=== PATIENT | male | born 1945 | race Caucasian/White ===

== ENCOUNTER → 2024-09-05 12:49 | Outpatient (REF) | payer OTHER, SELFPAY | LOC: RAD 12:49 | PROVIDERS: ATTENDING PHYSICIAN Surgery Vascular Surgery | DX: I65.23 Occlusion and stenosis of bilateral carotid arteries (principal) | CPT/HCPCS: 93880 ==

== ENCOUNTER 2024-11-10 17:57 | Inpatient (IN) | payer OTHER, SELFPAY ==
--- NOTE | 2024-11-10 12:04 | ED.GENMED ---
ED Provider Triage
<Hebert Mg PA-C - Last Filed: 11/10/24 12:05>
-
Patient seen by provider in Triage?: Seen in Triage
79-year-old male presents with several days worth of wet cough fatigue congestion chills but no measurable fever. No vomiting or nausea. No chest pain. No known sick contacts. No prior history of COPD or CHF
Patient looks nontoxic overall however pulse ox is 85% with a decent signal. However clinically he does not appear to be in distress. Will start workup at triage with labs COVID and flu testing chest x-ray as well as BNP
Seen by healthcare provider at triage but warrants further assessment
History of Present Illness
<Hebert Mg PA-C - Last Filed: 11/10/24 12:05>
General
Chief Complaint: Cold/Flu/URI Symptoms
Time Seen by Provider: 11/10/24 15:49
<Arron Buckley PA-C - Last Filed: 11/10/24 21:27>
History of Present Illness
History of Present Illness:
79-year-old male presents the emergency department for evaluation of cough and congestion for the past week. Reports nasal congestion, postnasal drip, and a productive cough. Endorses shortness of breath and general malaise as well as weakness.
Family is concerned that he cannot ambulate well without being profoundly weak and having to sit down. Denies any leg swelling. No fevers or night sweats
Past History
<Hebert Mg PA-C - Last Filed: 11/10/24 12:05>
Past History
ED Past Medical History: HTN and Hypercholesterolemia
ED Past Surgical History: Other (Noncontributory )
Social History
Tobacco: Non-smoker
Alcohol: Occasional
Drug: None
Personal:
Living: with family
Employment: Retired
Family History
Family History: Other (n/c )
Review of Systems
<Arron Buckley PA-C - Last Filed: 11/10/24 21:27>
Review of Systems
Allergies reviewed?: Yes
All Other Systems: ROS reviewed and negative except as documented in HPI and ROS
Phy Exam
<Arron Buckley PA-C - Last Filed: 11/10/24 21:27>
Physical Exam
Physical Exam:
GEN: Well appearing, NAD, WDWN
Eyes: PERRLA, EOMs intact, no scleral icterus
HENT: NCAT, oral mucosa moist, no JVD, no cervical adenopathy.
Lungs: Slightly tachypneic, grossly diminished breath sounds, no wheezes or rales
Cardiac: RRR, no M/R/G, no peripheral edema. Radial pulses 2+ bilat
Neuro: AO x 3
MSK: No gross deformity or ecchymosis. No edema. No digital clubbing
Skin: No rashes, petechiae. Normal color, no pallor or jaundice.
Psych: Calm, cooperative, proper hygiene
Course
<Hebert Mg PA-C - Last Filed: 11/10/24 12:05>
Orders/Labs/Results
Orders:
Orders
11/10/24 12:01
CR Chest - 2 Views Urgent
Comment:
Reason For Exam: cough
11/10/24 12:05
Electrocardiogram (*1) Urgent
Reason for Study: Shortness of Breath
EKG- Treatment ONCE
11/10/24 12:27
COVID-19 Antigen Urgent
Source: Nasal Swab
Complete Blood Count/With Diff Urgent
Comprehensive Metabolic Panel Urgent
NT-proBNP Urgent
Influenza A+B Rapid Molecular Urgent
YOAV Source: Nasal Swab
Specimen Description:
11/10/24 15:56
0.9% Sodium Chloride 1000 ml [Nss] 1,000 ml IV BOLUS
Azithromycin 500 mg/250 ml [Zithromax Infusion] 500 mg in 250 ml IV NOW
CefTRIAXone [Rocephin] 1,000 mg IV NOW STA
11/10/24 16:16
Sterile Water [Sterile Water For Injection] 10 ml .ROUTE .STK-MED ONE
11/10/24 16:26
Lactic Acid Q4H
Comment: CANCEL 2nd LACTIC ACID IF 1st LACTIC ACID IS LESS THAN 2
Blood Culture Q30M
YOAV Source: Blood/Venous
Specimen Description:
Blood Culture Q30M
YOAV Source: Blood/Venous
Specimen Description:
11/10/24 17:21
Admit/Transfer Patient As Directed
Co-Sign Provider:
Level of Care: Inpatient admission
Assign to:: Telemetry
Physician / Group: angelica
Diagnosis: pneumonia
Reason for Telemetry: Arrhythmia
Date to Stop Telemetry: 11/13/24
Time to Stop Telemetry: 11:00
Reason for Hospitalization: pneumonia
Expected length of stay greater than two midnights?: Yes
ELOS- Estimated Length of Stay in days: 2
I certify the patient meets the requirements for IP care: Yes
PRN Pain Medication Management As Directed
May give lesser potent ordered pain med per pt: Yes
preference::
Protocol:: Medication orders for pain may be administered in a
manner that supports deferring to patient preference
when the pt is:
- Requesting an ordered lesser potent pain medication.
Least to most potent pain medications are defined
as: acetaminophen < NSAID < tramadol < opioids
(morphine, oxycodone, hydromorphone).
- Requesting a lesser dose of the same medication IF
ORDERED.
- Requesting a less intrusive route of administration
if both routes are prescribed by the provider (PO <
IV).
11/10/24 17:29
Sputum Culture [Respiratory Culture/Gram Stain] Urgent
YOAV Source: Sputum
Specimen Description:
11/10/24 18:38
0.9% Sodium Chloride 1000 ml [Nss] 1,000 ml IV 100 mls/hr
Acetaminophen [Tylenol] 1,000 mg PO Q6HPRN PRN
11/10/24 18:38
DX Deep Vein Thrombosis Video Routine
11/10/24 20:00
Lactic Acid Q4H
Comment: CANCEL 2nd LACTIC ACID IF 1st LACTIC ACID IS LESS THAN 2
Carvedilol [Coreg] 6.25 mg PO BID
Heparin 5,000 units SC Q12
11/10/24 22:00
Allopurinol [Zyloprim] 100 mg PO HS
Atorvastatin [Lipitor] 40 mg PO HS
Doxycycline Hyclate [Vibramycin] 100 mg 0.9% Sodium Chloride 250 ml [Nss] 250 ml IV Q12H
11/11/24 08:00
Amlodipine [Norvasc] 10 mg PO DAILY
Aspirin Chewable [Low Strength Aspirin] 81 mg PO DAILY
Cholecalciferol (Vitamin D3) [VITAMIN D3 (cholecalciferol)] 25 mcg PO DAILY
11/11/24 16:00
CefTRIAXone [Rocephin] 1,000 mg IV Q24H
11/13/24 11:00
DC Protocol for Telemetry ONCE
Abnormal Lab Results
11/10/24
12:27
WBC 43.9 H* 10^3/uL
(4.8-10.8)
RBC 3.67 L 10^6/uL
(4.70-6.10)
Hgb 10.9 L g/dL
(13.0-18.0)
Hct 34.3 L %
(39.0-52.0)
MCHC 31.8 L g/dL
(33.0-37.0)
RDW 17.7 H %
(11.5-14.5)
Abs Immat Gran (auto) 1.4 H 10^3/uL
(0-0.05)
Absolute Neuts (auto) 38.3 H 10^3/uL
(1.4-6.5)
Absolute Monos (auto) 1.1 H 10^3/uL
(0.1-0.6)
Absolute Eos (auto) 1.2 H 10^3/uL
(0-0.7)
Absolute Basos (auto) 0.3 H 10^3/uL
(0-0.2)
Immature Gran % 3.2 H %
(0-0.5)
Neutrophils % 87.4 H %
(42.2-75.2)
Lymphocytes % 3.7 L %
(20.5-51.1)
Potassium 5.2 H mmol/L
(3.5-5.1)
BUN 64 H mg/dl
(9-20)
Creatinine 2.9 H mg/dL
(0.7-1.3)
Glucose 122 H mg/dl
(70-99)
Alkaline Phosphatase 144 H U/L
(38-126)
11/10/24 12:27
11/10/24 12:27
Vital Signs
Initial and Last Documented VS:
Initial Vital Signs
Temp Pulse Resp Pulse Ox
97.9 F 71 16 85
11/10/24 11:59 11/10/24 11:59 11/10/24 11:59 11/10/24 11:59
Last Documented Vital Signs
Temp Pulse Resp BP Pulse Ox
97.4 F 70 20 107/49 90
11/10/24 19:40 11/10/24 19:40 11/10/24 19:40 11/10/24 19:40 11/10/24 19:40
<Arron Buckley PA-C - Last Filed: 11/10/24 21:27>
Orders/Labs/Results
Orders:
Orders
11/10/24 12:01
CR Chest - 2 Views Urgent
Comment:
Reason For Exam: cough
11/10/24 12:05
Electrocardiogram (*1) Urgent
Reason for Study: Shortness of Breath
EKG- Treatment ONCE
11/10/24 12:27
COVID-19 Antigen Urgent
Source: Nasal Swab
Complete Blood Count/With Diff Urgent
Comprehensive Metabolic Panel Urgent
NT-proBNP Urgent
Influenza A+B Rapid Molecular Urgent
YOAV Source: Nasal Swab
Specimen Description:
11/10/24 15:56
0.9% Sodium Chloride 1000 ml [Nss] 1,000 ml IV BOLUS
Azithromycin 500 mg/250 ml [Zithromax Infusion] 500 mg in 250 ml IV NOW
CefTRIAXone [Rocephin] 1,000 mg IV NOW STA
11/10/24 16:16
Sterile Water [Sterile Water For Injection] 10 ml .ROUTE .[facility]-MED ONE
11/10/24 16:26
Lactic Acid Q4H
Comment: CANCEL 2nd LACTIC ACID IF 1st LACTIC ACID IS LESS THAN 2
Blood Culture Q30M
YOAV Source: Blood/Venous
Specimen Description:
Blood Culture Q30M
YOAV Source: Blood/Venous
Specimen Description:
11/10/24 17:21
Admit/Transfer Patient As Directed
Co-Sign Provider:
Level of Care: Inpatient admission
Assign to:: Telemetry
Physician / Group: angelica
Diagnosis: pneumonia
Reason for Telemetry: Arrhythmia
Date to Stop Telemetry: 11/13/24
Time to Stop Telemetry: 11:00
Reason for Hospitalization: pneumonia
Expected length of stay greater than two midnights?: Yes
ELOS- Estimated Length of Stay in days: 2
I certify the patient meets the requirements for IP care: Yes
PRN Pain Medication Management As Directed
May give lesser potent ordered pain med per pt: Yes
preference::
Protocol:: Medication orders for pain may be administered in a
manner that supports deferring to patient preference
when the pt is:
- Requesting an ordered lesser potent pain medication.
Least to most potent pain medications are defined
as: acetaminophen < NSAID < tramadol < opioids
(morphine, oxycodone, hydromorphone).
- Requesting a lesser dose of the same medication IF
ORDERED.
- Requesting a less intrusive route of administration
if both routes are prescribed by the provider (PO <
IV).
11/10/24 17:29
Sputum Culture [Respiratory Culture/Gram Stain] Urgent
YOAV Source: Sputum
Specimen Description:
11/10/24 18:38
0.9% Sodium Chloride 1000 ml [Nss] 1,000 ml IV 100 mls/hr
Acetaminophen [Tylenol] 1,000 mg PO Q6HPRN PRN
11/10/24 18:38
DX Deep Vein Thrombosis Video Routine
11/10/24 20:00
Lactic Acid Q4H
Comment: CANCEL 2nd LACTIC ACID IF 1st LACTIC ACID IS LESS THAN 2
Carvedilol [Coreg] 6.25 mg PO BID
Heparin 5,000 units SC Q12
11/10/24 22:00
Allopurinol [Zyloprim] 100 mg PO HS
Atorvastatin [Lipitor] 40 mg PO HS
Doxycycline Hyclate [Vibramycin] 100 mg 0.9% Sodium Chloride 250 ml [Nss] 250 ml IV Q12H
11/11/24 08:00
Amlodipine [Norvasc] 10 mg PO DAILY
Aspirin Chewable [Low Strength Aspirin] 81 mg PO DAILY
Cholecalciferol (Vitamin D3) [VITAMIN D3 (cholecalciferol)] 25 mcg PO DAILY
11/11/24 16:00
CefTRIAXone [Rocephin] 1,000 mg IV Q24H
11/13/24 11:00
DC Protocol for Telemetry ONCE
Abnormal Lab Results
11/10/24
12:27
WBC 43.9 H* 10^3/uL
(4.8-10.8)
RBC 3.67 L 10^6/uL
(4.70-6.10)
Hgb 10.9 L g/dL
(13.0-18.0)
Hct 34.3 L %
(39.0-52.0)
MCHC 31.8 L g/dL
(33.0-37.0)
RDW 17.7 H %
(11.5-14.5)
Abs Immat Gran (auto) 1.4 H 10^3/uL
(0-0.05)
Absolute Neuts (auto) 38.3 H 10^3/uL
(1.4-6.5)
Absolute Monos (auto) 1.1 H 10^3/uL
(0.1-0.6)
Absolute Eos (auto) 1.2 H 10^3/uL
(0-0.7)
Absolute Basos (auto) 0.3 H 10^3/uL
(0-0.2)
Immature Gran % 3.2 H %
(0-0.5)
Neutrophils % 87.4 H %
(42.2-75.2)
Lymphocytes % 3.7 L %
(20.5-51.1)
Potassium 5.2 H mmol/L
(3.5-5.1)
BUN 64 H mg/dl
(9-20)
Creatinine 2.9 H mg/dL
(0.7-1.3)
Glucose 122 H mg/dl
(70-99)
Alkaline Phosphatase 144 H U/L
(38-126)
11/10/24 12:27
11/10/24 12:27
Vital Signs
Initial and Last Documented VS:
Initial Vital Signs
Temp Pulse Resp Pulse Ox
97.9 F 71 16 85
11/10/24 11:59 11/10/24 11:59 11/10/24 11:59 11/10/24 11:59
Last Documented Vital Signs
Temp Pulse Resp BP Pulse Ox
97.4 F 70 20 107/49 90
11/10/24 19:40 11/10/24 19:40 11/10/24 19:40 11/10/24 19:40 11/10/24 19:40
<Arron Buckley PA-C - Last Filed: 11/10/24 21:27>
MDM/Problems Addressed
MDM/Problems Addressed:
Patient is hypoxic with dramatic leukocytosis thus will warrant inpatient hospitalization for IV antibiotics
<Arron Buckley PA-C - Last Filed: 11/10/24 21:27>
*Critical Care Note
Total Time (30-74mins, 75-104mins- exclusive of procedures): Not Applicable
ED Attending Note
<Hebert Mg PA-C - Last Filed: 11/10/24 12:05>
-
Portions of this chart may have been created with voice recognition software.� Occasional wrong word or��sound alike� substitutions may have occurred due to the inherent limitations of voice recognition software.
Discharge Plan
Departure
Patient Disposition: Admit
Date of Disposition: 11/10/24
Time of Disposition: 16:46
Admit to: Med/Surg
Presentation/result/management discussed w/ accepting MD/DO: Hospitalist
Discharge Problem:
Bilateral pneumonia, Acute hypoxic respiratory failure, Acute kidney injury
Interventions
Interventions:
*Risk Screen - Suicide Last Done: 11/10/24 11:59
*General Assessment Last Done: 11/10/24 16:31
*Neglect/Abuse Screening Last Done: 11/10/24 11:59
ED- Fall Risk Assessment Last Done: 11/10/24 18:41
*ED COVID-19 Vaccine History Last Done: 11/10/24 16:31
*Nursing Disposition Last Done: 11/10/24 18:41
ED- Pulmonary Assessment Last Done: 11/10/24 16:36
Discharge Date and Time
Discharge Date/Time: 11/10/24 18:53
[2024-11-10 12:42] LABS: Hematocrit 34.3 % (39.0-52.0); Hemoglobin 10.9 g/dL (13.0-18.0); Mean Corp Hgb Conc. 31.8 g/dL (33.0-37.0); Mean Corpuscular Hgb 29.7 pg (27.0-31.0); Mean Corpuscular Volume 93.5 fL (80.0-94.0); Mean Platelet Volume 9.1 fL (7.4-10.4); Platelet Count 178 10^3/uL (130-400); Red Blood Cell Count 3.67 10^6/uL (4.70-6.10); Red Cell Dist. Width 17.7 % (11.5-14.5); White Blood Cell Count 43.9 10^3/uL (4.8-10.8)
[2024-11-10 12:51] LABS: ALT (SGPT) 29 U/L (0-50); AST (SGOT) 23 U/L (17-59); Albumin 3.7 g/dl (3.5-5.0); Alkaline Phosphatase 144 U/L (38-126); Blood Urea Nitrogen 64 mg/dl (9-20); Calcium 9.6 mg/dl (8.4-10.2); Carbon Dioxide 24 mmol/L (22-30); Chloride 103 mmol/L (98-107); Glucose 122 mg/dl (70-99); Potassium 5.2 mmol/L (3.5-5.1); Sodium 140 mmol/L (135-145); Total Bilirubin 0.8 mg/dl (0.2-1.3); Total Protein 6.7 g/dl (6.3-8.2)
[2024-11-10 12:56] LABS: NT-proBNP 18700 pg/ml
[2024-11-10 12:58] LABS: COVID-19 Antigen Negative (Negative)
[2024-11-10 13:10] LABS: % Basophils 0.6 % (0-2); % Eosinophils 2.6 % (0-6); % Immature Granulocytes 3.2 % (0-0.5); % Lymphocytes 3.7 % (20.5-51.1); % Monocytes 2.5 % (1.7-9.3); % Neutrophils 87.4 % (42.2-75.2); Absolute Basophils 0.3 10^3/uL (0-0.2); Absolute Eosinophils 1.2 10^3/uL (0-0.7); Absolute Immature Granulocytes 1.4 10^3/uL (0-0.05); Absolute Lymphocytes 1.6 10^3/uL (1.2-3.4); Absolute Monocytes 1.1 10^3/uL (0.1-0.6); Absolute Neutrophils 38.3 10^3/uL (1.4-6.5); Nucleated Red Blood Cells % 0.2 % (-)
[2024-11-10 15:56] VITALS: BP 116/63
[2024-11-10] MEDS: ROCEPHIN 1000 MG IV (16:26)
[2024-11-10] MEDS: NSS 1000 IV ×2 (16:26→20:14)
[2024-11-10 16:31] VITALS: BMI 22.8
[2024-11-10 16:52] LABS: Lactic Acid 1.8 mmol/L (0.7-2.0)
--- NOTE | 2024-11-10 17:45 | HPS.HSE ---
Family Physician
-
Family Physician: Martín Handy MD
Chief Complaint
-
shortness of breath
History of Present Illness
79-year-old male past medical history of hypertension, hypercholesteremia, gout, presenting with 1 week of of wet cough, fatigue, congestion and chills, postnasal drip but no fever. No vomiting or nausea. No chest pain. No sick contacts. Patient
having difficulty with ambulation. No leg swelling. No weight gain. Denies sore throat. No sick contacts. Denies nausea vomiting or diarrhea.
No history of heart or lung problems.
Patient follows Dr. Mane for his chronic kidney disease was stable as of a month ago.
Denies smoking or alcohol use.
Medical History
Past Medical History
Past Medical History: Reports Other (hypertension, hypercholesteremia, gout,)
Past Surgical History: Reports None
Social History
Tobacco: Non-smoker
Alcohol: None
Drug: None
Family History
Family History: Not pertinent
Allergies / Home Medications
Allergies reflects when Allergies were last updated in [employer].
Home Medications with original date entered in [employer]
Allergy/Medication List:
Allergies
Allergy/AdvReac Type Severity Reaction Status Date / Time
No Known Allergies Allergy Verified 11/10/24 11:59
Home Medications
Baking Soda 0.25 tsp PO DAILY 11/10/24
acetaminophen 500 mg tablet (Tylenol Extra Strength) 1,000 mg PO Q6HPRN PRN mild pain 11/10/24
allopurinol 100 mg tablet 100 mg PO HS 11/10/24
amlodipine 10 mg tablet 10 mg PO DAILY 11/10/24
aspirin 81 mg chewable tablet 81 mg PO DAILY 11/10/24
atorvastatin 40 mg tablet 40 mg PO HS 11/10/24
carvedilol 6.25 mg tablet 6.25 mg PO BID 11/10/24
cholecalciferol (vitamin D3) 25 mcg (1,000 unit) tablet (Vitamin D3) 25 mcg PO DAILY 11/10/24
hydrochlorothiazide 25 mg tablet 25 mg PO DAILY 11/10/24
lisinopril 40 mg tablet 40 mg PO HS 11/10/24
Review of Systems
-
History Source: Patient
A 12 point ROS was completed and negative except as noted: Yes
Constitutional: Reports No Symptoms
EENT: Reports No Symptoms
Respiratory: Reports See HPI
Cardiac: Reports No Symptoms
Abdomen/GI: Reports No Symptoms
: Reports No Symptoms
Musculoskeletal: Reports No Symptoms
Skin: Reports No Symptoms
Neurological: Reports No Symptoms
Endocrine: Reports No Symptoms
Hematologic/Lymphatic: Reports No Symptoms
Psych: Reports No Symptoms
Physical Exam
Vital Signs
Vital Signs
Temp Pulse Resp BP Pulse Ox
97.9 F 65 17 116/63 92
11/10/24 11:59 11/10/24 16:30 11/10/24 16:30 11/10/24 15:56 11/10/24 16:36
Physical Exam
General: Well Developed, Well Nourished and No Apparent Distress
HEENT: NormoCephalic, Moist mucous membranes and Atraumatic
Respiratory: Clear
Cardiac: S1/S2 and Regular Rhythm; No Murmur or Rub
GI: Soft, Non Tender, Non Distended and Normal Bowel Sounds; No Organomegaly
Rectal: Deferred by Provider
Musculoskeletal: No Clubbing, No Cyanosis and No Edema
Skin: No Rash
Neuro: Nonfocal/grossly intact
Laboratory Results
-
11/10/24 12:27
11/10/24 12:27
Laboratory Results
Lactic Acid 1.8 mmol/L (0.7-2.0) 11/10/24 16:26
Total Bilirubin 0.8 mg/dl (0.2-1.3) 11/10/24 12:27
AST 23 U/L (17-59) 11/10/24 12:27
ALT 29 U/L (0-50) 11/10/24 12:27
Alkaline Phosphatase 144 U/L (38-126) H 11/10/24 12:27
Data Reviewed
-
Lab Data: Labs Reviewed by me
Old Records: Reviewed
Impression/Plan
-
IMPRESSION:
PLAN:
# Hypoxemic respiratory failure secondary to bilateral pneumonia
-Patient on 5 L oxygen
-Chest x-ray shows patchy parenchymal airspace opacity within both lungs, appearance highly suggestive of pneumonia
-COVID and flu negative
-Cardiac BNP of 18,000 although no evidence of heart failure
-Check blood cultures
-Ceftriaxone/doxycycline
# ANGELINA on CKD versus CKD
# Mild hyperkalemia
-Pain of 2.9 but prior was 1.9 in 2009
-Monitor with IV fluids
-Hold hydrochlorothiazide, lisinopril
Essential hypertension
-Continue amlodipine
-Continue Coreg
Hypercholesterolemia
Gout
-Continue allopurinol
DNR/DNI
DVT prophylaxis�heparin
Regular diet
[2024-11-10] MEDS: ZITHROMAX INFUSION 250 IV (17:46)
[2024-11-10 19:40] VITALS: BP 107/49
[2024-11-10] MEDS: LIPITOR 40 MG PO (21:05)
[2024-11-10] MEDS: HEPARIN 5000 UNITS SC (21:05)
[2024-11-10] MEDS: COREG 6.25 MG PO (21:05)
[2024-11-10] MEDS: VIBRAMYCIN 260 MG IV (21:05)
[2024-11-10] MEDS: ZYLOPRIM 100 MG PO (22:22)
[2024-11-10 22:39] VITALS: BP 127/65
[2024-11-11 03:28] VITALS: BP 116/48
[2024-11-11] MEDS: NSS 1000 IV (05:42)
[2024-11-11 07:00] VITALS: BP 107/54
[2024-11-11] MEDS: HEPARIN 5000 UNITS SC ×2 (08:37→19:44)
[2024-11-11] MEDS: COREG 6.25 MG PO ×2 (08:37→19:44)
[2024-11-11] MEDS: LOW STRENGTH ASPIRIN 81 MG PO (08:37)
[2024-11-11] MEDS: VITAMIN D3 (cholecalciferol) 25 MCG PO (08:37)
[2024-11-11] MEDS: VIBRAMYCIN 260 MG IV (09:52)
[2024-11-11] MEDS: NORVASC 10 MG PO (10:13)
[2024-11-11 11:31] VITALS: BP 121/46
--- NOTE | 2024-11-11 12:54 | W.PN.HOSP.TC ---
Today's Communication/Plan
-
recheck labs
pt not acting like either pna OR CHF but CXR with pna and pro BNP 18K...
echo--? need for diuresis?
Assessment / Plan
Assessment / Plan
pt is an 79 year old male
Acute Hypoxemic respiratory failure secondary to bilateral pneumonia--on 5L O2 and with pulse ox 91%--PNA on CXR--COVID/FLU negative--pro BNP 18K--cultures pending--cont rocephin and ORAL doxy--check ECHO
ANGELINA on CKD versus CKD--creat 2.9 but prior was 1.9 in 2009--stop IVF--Hold hydrochlorothiazide, lisinopril
Essential hypertension--Continue amlodipine--Continue Coreg
Hypercholesterolemia
Gout--Continue allopurinol
code status --DNR/DNI
DVT prophylaxis�heparin
Anticipated Discharge: > 48 hours
Subjective/Interval History
-
Date of Service: November 11, 2024
pt c/o dry nose--does not wear O2 at baseline
Objective Data
-
Vital Signs:
max temp for 24 hours
11/11/24
03:28
Temp 98.7 F
Vital Signs
Temp Pulse Resp BP Pulse Ox
97.5 F 67 18 121/46 91
11/11/24 11:31 11/11/24 11:31 11/11/24 11:31 11/11/24 11:31 11/11/24 11:31
I&O
11/10/24 11/11/24 11/12/24
06:59 06:59 06:59
Intake Total 1240 / 1240
Output Total 550 / 550
Balance 690 / 690
Review of Systems
-
All other systems: Reviewed and negative
Physical Exam
-
General: Well Developed, Well Nourished and No Apparent Distress
HEENT: Normocephalic, Atraumatic and Oxygen
Respiratory: Clear to Auscultation
Cardiac: Regular Rhythm and S1/S2; Negative Murmur
GI: Soft, Nontender, Nondistended and Normal Bowel Sounds
Musculoskeletal: No Clubbing, No Cyanosis and No Edema
Skin: Warm
Neuro: Awake and Alert
Psych: Calm
[2024-11-11 13:45] LABS: Hematocrit 30.2 % (39.0-52.0); Hemoglobin 9.3 g/dL (13.0-18.0); Mean Corp Hgb Conc. 30.8 g/dL (33.0-37.0); Mean Corpuscular Hgb 29.3 pg (27.0-31.0); Mean Corpuscular Volume 95.3 fL (80.0-94.0); Mean Platelet Volume 9.3 fL (7.4-10.4); Platelet Count 148 10^3/uL (130-400); Red Blood Cell Count 3.17 10^6/uL (4.70-6.10); Red Cell Dist. Width 17.8 % (11.5-14.5)
[2024-11-11 13:51] LABS: ALT (SGPT) 24 U/L (0-50); AST (SGOT) 19 U/L (17-59); Albumin 2.9 g/dl (3.5-5.0); Alkaline Phosphatase 136 U/L (38-126); Blood Urea Nitrogen 56 mg/dl (9-20); Calcium 8.1 mg/dl (8.4-10.2); Carbon Dioxide 18 mmol/L (22-30); Chloride 110 mmol/L (98-107); Estimated Creatinine Clearance 23 ml/min; Glucose 108 mg/dl (70-99); Magnesium 1.9 mg/dl (1.6-2.3); Potassium 4.8 mmol/L (3.5-5.1); Sodium 139 mmol/L (135-145); Total Bilirubin 0.5 mg/dl (0.2-1.3); Total Protein 5.6 g/dl (6.3-8.2); eGFR 25.34
[2024-11-11 14:07] LABS: White Blood Cell Count 37.8 10^3/uL (4.8-10.8)
[2024-11-11 14:13] LABS: Absolute Neutrophils -Man Diff 34.7 10^3/uL (1.4-6.5); Band Neutrophils 14 % (0-3); Eosinophils 4 % (0-6); Lymphocytes 2 % (20-51); Monocytes 1 % (2-9); Myelocytes 1 % (-); Platelets Checked Yes; Segmented Neutrophils 78 % (42-75)
[2024-11-11 14:14] LABS: Anisocytosis 1+; Hypochromasia 1+; Normal RBC Morphology No; Ovalocytes FEW; Polychromasia 1+
[2024-11-11 14:15] LABS: Total Cells Counted 100
[2024-11-11 15:45] VITALS: BP 115/50
[2024-11-11] MEDS: ROCEPHIN 1000 MG IV (16:28)
[2024-11-11] MEDS: STERILE WATER FOR INJECTION 10 ML IV (16:28)
[2024-11-11 19:42] VITALS: BP 120/53
[2024-11-11] MEDS: VIBRAMYCIN 100 MG PO (19:44)
[2024-11-11] MEDS: ZYLOPRIM 100 MG PO (19:47)
[2024-11-11] MEDS: LIPITOR 40 MG PO (19:47)
[2024-11-11 23:54] VITALS: BP 110/54
[2024-11-12 03:37] VITALS: BP 116/51
[2024-11-12 06:40] VITALS: BP 127/56
[2024-11-12 07:22] LABS: Hematocrit 28.9 % (39.0-52.0); Hemoglobin 8.8 g/dL (13.0-18.0); Mean Corp Hgb Conc. 30.4 g/dL (33.0-37.0); Mean Corpuscular Hgb 29.1 pg (27.0-31.0); Mean Corpuscular Volume 95.7 fL (80.0-94.0); Mean Platelet Volume 9.7 fL (7.4-10.4); Platelet Count 157 10^3/uL (130-400); Red Blood Cell Count 3.02 10^6/uL (4.70-6.10); Red Cell Dist. Width 17.9 % (11.5-14.5); White Blood Cell Count 39.2 10^3/uL (4.8-10.8)
[2024-11-12 07:43] LABS: NT-proBNP 19100 pg/ml
[2024-11-12 07:47] LABS: ALT (SGPT) 22 U/L (0-50); AST (SGOT) 19 U/L (17-59); Albumin 2.7 g/dl (3.5-5.0); Alkaline Phosphatase 165 U/L (38-126); Blood Urea Nitrogen 53 mg/dl (9-20); Carbon Dioxide 16 mmol/L (22-30); Chloride 112 mmol/L (98-107); Estimated Creatinine Clearance 23 ml/min; Glucose 79 mg/dl (70-99); Magnesium 1.9 mg/dl (1.6-2.3); Potassium 4.4 mmol/L (3.5-5.1); Sodium 142 mmol/L (135-145); Total Bilirubin 0.6 mg/dl (0.2-1.3); Total Protein 5.4 g/dl (6.3-8.2); eGFR 25.34
[2024-11-12 08:24] LABS: Absolute Neutrophils -Man Diff 34.1 10^3/uL (1.4-6.5); Atypical Lymphocytes 1 %; Band Neutrophils 15 % (0-3); Eosinophils 3 % (0-6); Lymphocytes 9 % (20-51); Platelets Checked Yes; Segmented Neutrophils 72 % (42-75)
[2024-11-12 08:25] LABS: Hypochromasia 1+; Normal RBC Morphology Yes; Ovalocytes FEW; Polychromasia FEW; Total Cells Counted 100
[2024-11-12] MEDS: COREG 6.25 MG PO ×2 (09:35→20:12)
[2024-11-12] MEDS: LOW STRENGTH ASPIRIN 81 MG PO (09:35)
[2024-11-12] MEDS: VIBRAMYCIN 100 MG PO ×2 (09:35→20:12)
[2024-11-12] MEDS: NORVASC 10 MG PO (09:35)
[2024-11-12] MEDS: VITAMIN D3 (cholecalciferol) 25 MCG PO (09:36)
[2024-11-12] MEDS: HEPARIN 5000 UNITS SC ×2 (09:36→20:12)
--- NOTE | 2024-11-12 10:12 | CM ---
marketing sales manager reviewed patient's chart and met with patient and patient states he lives with his spouse in a 2 story home, patient is independent with adl's and ambulation, patient has a 1st floor set up, with bed and bathroom, per notes pain is
currently requiring 6 liters of oxygen, patient did not have home oxygen, patient will need follow up.
PCP: Martín Handy
Pharmacy: [facility]
Plan; Home when stable, need to follow for home oxygen needs at discharge.
[2024-11-12 11:08] VITALS: BP 113/50
--- NOTE | 2024-11-12 13:41 | W.PN.HOSP.TC ---
Today's Communication/Plan
-
consult renal
echo in AM
repeat pro BNP
wean O2 as able
cont ABX
Assessment / Plan
Assessment / Plan
pt is an 79 year old male
Acute Hypoxemic respiratory failure secondary to bilateral pneumonia--on 5L O2 and with pulse ox 91%--PNA on CXR--COVID/FLU negative--pro BNP 18K but not acting like CHF, will repeat--cultures negative--cont rocephin and ORAL doxy-- ECHO Wednesday
ANGELINA on CKD versus CKD--creat 2.9 but prior was 1.9 in 2009--stopped IVF--Hold hydrochlorothiazide, lisinopril--creat down to 2.5--consult renal
Essential hypertension--Continue amlodipine--Continue Coreg
Hypercholesterolemia
Gout--Continue allopurinol
code status --DNR/DNI
DVT prophylaxis�heparin
Anticipated Discharge: > 48 hours
Subjective/Interval History
-
Date of Service: November 12, 2024
pt still on O2
Objective Data
-
Labs:
Laboratory Results
11/12/24
06:08
WBC 39.2 H
Hgb 8.8 L
Hct 28.9 L
Plt Count 157
Sodium 142
Potassium 4.4
Chloride 112 H
Carbon Dioxide 16 L
BUN 53 H
Creatinine 2.5 H
Glucose 79
Calcium 8.0 L
Total Bilirubin 0.6
AST 19
ALT 22
Alkaline Phosphatase 165 H
Vital Signs:
max temp for 24 hours
11/11/24
19:42
Temp 98.6 F
Vital Signs
Temp Pulse Resp BP Pulse Ox
98.3 F 68 18 113/50 92
11/12/24 11:08 11/12/24 11:08 11/12/24 11:08 11/12/24 11:08 11/12/24 11:08
I&O
11/11/24 11/12/24 11/13/24
06:59 06:59 06:59
Intake Total 1240 / 1240 480 / 480
Output Total 550 / 550 400 / 400
Balance 690 / 690 80 / 80
Review of Systems
-
All other systems: Reviewed and negative
Physical Exam
-
General: Well Developed, Well Nourished and No Apparent Distress
HEENT: Normocephalic, Atraumatic and Oxygen
Respiratory: Clear to Auscultation and Wheezes (minimal faint occasion wheeze, otherwise clear)
Cardiac: Regular Rhythm and S1/S2; Negative Murmur
GI: Soft, Nontender, Nondistended and Normal Bowel Sounds
Musculoskeletal: No Clubbing, No Cyanosis and No Edema
Neuro: Awake and Alert
--- NOTE | 2024-11-12 13:55 | W.CON.NEPH ---
Consultation
-
Date/Time Consultation Requested: 11/12/24 1:50 PM
Date/Time Consultation Performed: 11/12/24, 2:00 PM
Requesting Provider: Dr. Red
Performing Provider: Dr. Mane
Reason for Consultation: acute kidney injury. CK D stage III
Medical History
-
Chief Complaint: , acute kidney injury
History of Present Illness:
. The patient is an 79-year-old male with a past medical history of chronic kidney disease, stage IIIB. The patient follows with me in our nephrology office and maintains a baseline creatinine of 2 as of March 2024. He has a history of hypertension
which is been controlled on the combination of his amlodipine ,Carvedilol, HCTZ,and lisinopril.He is maintained on aspirin and statin therapy in the setting of his peripheral vascular disease. The patient presented to the hospital following a
several week course of fatigue, congestion, postnasal drip and cough. The patient states he originally developed an upper respiratory infection around , which has waxed and waned since that time. He denies any chest pain, weight gains
or change in urinary frequency. He also denies fevers or myalgias at this time. He does note dyspnea on exertion. On presentation to the hospital, his creatinine was elevated to 2.9 and there was an associated elevated proBNP of 18,000.
Nephrology was asked to see the patient in regards to his acute kidney injury and volume status.
Past Medical History
Hypertension
Peripheral vascular disease
CKD stage IIIB with baseline creatinine of 2
Hyperlipidemia
Gout
Social History
Tobacco: Former Smoker
Alcohol: None
Family History
. No chronic kidney disease
Allergies / Home Medications
Allergy/AdvReac Type Severity Reaction Status Date / Time
No Known Allergies Allergy Verified 11/10/24 11:59
�Medication �Instructions �Recorded �Confirmed �Type
Baking Soda 0.25 tsp PO DAILY Supplement 11/10/24 11/10/24 History
acetaminophen 500 mg tablet 1,000 mg PO Q6HPRN PRN mild pain 11/10/24 11/10/24 History
(Tylenol Extra Strength)
allopurinol 100 mg tablet 100 mg PO HS Gout 11/10/24 11/10/24 History
amlodipine 10 mg tablet 10 mg PO DAILY Blood Pressure 11/10/24 11/10/24 History
aspirin 81 mg chewable tablet 81 mg PO DAILY Blood Clot 11/10/24 11/10/24 History
Prevention/Tx
atorvastatin 40 mg tablet 40 mg PO HS High Cholesterol 11/10/24 11/10/24 History
carvedilol 6.25 mg tablet 6.25 mg PO BID Blood Pressure 11/10/24 11/10/24 History
cholecalciferol (vitamin D3) 25 25 mcg PO DAILY Supplement 11/10/24 11/10/24 History
mcg (1,000 unit) tablet (Vitamin
D3)
hydrochlorothiazide 25 mg tablet 25 mg PO DAILY Blood Pressure 11/10/24 11/10/24 History
lisinopril 40 mg tablet 40 mg PO HS Blood Pressure 11/10/24 11/10/24 History
Review of Systems
-
History Source: Patient
All other systems: Negative unless noted
Constitutional: Fatigue
Respiratory: Cough and Trouble Breathing (dyspnea on exertion)
Cardiac: No Symptoms
Abdomen/GI: No Symptoms
: No Symptoms
Musculoskeletal: No Symptoms
Skin: No Symptoms
Neurological: No Symptoms
Endocrine: No Symptoms
Hematologic/Lymphatic: No Symptoms
Physical Exam
Vital Signs
Vital Signs
Temp Pulse Resp BP Pulse Ox
98.3 F 68 18 113/50 92
11/12/24 11:08 11/12/24 11:08 11/12/24 11:08 11/12/24 11:08 11/12/24 11:08
Lab Results
WBC 39.2 10^3/uL (4.8-10.8) H 11/12/24 06:08
RBC 3.02 10^6/uL (4.70-6.10) L 11/12/24 06:08
Hgb 8.8 g/dL (13.0-18.0) L 11/12/24 06:08
Hct 28.9 % (39.0-52.0) L 11/12/24 06:08
Plt Count 157 10^3/uL (130-400) 11/12/24 06:08
Sodium 142 mmol/L (135-145) 11/12/24 06:08
Potassium 4.4 mmol/L (3.5-5.1) 11/12/24 06:08
Chloride 112 mmol/L (98-107) H 11/12/24 06:08
Carbon Dioxide 16 mmol/L (22-30) L 11/12/24 06:08
BUN 53 mg/dl (9-20) H 11/12/24 06:08
Creatinine 2.5 mg/dL (0.7-1.3) H 11/12/24 06:08
eGFR 25.34 11/12/24 06:08
Glucose 79 mg/dl (70-99) 11/12/24 06:08
Calcium 8.0 mg/dl (8.4-10.2) L 11/12/24 06:08
Wtm-C-Fsetjvswoqj Pept 58241 pg/ml 11/12/24 06:08
Albumin 2.7 g/dl (3.5-5.0) L 11/12/24 06:08
Physical Exam
General: AOx3 and Other (Respiratory distress, nasal cannula O2)
HEENT: PERRL, EOMI, Anicteric, Conjunctivae Clear, Ear/Nose Intact, Facial Symmetry, Neck Supple, Trachea Midline, No JVD and No Thyromegaly
Respiratory: Nonlabored Respirations and Other ( coarse respiratory sounds but no rhonchi, wheezes or rales)
Cardiac: S1/S2 and Regular Rate/Rhythm
Abdomen: Soft, Nontender, Nondistended, Normal Bowel Sounds and No Hepatosplenomegaly
Rectal: Deferred by Provider
Genito-urinary: No Costovertebral Tender and Clear Urine
Musculoskeletal: No Clubbing, No Cyanosis and No Edema
Skin: No Rash, Warm, Dry, No Clubbing, No Cyanosis, Normal Turgor and No Bruising
Neuro: Nonfocal/Grossly Intact, CN II-XII ( intact) and Strength ( 5 out of 5 upper and lower extremities)
Hematologic/Lymphatic: No Cervical Lymphadenopathy, No Submandibular Lymphadenopathy and No Supraclavicular Lymphadenopathy
Psych: Mood/afflect pleasant, Insight/judgement good and Appropriate
Data Reviewed
-
Radiology: Image Personally Visualized and interpreted (Chest x-ray personally reviewed: Bilateral interstitial pneumonic pattern with associated left lower lobe effusion)
Labs: Labs Reviewed by me ( BMP, CBC, urinalysis)
Old Records: Reviewed ( reviewed. Previous creatinine level of 2.0 from today of 2023)
Assessment/Plan
-
Impression:
ANGELINA
CKD 3B (~2)
Microhematuria
Hypoxic respiratory failure/. Suspected bilateral pneumonia
Leukocytosis
ProBNP 18,000 with no prior history of congestive heart failure
Hyperlipidemia
Hypertension
History of gout
Plan:
ANGELINA:
-Creatinine already heading back towards baseline from 2.9-2.5
-We can suspend IV fluids now as there is a concern for congestive heart failure, although exam findings do not support this
-Agree with obtaining echocardiogram to assess for possible congestive heart failure. As causality of hypoxic Respiratory failure
-History, exam, and leukocytosis support Bilateral pneumonia diagnosis, , Although proBNP level of 18,000 and is certainly concerning
-We will obtain a kidney and bladder ultrasound, given microhematuria and kidney injury
-Agree with holding LIBBY inhibitor and HCTZ in setting of acute kidney injury
-Blood pressure currently controlled on the combination of amlodipine, carvedilol
Ceftriaxone and doxycycline without need for renal adjustment on dosage
[2024-11-12 15:06] VITALS: BP 120/53
[2024-11-12] MEDS: STERILE WATER FOR INJECTION 10 ML IV (17:10)
[2024-11-12] MEDS: ROCEPHIN 1000 MG IV (17:10)
--- NOTE | 2024-11-12 19:00 | PTCARENOTE ---
Pt's family member reported pt's O2 sat in the 70's when VSS taken. Day RN went in to assess pt. NRB placed as pt was 80's on up to 6L NC. Pt's sat 95-97% on NRB and resp therapy came to see pt and adjusted pt to partial NRB. Pt asymptomatic
throughout incident.
[2024-11-12 19:30] VITALS: BP 122/53
[2024-11-12] MEDS: LIPITOR 40 MG PO ×2 (20:12→20:22)
[2024-11-12] MEDS: ZYLOPRIM 100 MG PO (20:14)
[2024-11-12 23:30] VITALS: BP 123/57
[2024-11-13] VITALS (8 sets, daily range): BP systolic 107–124; BP diastolic 50–83; BMI 22.3
--- NOTE | 2024-11-13 01:50 | W.PN.UPDATE ---
Update Note
Progress Note Update
0120 Eval for pt fall in bathroom
79 yo admitted with pneumonia and was on partial non rebreather prior to fall for hypoxia.
Pt was ambulated into bathroom by PCT, unfortunately without his oxygen on. While in bathroom likely became weak due to hypoxia and slid to bathroom floor and was incont of bm and urine. While in bathroom pt was confused. With help of staff members,
pt was carried to bed with a sheet and once in bed and oxygen replaced pt mentation returned to baseline AAOX3. Bed alarm placed. PT adamantly denies injury. No visible injuries noted
--- NOTE | 2024-11-13 01:52 | PTCARENOTE ---
Pt rang for assist to bathroom. PCT assisted pt to bathroom but pt became weak and leaned against the wall and lowered himself to floor. Pt had removed his partial rebreather mask prior to ambulating. Pt's O2 sat initially in the 80's on RA. Pt was
unable to get up from floor and needed to be lifted with sheet back to bed. O2 mask reapplied and pt educated not to remove rebreather mask. O2 sat up to 94%. House CLEANER HOUSEKEEPING on floor and examined pt. Nsg supervisor asbestos textile made aware of incident.
[2024-11-13] MEDS: NORVASC 10 MG PO (08:10)
[2024-11-13] MEDS: VIBRAMYCIN 100 MG PO ×2 (08:10→22:15)
[2024-11-13] MEDS: LOW STRENGTH ASPIRIN 81 MG PO (08:10)
[2024-11-13] MEDS: VITAMIN D3 (cholecalciferol) 25 MCG PO (08:10)
[2024-11-13] MEDS: HEPARIN 5000 UNITS SC ×2 (08:10→23:06)
[2024-11-13] MEDS: COREG 6.25 MG PO ×2 (08:10→22:15)
[2024-11-13 08:22] LABS: Hematocrit 28.7 % (39.0-52.0); Hemoglobin 8.8 g/dL (13.0-18.0); Mean Corp Hgb Conc. 30.7 g/dL (33.0-37.0); Mean Corpuscular Hgb 29.1 pg (27.0-31.0); Mean Platelet Volume 9.4 fL (7.4-10.4); Platelet Count 153 10^3/uL (130-400); Red Blood Cell Count 3.02 10^6/uL (4.70-6.10); Red Cell Dist. Width 17.7 % (11.5-14.5); White Blood Cell Count 41.6 10^3/uL (4.8-10.8)
[2024-11-13 08:47] LABS: Blood Urea Nitrogen 52 mg/dl (9-20); Calcium 8.2 mg/dl (8.4-10.2); Carbon Dioxide 18 mmol/L (22-30); Chloride 110 mmol/L (98-107); Estimated Creatinine Clearance 24 ml/min; Glucose 98 mg/dl (70-99); Potassium 4.7 mmol/L (3.5-5.1); Sodium 140 mmol/L (135-145)
[2024-11-13] MEDS: DUONEB 3 ML INH (08:56)
--- NOTE | 2024-11-13 11:22 | CM ---
Patient seen at bedside with daughter Kim also present and physicians. Patient for transfer to IMU due to high O2 needs. Patient on mid flow 13 liters per physician. CM will continue to follow for discharge planning needs.
Plan; trans to IMU; home with VN/ home O2 watch for possible needs.
--- NOTE | 2024-11-13 12:20 | CON.PUL ---
Consultation
Consultation Request
Date/Time Consultation Requested: 11/13/2024 - 111
Date/Time Consultation Performed: 11/13/2024 - 1154
Requesting Provider: Dr. Simmons
Performing Provider: Dr. Machado
Reason for Consultation: Hypoxia
Medical History
-
Chief Complaint: SOB, congestion + cough
History of Present Illness:
79-year-old male former tobacco smoker with a past medical history of gout, hyperlipidemia, hypertension and CKD who presents with shortness of breath, chest congestion and cough. Symptoms started around when he felt ill and he
improved over the next 2-3 weeks. He then developed sciatica around Julianna time and that had improved over the next 1 week. He did have shortness of breath that developed around and this worsened over the course of the following
week. He went to his doctor, Dr. Handy, on 11/10/2024 and found that his pulse oximeter was in the 50s. He was sent here to the ER for further evaluation, and found to be saturating 85% on room air. Saturations improved to the low 90s on 5 L/min
nasal cannula. Initially he was afebrile to 97.9 �F, pulse rate 71, breathing at 16 breaths minute, and BP 116/63. Initial labs showed leukocytosis to 43.9, Hb 10.9, increased eosinophil count of 1200, creatinine 2.9, potassium 5.2, glucose 122,
proBNP 18,700, and COVID antigen negative. Flu A/B swab also negative and blood cultures were collected. Initial CXR showed patchy parenchymal airspace opacities in both lungs with small bilateral pleural effusions and suspected bullous changes in
the lower lungs bilaterally. He was initially given 1 L NS 0.9%, ceftriaxone and Zithromax and admitted to telemetry. Antibiotics were continued and he continues to require oxygen. On 11/13/2024 his oxygen requirements worsened and he was started
on a partial rebreather and upgraded to the IMU. Pulmonary service now consulted for additional management/recommendations.
When I saw the patient he was sitting in a chair with daughter, Kim, at bedside. He says that he feels that his shortness of breath has improved. Still coughing up brown/bloody phlegm. He is currently on partial rebreather. He has no history
of chronic lung disease and has never seen a lung doctor before. Also no history of chronic heart disease. He currently denies chest pain, BARRIENTOS, abdominal pain, nausea, fevers or chills.
PMHx: Hypertension, dyslipidemia, CKD stage III, gout, vitamin D deficiency, proteinuria, carotid artery stenosis, former tobacco smoker ([id number] history, quit 40 years ago)
PSHx: Non-contributory
Past Medical History
Past Medical History: Other (Above as per HPI)
Past Surgical History: Other (Above as per HPI)
Social History
Tobacco: Former Smoker (Smoked 1-1.5 PPD X 20 years, quit approximately 40 years ago)
Alcohol: None
Drug: None
Family History
Family History: CAD (Father) and Other (Father: Emphysema)
Allergies / Home Medications
Allergies
Allergy/AdvReac Type Severity Reaction Status Date / Time
No Known Allergies Allergy Verified 11/10/24 11:59
Home Medications
�Medication �Instructions �Recorded �Confirmed �Last Taken �Type
Baking Soda 0.25 tsp PO DAILY Supplement 11/10/24 11/10/24 11/10/24 History
acetaminophen 500 mg tablet 1,000 mg PO Q6HPRN PRN mild pain 11/10/24 11/10/24 Unknown History
(Tylenol Extra Strength)
allopurinol 100 mg tablet 100 mg PO HS Gout 11/10/24 11/10/24 Unknown History
amlodipine 10 mg tablet 10 mg PO DAILY Blood Pressure 11/10/24 11/10/24 11/10/24 History
aspirin 81 mg chewable tablet 81 mg PO DAILY Blood Clot 11/10/24 11/10/24 11/10/24 History
Prevention/Tx
atorvastatin 40 mg tablet 40 mg PO HS High Cholesterol 11/10/24 11/10/24 11/09/24 History
carvedilol 6.25 mg tablet 6.25 mg PO BID Blood Pressure 11/10/24 11/10/24 11/10/24 History
cholecalciferol (vitamin D3) 25 25 mcg PO DAILY Supplement 11/10/24 11/10/24 11/10/24 History
mcg (1,000 unit) tablet (Vitamin
D3)
hydrochlorothiazide 25 mg tablet 25 mg PO DAILY Blood Pressure 11/10/24 11/10/24 11/10/24 History
lisinopril 40 mg tablet 40 mg PO HS Blood Pressure 11/10/24 11/10/24 11/09/24 History
Review of Systems
-
History Source: Patient
All other systems: Negative unless noted
Vitals / Labs / Diagnostic Testing
Vital Signs
Temp Pulse Resp BP Pulse Ox
98.7 F 62 20 118/71 93
11/13/24 15:07 11/13/24 17:30 11/13/24 17:30 11/13/24 16:47 11/13/24 17:49
Lab Data
11/13/24 07:33
11/13/24 07:33
Microbiology
11/10/24 16:26 Blood/Venous Blood Culture - Preliminary
No Growth in 72 hours- Final report to follow
11/10/24 16:26 Blood/Venous Blood Culture - Preliminary
No Growth in 72 hours- Final report to follow
11/11/24 11:28 Sputum Respiratory Culture - Final
Usual Respiratory Kiley
11/11/24 11:28 Sputum Gram Stain - Final
Diagnostic Testing:
Physical Exam
-
HEENT: Normocephalic and Anicteric
Cardiovascular: S1/S2 and Peripheral Edema (negative)
Respiratory: Wheeze (negative), Rales (negative), Rhonchi (negative), Non-Labored Respirations and Other (Diminished breath sounds bilateral)
GI: Soft, Non Distended, Non Tender and Normal Bowel Sounds
Neurology: AO x 3 and Tremors (negative)
Skin: Warm and Dry
General: Respiratory Distress (negative), Comfortable, Fever (negative) and Chills (negative)
Assessment
-
Assessment: 79-year-old male former tobacco smoker with a past medical history of gout, hyperlipidemia, hypertension and CKD who presents with shortness of breath, chest congestion and cough. Symptoms started around when he felt ill
and he improved over the next 2-3 weeks. He then developed sciatica around Julianna time and that had improved over the next 1 week. He did have shortness of breath that developed around and this worsened over the course of the
following week. He went to his doctor, Dr. Handy, on 11/10/2024 and found that his pulse oximeter was in the 50s. He was sent here to the ER for further evaluation, and found to be saturating 85% on room air. Saturations improved to the low 90s
on 5 L/min nasal cannula. Initially he was afebrile to 97.9 �F, pulse rate 71, breathing at 16 breaths minute, and BP 116/63. Initial labs showed leukocytosis to 43.9, Hb 10.9, increased eosinophil count of 1200, creatinine 2.9, potassium 5.2,
glucose 122, proBNP 18,700, and COVID antigen negative. Flu A/B swab also negative and blood cultures were collected. Initial CXR showed patchy parenchymal airspace opacities in both lungs with small bilateral pleural effusions and suspected
bullous changes in the lower lungs bilaterally. He was initially given 1 L NS 0.9%, ceftriaxone and Zithromax and admitted to telemetry. Antibiotics were continued and he continues to require oxygen. On 11/13/2024 his oxygen requirements worsened
and he was started on a partial rebreather and upgraded to the IMU. Pulmonary service now consulted for additional management/recommendations.
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
Impression:
#Acute respiratory failure with hypoxia: Likely due to bilateral pneumonia however acute pulmonary edema is also on differential especially with severely elevated proBNP of >18,500
#Leukocytosis with bandemia likely due to bilateral PNA
#Sepsis without septic shock due to pneumonia/CAP
#Acute anemia
#ANGELINA on CKD3b
#Increased eosinophil count with absolute eosinophils: 1200 on admission (11/10/2024)
#Former tobacco smoker with [id number] history, quit approximately 40 years ago
#History of gout
#Carotid artery stenosis
#Hypertension
#Dyslipidemia
Plan:
- Given that he has bibasilar opacification/groundglass opacities seen on CXR from 11/10/2024, it appears that he has a bilateral pneumonia with sepsis causing his hypoxia
- It appears that his radiographic abnormalities are not correlating with his level of hypoxia, raising suspicion for another cardiopulmonary process (i.e. heart failure, pulm HTN, vs acute PE)
- Check echo to assess r-sided pressures and valvular function + LVEF
- Continue to trend proBNP and if patient's hypoxia fails to improve or worsens despite being on antibiotics and now on systemic steroids, then would start trial of diuresis in that scenario
- Check LE duplex
- Given his CKD, would not check CTA chest or CT chest with IV contrast unless we have to --> for now check CT chest without contrast and then based on additional studies above we can decide if further studies are needed
- Continue with Abx --> currently on rocephin and doxy, however rocephin being changed to Zosyn for broader coverage given his worsening hypoxia
- Follow up sputum Cx (collected 11/11/2024 - NGTD); follow up blood Cx X2 (collected 11/10/2024 - NGTD)
- Trend WBC and monitor for fevers --> if leukocytosis does not improve despite the patient getting better clinically then would consult hematology given concern for MDS vs leukemia in that case
- Mucolytics
- prn nebulized bronchodilators - not currently bronchospastic
- Given concern for severe CAP, start hydrocortisone with 50mg IV q6hr
- No prior Hx of chronic lung disease although he was a former tobacco smoker with 30 pack year Hx --> will obtain outpatient PFTs to assess for COPD
- If CT chest shows extensive emphysema then we will consider changing from hydrocortisone back to Solu-Medrol
- Trend sCr and renally dose all meds/Abx
- Nephro following and recs appreciated
- Avoid nephrotoxic agents
- Maintain SpO2 >90-94% with NRB --> change to high flow nasal cannula
- Incentive spirometer encouraged q1hr while awkae
- Replete electrolytes with K>4, Mg>2
- Maintain euglycemia with goal BG >100 and <180
- DVT ppx: HSQ --> change to q8hr
Pulmonary service will continue to follow along. Outpatient office follow-up will also be arranged.
Data:
CXR 11/10/2024:
Patchy parenchymal airspace opacities within both lungs, appearance highly suggestive of pneumonia.
Bullous changes within both lower lungs.
Probable minimal bilateral pleural effusions.
Cardiomegaly with no convincing pulmonary edema pattern.
Total time spent today was 78 minutes for this encounter. Time includes reviewing laboratory test/imaging results, reviewing pertinent medical records, obtaining and reviewing medical history, performing an appropriate exam, ordering medications,
tests and procedures. Time also includes documentation of this encounter, coordinating patient care and communicating with other healthcare professionals. Total time does not include separately billed tests performed on this date of service.
--- NOTE | 2024-11-13 13:10 | W.PN.HOSP.TC ---
Addendum entered and electronically signed by Nadya Red MD 11/13/24 18:47:
I saw and evaluated the patient independently. I reviewed the resident�s note and agree with findings and plan as documented by Dr. Simmons.
GENERAL: well developed, well nourished, male in no apparent distress
HEENT: NC/AT--12L midflow NC O2 with sats 84%
HEART: regular rate and rhythm, +S1, +S2
LUNGS : clear to auscultation bilaterally
ABDOM: soft, nontender, nondistended, + bowel sounds
EXT: no cyanosis, clubbing, or edema
NEUROLOGIC: grossly intact
Acute Hypoxemic respiratory failure secondary to bilateral pneumonia--on 12L O2 and with pulse ox 84%--PNA on CXR--COVID/FLU negative--pro BNP 18K but not acting like CHF, will repeat--cultures negative--change rocephin to zosyn and cont ORAL
doxy-- ECHO pending--given worsening of O2 requirements, check CXR, place on NRB mask as pt mouth breather, consult pulm/ID, transfer to IMU
ANGELINA on CKD versus CKD--creat 2.9 but prior was 1.9 in 2009 (baseline ~2)--stopped IVF--Holding hydrochlorothiazide, lisinopril--creat down to 2.3--apprec renal
Essential hypertension--Continue amlodipine--Continue Coreg
Hypercholesterolemia
Gout--Continue allopurinol
code status --DNR/DNI
DVT prophylaxis�heparin
updated daughter at bedside about above plan--in agreement
Total Critical Care Time 40 minutes. I was immediately available to the patient and staff. I personally examined, reviewed labs, diagnostic images/reports, interpretations, treatment plans, discussed patient care with other providers and family
or caregivers (if patient is unable to make decisions), entered orders as appropriate and documented the medical record.
Original Note:
Today's Communication/Plan
-
Transferred to IMU
Echo today
CT chest
Start Zosyn
Assessment / Plan
Assessment / Plan
79-year-old male with past medical history significant for CKD stage IIIb, hypertension, hyperlipidemia, admitted for hypoxic respiratory failure requiring 5 L oxygen, and started on antibiotics for pneumonia.
Impression
Acute hypoxemic respiratory failure
Elevated proBNP
ANGELINA on CKD
Essential hypertension
Hypercholesterolemia
Gout
Plan
Acute Hypoxemic respiratory failure
Likely secondary to bilateral pneumonia
Patient is now requiring 12 L mid flow NC.
Elevated white count to 41
Consult ID
Consult pulmonology
Continue doxycycline
Discontinue ceftriaxone
Start Zosyn
CT chest without contrast
Methylprednisolone 30 mg IV every 12hrs �5 days
Transferred to IMU
Elevated proBNP
Up to 19,000
Chest x-ray�evidence of cardiomegaly
No prior history of congestive heart failure
Echo today
ANGELINA on CKD
Discontinued IVF
Creatinine trending down to baseline
Renal ultrasound�simple bilateral renal cysts, moderate BPH, bladder wall trabeculation.
ACEI, thiazides on hold.
Essential hypertension
Continue amlodipine
Continue carvedilol
Hyperlipidemia
Continue atorvastatin
Gout
Continue allopurinol
DVT prophylaxis�SC heparin
Anticipated Discharge: > 48 hours
Subjective/Interval History
-
Date of Service: November 13, 2024
Patient reports a fall at night when he went to the restroom. He was not wearing his nonrebreather mask (not on O2), felt dizzy and fell. No head strike. The patient was unable to get up from floor and needed to be lifted. O2 mask reapplied and ,
was no longer dizzy, O2 sat up to 94%.
In the morning , patient reports that the mask is inconvenient, not saturating well, switched to mid flow 12 L. % sats ranged from 77�89.
Objective Data
-
Labs:
Laboratory Results
11/13/24
07:33
WBC 41.6 H*
Hgb 8.8 L
Hct 28.7 L
Plt Count 153
Sodium 140
Potassium 4.7
Chloride 110 H
Carbon Dioxide 18 L
BUN 52 H
Creatinine 2.3 H
Glucose 98
Calcium 8.2 L
Vital Signs:
Vital Signs
Temp Pulse Resp BP Pulse Ox
98.7 F 68 20 114/51 89
11/13/24 10:56 11/13/24 10:56 11/13/24 10:56 11/13/24 10:56 11/13/24 10:56
I&O
11/12/24 11/13/24 11/14/24
06:59 06:59 06:59
Intake Total 480 / 480 960 / 960
Output Total 400 / 400
Balance 80 / 80 960 / 960
Review of Systems
-
All other systems: Reviewed and negative
Physical Exam
-
General: Respiratory Distress
HEENT: Normocephalic and Atraumatic
Respiratory: Wheezes (Bilateral )
Cardiac: Regular Rhythm and S1/S2; Negative Murmur
GI: Soft, Nontender, Nondistended and Normal Bowel Sounds
Skin: Warm and Dry
Neuro: Awake, Alert, Oriented and AO x 3
Psych: Calm
[2024-11-13] MEDS: ZOSYN 50 IV ×2 (14:26→23:06)
--- NOTE | 2024-11-13 15:22 | W.PN.NEPH.PH ---
Today's Communication / Plan
-
continue supportive care no changes
Assessment/Plan
-
Impression:
ANGELINA
CKD 3B (~2)
Microhematuria
Hypoxic respiratory failure/. Suspected bilateral pneumonia
Leukocytosis
ProBNP 18,000 with no prior history of congestive heart failure
Hyperlipidemia
Hypertension
History of gout
Plan:
ANGELINA:
-Creatinine already heading back towards baseline from 2.9-2.5 � 2.3
-Agree with obtaining echocardiogram to assess for possible congestive heart failure. As causality of hypoxic Respiratory failure
-History, exam, and leukocytosis support Bilateral pneumonia diagnosis, , Although proBNP level of 18,000 and is certainly concerning
a kidney and bladder ultrasound, given microhematuria and kidney injury= no significant pathology small kidney on the right simple system bilateral
-Agree with holding LIBBY inhibitor and HCTZ in setting of acute kidney injury
-Blood pressure currently controlled on the combination of amlodipine, carvedilol
Ceftriaxone and doxycycline without need for renal adjustment on dosage
real function approaching baseline
-
-
Date of Service: November 13, 2024
CC / HPI / ROS
-
Chief Complaint:
acute or chronic kidney disease
History of Present Illness:
acute or chronic kidney disease improving
status post fall today in the bathroom with hypoxia on facemask
Review of Systems:
remains on oxygen
no chest pain
Labs
-
Labs:
WBC 41.6 10^3/uL (4.8-10.8) H* 11/13/24 07:33
RBC 3.02 10^6/uL (4.70-6.10) L 11/13/24 07:33
Hgb 8.8 g/dL (13.0-18.0) L 11/13/24 07:33
Hct 28.7 % (39.0-52.0) L 11/13/24 07:33
Plt Count 153 10^3/uL (130-400) 11/13/24 07:33
Sodium 140 mmol/L (135-145) 11/13/24 07:33
Potassium 4.7 mmol/L (3.5-5.1) 11/13/24 07:33
Chloride 110 mmol/L (98-107) H 11/13/24 07:33
Carbon Dioxide 18 mmol/L (22-30) L 11/13/24 07:33
BUN 52 mg/dl (9-20) H 11/13/24 07:33
Creatinine 2.3 mg/dL (0.7-1.3) H 11/13/24 07:33
eGFR 28.00 11/13/24 07:33
Glucose 98 mg/dl (70-99) 11/13/24 07:33
Calcium 8.2 mg/dl (8.4-10.2) L 11/13/24 07:33
Qts-Y-Pdhzhppjhqs Pept 48283 pg/ml 11/12/24 06:08
Albumin 2.7 g/dl (3.5-5.0) L 11/12/24 06:08
Physical Exam
-
Vital Signs:
Vital Signs
Temp Pulse Resp BP Pulse Ox
98.7 F 67 18 117/53 94
11/13/24 15:07 11/13/24 15:07 11/13/24 15:07 11/13/24 15:07 11/13/24 15:07
Respiratory:: Bilateral: CTA
Lung Excursion:: Normal
Abdomen:: Soft
Bowel Sounds:: Normal
Extremity Edema:: None: Bilateral:
--- NOTE | 2024-11-13 15:52 | CON.ID ---
Consultation
-
Date/Time Consultation Requested: 11/13/2024 1118
Date/Time Consultation Performed: 11/13/2024 1549
Requesting Provider: Dr. Simmons
Performing Provider: Dr. Park
Reason for Consultation: Hypoxemia; leukocytosis
Chief Complaint / Past History
History of Present Illness
William Younger is an 79-year-old man being evaluated regarding leukocytosis and hypoxemia. History is obtained from chart review, along with patient interview.
The patient has a significant past medical history of hypertension and dyslipidemia who presented to the emergency room on 11/10 for evaluation of cough and congestion which has been progressive. He admits to productive cough, along with general
malaise and progressive generalized weakness. Family was concerned that he was finding it difficult to ambulate well, and would often need to sit down. No history of fevers or night sweats.
Additional history from the daughter who was present at the bedside reports that he first came down with some time respiratory illness around . This seemed to stay with him in the next several weeks, with ongoing cough. Around
he developed a flare of his underlying sciatica and was bedbound for several days. Following his improvement he had increasing shortness of breath, along with increase of congestion. When he was in to see his PCP he was found to have a
pulse ox around 50. He presented to the emergency room on 11/10. He was started on empiric antibiotics following chest imaging revealing bilateral pneumonia. He additionally has been found to have a rising white count, and Infectious Diseases is
asked to address further antibiotic management.
The patient denies having any pets. There is no recent travel. He gardens as a hobby. He denies being around any standing.
Past History
Additional Past Medical History:
HTN
Dyslipidemia
Allergy History:
No Known Allergies Allergy (Verified 11/10/24 11:59)
Medications Reviewed: Yes
Current Antibiotics:
Zosyn
Doxycycline
Social History
Tobacco: Non-Smoker
Alcohol: Occasional
Drug: None
Personal:
Living: With Family
Employment: Retired
Family History
Family History: Not Pertinent
Review of Systems
Vital Signs
Temp Pulse Resp BP Pulse Ox
98.7 F 67 18 117/53 94
11/13/24 15:07 11/13/24 15:07 11/13/24 15:07 11/13/24 15:07 11/13/24 15:07
Physical Exam
Physical Exam
Constitutional: No Acute Distress, Comfortable and Non-toxic
Eyes: Pupils Equal, Pupils Round, No Conjunctival Hemorrhage and Sclera Anicteric
Oral: No Thrush and No Ulcers
Cardiovascular: Regular Rate and S1/S2; Negative S3/S4
Pulmonary: Coarse, Non Labored and Other (Nonrebreather mask currently in place.)
Gastrointestinal: Soft, Non Tender, Non Distended and Normal Bowel Sounds
Extremities: Negative Edema, Cyanosis or Erythema
Neurological: Awake and Alert
Psychological: Calm
Lab / Diagnostic Study Results
11/13/24 07:33
11/13/24 07:33
Abs Immat Gran (auto) 1.4 10^3/uL (0-0.05) H 11/10/24 12:27
Absolute Neuts (auto) 38.3 10^3/uL (1.4-6.5) H 11/10/24 12:27
Absolute Lymphs (auto) 1.6 10^3/uL (1.2-3.4) 11/10/24 12:27
Absolute Monos (auto) 1.1 10^3/uL (0.1-0.6) H 11/10/24 12:27
Absolute Basos (auto) 0.3 10^3/uL (0-0.2) H 11/10/24 12:27
Total Counted 100 11/12/24 06:08
Immature Gran % 3.2 % (0-0.5) H 11/10/24 12:27
Neutrophils % 87.4 % (42.2-75.2) H 11/10/24 12:27
Lymphocytes % 3.7 % (20.5-51.1) L 11/10/24 12:27
Monocytes % 2.5 % (1.7-9.3) 11/10/24 12:27
Eosinophils % 2.6 % (0-6) 11/10/24 12:27
Basophils % 0.6 % (0-2) 11/10/24 12:27
Abs Neuts (Manual) 34.1 10^3/uL (1.4-6.5) H 11/12/24 06:08
Segmented Neutrophils 72 % (42-75) 11/12/24 06:08
Band Neutrophils 15 % (0-3) H 11/12/24 06:08
Lymphocytes (Manual) 9 % (20-51) L 11/12/24 06:08
Eosinophils (Manual) 3 % (0-6) 11/12/24 06:08
Lactic Acid Cancelled 11/10/24 20:00
Microbiology Results
Micro:
11/11/24 11:28 Respiratory Culture - Final
Sputum Usual Respiratory Kiley
Gram Stain - Final
11/10/24 16:26 Blood Culture - Preliminary
Blood/Venous No Growth in 48 hours- Final report to follow
11/10/24 16:26 Blood Culture - Preliminary
Blood/Venous No Growth in 48 hours- Final report to follow
11/10/24 12:27 Influenza Types A & B (ANNALISE) - Final
Nasal Swab Negative for Influenza A & B, NAAT
Negative results must be combined with clinical observations
and patient history.
Nucleic Acid Amplification test (NAAT)performed on the
[employer] platform.
Imaging:
11/10/2024 CXR (2 view): Patchy parenchymal airspace opacities within both lungs, highly suggestive of pneumonia. Bullous changes within both lower lungs. Probable minimal bilateral pleural effusions noted. Please see full dictation for additional
detail. Film personally viewed.
Assessment / Plan
Bilateral pneumonia
Marked leukocytosis
- ?infection ?Leukemoid reaction ?Marrow process
Anemia
CKD stage III
CHF
HTN
Dyslipidemia
Recommendations:
Continue with empiric antibiotics (Zosyn; doxycycline).
Would recommend CT scan.
Check Legionella and pneumococcal urinary antigens.
Trend white count. If continues to worsen, may ultimately need Heme-Onc evaluation
Await Pulmonary input.
Care Review
Plan reviewed with: Other Provider (Resident)
--- NOTE | 2024-11-13 18:05 | PTCARENOTE ---
Pt received from floors via stretcher. Aox3, very pleasant. Sating low to mid 90's on NRB. D/w Dr. Machado, order received for HFNC. RT at bedside to place pt on HF. Pt tolerating well at this time.
[2024-11-13] MEDS: SOLU-CORTEF 50 MG IV ×2 (18:38→23:06)
--- NOTE | 2024-11-13 20:00 | PTCARENOTE ---
Patient needing to have a BM. Assisted to BSC, gait is very unsteady. Denies dizziness. Sp02 decreased to 70% on HFNC. NRB placed and deep breathing encouraged; Sp02 increased to 90% after a few minutes. Educated patient that he will need to stay in
bed d/t his breathing and for his lungs to recover. Pt agrees. Call em and tray table within reach.
[2024-11-13] MEDS: MUCINEX 1200 MG PO (22:15)
[2024-11-13] MEDS: ZYLOPRIM 100 MG PO (22:16)
[2024-11-13] MEDS: LIPITOR 40 MG PO (22:16)
[2024-11-13] MEDS: TYLENOL 1000 MG PO (23:06)
[2024-11-14] VITALS (12 sets, daily range): BP systolic 94–124; BP diastolic 41–63; BMI 22.3
--- NOTE | 2024-11-14 00:50 | PTCARENOTE ---
Addendum entered by Darnell Olson RN 11/14/24 00:58:
Stool sample sent. Patient placed on enhanced precautions r/o C. Diff.
Original Note:
Patient having 3+ incontinent loose diarrhea stools. SIMON Bautista updated, ordered C.Diff per protocol. Yuliana-anal area becoming red and irritaed; barrier cream applied generously. Pt appreciative of care.
[2024-11-14] MEDS: ZOSYN 50 IV ×3 (03:58→13:47)
[2024-11-14 05:42] LABS: ALT (SGPT) 21 U/L (0-50); AST (SGOT) 21 U/L (17-59); Albumin 2.6 g/dl (3.5-5.0); Alkaline Phosphatase 149 U/L (38-126); Blood Urea Nitrogen 59 mg/dl (9-20); Carbon Dioxide 13 mmol/L (22-30); Chloride 112 mmol/L (98-107); Estimated Creatinine Clearance 21 ml/min; Glucose 109 mg/dl (70-99); Magnesium 1.8 mg/dl (1.6-2.3); Potassium 4.6 mmol/L (3.5-5.1); Sodium 138 mmol/L (135-145); Total Bilirubin 1.1 mg/dl (0.2-1.3); Total Protein 5.4 g/dl (6.3-8.2); eGFR 24.17
[2024-11-14 05:44] LABS: NT-proBNP 20900 pg/ml
--- NOTE | 2024-11-14 05:53 | PTCARENOTE ---
Critical C02 of 13. Reported to SIMON Gama.
[2024-11-14 06:08] LABS: Hematocrit 29.5 % (39.0-52.0); Hemoglobin 8.9 g/dL (13.0-18.0); Mean Corp Hgb Conc. 30.2 g/dL (33.0-37.0); Mean Corpuscular Hgb 29.4 pg (27.0-31.0); Mean Corpuscular Volume 97.4 fL (80.0-94.0); Mean Platelet Volume 9.5 fL (7.4-10.4); Platelet Count 138 10^3/uL (130-400); Red Blood Cell Count 3.03 10^6/uL (4.70-6.10); Red Cell Dist. Width 17.8 % (11.5-14.5); White Blood Cell Count 40.9 10^3/uL (4.8-10.8)
[2024-11-14] MEDS: SOLU-CORTEF 50 MG IV ×3 (06:28→17:34)
--- NOTE | 2024-11-14 08:00 | W.PN.HOSP.TC ---
Addendum entered and electronically signed by Nadya Red MD 11/14/24 21:22:
I saw and evaluated the patient independently. I reviewed the resident�s note and agree with findings and plan as documented by Dr. Simmons.
GENERAL: well developed, well nourished, male in no apparent distress
HEENT: NC/AT--HI VITO O2
HEART: regular rate and rhythm, +S1, +S2
LUNGS : decreased beath sounds bilaterally
ABDOM: soft, nontender, nondistended, + bowel sounds
EXT: no cyanosis, clubbing, or edema
NEUROLOGIC: grossly intact
Acute Hypoxemic respiratory failure --initial etiology was thought to be PNA (with elevated WBC and CXR with b/l infiltrates but CT scan with severe emphysematous change [COPD] and no pna, covid/flu negative, cultures neg)--acute CHF also was
possibility with 20K pro BNP (given severity of COPD would not take much fluid in the lung to cause hypoxemia/SOB)--acute pulmonary embolism higher possibility (large A-a gradient with HI VITO O2 and ECHO with dilated RV and elevated
pressures)---changed rocephin to zosyn to cefepime/oral doxy--started empiric IV heparin drip--hold on diuresis--apprec pulm/ID/onc/cards (will consult)--US neg for DVT
new spiculated lung mass--will need outpt PET and likely biopsy--IF positive for cancer would explain propensity for being hypercoagulable as well as leukocytosis--onc consult apprec
ANGELINA on CKD stage 3 now with developing metabolic acidosis--creat 2.9 but prior was 1.9 in 2009 (baseline ~2)-- IVF--Holding hydrochlorothiazide, lisinopril---apprec renal--started on bicarb drip
Essential hypertension--Continue amlodipine--Continue Coreg
Hypercholesterolemia
Gout--Continue allopurinol
code status --DNR/DNI
DVT prophylaxis�heparin
updated daughter at bedside about above plan--in agreement
Total Critical Care Time 37 minutes. I was immediately available to the patient and staff. I personally examined, reviewed labs, diagnostic images/reports, interpretations, treatment plans, discussed patient care with other providers and family
or caregivers (if patient is unable to make decisions), entered orders as appropriate and documented the medical record.
Original Note:
Today's Communication/Plan
-
IV heparin infusion
ABG
Switched to Solu-Medrol
Started on cefepime
Cardiology consulted
Assessment / Plan
Assessment / Plan
79-year-old male with past medical history significant for CKD stage IIIb, hypertension, hyperlipidemia, admitted for hypoxic respiratory failure requiring 5 L oxygen, and started on antibiotics for pneumonia.
Impression
Acute hypoxemic respiratory failure
Elevated proBNP
ANGELINA on CKD
Essential hypertension
Hypercholesterolemia
Gout
Plan
Acute Hypoxemic respiratory failure
Likely secondary to bilateral pneumonia versus COPD exacerbation versus congestive heart failure
Patient is now on high flow, with FiO2 70%
Elevated white count
Consult ID
Consult pulmonology
Continue doxycycline
Started on cefepime
Switched to Solu-Medrol
CT chest without contrast- Small right and tiny left pleural effusions.
Findings consistent with severe emphysematous disease.
Spiculated right upper lobe pulmonary mass. Noncalcified solid bilateral pulmonary nodules concerning for malignancy until proven otherwise. PET imaging recommended.
Oncology consulted-plan on doing PET as outpatient.
Incentive spirometry
Will do ABG
Elevated proBNP
Up to 19,000
Chest x-ray�evidence of cardiomegaly
No prior history of congestive heart failure
Echo�normal left ventricular systolic function. Estimated LVEF 55-60%.
Aortic sclerosis without stenosis.
Enlarged right ventricular size. Reduced right ventricular systolic function.
Mild tricuspid regurgitation. Moderately elevated PASP. Estimated pulmonary
artery pressure of 46 mmHg. Assuming a right atrial pressure of 8 mmHg.
Suspect PE although ultrasound lower extremity showed no evidence of DVT
Start heparin infusion
Cardiology consulted
ANGELINA on CKD
Discontinued IVF
Creatinine at 2.6
Renal ultrasound�simple bilateral renal cysts, moderate BPH, bladder wall trabeculation.
ACEI, thiazides on hold.
Essential hypertension
Continue amlodipine
Continue carvedilol
Hyperlipidemia
Continue atorvastatin
Gout
Continue allopurinol
DVT prophylaxis�SC heparin
Anticipated Discharge: > 48 hours
Subjective/Interval History
-
Date of Service: November 14, 2024
Patient on high flow. Reports he had good sleep yesterday night.
Objective Data
-
Labs:
Laboratory Results
11/14/24
04:51
WBC 40.9 H*
Hgb 8.9 L
Hct 29.5 L
Plt Count 138
Sodium 138
Potassium 4.6
Chloride 112 H
Carbon Dioxide 13 L*
BUN 59 H
Creatinine 2.6 H
Glucose 109 H
Calcium 8.0 L
Total Bilirubin 1.1
AST 21
ALT 21
Alkaline Phosphatase 149 H
Vital Signs:
Vital Signs
Temp Pulse Resp BP Pulse Ox
98.3 F 56 13 96/41 91
11/14/24 03:00 11/14/24 06:30 11/14/24 06:30 11/14/24 06:00 11/14/24 06:30
I&O
11/13/24 11/14/24 11/15/24
06:59 06:59 06:59
Intake Total 960 / 960 100 / 100
Balance 960 / 960 100 / 100
Review of Systems
-
All other systems: Reviewed and negative (As per history)
Physical Exam
-
HEENT: Normocephalic and Atraumatic
Respiratory: Decreased Breath Sounds (Bilaterally)
Cardiac: Regular Rhythm and S1/S2
GI: Soft, Nontender and Nondistended
Musculoskeletal: No Clubbing, No Cyanosis and No Edema
Skin: Warm and Dry
Neuro: Awake, Alert, Oriented and AO x 3
[2024-11-14] MEDS: NORVASC PO (08:21)
[2024-11-14] MEDS: VITAMIN D3 (cholecalciferol) 25 MCG PO (08:22)
[2024-11-14] MEDS: HEPARIN 5000 UNITS SC ×2 (08:22→17:34)
[2024-11-14] MEDS: COREG 6.25 MG PO ×2 (08:22→19:42)
[2024-11-14] MEDS: LOW STRENGTH ASPIRIN 81 MG PO (08:22)
[2024-11-14] MEDS: MUCINEX 1200 MG PO ×2 (08:22→19:39)
[2024-11-14] MEDS: VIBRAMYCIN 100 MG PO ×2 (08:22→19:39)
--- NOTE | 2024-11-14 09:32 | CON.ONC ---
Impression
Impression
79-year-old male with 97-[id number] smoking history, hemoptysis, found to have 2.5 cm spiculated noncalcified right upper lobe mass
Patient currently in acute hypoxic respiratory failure secondary to bilateral pneumonia, currently requiring 12 L oxygen via high flow nasal cannula.
Noncontrast CT scan chest demonstrated 2.5 cm spiculated noncalcified right upper lobe mass. Patient endorses no night sweats, 10 pound weight loss over 3 months, productive cough with hemoptysis
CT scan demonstrates diffuse, severe cystic changes throughout both lungs consistent with severe emphysematous disease.
Reports quit smoking 40 years ago however has approximately 01-nlul-[id number] smoking history. Reports he is up-to-date on age-appropriate cancer screenings. Reports no family history of malignancy
Pulmonary mass could be malignant or could be secondary to severe pulmonary scarring and fibrosis
Plan on outpatient PET scan to further evaluate lung mass
If FDG positive on PET, will consider tissue sampling
Plan
Plan
Continue empiric antibiotics and supportive measures per primary
Plan for outpatient PET with tissue biopsy if FDG positive
Further discussion regarding goals of care and treatment options contingent on PET and biopsy results
Patient History
History of Present Illness
79-year-old male past medical history of hypertension, hypercholesteremia, gout, presenting to the hospital progressive productive cough, reports productive cough with hemoptysis, fatigue, congestion and chills. Patient was found to be in acute
hypoxic respiratory failure secondary to bilateral pneumonia. Currently he is requiring 12 L O2 via high flow nasal cannula. On empiric Rocephin and doxycycline. Got a CT chest yesterday which demonstrated a 2.5 spiculated noncalcified right
upper lobe mass, as well as severe emphysematous disease, prompting oncology consultation. Patient reports no family history of malignancy, reports he is up-to-date on age-appropriate cancer screening. Reports he has a remote smoking history
stopped 40 years ago. Approximately 20 years of 1.5 pack a day smoking, estimate of 03-lhbk-[id number] smoking history.
Past-Medical/Surgical History
Pretension, hypercholesterolemia, gout
Patient Medication
�Medication �Instructions �Recorded �Confirmed �Last Taken �Type
Baking Soda 0.25 tsp PO DAILY Supplement 11/10/24 11/10/24 11/10/24 History
acetaminophen 500 mg tablet 1,000 mg PO Q6HPRN PRN mild pain 11/10/24 11/10/24 Unknown History
(Tylenol Extra Strength)
allopurinol 100 mg tablet 100 mg PO HS Gout 11/10/24 11/10/24 Unknown History
amlodipine 10 mg tablet 10 mg PO DAILY Blood Pressure 11/10/24 11/10/24 11/10/24 History
aspirin 81 mg chewable tablet 81 mg PO DAILY Blood Clot 11/10/24 11/10/24 11/10/24 History
Prevention/Tx
atorvastatin 40 mg tablet 40 mg PO HS High Cholesterol 11/10/24 11/10/24 11/09/24 History
carvedilol 6.25 mg tablet 6.25 mg PO BID Blood Pressure 11/10/24 11/10/24 11/10/24 History
cholecalciferol (vitamin D3) 25 25 mcg PO DAILY Supplement 11/10/24 11/10/24 11/10/24 History
mcg (1,000 unit) tablet (Vitamin
D3)
hydrochlorothiazide 25 mg tablet 25 mg PO DAILY Blood Pressure 11/10/24 11/10/24 11/10/24 History
lisinopril 40 mg tablet 40 mg PO HS Blood Pressure 11/10/24 11/10/24 11/09/24 History
Active Medications
Generic Name Dose Route Start Last Admin
Trade Name Freq PRN Reason Stop Dose Admin
Acetaminophen 1,000 mg 11/10/24 18:38 11/13/24 23:06
Acetaminophen 500 Mg Tablet PO 12/08/24 18:37 1,000 mg
Q6HPRN PRN Administration
mild pain
Albuterol/Ipratropium 3 ml 11/13/24 01:46 11/13/24 08:56
Ipratropium 0.5/Albuterol 3 Mg (3 Ml Ampul) INH 3 ml
R Q4HPRN PRN Administration
sob
Protocol
Allopurinol 100 mg 11/10/24 22:00 11/13/24 22:16
Allopurinol 100 Mg Tablet PO 12/08/24 21:59 100 mg
HS JAYLIN Administration
Amlodipine Besylate 10 mg 11/11/24 08:00 11/14/24 08:21
Amlodipine 10 Mg Tablet PO 12/09/24 07:59 Not Given
DAILY JAYLIN
Aspirin 81 mg 11/11/24 08:00 11/14/24 08:22
Aspirin 81 Mg Chewable Tablet PO 12/09/24 07:59 81 mg
DAILY JAYLIN Administration
Atorvastatin Calcium 40 mg 11/10/24 22:00 11/13/24 22:16
Atorvastatin (Lipitor) 40 Mg Tablet PO 12/08/24 21:59 40 mg
HS JAYLIN Administration
Carvedilol 6.25 mg 11/10/24 20:00 11/14/24 08:22
Carvedilol 6.25 Mg Tablet PO 12/08/24 19:59 6.25 mg
BID JAYLIN Administration
Cholecalciferol 25 mcg 11/11/24 08:00 11/14/24 08:22
Cholecalciferol (Vitamin D3) 25 Mcg Tablet (1,000 Units) PO 12/09/24 07:59 25 mcg
DAILY JAYLIN Administration
Doxycycline Hyclate 100 mg 11/11/24 20:00 11/14/24 08:22
Doxycycline 100 Mg Capsule PO 100 mg
Q12 JAYLIN Administration
Guaifenesin 1,200 mg 11/13/24 20:00 11/14/24 08:22
Guaifenesin 600 Mg Extended Release Tablet PO 12/11/24 19:59 1,200 mg
Q12 JAYLIN Administration
Heparin Sodium 5,000 units 11/14/24 00:00 11/14/24 08:22
Heparin 5,000 Units/Ml 1 Ml Vial SC 12/12/24 00:00 5,000 units
Q8 JAYLIN Administration
Hydrocortisone Sodium Succinate 50 mg 11/13/24 18:30 11/14/24 06:28
Hydrocortisone Sodium Succinate 100 Mg/2 Ml Vial IV 12/11/24 18:29 50 mg
Q6 JAYLIN Administration
Piperacillin Sod/Tazobactam Sod 3.375 gram in 50 mls @ 100 mls/hr 11/13/24 14:00 11/14/24 08:21
Zosyn IV 50 mls
Q6H JAYLIN Administration
Sodium Chloride 0 flush 11/10/24 19:00
Sodium Chloride 0.9% (Flush) Syringe IV 12/08/24 18:59
PER PROTOCOL JAYLIN
Sodium Chloride 2 sprays 11/11/24 12:31
Sodium Chloride 0.65% Nasal [place] 45 Ml Bottle NASAL 12/09/24 12:30
QIDPRN PRN
nasal dryness
Review of Systems
-
History Source: Patient
Constitutional: Reports Weight Loss (Reports 10 pound weight loss over approximately 3 months), Fatigue and Chills; Denies Fever or Night Sweats
Respiratory: Reports Cough, Hemoptysis and Trouble Breathing
Cardiac: Reports No Symptoms
GI: Reports No Symptoms and Diarrhea; Denies Nausea or Vomiting
: Reports No Symptoms
Neuro: Reports No Symptoms
Physical Exam
-
General: Well Nourished and Respiratory Distress
Cardiology: Normal Sinus Rhythm, S1, S2 and No Murmur
Pulmonary: Rhonchi (Diffuse crackles throughout all lung garcia)
GI: Soft and Other (Nontender, nondistended. No rebound. No guarding)
Musculoskeletal: No Edema
Skin: Warm and Dry
Psych: Calm and Intact Judgement/Insight
Labs
Lab Results
WBC 40.9 10^3/uL (4.8-10.8) H* 11/14/24 04:51
RBC 3.03 10^6/uL (4.70-6.10) L 11/14/24 04:51
Hgb 8.9 g/dL (13.0-18.0) L 11/14/24 04:51
Hct 29.5 % (39.0-52.0) L 11/14/24 04:51
MCV 97.4 fL (80.0-94.0) H 11/14/24 04:51
MCH 29.4 pg (27.0-31.0) 11/14/24 04:51
MCHC 30.2 g/dL (33.0-37.0) L 11/14/24 04:51
RDW 17.8 % (11.5-14.5) H 11/14/24 04:51
Plt Count 138 10^3/uL (130-400) 11/14/24 04:51
MPV 9.5 fL (7.4-10.4) 11/14/24 04:51
Abs Immat Gran (auto) 1.4 10^3/uL (0-0.05) H 11/10/24 12:27
Absolute Neuts (auto) 38.3 10^3/uL (1.4-6.5) H 11/10/24 12:27
Absolute Lymphs (auto) 1.6 10^3/uL (1.2-3.4) 11/10/24 12:27
Absolute Monos (auto) 1.1 10^3/uL (0.1-0.6) H 11/10/24 12:27
Absolute Eos (auto) 1.2 10^3/uL (0-0.7) H 11/10/24 12:27
Absolute Basos (auto) 0.3 10^3/uL (0-0.2) H 11/10/24 12:27
Immature Gran % 3.2 % (0-0.5) H 11/10/24 12:27
Neutrophils % 87.4 % (42.2-75.2) H 11/10/24 12:27
Lymphocytes % 3.7 % (20.5-51.1) L 11/10/24 12:27
Monocytes % 2.5 % (1.7-9.3) 11/10/24 12:
Eosinophils % 2.6 % (0-6) 11/10/24 12:27
Basophils % 0.6 % (0-2) 11/10/24 12:27
Creatinine 2.6 mg/dL (0.7-1.3) H 11/14/24 04:51
Vital Signs
Vital Signs
Temp Pulse Resp BP Pulse Ox
98.3 F 56 13 96/41 91
11/14/24 07:35 11/14/24 06:30 11/14/24 06:30 11/14/24 06:00 11/14/24 06:30
--- NOTE | 2024-11-14 09:40 | W.PN.PUL3 ---
Today's Communication / Plan
-
Empirically start heparin drip
Change hydrocortisone to Solu-Medrol
Start Spiriva given high likelihood he has COPD, despite him not having shortness of breath
Change prn DuoNebs to albuterol
Continue with antibiotics as per ID
Continue bicarb drip and trend blood gas to monitor pH + pCO2
Trend sCr and sHCO3
Wean down high flow nasal cannula FiO2 as tolerated while keeping SpO2 88-95%
Outpatient workup for right upper lobe spiculated nodule with PET/CT and possible biopsy although he is high risk for pneumothorax considering his extensive bullous emphysema
Hematology and ID recs appreciated
Trend WBC and follow-up cultures
Pulmonary service will continue to follow along and outpatient follow-up will also be arranged for full PFTs and discussion of his lung nodules
Assessment
-
Assessment: 79-year-old male former tobacco smoker with a past medical history of gout, hyperlipidemia, hypertension and CKD who presents with shortness of breath, chest congestion and cough. Symptoms started around when he felt ill
and he improved over the next 2-3 weeks. He then developed sciatica around [place] time and that had improved over the next 1 week. He did have shortness of breath that developed around and this worsened over the course of the
following week. He went to his doctor, Dr. Handy, on 11/10/2024 and found that his pulse oximeter was in the 50s. He was sent here to the ER for further evaluation, and found to be saturating 85% on room air. Saturations improved to the low 90s
on 5 L/min nasal cannula. Initially he was afebrile to 97.9 �F, pulse rate 71, breathing at 16 breaths minute, and BP 116/63. Initial labs showed leukocytosis to 43.9, Hb 10.9, increased eosinophil count of 1200, creatinine 2.9, potassium 5.2,
glucose 122, proBNP 18,700, and COVID antigen negative. Flu A/B swab also negative and blood cultures were collected. Initial CXR showed patchy parenchymal airspace opacities in both lungs with small bilateral pleural effusions and suspected
bullous changes in the lower lungs bilaterally. He was initially given 1 L NS 0.9%, ceftriaxone and Zithromax and admitted to telemetry. Antibiotics were continued and he continues to require oxygen. On 11/13/2024 his oxygen requirements worsened
and he was started on a partial rebreather and upgraded to the IMU. Pulmonary service now consulted for additional management/recommendations.
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
Impression:
#Acute respiratory failure with hypoxia: Likely due to sepsis however acute PE is also on differential especially with severely elevated proBNP of >18,500 and echo findings
#Leukocytosis with bandemia - unclear source as only obvious infection right now is his gastroenteritis from norovirus
#Sepsis without septic shock
#Nausea/diarrhea with norovirus seen on stool culture (diagnosed today)
#Metabolic acidosis with normal anion gap
#RV enlargement with reduced right ventricular systolic function and pulmonary hypertension with PASP: 46 mmHg seen on TTE from 11/14/2024
#Spiculated right upper lobe nodule measuring 2.5 cm with multiple other noncalcified bilateral pulmonary nodules ranging from 3-8 mm
#Pleural-based mass versus pleural thickening at the lateral right hemithorax measuring 2 x 1 cm
#Small hiatal hernia
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
#Acute anemia
#ANGELINA on CKD3b
#Increased eosinophil count with absolute eosinophils: 1200 on admission (11/10/2024)
#Former tobacco smoker with 98-fqzl-[id number] history, quit approximately 40 years ago
#History of gout
#Carotid artery stenosis
#Hypertension
#Dyslipidemia
Plan:
- He had bibasilar opacification/groundglass opacities seen on CXR from 11/10/2024 with concern for bilateral pneumonia
- CT chest without contrast performed this morning showing no evidence of pneumonia, however there is severe bullous emphysematous changes with a right upper lobe spiculated nodule measuring 2.5 cm and multiple other lung nodules
- He does have diarrhea with nausea and his stool culture was positive for norovirus
- It appears that his radiographic abnormalities are not correlating with his level of hypoxia, raising suspicion for another cardiopulmonary process (i.e. pulm HTN vs acute PE)
- Echo performed today shows no evidence of shunting by color-flow Doppler, with moderately elevated PASP at 46 mmHg, and enlarged RV with reduced RV systolic function --> this raises concern for an acute PE, however unable to do a CTA chest given
his ANGELINA
- Recommend to empirically start heparin drip and hopefully once creatinine returns to baseline then we can check a CTA chest at that time; otherwise we can always consider a VQ scan
- Lower extremity duplex is negative for bilateral DVT
- Continue to trend proBNP
- Continue with Abx --> currently on cefepime + doxy s/p Rocephin rocephin (11/10 - 11/12)
- There is no evidence for pneumonia on CT chest performed today
- Unclear if antibiotics are indicated however in the setting of his hypoxia now with multiorgan dysfunction with worsening ANGELINA and severe leukocytosis and febrile last night (100.7F), empirically continue antibiotics for now; ID consulted
- Follow up sputum Cx (collected 11/11/2024 - NGTD); follow up blood Cx X2 (collected 11/10/2024 - NGTD)
- Trend WBC and monitor for fevers --> hematology consulted; if leukocytosis does not improve despite the patient getting better clinically then would consider BMBxgiven concern for MDS vs leukemia in that case; this may all just be a leukemoid
reaction
- Mucolytics
- prn nebulized bronchodilators - not currently bronchospastic
- Given that there is no concern for CAP, stop hydrocortisone. Considering he is hypoxic with severe bullous emphysema and suspected COPD, change hydrocortisone to Solu-Medrol
- No prior Hx of chronic lung disease although he was a former tobacco smoker with 30 pack year Hx --> will obtain outpatient PFTs to assess for COPD
- Start spiriva respimat with prn albuterol
- Trend sCr and renally dose all meds/Abx
- Nephro following and recs appreciated
- Avoid nephrotoxic agents
- Supportive care for his norovirus infection
- C. difficile antigen is positive but toxin negative � this is not consistent with an acute C. difficile infection
- trend sHCO3 while on bicarb gtt
- Trend blood gas to monitor pH and pCO2
- Maintain SpO2 >90-94% with high flow nasal cannula
- Incentive spirometer encouraged q1hr while awake
- Replete electrolytes with K>4, Mg>2
- Maintain euglycemia with goal BG >100 and <180
- DVT ppx: HSQ --> changed to heparin gtt due to concern for acute PE
- Given that he has multiple bilateral pulmonary nodules with a right upper lobe spiculated lesion, this is concerning for malignancy. There are no former CT chest imaging, as per the patient and daughter. He has significant, extensive bullous
emphysema, hence performing a biopsy whether through robotic bronchoscopy or transthoracic needle aspiration, complications with a pneumothorax are very high. Ideally, would perform robotic bronchoscopy as this has a lower chance of pneumothorax
compared to TTNA. This will be discussed further as an outpatient, and he will need a PET/CT as well as an outpatient.
- There is a possibility if PET/CT shows high FDG avidity in this right upper lobe spiculated lesion with no other concerning findings elsewhere in the lungs or outside the thorax, that he can get SBRT without a biopsy, if oncology and radiation
oncology agree with this treatment plan given the high risk for complications with biopsy and anesthesia considering his significant lung disease. This will be an ongoing discussion.
Pulmonary service will continue to follow along. Outpatient office follow-up will also be arranged.
Data:
CXR 11/10/2024:
Patchy parenchymal airspace opacities within both lungs, appearance highly suggestive of pneumonia.
Bullous changes within both lower lungs.
Probable minimal bilateral pleural effusions.
Cardiomegaly with no convincing pulmonary edema pattern.
CT Chest without contrast 11/14/2024:
No acute disease of the chest.
Small right and tiny left pleural effusions.
Findings consistent with severe emphysematous disease.
Spiculated right upper lobe pulmonary mass. Noncalcified solid bilateral pulmonary nodules concerning for malignancy until proven otherwise. PET imaging recommended.
Bilateral adrenal thickening suggesting benign hyperplasia.
Total time spent today was 53 minutes for this encounter. Time includes reviewing laboratory test/imaging results, reviewing pertinent medical records, obtaining and reviewing medical history, performing an appropriate exam, ordering medications,
tests and procedures. Time also includes documentation of this encounter, coordinating patient care and communicating with other healthcare professionals. Total time does not include separately billed tests performed on this date of service.
Subjective Data
-
Date of Service:
Date of Service: November 14, 2024
Chief Complaint: Pulmonary Follow Up
Subjective:
Patient was seen and evaluated today at bedside. He currently denies shortness of breath but is currently requiring high flow nasal cannula with FiO2 60%, at 50 L/min. Patient's daughter, Tamiko, at bedside and all questions were answered.
Patient saturating 93%, and BP 120/53 with heart rate 65. Echo done today shows preserved LVEF at 55 to 60% with enlarged RV with reduced RV systolic function, and moderately elevated PASP at 46 mmHg. He currently denies chest pain, BARRIENTOS, fevers or
chills. He is having some loose stools + nausea without vomiting, and his norovirus was positive on cultures.
Review of Systems
General: Other (Negative unless mentioned above)
Objective Data
Data Reviewed
Vital Signs / I&O / Oxygen:
Vital Signs
Temp Pulse Resp BP Pulse Ox
98.3 F 56 13 96/41 93
11/14/24 07:35 11/14/24 06:30 11/14/24 06:30 11/14/24 06:00 11/14/24 09:43
Intake and Output
11/13/24 11/14/24 11/15/24
06:59 06:59 06:59
Intake Total 960 / 960 100 / 100
Balance 960 / 960 100 / 100
SaO2 93
Nasal Cannula flow liters per 50
minute
Physical Exam
General: Respiratory Distress (negative), Comfortable, Chills (negative) and Sweats (negative)
HEENT: Normocephalic and Anicteric
Cardiovascular: S1-S2, Rub (negative) and Peripheral Edema (negative)
Respiratory: Clear, Wheeze (negative), Crackles (negative), Rhonchi (negative), Non-Labored Respirations and Stridor (negative)
GI: Soft, Non Distended, Non Tender and Normal Bowel Sounds
Neurology: AO x 3 and Tremors (negative)
Skin: Warm, Dry, Cyanosis (negative) and Jaundice (negative)
Labs/Micro/Reports
Lab Data
11/14/24 04:51
11/14/24 04:51
Microbiology
11/14/24 00:42 Feces/Stool C. difficile GDH Antigen & Toxins - Final
C. difficile antigen positive, toxin negative.
Clostridium difficile present, but toxin not detected.
Patient may be a carrier, colonized with nontoxinogenic
strain or the level of toxin in sample is below detection
limits. This information should be used in conjunction with
the patient's clinical history.
11/14/24 00:42 Feces/Stool - Final
Positive for Norovirus GII
11/14/24 00:42 Urine Legionella Urinary Antigen - Final
Negative for Legionella pneumophila Serogroup 1 antigen.
A negative result does not rule out the possiblity of
Legionella infection due to other serogroups or species of
Legionella. Clinical correlation is recommended.
11/14/24 00:42 Urine Streptococcus pneumoniae Antigen (M - Final
Negative for Streptococcus pneumoniae antigen.
A negative result does not exclude infection with
Streptococcus pneumoniae. Clinical correlation is
recommended.
11/10/24 16:26 Blood/Venous Blood Culture - Preliminary
No Growth in 72 hours- Final report to follow
11/10/24 16:26 Blood/Venous Blood Culture - Preliminary
No Growth in 72 hours- Final report to follow
11/11/24 11:28 Sputum Respiratory Culture - Final
Usual Respiratory Kiley
11/11/24 11:28 Sputum Gram Stain - Final
--- NOTE | 2024-11-14 10:56 | CM ---
Patient seen at bedside with patient family member and physicians. Patient on high flow O2. Patient to have echo and further testing for medical treatment. Patient plan is uncertain for discharage at this time. Patient new with norovirus and patient
is at home sick also. CM will continue to follow for discharge planning needs.
Plan;pending treatment plan
[2024-11-14] MEDS: SPIRIVA RESPIMAT 2.5 MCG 2 PUFF INH (11:46)
[2024-11-14 11:57] LABS: B.E. -7.6 mmol/L; HCO3 17.1 mmol/L (21-28); O2 Saturation % 98.8 % (94-98); PCO2 31 mmHg (35-48); PO2 129 mmHg (83-108); pH 7.35 (7.35-7.45)
--- NOTE | 2024-11-14 12:45 | W.PN.NEPH.PH ---
Today's Communication / Plan
-
Started IV bicarbonate drip
Assessment/Plan
-
Impression:
ANGELINA
CKD 3B (~2)
Microhematuria
Hypoxic respiratory failure/. Suspected bilateral pneumonia
Leukocytosis
ProBNP 18,000 with no prior history of congestive heart failure
Hyperlipidemia
Hypertension
History of gout
Plan:
ANGELINA:
-Creatinine already heading back towards baseline from 2.9-2.5 � 2.3
-History, exam, and leukocytosis support Bilateral pneumonia diagnosis, , Although proBNP level of 18,000 and is certainly concerning
a kidney and bladder ultrasound, given microhematuria and kidney injury= no significant pathology small kidney on the right simple system bilateral
-Agree with holding LIBBY inhibitor and HCTZ in setting of acute kidney injury
-CAT scan no evidence of pneumonia with severe emphysema and
Creatinine relatively stable although developing a metabolic acidosis.
I will start him on sodium bicarb and.
Discussed with his daughter at the bedside
-
-
Date of Service: November 14, 2024
CC / HPI / ROS
-
Chief Complaint:
acute or chronic kidney disease
History of Present Illness:
acute or chronic kidney disease improving
Developing mild acidosis
CAT scan shows severe bolus have to seem a with a lung mass
Review of Systems:
Now on high flow oxygen
no chest pain
Labs
-
Labs:
WBC 40.9 10^3/uL (4.8-10.8) H* 11/14/24 04:51
RBC 3.03 10^6/uL (4.70-6.10) L 11/14/24 04:51
Hgb 8.9 g/dL (13.0-18.0) L 11/14/24 04:51
Hct 29.5 % (39.0-52.0) L 11/14/24 04:51
Plt Count 138 10^3/uL (130-400) 11/14/24 04:51
Sodium 138 mmol/L (135-145) 11/14/24 04:51
Potassium 4.6 mmol/L (3.5-5.1) 11/14/24 04:51
Chloride 112 mmol/L (98-107) H 11/14/24 04:51
Carbon Dioxide 13 mmol/L (22-30) L* 11/14/24 04:51
BUN 59 mg/dl (9-20) H 11/14/24 04:51
Creatinine 2.6 mg/dL (0.7-1.3) H 11/14/24 04:51
eGFR 24.17 11/14/24 04:51
Glucose 109 mg/dl (70-99) H 11/14/24 04:51
Calcium 8.0 mg/dl (8.4-10.2) L 11/14/24 04:51
Itf-L-Yinsofospxr Pept 87983 pg/ml 11/14/24 04:51
Albumin 2.6 g/dl (3.5-5.0) L 11/14/24 04:51
Physical Exam
-
Vital Signs:
Vital Signs
Temp Pulse Resp BP Pulse Ox
98.3 F 59 18 96/41 92
11/14/24 07:35 11/14/24 11:47 11/14/24 11:47 11/14/24 06:00 11/14/24 11:47
Respiratory:: Bilateral: CTA
Lung Excursion:: Normal
Abdomen:: Soft
Bowel Sounds:: Normal
Extremity Edema:: None: Bilateral:
[2024-11-14] MEDS: SODIUM BICARBONATE 1150 MEQ IV (13:46)
--- NOTE | 2024-11-14 14:22 | W.PN.ID1 ---
Date of Service
Date of Service: November 14, 2024
Today's Communication
Continue antibiotics. See below�
Assessment / Plan
Bilateral pneumonia
Marked leukocytosis
- ?infection ?Leukemoid reaction ?Marrow process ?steroid effect
Anemia
CKD stage III
CHF
Norovirus (+)
HTN
Dyslipidemia
Recommendations:
Continue antibiotics. Transition Zosyn to cefepime given elevated BNP. Continue with doxycycline.
CT chest consistent with severe emphysematous disease
Legionella and pneumococcal urinary antigens negative
Trend white count, although there may be a component of steroid effect at this time.
����������������������������������������������������������
Chief Complaint
-: Leukocytosis and Pneumonia
Subjective / Review of Systems
Patient seen and examined. Reports ongoing shortness of breath. Some diarrhea and nausea, but no vomiting.
Vital Signs / Physical Exam
Vital Signs
Vital Signs
Temp Pulse Resp BP Pulse Ox
98.3 F 59 11 109/56 91
11/14/24 07:35 11/14/24 13:00 11/14/24 13:00 11/14/24 12:00 11/14/24 13:00
Physical Exam
Constitutional: Comfortable and Non-toxic
Eyes: Sclera Anicteric
Cardiovascular: S1/S2; Negative S3/S4
Pulmonary: Non Labored and Other (High flow O2 in place.)
Gastrointestinal: Soft, Non Tender and Non Distended
Skin: Warm and Dry; Negative Rash or Jaundice
Neurological: Awake and Alert
Psychological: Calm
Objective Data
Lab Data
Lab Results
11/14/24 04:51
11/14/24 04:51
Estimated Creat Clear 21 ml/min 11/14/24 04:51
Lactic Acid Cancelled 11/10/24 20:00
Total Bilirubin 1.1 mg/dl (0.2-1.3) 11/14/24 04:51
AST 21 U/L (17-59) 11/14/24 04:51
ALT 21 U/L (0-50) 11/14/24 04:51
Alkaline Phosphatase 149 U/L (38-126) H 11/14/24 04:51
Most recent labs reviewed.
Micro Results:
11/14/24 00:42 C. difficile GDH Antigen & Toxins - Final
Feces/Stool C. difficile antigen positive, toxin negative.
Clostridium difficile present, but toxin not detected.
Patient may be a carrier, colonized with nontoxinogenic
strain or the level of toxin in sample is below detection
limits. This information should be used in conjunction with
the patient's clinical history.
- Final
Positive for Norovirus GII
11/14/24 00:42 Legionella Urinary Antigen - Final
Urine Negative for Legionella pneumophila Serogroup 1 antigen.
A negative result does not rule out the possiblity of
Legionella infection due to other serogroups or species of
Legionella. Clinical correlation is recommended.
Streptococcus pneumoniae Antigen (M - Final
Negative for Streptococcus pneumoniae antigen.
A negative result does not exclude infection with
Streptococcus pneumoniae. Clinical correlation is
recommended.
11/10/24 16:26 Blood Culture - Preliminary
Blood/Venous No Growth in 72 hours- Final report to follow
11/10/24 16:26 Blood Culture - Preliminary
Blood/Venous No Growth in 72 hours- Final report to follow
11/11/24 11:28 Respiratory Culture - Final
Sputum Usual Respiratory Kiley
Gram Stain - Final
11/10/24 12:27 Influenza Types A & B (ANNALISE) - Final
Nasal Swab Negative for Influenza A & B, NAAT
Negative results must be combined with clinical observations
and patient history.
Nucleic Acid Amplification test (NAAT)performed on the
[employer] platform.
Imaging:
11/10/2024 CXR (2 view): Patchy parenchymal airspace opacities within both lungs, highly suggestive of pneumonia. Bullous changes within both lower lungs. Probable minimal bilateral pleural effusions noted. Please see full dictation for additional
detail. Film personally viewed.
[2024-11-14 18:45] LABS: Hematocrit 31.2 % (39.0-52.0); Hemoglobin 9.9 g/dL (13.0-18.0); Mean Corp Hgb Conc. 31.7 g/dL (33.0-37.0); Mean Corpuscular Hgb 29.7 pg (27.0-31.0); Mean Corpuscular Volume 93.7 fL (80.0-94.0); Mean Platelet Volume 8.6 fL (7.4-10.4); Platelet Count 128 10^3/uL (130-400); Red Blood Cell Count 3.33 10^6/uL (4.70-6.10); Red Cell Dist. Width 17.7 % (11.5-14.5); White Blood Cell Count 43.1 10^3/uL (4.8-10.8)
[2024-11-14 18:54] LABS: APTT 44.3 Sec (23.4-35.0)
[2024-11-14] MEDS: STERILE WATER FOR INJECTION 10 ML IV (19:39)
[2024-11-14] MEDS: ZYLOPRIM 100 MG PO (19:39)
[2024-11-14] MEDS: LIPITOR 40 MG PO (19:39)
[2024-11-14] MEDS: MAXIPIME 1000 MG IV (19:39)
[2024-11-14] MEDS: HEPARIN 25000 UNITS/250 ML IV (19:42)
[2024-11-15] VITALS (13 sets, daily range): BP systolic 103–124; BP diastolic 46–65; BMI 22.8
[2024-11-15] MEDS: SOLU-MEDROL PF 40 MG IV ×3 (01:55→17:22)
[2024-11-15] MEDS: SODIUM BICARBONATE 1150 MEQ IV (02:49)
[2024-11-15 02:56] LABS: Venous Blood Gas B.E. -4.6 mmol/L (-4 to +4); Venous Blood Gas HCO3 20.3 mmol/L (22-27); Venous Blood Gas O2 Sat % 92.8 %; Venous Blood Gas pCO2 36 mmHg (35-48); Venous Blood Gas pH 7.36 (7.32-7.43); Venous Blood Gas pO2 62 mmHg (30-50)
[2024-11-15 03:08] LABS: Hematocrit 28.8 % (39.0-52.0); Hemoglobin 9.1 g/dL (13.0-18.0); Mean Corp Hgb Conc. 31.6 g/dL (33.0-37.0); Mean Corpuscular Hgb 29.3 pg (27.0-31.0); Mean Corpuscular Volume 92.6 fL (80.0-94.0); Mean Platelet Volume 9.4 fL (7.4-10.4); Platelet Count 143 10^3/uL (130-400); Red Blood Cell Count 3.11 10^6/uL (4.70-6.10); Red Cell Dist. Width 17.7 % (11.5-14.5); White Blood Cell Count 47.1 10^3/uL (4.8-10.8)
[2024-11-15 03:19] LABS: ALT (SGPT) 20 U/L (0-50); AST (SGOT) 23 U/L (17-59); Albumin 2.6 g/dl (3.5-5.0); Alkaline Phosphatase 125 U/L (38-126); Blood Urea Nitrogen 64 mg/dl (9-20); Calcium 7.1 mg/dl (8.4-10.2); Carbon Dioxide 19 mmol/L (22-30); Chloride 105 mmol/L (98-107); Estimated Creatinine Clearance 21 ml/min; Glucose 147 mg/dl (70-99); Potassium 3.5 mmol/L (3.5-5.1); Sodium 138 mmol/L (135-145); Total Bilirubin 0.7 mg/dl (0.2-1.3); Total Protein 5.2 g/dl (6.3-8.2); eGFR 24.17
[2024-11-15 03:20] LABS: APTT 154.1 Sec (23.4-35.0)
[2024-11-15 03:48] LABS: Absolute Neutrophils -Man Diff 44.2 10^3/uL (1.4-6.5); Band Neutrophils 35 % (0-3); Lymphocytes 2 % (20-51); Monocytes 4 % (2-9); Platelets Checked Yes; Segmented Neutrophils 59 % (42-75)
[2024-11-15 03:50] LABS: Anisocytosis 1+; Microcytosis Slight; Normal RBC Morphology No; Ovalocytes Slight; Total Cells Counted 100
--- NOTE | 2024-11-15 04:31 | PTCARENOTE ---
Patient remained on HFNC 50 liters 60 % overnight. Heparin gtt infusing per protocol. Next PTT due at 1030.
--- NOTE | 2024-11-15 07:24 | W.PN.HOSP.TC ---
Addendum entered and electronically signed by Nadya Red MD 11/15/24 18:23:
I saw and evaluated the patient independently. I reviewed the resident�s note and agree with findings and plan as documented by Dr. Simmons.
GENERAL: well developed, well nourished, male in no apparent distress
HEENT: NC/AT--HI VITO O2
HEART: regular rate and rhythm, +S1, +S2
LUNGS : decreased breath sounds bilaterally
ABDOM: soft, nontender, nondistended, + bowel sounds
EXT: no cyanosis, clubbing, or edema
NEUROLOGIC: grossly intact
Acute Hypoxemic respiratory failure --acute pulmonary embolism most likely possibility (large A-a gradient with HI VITO O2 and ECHO with dilated RV and elevated pressures)--cannot do CT PE study due to elevated creat--V/Q scan felt not to be helpful
by nuclear medicine, US neg for DVT, cont empiric heparin drip--initial etiology was thought to be PNA which is now less likely as pt on abx without clinical improvement-- CT scan with severe emphysematous change [COPD] and no pna--acute CHF also
was possibility with 20K pro BNP but pt does not appear to be volume overloaded, would not give diuretics at this time--cont cefepime/oral doxy--apprec pulm/ID/onc/cards
new spiculated lung mass--will need outpt PET and likely biopsy--IF positive for cancer would explain propensity for being hypercoagulable as well as leukocytosis--onc consult apprec
ANGELINA on CKD stage 3 now with developing metabolic acidosis--creat 2.9 but prior was 1.9 in 2009 (baseline ~2)--Holding hydrochlorothiazide, lisinopril---apprec renal--cont on bicarb drip
Essential hypertension--Continue amlodipine--Continue Coreg
Hypercholesterolemia
Gout--Continue allopurinol
code status --DNR/DNI
DVT prophylaxis�heparin
updated daughter at bedside about above plan--in agreement
Total Critical Care Time 33 minutes. I was immediately available to the patient and staff. I personally examined, reviewed labs, diagnostic images/reports, interpretations, treatment plans, discussed patient care with other providers and family
or caregivers (if patient is unable to make decisions), entered orders as appropriate and documented the medical record.
Original Note:
Today's Communication/Plan
-
V/Q scan
Repeat ABG
Continue heparin infusion
Continue bicarb drip
Monitor BMP
Monitor serum creatinine
Assessment / Plan
Assessment / Plan
79-year-old male with past medical history significant for CKD stage IIIb, hypertension, hyperlipidemia, admitted for hypoxic respiratory failure requiring 5 L oxygen, and started on antibiotics for pneumonia.
Impression
Acute hypoxemic respiratory failure
Elevated proBNP
ANGELINA on CKD
Essential hypertension
Hypercholesterolemia
Gout
Plan
Acute Hypoxemic respiratory failure
Likely secondary to bilateral pneumonia versus COPD exacerbation versus congestive heart failure
Patient is now on high flow, with FiO2 60%, wean as tolerated keeping SpO2 88-95%.
Elevated white count to 47
Consult ID
Consult pulmonology
Continue doxycycline
Started on cefepime
Switched to Solu-Medrol
CT chest without contrast- Small right and tiny left pleural effusions.
Findings consistent with severe emphysematous disease.
Spiculated right upper lobe pulmonary mass. Noncalcified solid bilateral pulmonary nodules concerning for malignancy until proven otherwise. PET imaging recommended.
Oncology consulted-plan on doing PET as outpatient.
Incentive spirometry
Will repeat ABG
Continue heparin drip
Will order V/ Q scan
Elevated proBNP
Up to 19,000
Chest x-ray�evidence of cardiomegaly
No prior history of congestive heart failure
Echo�normal left ventricular systolic function. Estimated LVEF 55-60%.
Aortic sclerosis without stenosis.
Enlarged right ventricular size. Reduced right ventricular systolic function.
Mild tricuspid regurgitation. Moderately elevated PASP. Estimated pulmonary
artery pressure of 46 mmHg. Assuming a right atrial pressure of 8 mmHg.
Suspect PE although ultrasound lower extremity showed no evidence of DVT
Start heparin infusion, continue
Cardiology consulted
ANGELINA on CKD
Discontinued IVF
Creatinine at 2.6
Renal ultrasound�simple bilateral renal cysts, moderate BPH, bladder wall trabeculation.
ACEI, thiazides on hold.
Essential hypertension
Continue amlodipine
Continue carvedilol
Hyperlipidemia
Continue atorvastatin
Gout
Continue allopurinol
DVT prophylaxis�SC heparin
Anticipated Discharge: > 48 hours
Subjective/Interval History
-
Date of Service: November 15, 2024
Patient reports that he feels a little bit tired. He had good sleep yesterday night.
Objective Data
-
Labs:
Laboratory Results
11/15/24 11/15/24
02:41 10:30
WBC 47.1 H*
Hgb 9.1 L
Hct 28.8 L
Plt Count 143
APTT 154.1 H* Pending
Sodium 138
Potassium 3.5
Chloride 105
Carbon Dioxide 19 L
BUN 64 H
Creatinine 2.6 H
Glucose 147 H
Calcium 7.1 L
Total Bilirubin 0.7
AST 23
ALT 20
Alkaline Phosphatase 125
Vital Signs:
Vital Signs
Temp Pulse Resp BP Pulse Ox
97.9 F 59 12 103/48 93
11/15/24 02:57 11/15/24 06:00 11/15/24 06:00 11/15/24 06:00 11/15/24 06:00
I&O
11/14/24 11/15/24 11/16/24
06:59 06:59 06:59
Intake Total 100 / 100 900 / 900
Output Total 400 / 400
Balance 100 / 100 500 / 500
Review of Systems
-
All other systems: Reviewed and negative (As per history)
Physical Exam
-
General: Other (Appears weak)
HEENT: Normocephalic and Atraumatic
Respiratory: Clear to Auscultation
Cardiac: Regular Rhythm and S1/S2
GI: Soft, Nontender, Nondistended and Normal Bowel Sounds
Skin: Warm and Dry
Neuro: Awake, Alert, Oriented and AO x 3
Psych: Calm
[2024-11-15] MEDS: COREG 6.25 MG PO ×2 (08:43→20:06)
[2024-11-15] MEDS: NORVASC 10 MG PO (08:43)
[2024-11-15] MEDS: LOW STRENGTH ASPIRIN 81 MG PO (08:43)
[2024-11-15] MEDS: MAXIPIME 1000 MG IV ×2 (08:43→20:06)
[2024-11-15] MEDS: MUCINEX 1200 MG PO ×2 (08:43→20:06)
[2024-11-15] MEDS: VIBRAMYCIN 100 MG PO ×2 (08:44→20:06)
[2024-11-15] MEDS: STERILE WATER FOR INJECTION 10 ML IV ×2 (08:44→20:06)
[2024-11-15] MEDS: VITAMIN D3 (cholecalciferol) 25 MCG PO (08:44)
--- NOTE | 2024-11-15 08:49 | W.PN.ONC ---
Today's Communication / Plan
-
Continue empiric antibiotics per ID and primary team
Continue supportive measures per primary team
Continue trending WBC on daily CBC with differential
Planning on outpatient PET once acute issues have resolved
Potential tissue biopsy per pulmonology/IR
Will continue to follow along
Impression
Impression
79-year-old male with [id number] smoking history, hemoptysis, found to have 2.5 cm spiculated noncalcified right upper lobe mass
Patient currently in acute hypoxic respiratory failure secondary to bilateral pneumonia, currently requiring 12 L oxygen via high flow nasal cannula.
Noncontrast CT scan chest demonstrated 2.5 cm spiculated noncalcified right upper lobe mass. Patient endorses no night sweats, 10 pound weight loss over 3 months, productive cough with hemoptysis
CT scan demonstrates diffuse, severe cystic changes throughout both lungs consistent with severe emphysematous disease.
Reports quit smoking 40 years ago however has approximately [id number] smoking history. Reports he is up-to-date on age-appropriate cancer screenings. Reports no family history of malignancy
Pulmonary mass could be malignant or could be secondary to severe pulmonary scarring and fibrosis
Plan on outpatient PET scan to further evaluate lung mass
If FDG positive on PET, will consider tissue sampling, however due to patient's poor pulmonary function and diffuse emphysema tissue sampling may be difficult. Will defer to pulmonology
Discussion regarding if lesion is FDG positive on PET may consider just proceeding straight to definitive SBRT lung radiation, if radiation oncology, medical oncology, pulmonology and patient are in agreement.
Of note patient does have markedly elevated leukocytosis which is trending upward, patient neurovirus positive. Unsure etiology. Could be component of infection, leukemoid reaction, stress dose steroid, possible marrow process. Will continue
trending WBC count with daily CBC with differential
Plan
Plan
Continue empiric antibiotics and supportive measures per primary
Patient reports wanting to pursue definitive treatment if applicable
Plan for outpatient PET with tissue biopsy if FDG positive, if possible
Further discussion regarding goals of care and treatment options contingent on PET and biopsy results, see impression
Continue trending WBC count with daily CBC with differential
Subjective/Objective
Subjective/Objective
Patient reports small amount watery diarrhea, no nausea or vomiting at this time
Vital Signs:
Vital Signs
Temp Pulse Resp BP Pulse Ox
97.9 F 68 17 112/59 95
11/15/24 02:57 11/15/24 08:43 11/15/24 08:41 11/15/24 08:43 11/15/24 08:41
Lab Results:
Laboratory Data
WBC 47.1 10^3/uL (4.8-10.8) H* 11/15/24 02:41
Hgb 9.1 g/dL (13.0-18.0) L 11/15/24 02:41
Plt Count 143 10^3/uL (130-400) 11/15/24 02:41
APTT 154.1 Sec (23.4-35.0) H* 11/15/24 02:41
eGFR 24.17 11/15/24 02:41
[2024-11-15] MEDS: SPIRIVA RESPIMAT 2.5 MCG 2 PUFF INH (09:05)
--- NOTE | 2024-11-15 09:31 | W.PN.PUL3 ---
Today's Communication / Plan
-
Empirically continue heparin drip
Changed hydrocortisone to Solu-Medrol
Continue Spiriva given high likelihood he has COPD, despite him not having shortness of breath
Changed prn DuoNebs to albuterol
Continue with antibiotics as per ID
Continue bicarb drip and trend blood gas to monitor pH + pCO2
Trend sCr and sHCO3
Wean down high flow nasal cannula FiO2 as tolerated while keeping SpO2 88-95%
Outpatient workup for right upper lobe spiculated nodule with PET/CT and possible biopsy although he is high risk for pneumothorax considering his extensive bullous emphysema
Hematology and ID recs appreciated
Trend WBC and follow-up cultures
Pulmonary service will continue to follow along and outpatient follow-up will also be arranged for full PFTs and discussion of his lung nodules
Assessment
-
Assessment: 79-year-old male former tobacco smoker with a past medical history of gout, hyperlipidemia, hypertension and CKD who presents with shortness of breath, chest congestion and cough. Symptoms started around when he felt ill
and he improved over the next 2-3 weeks. He then developed sciatica around [place] time and that had improved over the next 1 week. He did have shortness of breath that developed around and this worsened over the course of the
following week. He went to his doctor, Dr. Handy, on 11/10/2024 and found that his pulse oximeter was in the 50s. He was sent here to the ER for further evaluation, and found to be saturating 85% on room air. Saturations improved to the low 90s
on 5 L/min nasal cannula. Initially he was afebrile to 97.9 �F, pulse rate 71, breathing at 16 breaths minute, and BP 116/63. Initial labs showed leukocytosis to 43.9, Hb 10.9, increased eosinophil count of 1200, creatinine 2.9, potassium 5.2,
glucose 122, proBNP 18,700, and COVID antigen negative. Flu A/B swab also negative and blood cultures were collected. Initial CXR showed patchy parenchymal airspace opacities in both lungs with small bilateral pleural effusions and suspected
bullous changes in the lower lungs bilaterally. He was initially given 1 L NS 0.9%, ceftriaxone and Zithromax and admitted to telemetry. Antibiotics were continued and he continues to require oxygen. On 11/13/2024 his oxygen requirements worsened
and he was started on a partial rebreather and upgraded to the IMU. Pulmonary service now consulted for additional management/recommendations.
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
Impression:
#Acute respiratory failure with hypoxia: Likely due to sepsis however acute PE is also on differential especially with severely elevated proBNP of >18,500 and echo findings
#Leukocytosis with bandemia - unclear source as only obvious infection right now is his gastroenteritis from norovirus
#Sepsis without septic shock
#Nausea/diarrhea with norovirus seen on stool culture (diagnosed on 11/14/2024)
#Metabolic acidosis with normal anion gap
#RV enlargement with reduced right ventricular systolic function and pulmonary hypertension with PASP: 46 mmHg seen on TTE from 11/14/2024
#Spiculated right upper lobe nodule measuring 2.5 cm with multiple other noncalcified bilateral pulmonary nodules ranging from 3-8 mm
#Pleural-based mass versus pleural thickening at the lateral right hemithorax measuring 2 x 1 cm
#Small hiatal hernia
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
#Acute anemia
#ANGELINA on CKD3b
#Increased eosinophil count with absolute eosinophils: 1200 on admission (11/10/2024)
#Former tobacco smoker with 72-eztx-evyd history, quit approximately 40 years ago
#History of gout
#Carotid artery stenosis
#Hypertension
#Dyslipidemia
Plan:
- He had bibasilar opacification/groundglass opacities seen on CXR from 11/10/2024 with concern for bilateral pneumonia
- CT chest without contrast performed on 11/14/2024 showed no evidence of pneumonia, however there is severe bullous emphysematous changes with a right upper lobe spiculated nodule measuring 2.5 cm and multiple other lung nodules
- He does have diarrhea with nausea and his stool culture on 11/14/2024 was positive for norovirus
- It appears that his radiographic abnormalities are not correlating with his level of hypoxia, raising suspicion for another cardiopulmonary process (i.e. pulm HTN vs acute PE)
- Echo performed today shows no evidence of shunting by color-flow Doppler, with moderately elevated PASP at 46 mmHg, and enlarged RV with reduced RV systolic function --> this raises concern for an acute PE, however unable to do a CTA chest given
his ANGELINA
- Continue empiric heparin drip and hopefully once creatinine returns to baseline then we can check a CTA chest at that time; otherwise we can always consider a VQ scan, although with his emphysema a q-scan would be more helpful
- Lower extremity duplex is negative for bilateral DVT
- Continue to trend proBNP
- Continue with Abx --> currently on cefepime + doxy s/p Rocephin rocephin (11/10 - 11/12)
- There is no evidence for pneumonia on CT chest performed on 11/14/2024
- Unclear if antibiotics are indicated however in the setting of his hypoxia now with multiorgan dysfunction with worsening ANGELINA and severe leukocytosis and febrile on 11/13/2024 (100.7F), empirically continue antibiotics for now; ID consulted
- Follow up sputum Cx (collected 11/11/2024 - NGTD); follow up blood Cx X2 (collected 11/10/2024 - NGTD)
- Trend WBC and monitor for fevers --> hematology consulted; if leukocytosis does not improve despite the patient getting better clinically then would consider BMBx given concern for MDS vs leukemia in that case; this may all just be a leukemoid
reaction
- Mucolytics
- prn nebulized bronchodilators - not currently bronchospastic
- Given that there is no concern for CAP, stop hydrocortisone. Considering he is hypoxic with severe bullous emphysema and suspected COPD, changed hydrocortisone to Solu-Medrol
- No prior Hx of chronic lung disease although he was a former tobacco smoker with 30 pack year Hx --> will obtain outpatient PFTs to assess for COPD
- Continue spiriva respimat with prn albuterol
- Trend sCr and renally dose all meds/Abx
- Nephro following and recs appreciated
- Avoid nephrotoxic agents
- Supportive care for his norovirus infection
- C. difficile antigen is positive but toxin negative � this is not consistent with an acute C. difficile infection
- trend sHCO3 while on bicarb gtt
- Trend blood gas to monitor pH and pCO2
- Maintain SpO2 >90-94% with high flow nasal cannula
- Incentive spirometer encouraged q1hr while awake
- Replete electrolytes with K>4, Mg>2
- Maintain euglycemia with goal BG >100 and <180
- DVT ppx: heparin gtt due to concern for acute PE
- Given that he has multiple bilateral pulmonary nodules with a right upper lobe spiculated lesion, this is concerning for malignancy. There are no former CT chest imaging, as per the patient and daughter. He has significant, extensive bullous
emphysema, hence performing a biopsy whether through robotic bronchoscopy or transthoracic needle aspiration, complications with a pneumothorax are very high. Ideally, would perform robotic bronchoscopy as this has a lower chance of pneumothorax
compared to TTNA. This will be discussed further as an outpatient, and he will need a PET/CT as well as an outpatient.
- There is a possibility if PET/CT shows high FDG avidity in this right upper lobe spiculated lesion with no other concerning findings elsewhere in the lungs or outside the thorax, that he can get SBRT without a biopsy, if oncology and radiation
oncology agree with this treatment plan given the high risk for complications with biopsy and anesthesia considering his significant lung disease. This will be an ongoing discussion.
Pulmonary service will continue to follow along. Outpatient office follow-up will also be arranged.
Data:
CXR 11/10/2024:
Patchy parenchymal airspace opacities within both lungs, appearance highly suggestive of pneumonia.
Bullous changes within both lower lungs.
Probable minimal bilateral pleural effusions.
Cardiomegaly with no convincing pulmonary edema pattern.
CT Chest without contrast 11/14/2024:
No acute disease of the chest.
Small right and tiny left pleural effusions.
Findings consistent with severe emphysematous disease.
Spiculated right upper lobe pulmonary mass. Noncalcified solid bilateral pulmonary nodules concerning for malignancy until proven otherwise. PET imaging recommended.
Bilateral adrenal thickening suggesting benign hyperplasia.
Total time spent today was 56 minutes for this encounter. Time includes reviewing laboratory test/imaging results, reviewing pertinent medical records, obtaining and reviewing medical history, performing an appropriate exam, ordering medications,
tests and procedures. Time also includes documentation of this encounter, coordinating patient care and communicating with other healthcare professionals. Total time does not include separately billed tests performed on this date of service.
Subjective Data
-
Date of Service:
Date of Service: November 15, 2024
Chief Complaint: Pulmonary Follow Up
Subjective:
Patient seen and evaluated today at bedside. Says that he is breathing better today. Remains on high flow nasal cannula at 60% FiO2, 50 L/min. Saturating 90% with heart rate 63 and BP 103/65. Also remains on bicarb drip. Still coughing up brown
phlegm but currently denies SOB. Also denies chest pain, BARRIENTOS, nausea, fevers or chills.
Review of Systems
General: Other (Negative unless mentioned above)
Objective Data
Data Reviewed
Vital Signs / I&O / Oxygen:
Vital Signs
Temp Pulse Resp BP Pulse Ox
97.7 F 67 13 103/53 90
11/15/24 07:35 11/15/24 10:00 11/15/24 10:00 11/15/24 10:00 11/15/24 10:21
Intake and Output
11/14/24 11/15/24 11/16/24
06:59 06:59 06:59
Intake Total 100 / 100 900 / 900
Output Total 400 / 400
Balance 100 / 100 500 / 500
SaO2 90
Nasal Cannula flow liters per 50
minute
Physical Exam
General: Respiratory Distress (negative), Comfortable, Chills (negative) and Sweats (negative)
HEENT: Normocephalic and Anicteric
Cardiovascular: S1-S2, Rub (negative) and Peripheral Edema (negative)
Respiratory: Clear, Wheeze (negative), Crackles (negative), Rhonchi (negative), Non-Labored Respirations and Stridor (negative)
GI: Soft, Non Distended, Non Tender and Normal Bowel Sounds
Neurology: AO x 3 and Tremors (negative)
Skin: Warm, Dry, Cyanosis (negative) and Jaundice (negative)
Labs/Micro/Reports
Lab Data
11/15/24 02:41
11/15/24 02:41
Laboratory Results
11/14/24 11/14/24 11/15/24
11:35 18:35 02:41
APTT 44.3 H 154.1 H*
pH 7.35
pCO2 31 L
pO2 129 H
HCO3 17.1 L
O2 Delivery Level
11/15/24
10:55
APTT 116.5 H
pH
pCO2
pO2
HCO3
O2 Delivery Level
Microbiology
11/10/24 16:26 Blood/Venous Blood Culture - Preliminary
No Growth in 4 days- Final report to follow
11/10/24 16:26 Blood/Venous Blood Culture - Preliminary
No Growth in 4 days- Final report to follow
11/14/24 00:42 Feces/Stool C. difficile GDH Antigen & Toxins - Final
C. difficile antigen positive, toxin negative.
Clostridium difficile present, but toxin not detected.
Patient may be a carrier, colonized with nontoxinogenic
strain or the level of toxin in sample is below detection
limits. This information should be used in conjunction with
the patient's clinical history.
11/14/24 00:42 Feces/Stool - Final
Positive for Norovirus GII
11/14/24 00:42 Urine Legionella Urinary Antigen - Final
Negative for Legionella pneumophila Serogroup 1 antigen.
A negative result does not rule out the possiblity of
Legionella infection due to other serogroups or species of
Legionella. Clinical correlation is recommended.
11/14/24 00:42 Urine Streptococcus pneumoniae Antigen (M - Final
Negative for Streptococcus pneumoniae antigen.
A negative result does not exclude infection with
Streptococcus pneumoniae. Clinical correlation is
recommended.
11/11/24 11:28 Sputum Respiratory Culture - Final
Usual Respiratory [place]
11/11/24 11:28 Sputum Gram Stain - Final
--- NOTE | 2024-11-15 09:48 | CON.CAR ---
Addendum entered and electronically signed by Elroy Pang MD 11/15/24 12:20:
79 yo male with PMH of HTN, dyslipidemia, CKD3b is admitted with PALMER. He is on high flow NC. He is being treated for PNA. We are consulted to assess for HF. Exam with RRR, no murmurs, no edema.
Echo: EF 55-60%, enlarged RV with decreased RV fx, and also pulm HTN, PASP 46.
Despite elevated BNP, I would not diagnose with acute HF at this time. No edema, orthopnea, or weight gain noted. No lasix at this time.
RV findings above could be consistent with PE. Agree with heparin drip, pending V/Q scan.
Continue to monitor daily weights.
Original Note:
Consultation
Consultation Request
Date/Time Consultation Requested: 11/14/24 9990
Date/Time Consultation Performed: 11/15/24 3062
Requesting Provider: Dr. Simmons
Performing Provider: Lucrecia MONTES for Dr. Pang
Reason for Consultation: abnormal BNP, RV systolic dysfunction
Medical History
-
Chief Complaint: SOB
History of Present Illness:
79 y/o male with hypertension, dyslipidemia, gout, carotid artery disease (no stents, Dr. Xiao), CKD3B, and gout who is here for 1 week of PALMER. This was preceded by several weeks of his sciatica worsening, and as a result, he was not as active.
Otherwise, he has recently lost about 10 lbs through improvement of his diet. He has had diarrhea here, which is now better, though he is positive for norovirus. He has been noted to have ANGELINA on CKD and significant leukocytosis. Nephrology has been
on the case for the former. For the latter, he was initially felt to have PNA and was treated with abx and ID seeing. Heme also consulted. We are asked to comment, as pro-BNP consistently elevated. Otherwise, RV dysfunction is noted on echo and
concern for PE so he is on IV heparin. He remains on high flow O2, but is in no distress at the time of my assessment. Finally, he tested positive for norovirus, but diarrhea has resolved. Daughter is at bedside.
Past Medical History
Past Medical History: HTN, Hypercholesterolemia and Other (as above)
Social History
Tobacco: Former Smoker
Family History
Family History: Reviewed & Not Pertinent
Allergies / Home Medications
Allergy/AdvReac Type Severity Reaction Status Date / Time
No Known Allergies Allergy Verified 11/10/24 11:59
�Medication �Instructions �Recorded �Confirmed �Type
Baking Soda 0.25 tsp PO DAILY Supplement 11/10/24 11/10/24 History
acetaminophen 500 mg tablet 1,000 mg PO Q6HPRN PRN mild pain 11/10/24 11/10/24 History
(Tylenol Extra Strength)
allopurinol 100 mg tablet 100 mg PO HS Gout 11/10/24 11/10/24 History
amlodipine 10 mg tablet 10 mg PO DAILY Blood Pressure 11/10/24 11/10/24 History
aspirin 81 mg chewable tablet 81 mg PO DAILY Blood Clot 11/10/24 11/10/24 History
Prevention/Tx
atorvastatin 40 mg tablet 40 mg PO HS High Cholesterol 11/10/24 11/10/24 History
carvedilol 6.25 mg tablet 6.25 mg PO BID Blood Pressure 11/10/24 11/10/24 History
cholecalciferol (vitamin D3) 25 25 mcg PO DAILY Supplement 11/10/24 11/10/24 History
mcg (1,000 unit) tablet (Vitamin
D3)
hydrochlorothiazide 25 mg tablet 25 mg PO DAILY Blood Pressure 11/10/24 11/10/24 History
lisinopril 40 mg tablet 40 mg PO HS Blood Pressure 11/10/24 11/10/24 History
Review of Systems
-
History Source: Patient
All other systems: Negative unless noted
Constitutional: Weight Loss
Respiratory: Trouble Breathing
Abdomen/GI: Diarrhea
Physical Exam
Vital Signs
Temp Pulse Resp BP Pulse Ox
97.7 F 66 16 112/59 95
11/15/24 07:35 11/15/24 09:10 11/15/24 09:10 11/15/24 08:43 11/15/24 09:10
Lab Results
11/15/24 02:41
11/15/24 02:41
Wns-D-Dorctjqgdrp Pept [id number] pg/ml 11/14/24 04:51
Physical Exam
General: Well Developed, Well Nourished and No Apparent Distress
HEENT: Normocephalic and Anicteric
Respiratory: Clear, Non Labored Respirations and Other (on high flow O2)
Cardiac: Regular Rhythm
Musculoskeletal: No Edema
Skin: Warm and Dry
Neuro: AO x 3
Psych: Calm
Impression / Plan
-
Acute, hypoxemic respiratory failure:
-this diagnosis is threat to life. He is requiring high flow O2 by MT.
-initial CXR was suggestive of PNA and he was treated with antibiotics
-however, echo shows enlarged RV size and reduced function, suggestive of possible PE. He was not moving around as much with his recent sciatica. He is on heparin- continue this medicine, which requires intensive monitoring. CTA not done due to
renal dysfunction. LE U/S negative for DVT.
-proBNP is elevated in setting of renal dysfunction and RV dysfunction as above. He has no orthopnea, PND, edema, weight gain. I do not believe he is volume-overloaded and I do not believe he would benefit from diuresis at this time. Monitor
volume. Full echo report as noted in data section of note.
-additionally, emphysema is noted on CT scan and lung nodule noted- pulm and onc on board and patient will need more testing as OP
Leukocytosis:
-significant
-ID following, and well as hematology
ANGELINA on CKD:
-nephro following
HTN:
-stable
-monitor
HLD:
-on statin
Carotid disease:
-ASA, statin
-follow with vascular as OP
Norovirus:
-symptoms improved
Data Reviewed
-
EKG: Tracing Personally Visualized and interpreted (SR with anterolateral ST/T abnormalities )
CT Scan: Report Reviewed by me (Chest CT: No acute disease of the chest. Small right and tiny left pleural effusions. Severe emphysematous disease. Spiculated right upper lobe pulmonary mass. Noncalcified solid bilateral pulmonary nodules concerning
for malignancy until proven otherwise. Bilateral adrenal thickening.)
Medical Tests (Nuc Med, Echo etc): Report Reviewed by me (Echo 11/14/24: EF 55-60%. Aortic sclerosis without stenosis. Enlarged right ventricular size. Reduced right ventricular systolic function. Mild tricuspid regurgitation. Moderately elevated
PASP. Estimated pulmonary artery pressure of 46 mmHg. )
Labs: Labs Reviewed by me
--- NOTE | 2024-11-15 10:24 | W.PN.ID1 ---
Date of Service
Date of Service: November 15, 2024
Today's Communication
Continue current antibiotics.
Assessment / Plan
Bilateral pneumonia
Marked leukocytosis
- ?infection ?Leukemoid reaction ?Marrow process ?steroid effect
Anemia
CKD stage III
CHF
Norovirus (+)
HTN
Dyslipidemia
Recommendations:
Continue cefepime and doxycycline.
CT chest consistent with severe emphysematous disease
Legionella and pneumococcal urinary antigens negative
Trend white count, although there may be a component of steroid effect at this time.
����������������������������������������������������������
Chief Complaint
-: Leukocytosis, Pneumonia and Other (Norovirus)
Subjective / Review of Systems
Patient seen and examined. Remains on high flow O2 at this time. Reports that diarrhea has stopped, and now stool is described as 'mushy'.
Review of Systems: No Fever and No Chills
Vital Signs / Physical Exam
Vital Signs
Vital Signs
Temp Pulse Resp BP Pulse Ox
97.7 F 67 13 103/53 93
11/15/24 07:35 11/15/24 10:00 11/15/24 10:00 11/15/24 10:00 11/15/24 10:00
Physical Exam
Constitutional: Comfortable and Non-toxic
Eyes: Sclera Anicteric
Cardiovascular: S1/S2; Negative S3/S4
Pulmonary: Non Labored and Other (High flow O2 in place.)
Gastrointestinal: Soft, Non Tender and Non Distended
Skin: Warm and Dry; Negative Rash or Jaundice
Neurological: Awake and Alert
Psychological: Calm
Objective Data
Lab Data
Lab Results
11/15/24 02:41
11/15/24 02:41
APTT 154.1 Sec (23.4-35.0) H* 11/15/24 02:41
Estimated Creat Clear 21 ml/min 11/15/24 02:41
Lactic Acid Cancelled 11/10/24 20:00
Total Bilirubin 0.7 mg/dl (0.2-1.3) 11/15/24 02:41
AST 23 U/L (17-59) 11/15/24 02:41
ALT 20 U/L (0-50) 11/15/24 02:41
Alkaline Phosphatase 125 U/L (38-126) 11/15/24 02:41
Most recent labs reviewed.
Micro Results:
11/10/24 16:26 Blood Culture - Preliminary
Blood/Venous No Growth in 4 days- Final report to follow
11/10/24 16:26 Blood Culture - Preliminary
Blood/Venous No Growth in 4 days- Final report to follow
11/14/24 00:42 C. difficile GDH Antigen & Toxins - Final
Feces/Stool C. difficile antigen positive, toxin negative.
Clostridium difficile present, but toxin not detected.
Patient may be a carrier, colonized with nontoxinogenic
strain or the level of toxin in sample is below detection
limits. This information should be used in conjunction with
the patient's clinical history.
- Final
Positive for Norovirus GII
11/14/24 00:42 Legionella Urinary Antigen - Final
Urine Negative for Legionella pneumophila Serogroup 1 antigen.
A negative result does not rule out the possiblity of
Legionella infection due to other serogroups or species of
Legionella. Clinical correlation is recommended.
Streptococcus pneumoniae Antigen (M - Final
Negative for Streptococcus pneumoniae antigen.
A negative result does not exclude infection with
Streptococcus pneumoniae. Clinical correlation is
recommended.
11/11/24 11:28 Respiratory Culture - Final
Sputum Usual Respiratory Kiley
Gram Stain - Final
11/10/24 12:27 Influenza Types A & B (ANNALISE) - Final
Nasal Swab Negative for Influenza A & B, NAAT
Negative results must be combined with clinical observations
and patient history.
Nucleic Acid Amplification test (NAAT)performed on the
WHOOP platform.
Imaging:
11/10/2024 CXR (2 view): Patchy parenchymal airspace opacities within both lungs, highly suggestive of pneumonia. Bullous changes within both lower lungs. Probable minimal bilateral pleural effusions noted. Please see full dictation for additional
detail. Film personally viewed.
Care Review
Plan reviewed with: Physician (Hospitalist)
--- NOTE | 2024-11-15 10:29 | PTCARENOTE ---
Assumed care of patient this morning. He is aaox3, pleasant. Pt remains on HFNC. Pt does not appear dyspneic but SPO2 drops with any exertion. While getting on the BSC, SPO2 dropped to 72%. Pt does recover in <5 minutes. Lungs are coarse and
diminished. Pt did have loose stool this morning. He has no complaints. Daughter at the bedside and was updated by medical team. Assessment, care and VS as charted.
[2024-11-15 11:16] LABS: APTT 116.5 Sec (23.4-35.0)
--- NOTE | 2024-11-15 11:34 | W.PN.NEPH.PH ---
Today's Communication / Plan
-
Maintain sodium bicarbonate drip
Follow BMP
Assessment/Plan
-
Impression:
ANGELINA
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
Microhematuria
Hypoxic respiratory failure/. Suspected bilateral pneumonia
Leukocytosis
ProBNP 18,000 with no prior history of congestive heart failure
Hyperlipidemia
Hypertension
History of gout
Plan:
ANGELINA:
-Creatinine up to 2.6 , oliguric ~400cc, metabolic acidosis persists but improving
-Maintain sodium bicarb drip for metabolic acidosis
-Holding off on diuretics for now, watching weight gain
-Patient being systemically heparinized for possible pulmonary embolism, VQ scan pending
-History, exam, and leukocytosis support Bilateral pneumonia diagnosis, , Although proBNP level of 18,000 and is certainly concerning
a kidney and bladder ultrasound, given microhematuria and kidney injury= no significant pathology small kidney on the right simple system bilateral
-Agree with holding LIBBY inhibitor and HCTZ in setting of acute kidney injury
-CAT scan no evidence of pneumonia with severe emphysema and
-Creatinine with small bump up to 2.6
Discussed with his daughter at the bedside
-
-
Date of Service: November 15, 2024
CC / HPI / ROS
-
Chief Complaint:
acute or chronic kidney disease
History of Present Illness:
Creatinine up to 2.6
Metabolic acidosis on sodium bicarbonate drip
CAT scan shows severe bolus have to seem a with a lung mass
Now on IV heparin for possible underlying pulmonary embolism
Review of Systems:
Now on high flow oxygen
no chest pain
Labs
-
Labs:
WBC 47.1 10^3/uL (4.8-10.8) H* 11/15/24 02:41
RBC 3.11 10^6/uL (4.70-6.10) L 11/15/24 02:41
Hgb 9.1 g/dL (13.0-18.0) L 11/15/24 02:41
Hct 28.8 % (39.0-52.0) L 11/15/24 02:41
Plt Count 143 10^3/uL (130-400) 11/15/24 02:41
Sodium 138 mmol/L (135-145) 11/15/24 02:41
Potassium 3.5 mmol/L (3.5-5.1) 11/15/24 02:41
Chloride 105 mmol/L (98-107) 11/15/24 02:41
Carbon Dioxide 19 mmol/L (22-30) L 11/15/24 02:41
BUN 64 mg/dl (9-20) H 11/15/24 02:41
Creatinine 2.6 mg/dL (0.7-1.3) H 11/15/24 02:41
eGFR 24.17 11/15/24 02:41
Glucose 147 mg/dl (70-99) H 11/15/24 02:41
Calcium 7.1 mg/dl (8.4-10.2) L 11/15/24 02:41
Fik-I-Uusxsabphfu Pept 28865 pg/ml 11/14/24 04:51
Albumin 2.6 g/dl (3.5-5.0) L 11/15/24 02:41
Physical Exam
-
Vital Signs:
Vital Signs
Temp Pulse Resp BP Pulse Ox
97.7 F 67 13 103/53 90
11/15/24 07:35 11/15/24 10:00 11/15/24 10:00 11/15/24 10:00 11/15/24 10:21
Respiratory:: Bilateral: CTA
Lung Excursion:: Normal
Abdomen:: Soft
Bowel Sounds:: Normal
Extremity Edema:: None: Bilateral:
--- NOTE | 2024-11-15 13:40 | PTCARENOTE ---
TT sent to to make aware that BiCarb drip had . No new orders at this time.
[2024-11-15 16:04] LABS: B.E. -1.4 mmol/L; HCO3 22.6 mmol/L (21-28); O2 Saturation % 99.1 % (94-98); PCO2 34 mmHg (35-48); PO2 187 mmHg (83-108); pH 7.43 (7.35-7.45)
--- NOTE | 2024-11-15 16:34 | CM ---
Patient seen at bedside with daughter present. Patient on high flow O2, Patient may benefit from PT/OT to clarify levels of care needed. CM will continue to follow for discharge planning needs.
Plan; TBD; pending functional needs.
[2024-11-15 18:03] LABS: APTT 94.3 Sec (23.4-35.0)
[2024-11-15] MEDS: LIPITOR 40 MG PO (20:05)
[2024-11-15] MEDS: ZYLOPRIM 100 MG PO (20:06)
[2024-11-15] MEDS: HEPARIN 25000 UNITS/250 ML IV (21:55)
[2024-11-16] VITALS (13 sets, daily range): BP systolic 91–126; BP diastolic 48–61; BMI 22.9
[2024-11-16 01:10] LABS: APTT 71.2 Sec (23.4-35.0)
[2024-11-16] MEDS: HEPARIN 2700 UNITS IV (01:52)
[2024-11-16] MEDS: SOLU-MEDROL PF 40 MG IV ×3 (01:57→17:52)
--- NOTE | 2024-11-16 03:27 | PTCARENOTE ---
Assumed care for patient overnight, received report from lorenzo RN. Pt AAOx3, anxious at times, but pleasant. Pt remains on HFNC. RT bedside to increase to 50L 100%. Pt desating in bed when reaching down and rolling in bed. Pt desatted to 80%,
recovered quickly once adjusted. Pt boosted up and states that he 'feels a lot better'. Lungs are diminished and coarse with shallow respirations. Pt coughing up copious amounts of brown mucus and states that 'this is not the first time'. NSR on
tele with occasional PVC's. Based on PTT assessment rebolused heparin and increased rate see worklist. Pt has call em within reach and is ringing appropriately.
[2024-11-16 06:10] LABS: Venous Blood Gas B.E. -2.6 mmol/L (-4 to +4); Venous Blood Gas HCO3 21.6 mmol/L (22-27); Venous Blood Gas O2 Sat % 98.2 %; Venous Blood Gas pCO2 34 mmHg (35-48); Venous Blood Gas pH 7.41 (7.32-7.43); Venous Blood Gas pO2 87 mmHg (30-50)
[2024-11-16 06:30] LABS: Hematocrit 28.4 % (39.0-52.0); Hemoglobin 9.2 g/dL (13.0-18.0); Mean Corp Hgb Conc. 32.4 g/dL (33.0-37.0); Mean Corpuscular Hgb 29.9 pg (27.0-31.0); Mean Corpuscular Volume 92.2 fL (80.0-94.0); Mean Platelet Volume 9.8 fL (7.4-10.4); Platelet Count 152 10^3/uL (130-400); Red Blood Cell Count 3.08 10^6/uL (4.70-6.10); Red Cell Dist. Width 17.7 % (11.5-14.5); White Blood Cell Count 56.4 10^3/uL (4.8-10.8)
--- NOTE | 2024-11-16 07:41 | W.PN.HOSP.TC ---
Addendum entered and electronically signed by Nadya Red MD 11/16/24 15:53:
I saw and evaluated the patient independently. I reviewed the resident�s note and agree with findings and plan as documented by Dr. Simmons.
GENERAL: well developed, well nourished, male in no apparent distress--tired today
HEENT: NC/AT--HI VITO O2
HEART: regular rate and rhythm, +S1, +S2
LUNGS : decreased breath sounds bilaterally
ABDOM: soft, nontender, nondistended, + bowel sounds
EXT: no cyanosis, clubbing, or edema
NEUROLOGIC: grossly intact
Acute Hypoxemic respiratory failure --acute pulmonary embolism most likely possibility (large A-a gradient with HI VITO O2 and ECHO with dilated RV and elevated pressures)--cannot do CT PE study due to elevated creat--V/Q scan felt not to be helpful
by nuclear medicine, US neg for DVT, cont empiric heparin drip--initial etiology was thought to be PNA which is now less likely as pt on abx without clinical improvement-- CT scan with severe emphysematous change [COPD] and no pna--acute CHF also
was possibility with 20K pro BNP but pt does not appear to be volume overloaded, would not give diuretics at this time--cont cefepime/oral doxy--apprec pulm/ID/onc/cards
leukocytosis--WBC 56K with all neutrophils (0 Lymph 0 [place])--possible steroid effect, norovirus positive, with diarrhea, check C. diff--no role for flow cytometry per heme as not great for neutrophils--check viral resp panel, recheck COVID
new spiculated lung mass--will need outpt PET and likely biopsy--IF positive for cancer would explain propensity for being hypercoagulable as well as leukocytosis--onc consult apprec
ANGELINA on CKD stage 3 now with developing metabolic acidosis--creat hovering about 2.5 (baseline 2)--Holding hydrochlorothiazide, lisinopril---apprec renal--cont on bicarb drip
Essential hypertension--Continue amlodipine--Continue Coreg
Hypercholesterolemia
Gout--Continue allopurinol
code status --DNR/DNI
DVT prophylaxis�heparin
Spoke at length with daughter at bedside. Reviewed thought process to date, showed CT scan of chest and significant bleb disease, reviewed limitations with obtaining definitive studies and discussed possibility of needing transfer downtown if
trajectory does not improve. She seems to understand and is very appreciative of all that we are doing at this point.
Total Critical Care Time 40 minutes. I was immediately available to the patient and staff. I personally examined, reviewed labs, diagnostic images/reports, interpretations, treatment plans, discussed patient care with other providers and family
or caregivers (if patient is unable to make decisions), entered orders as appropriate and documented the medical record.
Original Note:
Today's Communication/Plan
-
Continue heparin drip
Started on vancomycin
Transition to oral sodium bicarb
CT abdomen pelvis
Alpha-1 antitrypsin
Repeat COVID, will do flu
ESR, CRP, complement
Assessment / Plan
Assessment / Plan
79-year-old male with past medical history significant for CKD stage IIIb, hypertension, hyperlipidemia, admitted for hypoxic respiratory failure requiring 5 L oxygen, and started on antibiotics for pneumonia.
Impression
Acute hypoxemic respiratory failure
Elevated proBNP
ANGELINA on CKD
Essential hypertension
Hypercholesterolemia
Gout
Plan
Acute Hypoxemic respiratory failure
Likely secondary to acute PE (other etiologies might be COPD, malignancy, pneumonia)
USG lower extremities negative for DVT
Could not do CT PE due to renal function.
VQ scan not recommended as per radiology
Patient is now on high flow, with FiO2 60%, 50 L, wean as tolerated keeping SpO2 88-95%.
Acutely elevated white count from 47�56, suspicious of ongoing malignant process.
Oncology consulted�plan on doing bone marrow biopsy, BCR-ABL, PET scan as outpatient. Flow cytometry not so helpful.
Will order CT abdomen pelvis.
Will do alpha-1 antitrypsin, ESR, CRP, complement.
Continue heparin drip
Monitor APTT
Incentive spirometry
Continue steroids
Continue antibiotics,-started on empiric vancomycin as patient tested positive for C. difficile antigen (toxin negative)
Blood cultures and sputum cultures negative.
COVID-negative at admission, but will repeat COVID. Will order flu.
CT chest without contrast- Small right and tiny left pleural effusions.
Findings consistent with severe emphysematous disease.
Spiculated right upper lobe pulmonary mass. Noncalcified solid bilateral pulmonary nodules concerning for malignancy until proven otherwise. PET imaging recommended.
Elevated proBNP
Up to 19,000
Chest x-ray�evidence of cardiomegaly
No prior history of congestive heart failure
Echo�normal left ventricular systolic function. Estimated LVEF 55-60%.
Aortic sclerosis without stenosis.
Enlarged right ventricular size. Reduced right ventricular systolic function.
Mild tricuspid regurgitation. Moderately elevated PASP. Estimated pulmonary
artery pressure of 46 mmHg. Assuming a right atrial pressure of 8 mmHg.
Suspect PE although ultrasound lower extremity showed no evidence of DVT
Start heparin infusion, continue
Cardiology consulted- ok with holding off diuresis.
ANGELINA on CKD
Creatinine at 2.5
Renal ultrasound�simple bilateral renal cysts, moderate BPH, bladder wall trabeculation.
ACEI, thiazides on hold.
metabolic acidosis
Transition to oral sodium bicarb
Monitor BMP
Essential hypertension
Continue amlodipine
Continue carvedilol
Hyperlipidemia
Continue atorvastatin
Gout
Continue allopurinol
DVT prophylaxis�heparin GTT
Anticipated Discharge: > 48 hours
Subjective/Interval History
-
Date of Service: November 16, 2024
Patient appears very tired.
Objective Data
-
Labs:
Laboratory Results
11/16/24 11/16/24 11/16/24
00:33 05:49 08:00
WBC 56.4 H*
Hgb 9.2 L
Hct 28.4 L
Plt Count 152
APTT 71.2 H Pending
Sodium Pending
Potassium Pending
Chloride Pending
Carbon Dioxide Pending
BUN Pending
Creatinine Pending
Glucose Pending
Calcium Pending
Total Bilirubin Pending
AST Pending
ALT Pending
Alkaline Phosphatase Pending
Vital Signs:
Vital Signs
Temp Pulse Resp BP Pulse Ox
98.0 F 71 13 121/53 92
11/15/24 19:42 11/16/24 06:00 11/16/24 06:00 11/16/24 06:00 11/16/24 06:00
I&O
11/15/24 11/16/24 11/17/24
06:59 06:59 06:59
Intake Total 900 / 900 1292 / 1292
Output Total 400 / 400 700 / 700
Balance 500 / 500 592 / 592
Review of Systems
-
All other systems: Reviewed and negative (As per history)
Physical Exam
-
General: Other (Fatigued)
HEENT: Normocephalic and Atraumatic
Respiratory: Clear to Auscultation
Cardiac: Regular Rhythm and S1/S2
GI: Soft, Nontender and Normal Bowel Sounds
Skin: Warm and Dry
Neuro: Awake, Alert, Oriented and AO x 3
Psych: Calm
[2024-11-16 07:58] LABS: ALT (SGPT) 22 U/L (0-50); AST (SGOT) 28 U/L (17-59); Albumin 2.7 g/dl (3.5-5.0); Alkaline Phosphatase 130 U/L (38-126); Blood Urea Nitrogen 78 mg/dl (9-20); Calcium 7.1 mg/dl (8.4-10.2); Carbon Dioxide 20 mmol/L (22-30); Chloride 101 mmol/L (98-107); Estimated Creatinine Clearance 23 ml/min; Glucose 141 mg/dl (70-99); Potassium 3.2 mmol/L (3.5-5.1); Sodium 137 mmol/L (135-145); Total Bilirubin 0.8 mg/dl (0.2-1.3); Total Protein 5.4 g/dl (6.3-8.2); eGFR 25.34
[2024-11-16] MEDS: SPIRIVA RESPIMAT 2.5 MCG 2 PUFF INH (08:16)
[2024-11-16] MEDS: COREG 6.25 MG PO ×2 (08:34→20:10)
[2024-11-16] MEDS: LOW STRENGTH ASPIRIN 81 MG PO (08:34)
[2024-11-16] MEDS: NORVASC 10 MG PO (08:34)
[2024-11-16] MEDS: MUCINEX 1200 MG PO ×2 (08:35→20:11)
[2024-11-16] MEDS: VIBRAMYCIN 100 MG PO ×2 (08:35→20:11)
[2024-11-16] MEDS: MAXIPIME 1000 MG IV ×2 (08:35→20:10)
[2024-11-16] MEDS: VITAMIN D3 (cholecalciferol) 25 MCG PO (08:35)
[2024-11-16] MEDS: STERILE WATER FOR INJECTION 10 ML IV ×2 (08:35→20:11)
[2024-11-16 08:39] LABS: Absolute Neutrophils -Man Diff 56.4 10^3/uL (1.4-6.5); Band Neutrophils 17 % (0-3); Lymphocytes 0 % (20-51); Monocytes 0 % (2-9); Segmented Neutrophils 83 % (42-75)
[2024-11-16 08:40] LABS: Anisocytosis 1+; Hypochromasia 1+; Normal RBC Morphology No; Ovalocytes FEW; Platelets Checked Yes; Polychromasia 1+; Total Cells Counted 100
--- NOTE | 2024-11-16 08:52 | W.PN.PUL3 ---
Today's Communication / Plan
-
Empirically continue heparin drip
Changed hydrocortisone to Solu-Medrol
Continue Spiriva given high likelihood he has COPD, despite him not having shortness of breath
Changed prn DuoNebs to albuterol
Continue with antibiotics as per ID
Continue PO bicarb and trend blood gas to monitor pH + pCO2 (blood gas this AM looks good with pH 7.41)
Trend sCr and sHCO3
Wean down high flow nasal cannula FiO2 as tolerated while keeping SpO2 88-95%
Outpatient workup for right upper lobe spiculated nodule with PET/CT and possible biopsy although he is high risk for pneumothorax considering his extensive bullous emphysema
Hematology and ID recs appreciated
Trend WBC and follow-up cultures
Pulmonary service will continue to follow along and outpatient follow-up will also be arranged for full PFTs and discussion of his lung nodules
Assessment
-
Assessment: 79-year-old male former tobacco smoker with a past medical history of gout, hyperlipidemia, hypertension and CKD who presents with shortness of breath, chest congestion and cough. Symptoms started around when he felt ill
and he improved over the next 2-3 weeks. He then developed sciatica around Julian[place] time and that had improved over the next 1 week. He did have shortness of breath that developed around and this worsened over the course of the
following week. He went to his doctor, Dr. Handy, on 11/10/2024 and found that his pulse oximeter was in the 50s. He was sent here to the ER for further evaluation, and found to be saturating 85% on room air. Saturations improved to the low 90s
on 5 L/min nasal cannula. Initially he was afebrile to 97.9 �F, pulse rate 71, breathing at 16 breaths minute, and BP 116/63. Initial labs showed leukocytosis to 43.9, Hb 10.9, increased eosinophil count of 1200, creatinine 2.9, potassium 5.2,
glucose 122, proBNP 18,700, and COVID antigen negative. Flu A/B swab also negative and blood cultures were collected. Initial CXR showed patchy parenchymal airspace opacities in both lungs with small bilateral pleural effusions and suspected
bullous changes in the lower lungs bilaterally. He was initially given 1 L NS 0.9%, ceftriaxone and Zithromax and admitted to telemetry. Antibiotics were continued and he continues to require oxygen. On 11/13/2024 his oxygen requirements worsened
and he was started on a partial rebreather and upgraded to the IMU. Pulmonary service now consulted for additional management/recommendations.
Chronic conditions CALL CENTER RECEPTIONIST: Hypertension, dyslipidemia, CKD stage III, gout, vitamin D deficiency, proteinuria, carotid artery stenosis, former tobacco smoker (78-ulhp-[id number] history, quit 40 years ago)
Impression:
#Acute respiratory failure with hypoxia: Likely due to sepsis however acute PE is also on differential especially with severely elevated proBNP of >18,500 and echo findings
#Leukocytosis with bandemia - unclear source as only obvious infection right now is his gastroenteritis from norovirus; MDS vs leukemia is also on differential for leukocytosis
#Sepsis without septic shock
#Nausea/diarrhea with norovirus seen on stool culture (diagnosed on 11/14/2024)
#Metabolic acidosis with normal anion gap
#RV enlargement with reduced right ventricular systolic function and pulmonary hypertension with PASP: 46 mmHg seen on TTE from 11/14/2024
#Spiculated right upper lobe nodule measuring 2.5 cm with multiple other noncalcified bilateral pulmonary nodules ranging from 3-8 mm
#Pleural-based mass versus pleural thickening at the lateral right hemithorax measuring 2 x 1 cm
#Small hiatal hernia
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
#Acute anemia
#ANGELINA on CKD3b
#Increased eosinophil count with absolute eosinophils: 1200 on admission (11/10/2024)
#Former tobacco smoker with 48-[id number]-pglw history, quit approximately 40 years ago
#History of gout
#Carotid artery stenosis
#Hypertension
#Dyslipidemia
Plan:
- He had bibasilar opacification/groundglass opacities seen on CXR from 11/10/2024 with concern for bilateral pneumonia
- CT chest without contrast performed on 11/14/2024 showed no evidence of pneumonia, however there is severe bullous emphysematous changes with a right upper lobe spiculated nodule measuring 2.5 cm and multiple other lung nodules
- He had diarrhea with nausea and his stool culture on 11/14/2024 was positive for norovirus
- It appears that his radiographic abnormalities are not correlating with his level of hypoxia, raising suspicion for another cardiopulmonary process (i.e. pulm HTN vs acute PE)
- Echo performed on 11/14/2024 showed no evidence of shunting by color-flow Doppler, with moderately elevated PASP at 46 mmHg, and enlarged RV with reduced RV systolic function --> this raises concern for an acute PE, however unable to do a CTA
chest given his ANGELINA
- Continue empiric heparin drip and hopefully once creatinine returns to baseline then we can check a CTA chest at that time; otherwise we can always consider a VQ scan, although with his emphysema a q-scan would be more helpful
- Lower extremity duplex is negative for bilateral DVT
- Continue to trend proBNP
- Continue with Abx --> currently on cefepime + doxy s/p Rocephin rocephin (11/10 - 11/12)
- There is no evidence for pneumonia on CT chest performed on 11/14/2024
- Unclear if antibiotics are indicated however in the setting of his hypoxia now with multiorgan dysfunction with worsening ANGELINA and severe leukocytosis and febrile on 11/13/2024 (100.7F), empirically continue antibiotics for now; ID consulted
- Follow up sputum Cx (collected 11/11/2024 - NGTD); follow up blood Cx X2 (collected 11/10/2024 - NGTD)
- RV-panel also ordered and is pending
- Trend WBC and monitor for fevers --> hematology consulted; if leukocytosis does not improve despite the patient getting better clinically then would consider BMBx (can be done as an outpatient in addition to outpatient CBC with manual diff) given
concern for MDS vs leukemia in that case; this may all just be a leukemoid reaction
- Mucolytics
- prn nebulized bronchodilators - not currently bronchospastic
- Given that there is no concern for CAP, I stopped hydrocortisone. Considering he is hypoxic with severe bullous emphysema and suspected COPD, changed hydrocortisone to Solu-Medrol 40mg IV q8hr - wean as he clinically improves
- No prior Hx of chronic lung disease although he was a former tobacco smoker with 30 pack year Hx --> will obtain outpatient PFTs to assess for COPD
- Continue spiriva respimat with prn albuterol
- Trend sCr and renally dose all meds/Abx
- Nephro following and recs appreciated
- Avoid nephrotoxic agents
- Supportive care for his norovirus infection
- C. difficile antigen is positive but toxin negative � this is not consistent with an acute C. difficile infection
- trend sHCO3 now on PO bicar s/p bicarb gtt
- Trend blood gas to monitor pH and pCO2 (blood gas from this AM on 11/16/2024 shows neutral pH at 7.41 with pCO2 34 - this is adequate)
- Maintain SpO2 >90-94% with high flow nasal cannula
- Incentive spirometer encouraged q1hr while awake
- Replete electrolytes with K>4, Mg>2
- Maintain euglycemia with goal BG >100 and <180
- DVT ppx: heparin gtt due to concern for acute PE
- Given that he has multiple bilateral pulmonary nodules with a right upper lobe spiculated lesion, this is concerning for malignancy. There are no former CT chest imaging, as per the patient and daughter. He has significant, extensive bullous
emphysema, hence performing a biopsy whether through robotic bronchoscopy or transthoracic needle aspiration, complications with a pneumothorax are very high. Ideally, would perform robotic bronchoscopy as this has a lower chance of pneumothorax
compared to TTNA. This will be discussed further as an outpatient, and he will need a PET/CT as well as an outpatient.
- There is a possibility if PET/CT shows high FDG avidity in this right upper lobe spiculated lesion with no other concerning findings elsewhere in the lungs or outside the thorax, that he can get SBRT without a biopsy, if oncology and radiation
oncology agree with this treatment plan given the high risk for complications with biopsy and anesthesia considering his significant lung disease. This will be an ongoing discussion.
Pulmonary service will continue to follow along. Outpatient office follow-up will also be arranged.
Data:
CXR 11/10/2024:
Patchy parenchymal airspace opacities within both lungs, appearance highly suggestive of pneumonia.
Bullous changes within both lower lungs.
Probable minimal bilateral pleural effusions.
Cardiomegaly with no convincing pulmonary edema pattern.
CT Chest without contrast 11/14/2024:
No acute disease of the chest.
Small right and tiny left pleural effusions.
Findings consistent with severe emphysematous disease.
Spiculated right upper lobe pulmonary mass. Noncalcified solid bilateral pulmonary nodules concerning for malignancy until proven otherwise. PET imaging recommended.
Bilateral adrenal thickening suggesting benign hyperplasia.
Total time spent today was 58 minutes for this encounter. Time includes reviewing laboratory test/imaging results, reviewing pertinent medical records, obtaining and reviewing medical history, performing an appropriate exam, ordering medications,
tests and procedures. Time also includes documentation of this encounter, coordinating patient care and communicating with other healthcare professionals. Total time does not include separately billed tests performed on this date of service.
Subjective Data
-
Date of Service:
Date of Service: November 16, 2024
Chief Complaint: Pulmonary Follow Up
Subjective:
Patient seen today at bedside. He says he is very tired today. Currently on high flow nasal cannula at 70% FiO2, 50 L/min. He is saturating 92%, heart rate 71 and BP 115/60. He says that his breathing is doing okay. He denies chest pain, BARRIENTOS,
nausea, fevers or chills.
Review of Systems
General: Other (Negative unless mentioned above)
Objective Data
Data Reviewed
Vital Signs / I&O / Oxygen:
Vital Signs
Temp Pulse Resp BP Pulse Ox
98.0 F 68 14 110/56 94
11/15/24 19:42 11/16/24 08:34 11/16/24 08:20 11/16/24 08:34 11/16/24 08:20
Intake and Output
11/15/24 11/16/24 11/17/24
06:59 06:59 06:59
Intake Total 900 / 900 1292 / 1292
Output Total 400 / 400 700 / 700
Balance 500 / 500 592 / 592
SaO2 94
Nasal Cannula flow liters per 50
minute
Physical Exam
General: Respiratory Distress (negative), Comfortable, Chills (negative) and Sweats (negative)
HEENT: Normocephalic and Anicteric
Cardiovascular: S1-S2, Rub (negative) and Peripheral Edema (negative)
Respiratory: Clear, Wheeze (negative), Crackles (negative), Rhonchi (negative), Non-Labored Respirations and Stridor (negative)
GI: Soft, Non Distended, Non Tender and Normal Bowel Sounds
Neurology: AO x 3 and Tremors (negative)
Skin: Warm, Dry, Cyanosis (negative) and Jaundice (negative)
Labs/Micro/Reports
Lab Data
11/16/24 05:49
11/16/24 05:49
Laboratory Results
11/15/24 11/15/24 11/15/24
10:55 15:52 17:36
APTT 116.5 H 94.3 H
pH 7.43
pCO2 34 L
pO2 187 H
HCO3 22.6
O2 Delivery Level
11/16/24
00:33
APTT 71.2 H
pH
pCO2
pO2
HCO3
O2 Delivery Level
Microbiology
11/10/24 16:26 Blood/Venous Blood Culture - Final
No Growth - Final Report
11/10/24 16:26 Blood/Venous Blood Culture - Final
No Growth - Final Report
11/14/24 00:42 Feces/Stool C. difficile GDH Antigen & Toxins - Final
C. difficile antigen positive, toxin negative.
Clostridium difficile present, but toxin not detected.
Patient may be a carrier, colonized with nontoxinogenic
strain or the level of toxin in sample is below detection
limits. This information should be used in conjunction with
the patient's clinical history.
11/14/24 00:42 Feces/Stool - Final
Positive for Norovirus GII
11/14/24 00:42 Urine Legionella Urinary Antigen - Final
Negative for Legionella pneumophila Serogroup 1 antigen.
A negative result does not rule out the possiblity of
Legionella infection due to other serogroups or species of
Legionella. Clinical correlation is recommended.
11/14/24 00:42 Urine Streptococcus pneumoniae Antigen (M - Final
Negative for Streptococcus pneumoniae antigen.
A negative result does not exclude infection with
Streptococcus pneumoniae. Clinical correlation is
recommended.
11/11/24 11:28 Sputum Respiratory Culture - Final
Usual Respiratory Kiley
11/11/24 11:28 Sputum Gram Stain - Final
[2024-11-16 08:54] LABS: APTT 93.1 Sec (23.4-35.0)
--- NOTE | 2024-11-16 10:18 | W.PN.NEPH.PH ---
Today's Communication / Plan
-
Discussion with daughter and primary send
Will start oral sodium bicarbonate today
CKD relatively stable
Escalating white cell count concerning for underlying malignant process
Assessment/Plan
-
Impression:
ANGELINA
CKD 3B (~2)
Microhematuria
Hypoxic respiratory failure/. Suspected bilateral pneumonia
Profile leukocytosis
ProBNP 18,000 with no prior history of congestive heart failure
Hyperlipidemia
Hypertension
History of gout
Plan:
ANGELINA:
-Creatinine stable at 2.5, oliguric ~700cc, metabolic acidosis persists but improving
-Change sodium bicarb to oral
-Holding off on diuretics for now, weight stable
-Patient being systemically heparinized for possible pulmonary embolism, VQ scan pending
-History, exam, and leukocytosis support Bilateral pneumonia diagnosis, , Although proBNP level of 18,000 and is certainly concerning
a kidney and bladder ultrasound, given microhematuria and kidney injury= no significant pathology small kidney on the right simple system bilateral
-Agree with holding LIBBY inhibitor and HCTZ in setting of acute kidney injury
-CAT scan no evidence of pneumonia with severe emphysema and
Discussed with his daughter and primary team at the bedside
-
-
Date of Service: November 16, 2024
CC / HPI / ROS
-
Chief Complaint:
acute or chronic kidney disease
History of Present Illness:
Creatinine stable at 2.5
Metabolic acidosis
CAT scan shows severe bolus have to seem a with a lung mass
Now on IV heparin for possible underlying pulmonary embolism
White cell count continues to
Review of Systems:
Now on high flow oxygen
no chest pain
Nonoliguric
Weight stable
Labs
-
Labs:
WBC 56.4 10^3/uL (4.8-10.8) H* 11/16/24 05:49
RBC 3.08 10^6/uL (4.70-6.10) L 11/16/24 05:49
Hgb 9.2 g/dL (13.0-18.0) L 11/16/24 05:49
Hct 28.4 % (39.0-52.0) L 11/16/24 05:49
Plt Count 152 10^3/uL (130-400) 11/16/24 05:49
Sodium 137 mmol/L (135-145) 11/16/24 05:49
Potassium 3.2 mmol/L (3.5-5.1) L 11/16/24 05:49
Chloride 101 mmol/L (98-107) 11/16/24 05:49
Carbon Dioxide 20 mmol/L (22-30) L 11/16/24 05:49
BUN 78 mg/dl (9-20) H 11/16/24 05:49
Creatinine 2.5 mg/dL (0.7-1.3) H 11/16/24 05:49
eGFR 25.34 11/16/24 05:49
Glucose 141 mg/dl (70-99) H 11/16/24 05:49
Calcium 7.1 mg/dl (8.4-10.2) L 11/16/24 05:49
Olg-E-Tziolgklooj Pept 51997 pg/ml 11/14/24 04:51
Albumin 2.7 g/dl (3.5-5.0) L 11/16/24 05:49
Physical Exam
-
Vital Signs:
Vital Signs
Temp Pulse Resp BP Pulse Ox
98.0 F 68 14 110/56 94
11/16/24 07:53 11/16/24 08:34 11/16/24 08:20 11/16/24 08:34 11/16/24 08:20
Cardiovascular:: Regular rate and rhythm
Respiratory:: Bilateral: Coarse
Lung Excursion:: Normal
Abdomen:: Soft
Bowel Sounds:: Normal
Extremity Edema:: None: Bilateral:
Willingham Catheter: No
[2024-11-16] MEDS: KCL 40 MEQ PO (10:24)
--- NOTE | 2024-11-16 11:07 | W.PN.ID1 ---
Date of Service
Date of Service: November 16, 2024
Today's Communication
Continue antibiotics. See below�
Assessment / Plan
Bilateral pneumonia
Marked leukocytosis
- ?infection ?Leukemoid reaction ?Marrow process ?steroid effect
Anemia
CKD stage III
CHF
Norovirus (+)
HTN
Dyslipidemia
Recommendations:
Continue cefepime and doxycycline.
CT chest consistent with severe emphysematous disease with blebs
Legionella and pneumococcal urinary antigens negative
Trend white count, although there may be a component of steroid effect at this time.
Will check viral respiratory panel.
In addition, given rising leukocytosis, and C. difficile testing ( Ag+/Tox-), will initiate empiric vancomycin
����������������������������������������������������������
Chief Complaint
-: Leukocytosis, Pneumonia and Other (Norovirus)
Subjective / Review of Systems
Patient seen and examined. Reports feeling okay, but notes he has felt better in the past. He notes some ongoing diarrhea at this time.
Review of Systems: No Fever and No Chills
Vital Signs / Physical Exam
Vital Signs
Vital Signs
Temp Pulse Resp BP Pulse Ox
98.0 F 68 14 110/56 94
11/16/24 07:53 11/16/24 08:34 11/16/24 08:20 11/16/24 08:34 11/16/24 08:20
Physical Exam
Constitutional: Comfortable and Non-toxic
Eyes: Sclera Anicteric
Cardiovascular: S1/S2; Negative S3/S4
Pulmonary: Non Labored and Other (High flow O2 in place.)
Gastrointestinal: Soft, Non Tender, Non Distended, Normal Bowel Sounds, No Rebound and No Guarding
Skin: Warm and Dry; Negative Rash or Jaundice
Neurological: Awake and Alert
Psychological: Calm
Objective Data
Lab Data
Lab Results
11/16/24 05:49
11/16/24 05:49
APTT 93.1 Sec (23.4-35.0) H 11/16/24 08:31
Estimated Creat Clear 23 ml/min 11/16/24 05:49
Lactic Acid Cancelled 11/10/24 20:00
Total Bilirubin 0.8 mg/dl (0.2-1.3) 11/16/24 05:49
AST 28 U/L (17-59) 11/16/24 05:49
ALT 22 U/L (0-50) 11/16/24 05:49
Alkaline Phosphatase 130 U/L (38-126) H 11/16/24 05:49
Most recent labs reviewed.
Micro Results:
11/10/24 16:26 Blood Culture - Final
Blood/Venous No Growth - Final Report
11/10/24 16:26 Blood Culture - Final
Blood/Venous No Growth - Final Report
11/14/24 00:42 C. difficile GDH Antigen & Toxins - Final
Feces/Stool C. difficile antigen positive, toxin negative.
Positive for Norovirus GII
11/14/24 00:42 Legionella Urinary Antigen - Final
Urine Negative for Legionella pneumophila Serogroup 1 antigen.
A negative result does not rule out the possiblity of
Legionella infection due to other serogroups or species of
Legionella. Clinical correlation is recommended.
Streptococcus pneumoniae Antigen (M - Final
Negative for Streptococcus pneumoniae antigen.
A negative result does not exclude infection with
Streptococcus pneumoniae. Clinical correlation is
recommended.
11/11/24 11:28 Respiratory Culture - Final
Sputum Usual Respiratory Kiley
Gram Stain - Final
11/10/24 12:27 Influenza Types A & B (ANNALISE) - Final
Nasal Swab Negative for Influenza A & B, NAAT
Negative results must be combined with clinical observations
and patient history.
Nucleic Acid Amplification test (NAAT)performed on the
[employer] platform.
Imaging:
11/10/2024 CXR (2 view): Patchy parenchymal airspace opacities within both lungs, highly suggestive of pneumonia. Bullous changes within both lower lungs. Probable minimal bilateral pleural effusions noted. Please see full dictation for additional
detail. Film personally viewed.
Care Review
Plan reviewed with: Physician (Hospitalist)
--- NOTE | 2024-11-16 11:07 | W.PN.ONC ---
Today's Communication / Plan
-
Symptomatic/infectious management per primary
Daily CBC with differential
Outpatient CBC to evaluate for leukocytosis, if elevated heme-onc referral for BCR-ABL and bone marrow biopsy as outpatient
Outpatient PET for lung mass
Impression
Impression
79-year-old male with 12-bdjf-rdsg smoking history, hemoptysis, found to have 2.5 cm spiculated noncalcified right upper lobe mass
Patient currently in acute hypoxic respiratory failure secondary to bilateral pneumonia, currently requiring 12 L oxygen via high flow nasal cannula.
Noncontrast CT scan chest demonstrated 2.5 cm spiculated noncalcified right upper lobe mass. Patient endorses no night sweats, 10 pound weight loss over 3 months, productive cough with hemoptysis
CT scan demonstrates diffuse, severe cystic changes throughout both lungs consistent with severe emphysematous disease.
Reports quit smoking 40 years ago however has approximately 59-mwze-[id number] smoking history. Reports he is up-to-date on age-appropriate cancer screenings. Reports no family history of malignancy
Pulmonary mass could be malignant or could be secondary to severe pulmonary scarring and fibrosis
Plan on outpatient PET scan to further evaluate lung mass
If FDG positive on PET, will consider tissue sampling, however due to patient's poor pulmonary function and diffuse emphysema tissue sampling may be difficult. Will defer to pulmonology
Discussion regarding if lesion is FDG positive on PET may consider just proceeding straight to definitive SBRT lung radiation, if radiation oncology, medical oncology, pulmonology and patient are in agreement.
Unfortunately patient is currently requiring 50 L O2, poor prognosis
Of note patient does have markedly elevated leukocytosis which is trending upward, patient neurovirus positive. Unsure etiology. Could be component of infection, leukemoid reaction, stress dose steroid, possible marrow process. Will continue
trending WBC count with daily CBC with differential
Patient's leukocytosis is isolated and neutrophil predominant, no elevated platelets or RBCs. There is limited value of flow cytometry with neutrophil predominance, best for lymphocyte predominance
Plan
Plan
Continue empiric antibiotics and supportive measures per primary
Patient reports wanting to pursue definitive treatment if applicable. Currently requiring 50 L O2. Unfortunately poor prognosis
Plan for outpatient PET with tissue biopsy if FDG positive, if possible
Further discussion regarding goals of care and treatment options contingent on PET and biopsy results, see impression
As patient's isolated leukocytosis is neutrophil predominant, flow cytometry is of limited value
Continue trending WBC count with daily CBC with differential
Recommend patient follow-up with primary care physician within 1 week of discharge, if possible and have recheck CBC. Persistently elevated leukocytosis would warrant hematology/oncology referral and checking checking BCR-ABL gene mutation as an
outpatient with subsequent outpatient bone marrow biopsy.
Subjective/Objective
Subjective/Objective
Vital Signs:
Vital Signs
Temp Pulse Resp BP Pulse Ox
98.0 F 68 14 110/56 94
11/16/24 07:53 11/16/24 08:34 11/16/24 08:20 11/16/24 08:34 11/16/24 08:20
Lab Results:
Laboratory Data
WBC 56.4 10^3/uL (4.8-10.8) H* 11/16/24 05:49
Hgb 9.2 g/dL (13.0-18.0) L 11/16/24 05:49
Plt Count 152 10^3/uL (130-400) 11/16/24 05:49
APTT 93.1 Sec (23.4-35.0) H 11/16/24 08:31
eGFR 25.34 11/16/24 05:49
Orders
Orders
Orders From Last 24 Hours
11/16/24 05:49
Complete Blood Count/With Diff IN AM
11/17/24 06:00
Complete Blood Count/With Diff IN AM
[2024-11-16] MEDS: FIRVANQ 125 MG PO ×2 (11:47→17:01)
--- NOTE | 2024-11-16 12:57 | W.PN.CD ---
Today's Communication / Plan
-
weight is stable: I do not suspect acute HF at this time
-no lasix recommended
please call us back with additional questions
Impression / Plan
-
Acute, hypoxemic respiratory failure:
-this diagnosis is threat to life. He is requiring high flow O2 by NC.
-initial CXR was suggestive of PNA and he was treated with antibiotics
-echo shows enlarged RV size and reduced function, pulm HTN
-he is now being empirically treated for PE on heparin drip (which requires monitoring of Hgb)
-weight is stable: I do not suspect acute HF at this time
-no lasix recommended
Leukocytosis:
-significant
-ID following, and well as hematology
ANGELINA on CKD:
-nephro following
HTN:
-stable
-monitor
HLD:
-on statin
Carotid disease:
-ASA, statin
-follow with vascular as OP
Norovirus:
-symptoms improved
Physical Exam
Vital Signs/Labs
Vital Signs
Temp Pulse Resp BP Pulse Ox
98.0 F 68 14 110/56 93
11/16/24 07:53 11/16/24 08:34 11/16/24 08:20 11/16/24 08:34 11/16/24 12:14
11/15/24 11/16/24 11/17/24
06:59 06:59 06:59
Actual Weight 68 kg 68.2 kg
11/16/24 05:49
11/16/24 05:49
APTT 93.1 Sec (23.4-35.0) H 11/16/24 08:31
Magnesium 1.8 mg/dl (1.6-2.3) 11/14/24 04:51
11/10/24 11/12/24 11/14/24
12:27 06:08 04:51
Trv-N-Uxrktioovvm Pept 54215
Physical Exam
Constitutional: No acute distress
EENT: Moist mucous membranes
Cardiovascular: Rhythm & rate is regular, Pedal edema is absent, JVD pressure is normal and Systolic murmur absent
Respiratory: Labored respirations
Neuro/Psych: AO x 3
Data Reviewed
-
Date of Service: November 16, 2024
Labs: Labs Reviewed by me
[2024-11-16 15:05] LABS: APTT 103.6 Sec (23.4-35.0)
[2024-11-16 15:10] LABS: COVID-19 Antigen Negative (Negative)
[2024-11-16 15:13] LABS: Erythrocyte Sed Rate 24 mm/hour (0-20)
--- NOTE | 2024-11-16 15:43 | PTCARENOTE ---
CT abd/pelvis ordered. Pt refusing at this time secondary to diarrhea. Pt reports he will be uncomfortable if he has an accident off of the floor. He asked to delay it to tomorrow. MD aware and agreeable.
[2024-11-16 16:09] LABS: Complement C3 75 mg/dl (88-165)
[2024-11-16] MEDS: SODIUM BICARBONATE 650 MG PO ×2 (17:01→22:19)
[2024-11-16] MEDS: ZYLOPRIM 100 MG PO (20:12)
[2024-11-16] MEDS: LIPITOR 40 MG PO (20:12)
--- NOTE | 2024-11-16 23:10 | PTCARENOTE ---
Patient is AAOx3, very drowsy tonight and states to this RN that he 'feels tired' and 'wants to get rest'. Pt is currently 93% on 50L 65% Highflow. Utilizing the NRB mask to preoxygenate before and during exertion. Pt denies feeling SOB and no
notable increase in WOB. One episode of dark brown liquid loose stool. Confirmed with primary contact Larissa (), and the patient that Kim (daughter) is able to receive patient care updates and wants to add her as one of the contacts. Spoke
to the daughter at nurses station regarding current status. Daughter has questions about possibly transferring patient to [place], will pass on to daysflft RN. Pt appears to be resting comfortably in bed call em is within reach.
[2024-11-17] VITALS (15 sets, daily range): BP systolic 92–116; BP diastolic 41–75; BMI 23.0
[2024-11-17] MEDS: FIRVANQ 125 MG PO ×4 (01:03→18:00)
[2024-11-17] MEDS: SOLU-MEDROL PF 40 MG IV ×3 (01:03→17:59)
[2024-11-17] MEDS: HEPARIN 25000 UNITS/250 ML IV (02:27)
[2024-11-17 06:13] LABS: APTT 119.1 Sec (23.4-35.0)
[2024-11-17 06:16] LABS: Hematocrit 24.3 % (39.0-52.0); Hemoglobin 7.6 g/dL (13.0-18.0); Mean Corp Hgb Conc. 31.3 g/dL (33.0-37.0); Mean Corpuscular Volume 92.7 fL (80.0-94.0); Mean Platelet Volume 9.7 fL (7.4-10.4); Platelet Count 130 10^3/uL (130-400); Red Blood Cell Count 2.62 10^6/uL (4.70-6.10); Red Cell Dist. Width 17.8 % (11.5-14.5); White Blood Cell Count 59.1 10^3/uL (4.8-10.8)
[2024-11-17 06:26] LABS: ALT (SGPT) 19 U/L (0-50); AST (SGOT) 22 U/L (17-59); Albumin 2.4 g/dl (3.5-5.0); Alkaline Phosphatase 108 U/L (38-126); Blood Urea Nitrogen 99 mg/dl (9-20); Calcium 6.8 mg/dl (8.4-10.2); Carbon Dioxide 18 mmol/L (22-30); Chloride 106 mmol/L (98-107); Estimated Creatinine Clearance 24 ml/min; Glucose 133 mg/dl (70-99); Potassium 3.2 mmol/L (3.5-5.1); Sodium 137 mmol/L (135-145); Total Bilirubin 0.6 mg/dl (0.2-1.3); Total Protein 4.9 g/dl (6.3-8.2); eGFR 26.61
[2024-11-17 06:33] LABS: NT-proBNP 15500 pg/ml
--- NOTE | 2024-11-17 07:17 | W.PN.HOSP.TC ---
Addendum entered and electronically signed by Nadya Red MD 11/17/24 19:55:
BELOW should read--acute pulmonary embolism with cor pulmonale.....
hypokalemia--repleting
Addendum entered and electronically signed by Nadya Red MD 11/17/24 19:54:
I saw and evaluated the patient independently. I reviewed the resident�s note and agree with findings and plan as documented by Dr. Simmons.
GENERAL: well developed, well nourished, male in no apparent distress--tired today
HEENT: NC/AT--HI VITO O2
HEART: regular rate and rhythm, +S1, +S2
LUNGS : decreased breath sounds bilaterally
ABDOM: soft, nontender, nondistended, + bowel sounds
EXT: no cyanosis, clubbing, or edema
NEUROLOGIC: grossly intact
Spoke with family and consultants regarding possible transfer to [place]. Spoke with Dr. Cutler, manager servicing for the ICU at [facility]. Reviewed Mr. Younger's Case from admission until now. He has excepted in transfer but a bed is not expected for a few
days. In the meantime he recommended echo with bubble study (was done and is negative), trial of diuresis so Bumex 2 mg IV x 1 was given, and nonrebreather mask (or CPAP if desaturates) trial in order to transfer patient. Cannot transfer on high
flow oxygen.
new event--black liquid heme positive stool--stop IV heparin drip--apprec GI--PPI drip--hold on further scopes
Acute Hypoxemic respiratory failure --acute pulmonary embolism most likely possibility from underlying undiagnosed malignancy--cannot do CT PE study due to elevated creat--V/Q scan felt not to be helpful by nuclear medicine, US neg for DVT, empiric
heparin drip on hold--initial etiology thought to be PNA which is now less likely as pt on abx without clinical improvement-- CT scan with severe emphysematous change [COPD] and no pna--acute CHF also was possibility with 20K pro BNP but pt does not
appear to be volume overloaded, diuretics recommended by [facility] ICU manager servicing --cont cefepime/oral doxy--apprec pulm/ID/onc/cards --no inpt workup desired by oncology
leukocytosis--WBC 59K with all neutrophils--possible steroid effect, norovirus positive, with diarrhea, C. diff antigen positive, toxin negative but treating empirically--no role for flow cytometry per heme as not great for neutrophils or inpt BM
biopsy-- viral resp panel all negative
new spiculated lung mass--will need outpt PET and likely biopsy--IF positive for cancer would explain propensity for being hypercoagulable as well as leukocytosis--onc consult apprec
ANGELINA on CKD stage 3 now with developing metabolic acidosis--creat hovering about 2.5 (baseline 2)--Holding hydrochlorothiazide, lisinopril---apprec renal--cont on oral bicarb
Essential hypertension--Continue amlodipine--Continue Coreg
Hypercholesterolemia
Gout--Continue allopurinol
code status --DNR/DNI
DVT prophylaxis�heparin drip on hold
Total Critical Care Time 45 minutes. I was immediately available to the patient and staff. I personally examined, reviewed labs, diagnostic images/reports, interpretations, treatment plans, discussed patient care with other providers and family
or caregivers (if patient is unable to make decisions), entered orders as appropriate and documented the medical record.
Original Note:
Today's Communication/Plan
-
DIC panel
Assessment / Plan
Assessment / Plan
79-year-old male with past medical history significant for CKD stage IIIb, hypertension, hyperlipidemia, admitted for hypoxic respiratory failure requiring 5 L oxygen, and started on antibiotics for pneumonia.
Impression
Acute hypoxemic respiratory failure
Acute anemia
Hypocalcemia
Elevated proBNP
ANGELINA on CKD
Essential hypertension
Hypercholesterolemia
Gout
Plan
Afternoon events:
Touch based with all the consultants involved in the care of the patient�heme-onc, infectious disease, pulmonology, cardiology. Trying to see if the oncologist can do an inpatient bone marrow biopsy and lung biopsy.
Patient had a large bowel movement with liquidy black stools. But he is hemodynamically stable.
Heparin drip was held. Stat H&H showed hemoglobin of 8.2. GI consulted. Recommended Protonix IV infusion.
Do not plan to proceed with EGD.
Patient's family wants him to be transferred to [facility], would prefer to continue patient care at [facility]. Reached out to [facility] transfer center, talked to ICU manager servicing Dr. Cutler regarding patient's condition in detail from the time of admission
until today and the reason for transferring him to [facility] for further management. They have accepted the patient and will be transferred when a bed is available in the ICU.
In the meantime during his hospital stay, Dr. Cutler recommended the following
� Echo with bubble study
� Diuresis-right ventricular dysfunction
� Nonrebreather or a CPAP (if he desats on nonrebreather) during the transfer.
Ordered echo with bubble study
Trial of diuresis with Bumex 2 mg IV stat
Ordered CPAP.
Acute Hypoxemic respiratory failure
Likely secondary to acute PE (other etiologies might be COPD, malignancy, pneumonia)
Patient is now on high flow, with FiO2 67%, 50 L, wean as tolerated keeping SpO2 88-95%.
White count trended up to 57k, suspicious of ongoing malignant process.
USG lower extremities negative for DVT
Could not do CT PE due to renal function.
VQ scan not recommended as per radiology
Oncology consulted�plan on doing bone marrow biopsy, BCR-ABL, PET scan as outpatient. Flow cytometry not so helpful.
CT abdomen pelvis ordered
ESR, CRP very mild elevation.
Alpha-1 antitrypsin pending
Complement pending
Continue heparin drip
Monitor APTT
Incentive spirometry
Continue steroids
Continue antibiotics,-started on empiric vancomycin , patient tested positive for C. difficile antigen (toxin negative)
Blood cultures and sputum cultures negative.
COVID and flu negative
CT chest without contrast- Small right and tiny left pleural effusions.
Findings consistent with severe emphysematous disease.
Spiculated right upper lobe pulmonary mass. Noncalcified solid bilateral pulmonary nodules concerning for malignancy until proven otherwise. PET imaging recommended.
CT CT abdomen pelvis�No acute inflammatory process within the abdomen or pelvis.
No obstructive uropathy. Renal cysts.
Generalized mild diverticulosis. No evidence of acute diverticulitis. Liquefied feces in the colon, consistent with history of diarrhea. No bowel thickening or obstruction.
Subtle lucent lesion with cortical disruption demonstrated involving the posterior-superior medial right ilium measuring approximately 1.3 cm. Recommend further evaluation/follow-up whole-body bone scan.
Acute anemia
Acute drop in hemoglobin to 7.6 today
Platelet count dropped down to 130
Will order DIC panel
Plan to transfuse if less than 7
Trend CBC
Hypokalemia
Potassium 3.2
Repleted
Trend BMP
Hypocalcemia
Corrected serum calcium at 8.
Will order magnesium
Elevated proBNP
Up to 19,000, trended down to 15,500 today
Chest x-ray�evidence of cardiomegaly
No prior history of congestive heart failure
Echo�normal left ventricular systolic function. Estimated LVEF 55-60%.
Aortic sclerosis without stenosis.
Enlarged right ventricular size. Reduced right ventricular systolic function.
Mild tricuspid regurgitation. Moderately elevated PASP. Estimated pulmonary
artery pressure of 46 mmHg. Assuming a right atrial pressure of 8 mmHg.
Suspect PE although ultrasound lower extremity showed no evidence of DVT
Start heparin infusion, continue
Cardiology consulted
ANGELINA on CKD
Creatinine at 2.5
Renal ultrasound�simple bilateral renal cysts, moderate BPH, bladder wall trabeculation.
ACEI, thiazides on hold.
metabolic acidosis
Transitioned to oral sodium bicarb
Monitor BMP
Essential hypertension
Continue amlodipine
Continue carvedilol
Hyperlipidemia
Continue atorvastatin
Gout
Continue allopurinol
DVT prophylaxis�heparin GTT
Anticipated Discharge: > 48 hours
Subjective/Interval History
-
Date of Service: November 17, 2024
Patient reports feeling tired.
Objective Data
-
Labs:
Laboratory Results
11/17/24
05:38
WBC 59.1 H*
Hgb 7.6 L
Hct 24.3 L
Plt Count 130
APTT 119.1 H
Sodium 137
Potassium 3.2 L
Chloride 106
Carbon Dioxide 18 L
BUN 99 H
Creatinine 2.4 H
Glucose 133 H
Calcium 6.8 L*
Total Bilirubin 0.6
AST 22
ALT 19
Alkaline Phosphatase 108
Vital Signs:
Vital Signs
Temp Pulse Resp BP Pulse Ox
97.7 F 72 13 113/54 93
11/17/24 03:27 11/17/24 06:00 11/17/24 06:00 11/17/24 04:25 11/17/24 06:00
I&O
11/16/24 11/17/24 11/18/24
06:59 06:59 06:59
Intake Total 1402 / 1402 1860 / 1860
Output Total 700 / 700 400 / 400
Balance 702 / 702 1460 / 1460
Review of Systems
-
All other systems: Reviewed and negative (As per history)
Physical Exam
-
General: No Apparent Distress
HEENT: Normocephalic and Atraumatic
Respiratory: Clear to Auscultation
Cardiac: Regular Rhythm and S1/S2
GI: Soft, Nontender, Nondistended and Normal Bowel Sounds
Skin: Warm and Dry
Neuro: Awake, Alert, Oriented and AO x 3
Psych: Calm
[2024-11-17 07:24] LABS: % Basophils 0.1 % (0-2); % Immature Granulocytes 4.3 % (0-0.5); % Lymphocytes 2.2 % (20.5-51.1); % Monocytes 1.9 % (1.7-9.3); % Neutrophils 91.5 % (42.2-75.2); Absolute Immature Granulocytes 2.5 10^3/uL (0-0.05); Absolute Lymphocytes 1.3 10^3/uL (1.2-3.4); Absolute Monocytes 1.1 10^3/uL (0.1-0.6); Absolute Neutrophils 54.1 10^3/uL (1.4-6.5); Nucleated Red Blood Cells % 0.1 % (-)
[2024-11-17] MEDS: SPIRIVA RESPIMAT 2.5 MCG 2 PUFF INH (07:43)
[2024-11-17] MEDS: OMNIPAQUE 50 ML PO (08:05)
[2024-11-17] MEDS: KCL 40 MEQ PO ×2 (08:05→15:50)
[2024-11-17] MEDS: MAXIPIME 1000 MG IV ×2 (09:10→22:18)
[2024-11-17] MEDS: STERILE WATER FOR INJECTION 10 ML IV ×2 (09:10→22:18)
[2024-11-17] MEDS: MUCINEX 1200 MG PO ×2 (09:10→22:19)
[2024-11-17] MEDS: NORVASC 10 MG PO (09:10)
[2024-11-17] MEDS: SODIUM BICARBONATE 650 MG PO ×3 (09:11→22:19)
[2024-11-17] MEDS: VITAMIN D3 (cholecalciferol) 25 MCG PO (09:11)
[2024-11-17] MEDS: VIBRAMYCIN 100 MG PO ×2 (09:11→22:19)
[2024-11-17] MEDS: COREG 6.25 MG PO ×2 (09:11→22:18)
[2024-11-17] MEDS: LOW STRENGTH ASPIRIN 81 MG PO (09:17)
[2024-11-17 09:24] LABS: Magnesium 1.7 mg/dl (1.6-2.3)
--- NOTE | 2024-11-17 09:44 | W.PN.PUL3 ---
Today's Communication / Plan
-
Awaiting transfer to [facility] pending bed availability
Now on PPI gtt and off heparin drip in setting of GIB (melena)
Changed hydrocortisone to Solu-Medrol
Continue Spiriva given high likelihood he has COPD, despite him not having shortness of breath
Changed prn DuoNebs to albuterol
Continue with antibiotics as per ID
Continue PO bicarb and trend blood gas to monitor pH + pCO2 (blood gas on AM of 11/16/2024 looked good with pH 7.41)
Trend sCr and sHCO3
Wean down high flow nasal cannula FiO2 as tolerated while keeping SpO2 88-95%
Trial of diuresis today
Outpatient workup for right upper lobe spiculated nodule with PET/CT and possible biopsy although he is high risk for pneumothorax considering his extensive bullous emphysema
Hematology and ID recs appreciated
Trend WBC and follow-up cultures
Pulmonary service will continue to follow along and outpatient follow-up will also be arranged for full PFTs and discussion of his lung nodules
Assessment
-
Assessment: 79-year-old male former tobacco smoker with a past medical history of gout, hyperlipidemia, hypertension and CKD who presents with shortness of breath, chest congestion and cough. Symptoms started around when he felt ill
and he improved over the next 2-3 weeks. He then developed sciatica around Julianna time and that had improved over the next 1 week. He did have shortness of breath that developed around and this worsened over the course of the
following week. He went to his doctor, Dr. Handy, on 11/10/2024 and found that his pulse oximeter was in the 50s. He was sent here to the ER for further evaluation, and found to be saturating 85% on room air. Saturations improved to the low 90s
on 5 L/min nasal cannula. Initially he was afebrile to 97.9 �F, pulse rate 71, breathing at 16 breaths minute, and BP 116/63. Initial labs showed leukocytosis to 43.9, Hb 10.9, increased eosinophil count of 1200, creatinine 2.9, potassium 5.2,
glucose 122, proBNP 18,700, and COVID antigen negative. Flu A/B swab also negative and blood cultures were collected. Initial CXR showed patchy parenchymal airspace opacities in both lungs with small bilateral pleural effusions and suspected
bullous changes in the lower lungs bilaterally. He was initially given 1 L NS 0.9%, ceftriaxone and Zithromax and admitted to telemetry. Antibiotics were continued and he continues to require oxygen. On 11/13/2024 his oxygen requirements worsened
and he was started on a partial rebreather and upgraded to the IMU. Pulmonary service now consulted for additional management/recommendations.
Chronic conditions ECD: Hypertension, dyslipidemia, CKD stage III, gout, vitamin D deficiency, proteinuria, carotid artery stenosis, former tobacco smoker ([id number] history, quit 40 years ago)
Impression:
#Acute GI bleed, suspected to be upper with DDx including PUD, AVM, Dieulafoy lesion, or malignancy
#Acute blood loss anemia
#Acute respiratory failure with hypoxia: Likely due to sepsis however acute PE is also on differential especially with severely elevated proBNP of >18,500 and echo findings
#Leukocytosis with bandemia - unclear source as only obvious infection right now is his gastroenteritis from norovirus; MDS vs leukemia is also on differential for leukocytosis
#Sepsis without septic shock
#Nausea/diarrhea with norovirus seen on stool culture (diagnosed on 11/14/2024)
#Metabolic acidosis with normal anion gap
#RV enlargement with reduced right ventricular systolic function and pulmonary hypertension with PASP: 46 mmHg seen on TTE from 11/14/2024
#Spiculated right upper lobe nodule measuring 2.5 cm with multiple other noncalcified bilateral pulmonary nodules ranging from 3-8 mm
#Pleural-based mass versus pleural thickening at the lateral right hemithorax measuring 2 x 1 cm
#Small hiatal hernia
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
#ANGELINA on CKD3b
#Increased eosinophil count with absolute eosinophils: 1200 on admission (11/10/2024)
#Former tobacco smoker with [id number] history, quit approximately 40 years ago
#History of gout
#Carotid artery stenosis
#Hypertension
#Dyslipidemia
Plan:
- Pt was stable albeit still with high O2 requirements, and given his nausea/vomiting with recent norovirus, he went for CT abd/pelvis today (which showed no acute process) and afterwards developed a GI bleed with melanotic stool
- Heparin gtt stopped
- PPI gtt started and GI consulted
- Unfortunately he is too high risk currently for an EGD, so will treat medically for now
- Keep NPO
- Large bore IV x2
- He had bibasilar opacification/groundglass opacities seen on CXR from 11/10/2024 with concern for bilateral pneumonia
- CT chest without contrast performed on 11/14/2024 showed no evidence of pneumonia, however there is severe bullous emphysematous changes with a right upper lobe spiculated nodule measuring 2.5 cm and multiple other lung nodules
- He had diarrhea with nausea and his stool culture on 11/14/2024 was positive for norovirus
- It appears that his radiographic abnormalities are not correlating with his level of hypoxia, raising suspicion for another cardiopulmonary process (i.e. pulm HTN vs acute PE)
- Echo performed on 11/14/2024 showed no evidence of shunting by color-flow Doppler, with moderately elevated PASP at 46 mmHg, and enlarged RV with reduced RV systolic function --> this raises concern for an acute PE, however unable to do a CTA
chest given his ANGELINA
- Echo was repeated today (11/17/2024) with a bubble study, and there was no evidence of shunt
- Hold off on heparin drip for now given acute GI bleed; could possibly resume depending on his clinical bleeding rate and severity and stability of his Hb; hopefully once creatinine returns to baseline then we can check a CTA chest at that time;
otherwise we can always consider a VQ scan, although with his emphysema a q-scan would be more helpful
- Lower extremity duplex is negative for bilateral DVT
- Continue to trend proBNP --> trial of diuresis today, recommending to give Bumex 2mg IV x1 given he has bilateral pleural effusions on imaging, and hopefully this could offload the RV and possibly will improve his level of hypoxia
- Continue with Abx --> currently on cefepime + doxy s/p Rocephin rocephin (11/10 - 11/12)
- There is no evidence for pneumonia on CT chest performed on 11/14/2024
- Unclear if antibiotics are indicated however in the setting of his hypoxia now with multiorgan dysfunction with worsening ANGELINA and severe leukocytosis and febrile on 11/13/2024 (100.7F), empirically continue antibiotics for now; ID consulted
- Follow up sputum Cx (collected 11/11/2024 - NGTD); follow up blood Cx X2 (collected 11/10/2024 - NGT)
- RV-panel also ordered and is negative
- Trend WBC and monitor for fevers --> hematology consulted; if leukocytosis does not improve despite the patient getting better clinically then would consider BMBx (heme recommends to be done as an outpatient in addition to outpatient CBC with
manual diff) given concern for MDS vs leukemia in that case; this may all just be a leukemoid reaction
- Given how ill he is, would favor him getting an inpatient bone marrow Bx
- Mucolytics
- prn nebulized bronchodilators - not currently bronchospastic
- Given that there is no concern for CAP, I stopped hydrocortisone. Considering he is hypoxic with severe bullous emphysema and suspected COPD, changed hydrocortisone to Solu-Medrol 40mg IV q8hr - wean as he clinically improves
- No prior Hx of chronic lung disease although he was a former tobacco smoker with 30 pack year Hx --> will obtain outpatient PFTs to assess for COPD
- Continue spiriva respimat with prn albuterol
- Trend sCr and renally dose all meds/Abx
- Nephro following and recs appreciated
- Avoid nephrotoxic agents
- Supportive care for his norovirus infection
- C. difficile antigen is positive but toxin negative � this is not consistent with an acute C. difficile infection
- ID started PO vancomycin on 11/16/2024 to cover him anyway considering how ill he is
- trend sHCO3 now on PO bicarb s/p bicarb gtt
- Trend blood gas to monitor pH and pCO2 (blood gas from this AM on 11/16/2024 shows neutral pH at 7.41 with pCO2 34 - this is adequate)
- Maintain SpO2 >90-94% with high flow nasal cannula
- Incentive spirometer encouraged q1hr while awake
- Replete electrolytes with K>4, Mg>2
- Maintain euglycemia with goal BG >100 and <180
- DVT ppx: SCDs
- Given that he has multiple bilateral pulmonary nodules with a right upper lobe spiculated lesion, this is concerning for malignancy. There are no former CT chest imaging, as per the patient and daughter. He has significant, extensive bullous
emphysema, hence performing a biopsy whether through robotic bronchoscopy or transthoracic needle aspiration, complications with a pneumothorax are very high. Ideally, would perform robotic bronchoscopy as this has a lower chance of pneumothorax
compared to TTNA. This will be discussed further as an outpatient, and he will need a PET/CT as well as an outpatient.
- There is a possibility if PET/CT shows high FDG avidity in this right upper lobe spiculated lesion with no other concerning findings elsewhere in the lungs or outside the thorax, that he can get SBRT without a biopsy, if oncology and radiation
oncology agree with this treatment plan given the high risk for complications with biopsy and anesthesia considering his significant lung disease. This will be an ongoing discussion.
He is awaiting transfer to [facility] for further care once bed is available.
Pulmonary service will continue to follow along. Outpatient office follow-up will also be arranged.
Data:
CXR 11/10/2024:
Patchy parenchymal airspace opacities within both lungs, appearance highly suggestive of pneumonia.
Bullous changes within both lower lungs.
Probable minimal bilateral pleural effusions.
Cardiomegaly with no convincing pulmonary edema pattern.
CT Chest without contrast 11/14/2024:
No acute disease of the chest.
Small right and tiny left pleural effusions.
Findings consistent with severe emphysematous disease.
Spiculated right upper lobe pulmonary mass. Noncalcified solid bilateral pulmonary nodules concerning for malignancy until proven otherwise. PET imaging recommended.
Bilateral adrenal thickening suggesting benign hyperplasia.
Patient seen and evaluated on 11/17/2024
Total time spent today was 61 minutes for this encounter. Time includes reviewing laboratory test/imaging results, reviewing pertinent medical records, obtaining and reviewing medical history, performing an appropriate exam, ordering medications,
tests and procedures. Time also includes documentation of this encounter, coordinating patient care and communicating with other healthcare professionals. Total time does not include separately billed tests performed on this date of service.
Subjective Data
-
Date of Service:
Date of Service: November 17, 2024
Chief Complaint: Pulmonary Follow Up
Subjective:
Pt seen and evaluated this AM. Developed GI bleed after returning from CT scan today, had melenotic stool. Heparin gtt turned off, GI consulted, and PPI gtt started. Hb this AM was 7.6 from 9.2 yesterday AM. He is on HFNC at 70% FiO2, 60L/min
with SpO2 90%, HR 83 and BP 92/45. He has no complaints, denies chest pain, SOB, abd pain, N/V/f/c. Multiple family members at bedside including daughters x2, and all quesitons were answered.
Review of Systems
General: Other (negative unless mentioned above)
Objective Data
Data Reviewed
Vital Signs / I&O / Oxygen:
Vital Signs
Temp Pulse Resp BP Pulse Ox
97.7 F 70 13 115/56 90
11/17/24 03:27 11/17/24 09:27 11/17/24 09:27 11/17/24 09:11 11/17/24 09:27
Intake and Output
11/16/24 11/17/24 11/18/24
06:59 06:59 06:59
Intake Total 1402 / 1402 1860 / 1860
Output Total 700 / 700 400 / 400
Balance 702 / 702 1460 / 1460
SaO2 90
Nasal Cannula flow liters per 55
minute
Physical Exam
General: Respiratory Distress (negative), Comfortable, Chills (negative) and Sweats (negative)
HEENT: Normocephalic and Anicteric
Cardiovascular: S1-S2, Rub (negative) and Peripheral Edema (negative)
Respiratory: Clear, Wheeze (negative), Crackles (negative), Rhonchi (negative), Non-Labored Respirations and Stridor (negative)
GI: Soft, Non Distended, Non Tender and Normal Bowel Sounds
Neurology: AO x 3 and Tremors (negative)
Skin: Warm, Dry, Cyanosis (negative) and Jaundice (negative)
Labs/Micro/Reports
Lab Data
11/17/24 05:38
11/17/24 05:38
Laboratory Results
11/16/24 11/17/24
14:42 05:38
APTT 103.6 H 119.1 H
Microbiology
11/16/24 12:10 Nasalpharynx Influenza Type A (PCR) - Final
Not Detected
11/16/24 12:10 Nasalpharynx Influenza Type A (H1) (PCR) - Final
Not Detected
11/16/24 12:10 Nasalpharynx Influenza Type A (H3) (PCR) - Final
Not Detected
11/16/24 12:10 Nasalpharynx Influenza Type B (PCR) - Final
Not Detected
11/16/24 12:10 Nasalpharynx Resp Syncytial Virus Type A (PCR) - Final
Not Detected
11/16/24 12:10 Nasalpharynx Resp Syncytial Virus Type B (PCR) - Final
Not Detected
11/16/24 12:10 Nasalpharynx Adenovirus DNA (PCR) - Final
Not Detected
11/16/24 12:10 Nasalpharynx Human Metapneumovirus (PCR) - Final
Not Detected
11/16/24 12:10 Nasalpharynx Parainfluenza Virus Type 1 (PCR) - Final
Not Detected
11/16/24 12:10 Nasalpharynx Parainfluenza Virus Type 2 (PCR) - Final
Not Detected
11/16/24 12:10 Nasalpharynx Parainfluenza Virus Type 3 (PCR) - Final
Not Detected
11/16/24 12:10 Nasalpharynx Parainfluenza Virus Type 4 - Final
Not Detected
11/16/24 12:10 Nasalpharynx Rhinovirus (PCR) - Final
Not Detected
11/10/24 16:26 Blood/Venous Blood Culture - Final
No Growth - Final Report
11/10/24 16:26 Blood/Venous Blood Culture - Final
No Growth - Final Report
11/14/24 00:42 Feces/Stool C. difficile GDH Antigen & Toxins - Final
C. difficile antigen positive, toxin negative.
Clostridium difficile present, but toxin not detected.
Patient may be a carrier, colonized with nontoxinogenic
strain or the level of toxin in sample is below detection
limits. This information should be used in conjunction with
the patient's clinical history.
11/14/24 00:42 Feces/Stool - Final
Positive for Norovirus GII
11/14/24 00:42 Urine Legionella Urinary Antigen - Final
Negative for Legionella pneumophila Serogroup 1 antigen.
A negative result does not rule out the possiblity of
Legionella infection due to other serogroups or species of
Legionella. Clinical correlation is recommended.
11/14/24 00:42 Urine Streptococcus pneumoniae Antigen (M - Final
Negative for Streptococcus pneumoniae antigen.
A negative result does not exclude infection with
Streptococcus pneumoniae. Clinical correlation is
recommended.
--- NOTE | 2024-11-17 12:13 | W.PN.NEPH.PH ---
Today's Communication / Plan
-
Supportive care no change from renal standpoint
Assessment/Plan
-
Impression:
ANGELINA
CKD 3B (~2)
Microhematuria
Hypoxic respiratory failure/. Suspected bilateral pneumonia
Profile leukocytosis
ProBNP 18,000 with no prior history of congestive heart failure
Hyperlipidemia
Hypertension
History of gout
Plan:
ANGELINA:
-Creatinine stable at 2.5�2.4, oliguric ~4 00cc, metabolic acidosis persists but improving
- sodium bicarb to oral
-Holding off on diuretics for now, weight stable
-Patient being systemically heparinized for possible pulmonary embolism, VQ scan pending
-History, exam, and leukocytosis support Bilateral pneumonia diagnosis, , Although proBNP level of 18,000 and is certainly concerning
a kidney and bladder ultrasound, given microhematuria and kidney injury= no significant pathology small kidney on the right simple system bilateral
-Agree with holding LIBBY inhibitor and HCTZ in setting of acute kidney injury
-CAT scan no evidence of pneumonia with severe emphysema and
Potassium repleted
Discussed with family at bedside
-
-
Date of Service: November 17, 2024
CC / HPI / ROS
-
Chief Complaint:
acute or chronic kidney disease
History of Present Illness:
Creatinine stable at 2.5
Metabolic acidosis
CAT scan shows severe bolus have to seem a with a lung mass
Now on IV heparin for possible underlying pulmonary embolism
White cell count continues to
Review of Systems:
Now on high flow oxygen
no chest pain
Nonoliguric
Weight stable
Labs
-
Labs:
Sodium 137 mmol/L (135-145) 11/17/24 05:38
Potassium 3.2 mmol/L (3.5-5.1) L 11/17/24 05:38
Chloride 106 mmol/L (98-107) 11/17/24 05:38
Carbon Dioxide 18 mmol/L (22-30) L 11/17/24 05:38
BUN 99 mg/dl (9-20) H 11/17/24 05:38
Creatinine 2.4 mg/dL (0.7-1.3) H 11/17/24 05:38
eGFR 26.61 11/17/24 05:38
Glucose 133 mg/dl (70-99) H 11/17/24 05:38
Calcium 6.8 mg/dl (8.4-10.2) L* 11/17/24 05:38
Jvj-K-Asiieztyole Pept 32087 pg/ml 11/17/24 05:38
Albumin 2.4 g/dl (3.5-5.0) L 11/17/24 05:38
Physical Exam
-
Vital Signs:
Vital Signs
Temp Pulse Resp BP Pulse Ox
98.1 F 79 18 116/50 90
11/17/24 07:55 11/17/24 11:00 11/17/24 11:00 11/17/24 10:00 11/17/24 11:00
Cardiovascular:: Regular rate and rhythm
Respiratory:: Bilateral: Coarse
Lung Excursion:: Normal
Abdomen:: Soft
Bowel Sounds:: Normal
Extremity Edema:: None: Bilateral:
Willingham Catheter: No
--- NOTE | 2024-11-17 13:08 | PTCARENOTE ---
Pt with large, liquid, black stool. Angela garcia MD notified. Rectal trumpet placed.
[2024-11-17 13:41] LABS: Hematocrit 25.1 % (39.0-52.0); Hemoglobin 8.2 g/dL (13.0-18.0)
--- NOTE | 2024-11-17 13:44 | W.PN.ID1 ---
Date of Service
Date of Service: November 17, 2024
Today's Communication
Continue current antibiotics.
Assessment / Plan
Bilateral pulmonary infiltrates
-Despite antibiotics, no apparent improvement
Marked leukocytosis
- ?infection ?Leukemoid reaction ?Marrow process ?steroid effect
Anemia
CKD stage III
CHF
Norovirus (+)
HTN
Dyslipidemia
Recommendations:
Continue cefepime and doxycycline.
CT chest consistent with severe emphysematous disease with blebs
Legionella and pneumococcal urinary antigens negative. Viral respiratory panel negative
Trend white count, although there may be a component of steroid effect at this time.
Given ongoing pulmonary infiltrates/hypoxemia, patient may ultimately need lung biopsy to further delineate process.
May need transfer to tertiary care center for further diagnostic workup.
����������������������������������������������������������
Chief Complaint
-: Leukocytosis, Pneumonia and Other (Norovirus)
Subjective / Review of Systems
Patient seen and examined. Remains on high flow O2 at this time. Also with new dark-colored bowel movements.
Review of Systems: No Fever
Vital Signs / Physical Exam
Vital Signs
Vital Signs
Temp Pulse Resp BP Pulse Ox
97.8 F 80 13 108/48 88
11/17/24 11:25 11/17/24 12:00 11/17/24 12:00 11/17/24 12:00 11/17/24 13:00
Physical Exam
Constitutional: No Acute Distress, Comfortable and Non-toxic
Eyes: Sclera Anicteric
Cardiovascular: S1/S2; Negative S3/S4
Pulmonary: Non Labored and Other (High flow O2 in place.)
Gastrointestinal: Soft, Non Tender, Non Distended, Normal Bowel Sounds, No Rebound, No Guarding and Other (Rectal tube in place with dark-colored stool)
Extremities: Negative Edema or Cyanosis
Skin: Warm and Dry; Negative Rash or Jaundice
Neurological: Awake and Alert
Psychological: Calm
Objective Data
Lab Data
Lab Results
11/17/24 13:27
11/17/24 05:38
ESR 24 mm/hour (0-20) H 11/16/24 14:43
APTT Cancelled 11/17/24 09:56
Estimated Creat Clear 24 ml/min 11/17/24 05:38
Lactic Acid Cancelled 11/10/24 20:00
Total Bilirubin 0.6 mg/dl (0.2-1.3) 11/17/24 05:38
AST 22 U/L (17-59) 11/17/24 05:38
ALT 19 U/L (0-50) 11/17/24 05:38
Alkaline Phosphatase 108 U/L (38-126) 11/17/24 05:38
C-Reactive Protein 23.20 mg/L (0.0-10.00) H 11/16/24 14:43
Most recent labs reviewed.
Micro Results:
11/16/24 12:10 Influenza Type A (PCR) - Final
Nasalpharynx Not Detected
Influenza Type A (H1) (PCR) - Final
Not Detected
Influenza Type A (H3) (PCR) - Final
Not Detected
Influenza Type B (PCR) - Final
Not Detected
Resp Syncytial Virus Type A (PCR) - Final
Not Detected
Resp Syncytial Virus Type B (PCR) - Final
Not Detected
Adenovirus DNA (PCR) - Final
Not Detected
Human Metapneumovirus (PCR) - Final
Not Detected
Parainfluenza Virus Type 1 (PCR) - Final
Not Detected
Parainfluenza Virus Type 2 (PCR) - Final
Not Detected
Parainfluenza Virus Type 3 (PCR) - Final
Not Detected
Parainfluenza Virus Type 4 - Final
Not Detected
Rhinovirus (PCR) - Final
Not Detected
11/10/24 16:26 Blood Culture - Final
Blood/Venous No Growth - Final Report
11/10/24 16:26 Blood Culture - Final
Blood/Venous No Growth - Final Report
11/14/24 00:42 C. difficile GDH Antigen & Toxins - Final
Feces/Stool C. difficile antigen positive, toxin negative.
Clostridium difficile present, but toxin not detected.
Patient may be a carrier, colonized with nontoxinogenic
strain or the level of toxin in sample is below detection
limits. This information should be used in conjunction with
the patient's clinical history.
- Final
Positive for Norovirus GII
11/14/24 00:42 Legionella Urinary Antigen - Final
Urine Negative for Legionella pneumophila Serogroup 1 antigen.
A negative result does not rule out the possiblity of
Legionella infection due to other serogroups or species of
Legionella. Clinical correlation is recommended.
Streptococcus pneumoniae Antigen (M - Final
Negative for Streptococcus pneumoniae antigen.
A negative result does not exclude infection with
Streptococcus pneumoniae. Clinical correlation is
recommended.
11/11/24 11:28 Respiratory Culture - Final
Sputum Usual Respiratory Kiley
Gram Stain - Final
11/10/24 12:27 Influenza Types A & B (ANNALISE) - Final
Nasal Swab Negative for Influenza A & B, NAAT
Negative results must be combined with clinical observations
and patient history.
Nucleic Acid Amplification test (NAAT)performed on the
[employer] platform.
Imaging:
11/10/2024 CXR (2 view): Patchy parenchymal airspace opacities within both lungs, highly suggestive of pneumonia. Bullous changes within both lower lungs. Probable minimal bilateral pleural effusions noted. Please see full dictation for additional
detail. Film personally viewed.
Care Review
Plan reviewed with: Physician (Hospitalist; Pulmonary)
--- NOTE | 2024-11-17 13:45 | PN.CDI ---
CDI
- -
CDI:
Physician Documentation Request
Admit Date: 11/10/24 17:57
Dear Doctor Angela Simmons,
Patient admitted with respiratory failure.
11/16 Potassium level: 3.2
11/16 Potassium chloride 40 meq PO administered
Based on the above, could you clarify in the progress notes, the appropriate diagnosis, if significant, that supports the above abnormalities and additional evaluation, monitoring and/or treatment rendered:
Hypokalemia
Abnormal lab value insignificant
Other
Use of terms such as suspected, likely, concern for, or probable (associated with a specific diagnosis that is being evaluated, monitored, or treated as if it exists) are acceptable and can be coded in the inpatient setting, when documented at the
time of discharge.
Thank you,
Nilsa Maharaj RN, BSN
CDI Specialist
Available via [place] text
Please use your independent medical judgment in providing your response.
--- NOTE | 2024-11-17 13:53 | PN.CDI ---
CDI
- -
CDI:
Physician Documentation Request
Admit Date: 11/10/24 17:57
Dear Doctor Angela Simmons,
Patient admitted with respiratory failure.
11/14 Echo Report: 'Enlarged right ventricular size. Reduced right ventricular systolic function.'
11/16 Hospitalist PN: 'acute pulmonary embolism most likely possibility'
Based on the above, could you clarify in the progress notes, the appropriate diagnosis, if significant, that supports the above abnormalities and additional evaluation, monitoring and/or treatment rendered:
Pulmonary embolism with acute cor pulmonale
Pulmonary embolism without acute cor pulmonale
Other
Use of terms such as suspected, likely, concern for, or probable (associated with a specific diagnosis that is being evaluated, monitored, or treated as if it exists) are acceptable and can be coded in the inpatient setting, when documented at the
time of discharge.
Thank you,
Nilsa Maharaj RN, BSN
CDI Specialist
Available via [place] text
Please use your independent medical judgment in providing your response.
--- NOTE | 2024-11-17 14:00 | PTCARENOTE ---
Dr. Red and resident at bedside. Pt continues with dark, tarry, liquid stools from rectum. Hgb currently stable. vital signs stable. Heparin drip on hold per order. family updated at bedside.
[2024-11-17] MEDS: BUMEX 2 MG IV (15:11)
[2024-11-17] MEDS: PROTONIX 100 IV ×2 (15:11→22:58)
--- NOTE | 2024-11-17 15:36 | PTCARENOTE ---
Bubble study performed with Althea anesthesiology technologist.
--- NOTE | 2024-11-17 15:37 | CON.GI ---
Consultation
-
Date/Time Consultation Requested: 11/17/24 1:34pm
Date/Time Consultation Performed: 11/17/24 3:38pm
Requesting Provider: Abbe Simmons
Performing Provider: Wojciech Degroot
Reason for Consultation: Melena
Medical History
Chief Complaint / HPI
Chief Complaint: Melena
History of Present Illness:
Patient is an 79-year-old male who presented with acute hypoxemic respiratory failure initially felt to be due to pneumonia. His oxygen requirement has progressively increased. He also presented with a marked leukocytosis and renal insufficiency.
Echocardiogram showed evidence of right heart strain. CT angiogram was unable to be done due to his creatinine nor was VQ scan felt to be useful due to his pneumonia. He was not responding to antibiotic therapy. Empiric heparin drip was started.
Today he was noticed to pass black stool prior to his noncontrast CT scan and then had more black stool following that. His hemoglobin dropped from 9 to 7. He denies NSAID usage. He drinks occasional alcoholic 2 beers at most. Stool studies came
back Norovirus positive, and C diff Ag positive, toxin negative. He is on PO vanco and IV cefepime, PO Doxy with ID following. Also on IV solumedrol 40mg IV q8h. He had colonoscopy in [address] Denise- diverticulosis, polyp, mild inflammation
in sigmoid-- path showed acute moderate/severe colitis with mild chronic changes. No known IBD history.
Past Medical History
Past Medical History: HTN and Renal Failure (chronic kidney disease)
Past Surgical History: None
Social History
Tobacco: Non-Smoker
Alcohol: Occasional
Family History
Family History: Reviewed & Not Pertinent
Allergies / Home Medications
Allergy/AdvReac Type Severity Reaction Status Date / Time
No Known Allergies Allergy Verified 11/10/24 11:59
�Medication �Instructions �Recorded
Baking Soda 0.25 tsp PO DAILY Supplement 11/10/24
acetaminophen 500 mg tablet 1,000 mg PO Q6HPRN PRN mild pain 11/10/24
(Tylenol Extra Strength)
allopurinol 100 mg tablet 100 mg PO HS Gout 11/10/24
amlodipine 10 mg tablet 10 mg PO DAILY Blood Pressure 11/10/24
aspirin 81 mg chewable tablet 81 mg PO DAILY Blood Clot 11/10/24
Prevention/Tx
atorvastatin 40 mg tablet 40 mg PO HS High Cholesterol 11/10/24
carvedilol 6.25 mg tablet 6.25 mg PO BID Blood Pressure 11/10/24
cholecalciferol (vitamin D3) 25 25 mcg PO DAILY Supplement 11/10/24
mcg (1,000 unit) tablet (Vitamin
D3)
hydrochlorothiazide 25 mg tablet 25 mg PO DAILY Blood Pressure 11/10/24
lisinopril 40 mg tablet 40 mg PO HS Blood Pressure 11/10/24
Review of Systems
-
All other systems: A 12 pt ROS was Negative except as stated above in HPI
Vital Signs
Temp Pulse Resp BP Pulse Ox
97.8 F 77 13 103/41 88
11/17/24 11:25 11/17/24 15:11 11/17/24 12:00 11/17/24 15:11 11/17/24 13:00
Physical Exam
Exam
General: No Apparent Distress
HEENT: Normocephalic and Atraumatic
Respiratory: Other (wearing high flow oxygen)
GI: Soft, Non Tender and Non Distended
Skin: Warm and Dry
Results
WBC 59.1 10^3/uL (4.8-10.8) H* 11/17/24 05:38
Hgb 8.2 g/dL (13.0-18.0) L 11/17/24 13:27
Hct 25.1 % (39.0-52.0) L 11/17/24 13:27
MCV 92.7 fL (80.0-94.0) 11/17/24 05:38
Plt Count 130 10^3/uL (130-400) 11/17/24 05:38
Absolute Neuts (auto) 54.1 10^3/uL (1.4-6.5) H 11/17/24 05:38
APTT Cancelled 11/17/24 09:56
Sodium 137 mmol/L (135-145) 11/17/24 05:38
Potassium 3.2 mmol/L (3.5-5.1) L 11/17/24 05:38
Chloride 106 mmol/L (98-107) 11/17/24 05:38
Carbon Dioxide 18 mmol/L (22-30) L 11/17/24 05:38
BUN 99 mg/dl (9-20) H 11/17/24 05:38
Creatinine 2.4 mg/dL (0.7-1.3) H 11/17/24 05:38
Calcium 6.8 mg/dl (8.4-10.2) L* 11/17/24 05:38
Total Bilirubin 0.6 mg/dl (0.2-1.3) 11/17/24 05:38
AST 22 U/L (17-59) 11/17/24 05:38
ALT 19 U/L (0-50) 11/17/24 05:38
Alkaline Phosphatase 108 U/L (38-126) 11/17/24 05:38
Diagnostic Image Results:
Prior GI Procedures:
EGD:
Colonoscopy:
Assessment / Plan
-
Summary: 79 year old male presents with respiratory failure, marked leukocytosis, PNA on CXR, R heart strain on echo, started on empiric abx, steroids, then heparin gtt empirically since he could not get CTA or V/Q scan. Began passing black stools
11/17. Also Norovirus positive, and C diff Ag positive, toxin negative
Impression:
Respiratory failure, R heart strain concerning for PE
Melena
Leukocytosis, up to 59K 11/17/24
b/l PNA
ARF
Norovirus positive
C diff Ag positive, toxin negative
moderate/severe colitis with chronic changes on colonoscopy 2016, no reports of IBD history
Recommendations:
Start protonix 80mg IV bolus, 8mg/hr gtt for now to cover UGIB. Could be PUD, stress gastritis.
He is high risk for EGD given his current O2 requirement- hold off if stable
If acute GIB then we will reconsider, in order to stop active bleeding
Hold heparin gtt for now. If bleeding subsides, then can resume
Trend Hgb and transfuse prn
-
-
Thank you for consultation and allowing me to participate in the patient's care. Please call the electronic equipment installer GI physician during the after hours with any questions or concerns.
[2024-11-17] MEDS: PROTONIX IV 80 MG IV (15:50)
[2024-11-17] MEDS: NSS (PRESERVATIVE FREE) 20 ML IV (15:50)
--- NOTE | 2024-11-17 17:39 | CM ---
Patient seen at bedside earlier today with physicians and patient family. Patient family asked about transfer to [facility] and patient is accepted, waiting for bed availability. CM will continue to follow for discharge planning needs.
Plan; transfer to [facility] ICU pending available bed.
--- NOTE | 2024-11-17 20:00 | PTCARENOTE ---
Pt received at beginning of shift resting in bed. Family left for the evening. AAOx3. Tired. 94% on HF 50L/70%. SR on CM. Afebrile. SBP 100's. Diminished, tachypneic at times upper 20's, CRYS, PALMER. Denies abdominal pain or discomfort. Rectal trumpet
in place draining black tarry stool. Using urinal to void. Occasionally turns self. Rest of assessment as documented. Call em remains within reach. Will continue to monitor.
[2024-11-17] MEDS: ZYLOPRIM 100 MG PO (22:19)
[2024-11-17] MEDS: LIPITOR 40 MG PO (22:19)
[2024-11-18] VITALS (17 sets, daily range): BP systolic 94–124; BP diastolic 42–63; BMI 23.0
--- NOTE | 2024-11-18 | PTCARENOTE ---
Molly from [facility] transfer center called. All questions answered to satisfaction. Molly stated someone from transfer center will call once a shift for update on pt's status. Will pass on to on-coming shift.
[2024-11-18] MEDS: FLUSH (NSS) 2 FLUSH IV (00:39)
[2024-11-18] MEDS: SOLU-MEDROL PF 40 MG IV ×3 (00:39→17:37)
[2024-11-18] MEDS: FIRVANQ 125 MG PO ×4 (00:39→17:37)
[2024-11-18 04:41] LABS: INR 1.25
[2024-11-18 04:42] LABS: Fibrinogen 168 MG/DL (199-459); Hematocrit 21.3 % (39.0-52.0); Mean Corp Hgb Conc. 32.9 g/dL (33.0-37.0); Mean Corpuscular Hgb 30.3 pg (27.0-31.0); Mean Corpuscular Volume 92.2 fL (80.0-94.0); Mean Platelet Volume 9.7 fL (7.4-10.4); Platelet Count 121 10^3/uL (130-400); Red Blood Cell Count 2.31 10^6/uL (4.70-6.10); Red Cell Dist. Width 17.5 % (11.5-14.5); White Blood Cell Count 67.4 10^3/uL (4.8-10.8)
[2024-11-18 04:44] LABS: D-Dimer 1.55 ug/mlFEU (0.00-0.50)
[2024-11-18 05:39] LABS: ALT (SGPT) 19 U/L (0-50); AST (SGOT) 21 U/L (17-59); Albumin 2.4 g/dl (3.5-5.0); Alkaline Phosphatase 100 U/L (38-126); Blood Urea Nitrogen 106 mg/dl (9-20); Calcium 6.8 mg/dl (8.4-10.2); Carbon Dioxide 16 mmol/L (22-30); Chloride 105 mmol/L (98-107); Estimated Creatinine Clearance 22 ml/min; Glucose 123 mg/dl (70-99); Potassium 3.8 mmol/L (3.5-5.1); Sodium 136 mmol/L (135-145); Total Bilirubin 0.8 mg/dl (0.2-1.3); Total Protein 4.8 g/dl (6.3-8.2); eGFR 24.17
--- NOTE | 2024-11-18 05:53 | PTCARENOTE ---
Critical am labs: WBC 67.4, Bun/Cr 106/2.6, Ca+ 6.8. Cassi MONTES TT'd and made aware. Will read pt's chart and get back to this RN. Pt currently resting comfortably without complaint.
--- NOTE | 2024-11-18 06:08 | PTCARENOTE ---
Cassi MONTES TT'd that Nephrology be made aware of pt's am labs. Dr Enriquez TT'd and updated on pt's labs and replied he would be in to see pt this am.
--- NOTE | 2024-11-18 06:59 | W.PN.GI.CBS2 ---
Today's Communication / Plan
-
Hgb down further to 7.0, WBC up to 67.
Consider PRBC transfustion, but would defer to Hematology
Currently hemodynamically stable
Continue protonix gtt
Continue to monitor BM and Hgb
Assessment / Plan
-
Summary: 79 year old male presents with respiratory failure, marked leukocytosis, PNA on CXR, R heart strain on echo, started on empiric abx, steroids, then heparin gtt empirically since he could not get CTA or V/Q scan. Began passing black stools
11/17. Also Norovirus positive, and C diff Ag positive, toxin negative
Impression:
Respiratory failure, R heart strain concerning for PE
Melena
Leukocytosis, up to 59K 11/17/24
b/l PNA
ARF
Norovirus positive
C diff Ag positive, toxin negative
moderate/severe colitis with chronic changes on colonoscopy 2016, no reports of IBD history
Subjective
Subjective
Date of Service: November 18, 2024
No complaints this am. Rectal bag with black stool
Objective
Data Reviewed
Laboratory Data:
Laboratory Results
11/18/24 04:02
11/18/24 04:02
Laboratory Results
PT 16.0 Sec (11.4-14.6) H 11/18/24 04:02
INR 1.25 11/18/24 04:02
APTT Cancelled 11/17/24 09:56
Magnesium 1.7 mg/dl (1.6-2.3) 11/17/24 05:38
Total Bilirubin 0.8 mg/dl (0.2-1.3) 11/18/24 04:02
AST 21 U/L (17-59) 11/18/24 04:02
ALT 19 U/L (0-50) 11/18/24 04:02
Alkaline Phosphatase 100 U/L (38-126) 11/18/24 04:02
Vital Signs and I&O:
Vital Signs
Temp Pulse Resp BP Pulse Ox
98.2 F 70 12 101/45 95
11/17/24 23:51 11/18/24 06:00 11/18/24 06:00 11/18/24 06:00 11/18/24 06:00
I&O
11/16/24 11/17/24 11/18/24
06:59 06:59 06:59
Intake Total 1402 / 1402 1860 / 1860 800 / 800
Output Total 700 / 700 400 / 400 1600 / 1600
Balance 702 / 702 1460 / 1460 -800 / -800
Physical Exam
Physical Exam
GI: Soft, Non Distended and Non Tender
[2024-11-18] MEDS: CALCIUM GLUCONATE 290 MG IV (07:55)
[2024-11-18] MEDS: STERILE WATER FOR INJECTION 10 ML IV ×2 (08:00→21:08)
[2024-11-18] MEDS: COREG 6.25 MG PO ×2 (08:00→21:06)
[2024-11-18] MEDS: VITAMIN D3 (cholecalciferol) 25 MCG PO (08:00)
[2024-11-18] MEDS: VIBRAMYCIN 100 MG PO ×2 (08:00→21:06)
[2024-11-18] MEDS: MAXIPIME 1000 MG IV ×2 (08:00→21:08)
[2024-11-18] MEDS: MUCINEX 1200 MG PO ×2 (08:00→21:07)
[2024-11-18] MEDS: LOW STRENGTH ASPIRIN 81 MG PO (08:01)
[2024-11-18] MEDS: SODIUM BICARBONATE 650 MG PO ×3 (08:01→21:06)
[2024-11-18] MEDS: NORVASC 10 MG PO (08:01)
[2024-11-18] MEDS: SPIRIVA RESPIMAT 2.5 MCG 2 PUFF INH (08:24)
[2024-11-18 08:38] LABS: Absolute Neutrophils -Man Diff 63.3 10^3/uL (1.4-6.5); Band Neutrophils 20 % (0-3); Lymphocytes 2 % (20-51); Monocytes 1 % (2-9); Segmented Neutrophils 74 % (42-75)
[2024-11-18 08:39] LABS: Metamyelocytes 2 % (-); Myelocytes 1 % (-); Platelets Checked Yes
[2024-11-18 08:40] LABS: Anisocytosis 1+; Hypochromasia 1+; Normal RBC Morphology No
[2024-11-18 08:41] LABS: Ovalocytes Slight; Total Cells Counted 100
--- NOTE | 2024-11-18 09:43 | W.PN.HOSP.TC ---
Today's Communication/Plan
-
consent and transfuse 1 unit pRBC
wean O2 as able
renew drips
Assessment / Plan
Assessment / Plan
pt is an 79 year old male
black liquid heme positive stool--stopped IV heparin drip--apprec GI--cont PPI drip--hold on further scopes--HGB dropped to 7.0--will transfuse 1 unit pRBC
Acute Hypoxemic respiratory failure --acute pulmonary embolism with cor pulmonale most likely possibility from suspected underlying undiagnosed malignancy ( other etiologies essentially ruled out: PNA, acute CHF, PFO)--cannot do CT PE study due to
elevated creat, cannot do V/Q due to severe lung COPD, US neg for DVT, empiric heparin drip on hold due to GI bleed---CT scan with severe emphysematous change [COPD]-- diuretics recommended by [facility] ICU dock operator --cont cefepime/oral doxy--apprec
pulm/ID/onc/cards --no inpt workup desired by oncology--Echo with severe right sided failure, bubble study does not show PFO
leukocytosis--WBC 67.4K with all neutrophils--possible steroid effect, norovirus positive, with diarrhea, C. diff antigen positive, toxin negative but treating empirically--no role for flow cytometry per heme (as not great for neutrophils) or inpt
BM biopsy-- viral resp panel all negative
acute on chronic anemia likely due to acute blood loss anemia from GI bleed PLUS dilutional from daily blood draws--HGB dropped to 7.0--will consent and transfuse pRBC
new spiculated lung mass--will need outpt PET and likely biopsy--IF positive for cancer; would explain propensity for being hypercoagulable as well as leukocytosis--onc consult apprec
ANGELINA on CKD stage 3 now with developing metabolic acidosis--creat hovering about 2.5 (baseline 2)--Holding hydrochlorothiazide, lisinopril---apprec renal--cont on oral bicarb-- BUN increased to 106/creat 2.6/bicarb 16--received bumex yesterday--would
hole for now--defer further to renal
Essential hypertension--Continue amlodipine--Continue Coreg
Hypercholesterolemia
Gout--Continue allopurinol
code status --DNR/DNI
DVT prophylaxis�heparin drip on hold
accepted in transfer to [facility] ICU by Dr. Cutler--try to get pt on NRB if possible for transfer--with severe COPD and blebs, would avoid CPAP/BIPAP if possible
Total Critical Care Time 35 minutes. I was immediately available to the patient and staff. I personally examined, reviewed labs, diagnostic images/reports, interpretations, treatment plans, discussed patient care with other providers and family
or caregivers (if patient is unable to make decisions), entered orders as appropriate and documented the medical record.
Anticipated Discharge: > 48 hours
Subjective/Interval History
-
Date of Service: November 18, 2024
pt c/o that rectal tube out of place and hurts
Objective Data
-
Labs:
Laboratory Results
11/18/24
04:02
WBC 67.4 H*
Hgb 7.0 L
Hct 21.3 L
Plt Count 121 L
PT 16.0 H
INR 1.25
Sodium 136
Potassium 3.8
Chloride 105
Carbon Dioxide 16 L
BUN 106 H*
Creatinine 2.6 H
Glucose 123 H
Calcium 6.8 L*
Total Bilirubin 0.8
AST 21
ALT 19
Alkaline Phosphatase 100
Vital Signs:
max temp for 24 hours
11/17/24
23:51
Temp 98.2 F
Vital Signs
55L and 75% FIO2
Temp Pulse Resp BP Pulse Ox
98.2 F 75 18 101/45 90
11/17/24 23:51 11/18/24 08:27 11/18/24 08:27 11/18/24 06:00 11/18/24 08:33
I&O
11/17/24 11/18/24 11/19/24
06:59 06:59 06:59
Intake Total 1860 / 1860 800 / 800
Output Total 400 / 400 1600 / 1600 200 / 200
Balance 1460 / 1460 -800 / -800 -200 / -200
Review of Systems
-
All other systems: Reviewed and negative
Abdomen/GI: Reports Other (rectal pain from malpositioned tube)
Physical Exam
-
General: Well Developed, Well Nourished, No Apparent Distress and Other (HI VITO O2)
HEENT: Normocephalic, Atraumatic and Oxygen (HI VITO O2)
Respiratory: Clear to Auscultation and Decreased Breath Sounds (at bases); Negative Wheezes, Rales, Rhonchi or Crackles
Cardiac: Regular Rhythm and S1/S2; Negative Murmur
GI: Soft, Nontender, Nondistended and Normal Bowel Sounds
Musculoskeletal: No Clubbing, No Cyanosis and No Edema
Neuro: Awake and Alert
Psych: Calm
--- NOTE | 2024-11-18 09:57 | W.PN.PUL3 ---
Today's Communication / Plan
-
Awaiting transfer to [place] pending bed availability
Now on PPI gtt and off heparin drip in setting of GIB (melena)
Changed hydrocortisone to Solu-Medrol
Continue Spiriva given high likelihood he has COPD, despite him not having shortness of breath
Changed prn DuoNebs to albuterol
Continue with antibiotics as per ID
Continue PO bicarb and trend blood gas to monitor pH + pCO2 (blood gas on AM of 11/16/2024 looked good with pH 7.41)
Trend sCr and sHCO3
Replete calcium and check ionized Ca tomorrow AM
Wean down high flow nasal cannula FiO2 as tolerated while keeping SpO2 88-95%
Trial of diuresis on 11/17/2024
Outpatient workup for right upper lobe spiculated nodule with PET/CT and possible biopsy although he is high risk for pneumothorax considering his extensive bullous emphysema
Hematology and ID recs appreciated
Trend WBC and follow-up cultures
Pulmonary service will continue to follow along and outpatient follow-up will also be arranged for full PFTs and discussion of his lung nodules
Assessment
-
Assessment: 79-year-old male former tobacco smoker with a past medical history of gout, hyperlipidemia, hypertension and CKD who presents with shortness of breath, chest congestion and cough. Symptoms started around gi when he felt ill
and he improved over the next 2-3 weeks. He then developed sciatica around Robinson time and that had improved over the next 1 week. He did have shortness of breath that developed around and this worsened over the course of the
following week. He went to his doctor, Dr. Handy, on 11/10/2024 and found that his pulse oximeter was in the 50s. He was sent here to the ER for further evaluation, and found to be saturating 85% on room air. Saturations improved to the low 90s
on 5 L/min nasal cannula. Initially he was afebrile to 97.9 �F, pulse rate 71, breathing at 16 breaths minute, and BP 116/63. Initial labs showed leukocytosis to 43.9, Hb 10.9, increased eosinophil count of 1200, creatinine 2.9, potassium 5.2,
glucose 122, proBNP 18,700, and COVID antigen negative. Flu A/B swab also negative and blood cultures were collected. Initial CXR showed patchy parenchymal airspace opacities in both lungs with small bilateral pleural effusions and suspected
bullous changes in the lower lungs bilaterally. He was initially given 1 L NS 0.9%, ceftriaxone and Zithromax and admitted to telemetry. Antibiotics were continued and he continues to require oxygen. On 11/13/2024 his oxygen requirements worsened
and he was started on a partial rebreather and upgraded to the IMU. Pulmonary service now consulted for additional management/recommendations.
Chronic conditions [employer]: Hypertension, dyslipidemia, CKD stage III, gout, vitamin D deficiency, proteinuria, carotid artery stenosis, former tobacco smoker ([id number] history, quit 40 years ago)
Impression:
#Acute GI bleed, suspected to be upper with DDx including PUD, AVM, Dieulafoy lesion, or malignancy
#Acute blood loss anemia
#Acute respiratory failure with hypoxia: Likely due to sepsis however acute PE is also on differential especially with severely elevated proBNP of >18,500 and echo findings
#Leukocytosis with bandemia - unclear source as only obvious infection right now is his gastroenteritis from norovirus; MDS vs leukemia is also on differential for leukocytosis
#Sepsis without septic shock
#Nausea/diarrhea with norovirus seen on stool culture (diagnosed on 11/14/2024)
#Metabolic acidosis with normal anion gap
#RV enlargement with reduced right ventricular systolic function and pulmonary hypertension with PASP: 46 mmHg seen on TTE from 11/14/2024
#Spiculated right upper lobe nodule measuring 2.5 cm with multiple other noncalcified bilateral pulmonary nodules ranging from 3-8 mm
#Pleural-based mass versus pleural thickening at the lateral right hemithorax measuring 2 x 1 cm
#Small hiatal hernia
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
#ANGELINA on CKD3b
#Increased eosinophil count with absolute eosinophils: 1200 on admission (11/10/2024)
#Former tobacco smoker with [id number] history, quit approximately 40 years ago
#History of gout
#Carotid artery stenosis
#Hypertension
#Dyslipidemia
Plan:
- Pt was stable albeit still with high O2 requirements, and given his nausea/vomiting with recent norovirus, he went for CT abd/pelvis on AM of 11/17/2024 (which showed no acute process) and afterwards developed a GI bleed with melanotic stool
- Heparin gtt stopped
- PPI gtt started and GI consulted
- Unfortunately he is too high risk currently for an EGD, so will treat medically for now
- Remains on regular diet
- Large bore IV x2
- Receiving 1 U PRBC today due to Hb 7 --> continue to trend Hb with serial CBC and transfuse if needed to keep Hb>7, keep plt>50k
- He had bibasilar opacification/groundglass opacities seen on CXR from 11/10/2024 with concern for bilateral pneumonia
- CT chest without contrast performed on 11/14/2024 showed no evidence of pneumonia, however there is severe bullous emphysematous changes with a right upper lobe spiculated nodule measuring 2.5 cm and multiple other lung nodules
- He had diarrhea with nausea and his stool culture on 11/14/2024 was positive for norovirus
- It appears that his radiographic abnormalities are not correlating with his level of hypoxia, raising suspicion for another cardiopulmonary process (i.e. pulm HTN vs acute PE)
- Echo performed on 11/14/2024 showed no evidence of shunting by color-flow Doppler, with moderately elevated PASP at 46 mmHg, and enlarged RV with reduced RV systolic function --> this raises concern for an acute PE, however unable to do a CTA
chest given his ANGELINA
- Echo was repeated on 11/17/2024 with a bubble study, and there was no evidence of shunt
- Hold off on heparin drip for now given acute GI bleed; could possibly resume depending on his clinical bleeding rate and severity and stability of his Hb; hopefully once creatinine returns to baseline then we can check a CTA chest at that time;
otherwise we can always consider a VQ scan, although with his emphysema a q-scan would be more helpful
- Lower extremity duplex is negative for bilateral DVT
- Continue to trend proBNP --> trial of diuresis on 11/17, recommending to give Bumex 2mg IV x1 given he has bilateral pleural effusions on imaging, and hopefully this could offload the RV and possibly will improve his level of hypoxia --> still
with no improvement in FiO2 on 11/18/2024
- Continue with Abx --> currently on cefepime + doxy s/p Rocephin (11/10 - 11/12)
- There is no evidence for pneumonia on CT chest performed on 11/14/2024
- Unclear if antibiotics are indicated however in the setting of his hypoxia now with multiorgan dysfunction with worsening ANGELINA and severe leukocytosis and febrile on 11/13/2024 (100.7F), empirically continue antibiotics for now; ID consulted
- Follow up sputum Cx (collected 11/11/2024 - NGTD); follow up blood Cx X2 (collected 11/10/2024 - NGTD)
- RV-panel also ordered and is negative
- Trend WBC and monitor for fevers --> hematology consulted; if leukocytosis does not improve despite the patient getting better clinically then would consider BMBx (heme recommends to be done as an outpatient in addition to outpatient CBC with
manual diff) given concern for MDS vs leukemia in that case; this may all just be a leukemoid reaction
- Given how ill he is, would favor him getting an inpatient bone marrow Bx
- Mucolytics
- prn nebulized bronchodilators - not currently bronchospastic
- Given that there is no concern for CAP, I stopped hydrocortisone. Considering he is hypoxic with severe bullous emphysema and suspected COPD, changed hydrocortisone to Solu-Medrol 40mg IV q8hr - wean as he clinically improves
- No prior Hx of chronic lung disease although he was a former tobacco smoker with 30 pack year Hx --> will obtain outpatient PFTs to assess for COPD
- Continue spiriva respimat with prn albuterol
- Trend sCr and renally dose all meds/Abx
- Nephro following and recs appreciated
- Avoid nephrotoxic agents
- Supportive care for his norovirus infection
- C. difficile antigen is positive but toxin negative � this is not consistent with an acute C. difficile infection
- ID started PO vancomycin on 11/16/2024 to cover him anyway considering how ill he is
- trend sHCO3 now on PO bicarb s/p bicarb gtt
- Trend blood gas to monitor pH and pCO2 (blood gas from AM of 11/16/2024 shows neutral pH at 7.41 with pCO2 34 - this is adequate)
- Maintain SpO2 >90-94% with high flow nasal cannula
- Incentive spirometer encouraged q1hr while awake
- Replete electrolytes with K>4, Mg>2
- Maintain euglycemia with goal BG >100 and <180
- DVT ppx: SCDs
- Given that he has multiple bilateral pulmonary nodules with a right upper lobe spiculated lesion, this is concerning for malignancy. There are no former CT chest imaging, as per the patient and daughter. He has significant, extensive bullous
emphysema, hence performing a biopsy whether through robotic bronchoscopy or transthoracic needle aspiration, complications with a pneumothorax are very high. Ideally, would perform robotic bronchoscopy as this has a lower chance of pneumothorax
compared to TTNA. This will be discussed further as an outpatient, and he will need a PET/CT as well as an outpatient.
- There is a possibility if PET/CT shows high FDG avidity in this right upper lobe spiculated lesion with no other concerning findings elsewhere in the lungs or outside the thorax, that he can get SBRT without a biopsy, if oncology and radiation
oncology agree with this treatment plan given the high risk for complications with biopsy and anesthesia considering his significant lung disease. This will be an ongoing discussion.
He is awaiting transfer to [place] for further care once bed is available.
Pulmonary service will continue to follow along. Outpatient office follow-up will also be arranged.
Data:
CXR 11/10/2024:
Patchy parenchymal airspace opacities within both lungs, appearance highly suggestive of pneumonia.
Bullous changes within both lower lungs.
Probable minimal bilateral pleural effusions.
Cardiomegaly with no convincing pulmonary edema pattern.
CT Chest without contrast 11/14/2024:
No acute disease of the chest.
Small right and tiny left pleural effusions.
Findings consistent with severe emphysematous disease.
Spiculated right upper lobe pulmonary mass. Noncalcified solid bilateral pulmonary nodules concerning for malignancy until proven otherwise. PET imaging recommended.
Bilateral adrenal thickening suggesting benign hyperplasia.
Total time spent today was 54 minutes for this encounter. Time includes reviewing laboratory test/imaging results, reviewing pertinent medical records, obtaining and reviewing medical history, performing an appropriate exam, ordering medications,
tests and procedures. Time also includes documentation of this encounter, coordinating patient care and communicating with other healthcare professionals. Total time does not include separately billed tests performed on this date of service.
Subjective Data
-
Date of Service:
Date of Service: November 18, 2024
Chief Complaint: Pulmonary Follow Up
Subjective:
Patient seen and evaluated this morning (late note entry). Patient seen at bedside and he is on high flow nasal cannula at FiO2 70%, 55 L/min. He is saturating 91% with heart rate 74 and BP 114/50. His son (Joselo) as well as daughter at bedside.
All questions were answered. Patient to receive 1 unit PRBC today as Hb is 7 this morning. Rectal bag this morning has black stool in it. He is comfortable, however, with no abdominal pain, shortness of breath, chest pain, fevers or chills.
Review of Systems
General: Other (Negative unless mentioned above)
Objective Data
Data Reviewed
Vital Signs / I&O / Oxygen:
Vital Signs
Temp Pulse Resp BP Pulse Ox
98.2 F 75 18 101/45 90
11/17/24 23:51 11/18/24 08:27 11/18/24 08:27 11/18/24 06:00 11/18/24 08:33
Intake and Output
11/17/24 11/18/24 11/19/24
06:59 06:59 06:59
Intake Total 1860 / 1860 800 / 800
Output Total 400 / 400 1600 / 1600 200 / 200
Balance 1460 / 1460 -800 / -800 -200 / -200
SaO2 90
Nasal Cannula flow liters per 55
minute
Physical Exam
General: Respiratory Distress (negative), Comfortable, Chills (negative) and Sweats (negative)
HEENT: Normocephalic and Anicteric
Cardiovascular: S1-S2, Rub (negative) and Peripheral Edema (negative)
Respiratory: Clear, Wheeze (negative), Crackles (negative), Rhonchi (negative), Non-Labored Respirations and Stridor (negative)
GI: Soft, Non Distended, Non Tender and Normal Bowel Sounds
Neurology: AO x 3 and Tremors (negative)
Skin: Warm, Dry, Cyanosis (negative) and Jaundice (negative)
Labs/Micro/Reports
Lab Data
11/18/24 04:02
11/18/24 04:02
Laboratory Results
11/17/24 11/18/24
09:56 04:02
PT 16.0 H
INR 1.25
APTT Cancelled
Microbiology
11/16/24 12:10 Nasalpharynx Influenza Type A (PCR) - Final
Not Detected
11/16/24 12:10 Nasalpharynx Influenza Type A (H1) (PCR) - Final
Not Detected
11/16/24 12:10 Nasalpharynx Influenza Type A (H3) (PCR) - Final
Not Detected
11/16/24 12:10 Nasalpharynx Influenza Type B (PCR) - Final
Not Detected
11/16/24 12:10 Nasalpharynx Resp Syncytial Virus Type A (PCR) - Final
Not Detected
11/16/24 12:10 Nasalpharynx Resp Syncytial Virus Type B (PCR) - Final
Not Detected
11/16/24 12:10 Nasalpharynx Adenovirus DNA (PCR) - Final
Not Detected
11/16/24 12:10 Nasalpharynx Human Metapneumovirus (PCR) - Final
Not Detected
11/16/24 12:10 Nasalpharynx Parainfluenza Virus Type 1 (PCR) - Final
Not Detected
11/16/24 12:10 Nasalpharynx Parainfluenza Virus Type 2 (PCR) - Final
Not Detected
11/16/24 12:10 Nasalpharynx Parainfluenza Virus Type 3 (PCR) - Final
Not Detected
11/16/24 12:10 Nasalpharynx Parainfluenza Virus Type 4 - Final
Not Detected
11/16/24 12:10 Nasalpharynx Rhinovirus (PCR) - Final
Not Detected
11/10/24 16:26 Blood/Venous Blood Culture - Final
No Growth - Final Report
11/10/24 16:26 Blood/Venous Blood Culture - Final
No Growth - Final Report
[2024-11-18] MEDS: PROTONIX 100 IV ×2 (10:16→20:25)
--- NOTE | 2024-11-18 10:25 | W.PN.ID1 ---
Date of Service
Date of Service: November 18, 2024
Today's Communication
Continue antibiotics for today.
Assessment / Plan
Bilateral pulmonary infiltrates
-Despite antibiotics, no apparent improvement
Marked leukocytosis
- ?infection ?Leukemoid reaction ?Marrow process ?steroid effect
Anemia
CKD stage III
CHF
Norovirus (+)
HTN
Dyslipidemia
Recommendations:
Cultures have remained negative (other than norovirus PCR positive).
CT chest consistent with severe emphysematous disease with blebs
Legionella and pneumococcal urinary antigens negative. Viral respiratory panel negative.
Procalcitonin unreliable in the context of elevated creatinine.
Continue cefepime (d#5) and doxycycline (d#9) for today.
Trend white count, although given clinical picture I suspect ongoing leukocytosis is being driven by steroids.
Given ongoing pulmonary infiltrates/hypoxemia, patient may ultimately need lung biopsy and/or bone marrow bx to further delineate underlying process.
Patient has been accepted in transfer at [facility]; currently awaiting a bed.
����������������������������������������������������������
Chief Complaint
-: Leukocytosis, Pneumonia and Other (Norovirus)
Subjective / Review of Systems
Patient seen and examined. Overall feels well. Remains on high flow O2 at this time.
Review of Systems: No Fever
Vital Signs / Physical Exam
Vital Signs
Vital Signs
Temp Pulse Resp BP Pulse Ox
97.7 F 75 18 101/45 90
11/18/24 07:19 11/18/24 08:27 11/18/24 08:27 11/18/24 06:00 11/18/24 08:33
Physical Exam
Constitutional: No Acute Distress, Comfortable and Non-toxic
Eyes: Sclera Anicteric
Cardiovascular: Regular Rate and S1/S2; Negative S3/S4
Pulmonary: Non Labored and Other (High flow O2 in place.)
Gastrointestinal: Soft, Non Tender, Non Distended, Normal Bowel Sounds, No Rebound, No Guarding and Other (Rectal tube in place with dark-colored stool)
Extremities: Negative Edema or Cyanosis
Skin: Warm and Dry; Negative Rash or Jaundice
Neurological: Awake and Alert
Psychological: Calm
Objective Data
Lab Data
Lab Results
11/18/24 04:02
11/18/24 04:02
ESR 24 mm/hour (0-20) H 11/16/24 14:43
PT 16.0 Sec (11.4-14.6) H 11/18/24 04:02
INR 1.25 11/18/24 04:02
APTT Cancelled 11/17/24 09:56
Estimated Creat Clear 22 ml/min 11/18/24 04:02
Lactic Acid Cancelled 11/10/24 20:00
Total Bilirubin 0.8 mg/dl (0.2-1.3) 11/18/24 04:02
AST 21 U/L (17-59) 11/18/24 04:02
ALT 19 U/L (0-50) 11/18/24 04:02
Alkaline Phosphatase 100 U/L (38-126) 11/18/24 04:02
C-Reactive Protein 23.20 mg/L (0.0-10.00) H 11/16/24 14:43
Most recent labs reviewed.
Micro Results:
11/16/24 12:10 Influenza Type A (PCR) - Final
Nasalpharynx Not Detected
Influenza Type A (H1) (PCR) - Final
Not Detected
Influenza Type A (H3) (PCR) - Final
Not Detected
Influenza Type B (PCR) - Final
Not Detected
Resp Syncytial Virus Type A (PCR) - Final
Not Detected
Resp Syncytial Virus Type B (PCR) - Final
Not Detected
Adenovirus DNA (PCR) - Final
Not Detected
Human Metapneumovirus (PCR) - Final
Not Detected
Parainfluenza Virus Type 1 (PCR) - Final
Not Detected
Parainfluenza Virus Type 2 (PCR) - Final
Not Detected
Parainfluenza Virus Type 3 (PCR) - Final
Not Detected
Parainfluenza Virus Type 4 - Final
Not Detected
Rhinovirus (PCR) - Final
Not Detected
11/10/24 16:26 Blood Culture - Final
Blood/Venous No Growth - Final Report
11/10/24 16:26 Blood Culture - Final
Blood/Venous No Growth - Final Report
11/14/24 00:42 C. difficile GDH Antigen & Toxins - Final
Feces/Stool C. difficile antigen positive, toxin negative.
Clostridium difficile present, but toxin not detected.
Patient may be a carrier, colonized with nontoxinogenic
strain or the level of toxin in sample is below detection
limits. This information should be used in conjunction with
the patient's clinical history.
- Final
Positive for Norovirus GII
11/14/24 00:42 Legionella Urinary Antigen - Final
Urine Negative for Legionella pneumophila Serogroup 1 antigen.
A negative result does not rule out the possiblity of
Legionella infection due to other serogroups or species of
Legionella. Clinical correlation is recommended.
Streptococcus pneumoniae Antigen (M - Final
Negative for Streptococcus pneumoniae antigen.
A negative result does not exclude infection with
Streptococcus pneumoniae. Clinical correlation is
recommended.
11/11/24 11:28 Respiratory Culture - Final
Sputum Usual Respiratory Kiley
Gram Stain - Final
11/10/24 12:27 Influenza Types A & B (ANNALISE) - Final
Nasal Swab Negative for Influenza A & B, NAAT
Negative results must be combined with clinical observations
and patient history.
Nucleic Acid Amplification test (NAAT)performed on the
[employer]diant platform.
Imaging:
11/10/2024 CXR (2 view): Patchy parenchymal airspace opacities within both lungs, highly suggestive of pneumonia. Bullous changes within both lower lungs. Probable minimal bilateral pleural effusions noted. Please see full dictation for additional
detail. Film personally viewed.
--- NOTE | 2024-11-18 11:30 | CM ---
for transfer to [place] when bed available for transfer. CM will continue to follow for discharge planning needs.
--- NOTE | 2024-11-18 18:16 | W.PN.NEPH.PH ---
Today's Communication / Plan
-
peck diuretics/sodium bicarbonate PO/no indication for any further calcium with pressure calcium for albumin just below low normal( CHECK PTH)
Assessment/Plan
-
Impression:
ANGELINA
CKD 3B (~2)
Microhematuria
Hypoxic respiratory failure/. Suspected bilateral pneumonia
Profile leukocytosis
ProBNP 18,000 with no prior history of congestive heart failure
Hyperlipidemia
Hypertension
History of gout
Plan:
ANGELINA:
-Creatinine stable at 2.5�2.4 � 2.4, oliguric ~4 00cc, metabolic acidosis persists but improving
- sodium bicarb to oral
-kidney and bladder ultrasound, given microhematuria and kidney injury= no significant pathology small kidney on the right simple system bilateral
-Agree with holding LIBBY inhibitor and HCTZ in setting of acute kidney injury
-CAT scan no evidence of pneumonia with severe emphysema
creatinine remains stable was given a trial of Lasix which was a discontinued ..
BUN elevating in the setting of steroid use.
Hypo calcium corrected for albumin is 8.1= No indication to replete calcium I will check a PTH likely secondary hyperparathyroidism in the setting of the kidney disease
continue with PO bicarbonate
blood transfusion setting of the melena
continue a supportive care
Potential transfer to [facility]
-
-
Date of Service: November 18, 2024
CC / HPI / ROS
-
Chief Complaint:
acute or chronic kidney disease
History of Present Illness:
Creatinine stable at 2.5
Metabolic acidosis
CAT scan shows severe bolus have to seem a with a lung mass
heparin hold
White cell count continues to increase
Review of Systems:
Now on high flow oxygen
no chest pain
Nonoliguric
Weight stable
Labs
-
Labs:
WBC 67.4 10^3/uL (4.8-10.8) H* 11/18/24 04:02
RBC 2.31 10^6/uL (4.70-6.10) L 11/18/24 04:02
Hgb 7.0 g/dL (13.0-18.0) L 11/18/24 04:02
Hct 21.3 % (39.0-52.0) L 11/18/24 04:02
Plt Count 121 10^3/uL (130-400) L 11/18/24 04:02
Sodium 136 mmol/L (135-145) 11/18/24 04:02
Potassium 3.8 mmol/L (3.5-5.1) 11/18/24 04:02
Chloride 105 mmol/L (98-107) 11/18/24 04:02
Carbon Dioxide 16 mmol/L (22-30) L 11/18/24 04:02
BUN 106 mg/dl (9-20) H* 11/18/24 04:02
Creatinine 2.6 mg/dL (0.7-1.3) H 11/18/24 04:02
eGFR 24.17 11/18/24 04:02
Glucose 123 mg/dl (70-99) H 11/18/24 04:02
Calcium 6.8 mg/dl (8.4-10.2) L* 11/18/24 04:02
Sel-M-Yeyqxdltnru Pept 72555 pg/ml 11/17/24 05:38
Albumin 2.4 g/dl (3.5-5.0) L 11/18/24 04:02
Physical Exam
-
Vital Signs:
Vital Signs
Temp Pulse Resp BP Pulse Ox
97.7 F 74 16 120/63 94
11/18/24 17:56 11/18/24 17:57 11/18/24 17:57 11/18/24 17:57 11/18/24 17:57
Cardiovascular:: Regular rate and rhythm
Respiratory:: Bilateral: Coarse
Lung Excursion:: Normal
Abdomen:: Soft
Bowel Sounds:: Normal
Extremity Edema:: None: Bilateral:
[place] Catheter: No
[2024-11-18] MEDS: LIPITOR 40 MG PO (21:07)
[2024-11-18] MEDS: ZYLOPRIM 100 MG PO (21:07)
[2024-11-19] VITALS (13 sets, daily range): BP systolic 93–137; BP diastolic 47–65; BMI 23.4
[2024-11-19] MEDS: FIRVANQ 125 MG PO ×2 (00:57→05:15)
[2024-11-19] MEDS: SOLU-MEDROL PF 40 MG IV ×3 (00:57→18:10)
[2024-11-19 02:11] LABS: Alpha-1-Antitrypsin 211 mg/dL (90-200)
[2024-11-19 04:04] LABS: Venous Blood Gas B.E. -7.1 mmol/L (-4 to +4); Venous Blood Gas HCO3 17.7 mmol/L (22-27); Venous Blood Gas O2 Sat % 99.8 %; Venous Blood Gas pCO2 32 mmHg (35-48); Venous Blood Gas pH 7.35 (7.32-7.43); Venous Blood Gas pO2 174 mmHg (30-50)
[2024-11-19 04:05] LABS: Venous Blood Gas O2 Therapy 70%
[2024-11-19 04:07] LABS: Ionized Calcium 1.15 mMOL/L (1.15-1.33)
[2024-11-19 05:01] LABS: ALT (SGPT) 20 U/L (0-50); AST (SGOT) 22 U/L (17-59); Albumin 2.4 g/dl (3.5-5.0); Alkaline Phosphatase 101 U/L (38-126); Blood Urea Nitrogen 110 mg/dl (9-20); Calcium 7.6 mg/dl (8.4-10.2); Carbon Dioxide 16 mmol/L (22-30); Chloride 104 mmol/L (98-107); Estimated Creatinine Clearance 19 ml/min; Glucose 129 mg/dl (70-99); Magnesium 1.9 mg/dl (1.6-2.3); Phosphorus 4.7 mg/dl (2.5-4.5); Potassium 3.8 mmol/L (3.5-5.1); Sodium 136 mmol/L (135-145); Total Bilirubin 0.9 mg/dl (0.2-1.3); Total Protein 4.7 g/dl (6.3-8.2); eGFR 20.36
[2024-11-19 05:07] LABS: NT-proBNP 8560 pg/ml
[2024-11-19] MEDS: PROTONIX 100 IV ×2 (05:15→15:24)
[2024-11-19 05:25] LABS: Hematocrit 23.5 % (39.0-52.0); Hemoglobin 7.9 g/dL (13.0-18.0); Mean Corp Hgb Conc. 33.6 g/dL (33.0-37.0); Mean Corpuscular Hgb 29.7 pg (27.0-31.0); Mean Corpuscular Volume 88.3 fL (80.0-94.0); Mean Platelet Volume 10.4 fL (7.4-10.4); Platelet Count 123 10^3/uL (130-400); Red Blood Cell Count 2.66 10^6/uL (4.70-6.10); White Blood Cell Count 69.9 10^3/uL (4.8-10.8)
[2024-11-19] MEDS: SPIRIVA RESPIMAT 2.5 MCG 2 PUFF INH (07:42)
--- NOTE | 2024-11-19 07:44 | W.PN.ID1 ---
Date of Service
Date of Service: November 19, 2024
Today's Communication
Continue cefepime. Discontinue further doxycycline.
Assessment / Plan
Bilateral pulmonary infiltrates
-Despite antibiotics, no apparent improvement
Marked leukocytosis
- ?infection ?Leukemoid reaction ?Marrow process ?steroid effect
Anemia
CKD stage III
CHF
Norovirus (+)
HTN
Dyslipidemia
Recommendations:
Cultures have remained negative (other than norovirus PCR positive).
CT chest consistent with severe emphysematous disease with blebs
Legionella and pneumococcal urinary antigens negative. Viral respiratory panel negative.
Procalcitonin unreliable in the context of elevated creatinine.
Continue cefepime (d#6). Discontinue further doxycycline (d#10).
Trend white count, although given clinical picture I suspect ongoing leukocytosis is being driven by steroids.
Given ongoing pulmonary infiltrates/hypoxemia, patient may ultimately need lung biopsy and/or bone marrow bx to further delineate underlying process.
Patient has been accepted in transfer at [facility]; currently awaiting a bed.
����������������������������������������������������������
Chief Complaint
-: Leukocytosis, Pneumonia and Other (Norovirus)
Subjective / Review of Systems
Patient seen and examined. Reports feels well. Continues to require high flow O2, but reports breathing is comfortable. No significant cough.
Vital Signs / Physical Exam
Vital Signs
Vital Signs
Temp Pulse Resp BP Pulse Ox
98.0 F 73 19 113/57 89
11/19/24 03:00 11/19/24 04:00 11/19/24 04:00 11/19/24 04:00 11/19/24 06:05
Physical Exam
Constitutional: No Acute Distress, Comfortable and Non-toxic
Eyes: Sclera Anicteric
Cardiovascular: Regular Rate and S1/S2; Negative S3/S4
Pulmonary: Non Labored and Other (High flow O2 in place.)
Gastrointestinal: Soft, Non Tender, Non Distended and Normal Bowel Sounds
Extremities: Negative Edema or Cyanosis
Skin: Warm and Dry; Negative Rash or Jaundice
Neurological: Awake and Alert
Psychological: Calm
Objective Data
Lab Data
Lab Results
11/19/24 03:55
11/19/24 03:55
ESR 24 mm/hour (0-20) H 11/16/24 14:43
PT 16.0 Sec (11.4-14.6) H 11/18/24 04:02
INR 1.25 11/18/24 04:02
APTT Cancelled 11/17/24 09:56
Estimated Creat Clear 19 ml/min 11/19/24 03:55
Lactic Acid Cancelled 11/10/24 20:00
Total Bilirubin 0.9 mg/dl (0.2-1.3) 11/19/24 03:55
AST 22 U/L (17-59) 11/19/24 03:55
ALT 20 U/L (0-50) 11/19/24 03:55
Alkaline Phosphatase 101 U/L (38-126) 11/19/24 03:55
C-Reactive Protein 23.20 mg/L (0.0-10.00) H 11/16/24 14:43
Most recent labs reviewed.
Micro Results:
11/16/24 12:10 Influenza Type A (PCR) - Final
Nasalpharynx Not Detected
Influenza Type A (H1) (PCR) - Final
Not Detected
Influenza Type A (H3) (PCR) - Final
Not Detected
Influenza Type B (PCR) - Final
Not Detected
Resp Syncytial Virus Type A (PCR) - Final
Not Detected
Resp Syncytial Virus Type B (PCR) - Final
Not Detected
Adenovirus DNA (PCR) - Final
Not Detected
Human Metapneumovirus (PCR) - Final
Not Detected
Parainfluenza Virus Type 1 (PCR) - Final
Not Detected
Parainfluenza Virus Type 2 (PCR) - Final
Not Detected
Parainfluenza Virus Type 3 (PCR) - Final
Not Detected
Parainfluenza Virus Type 4 - Final
Not Detected
Rhinovirus (PCR) - Final
Not Detected
11/10/24 16:26 Blood Culture - Final
Blood/Venous No Growth - Final Report
11/10/24 16:26 Blood Culture - Final
Blood/Venous No Growth - Final Report
11/14/24 00:42 C. difficile GDH Antigen & Toxins - Final
Feces/Stool C. difficile antigen positive, toxin negative.
Clostridium difficile present, but toxin not detected.
Patient may be a carrier, colonized with nontoxinogenic
strain or the level of toxin in sample is below detection
limits. This information should be used in conjunction with
the patient's clinical history.
- Final
Positive for Norovirus GII
11/14/24 00:42 Legionella Urinary Antigen - Final
Urine Negative for Legionella pneumophila Serogroup 1 antigen.
A negative result does not rule out the possiblity of
Legionella infection due to other serogroups or species of
Legionella. Clinical correlation is recommended.
Streptococcus pneumoniae Antigen (M - Final
Negative for Streptococcus pneumoniae antigen.
A negative result does not exclude infection with
Streptococcus pneumoniae. Clinical correlation is
recommended.
11/11/24 11:28 Respiratory Culture - Final
Sputum Usual Respiratory Kiley
Gram Stain - Final
11/10/24 12:27 Influenza Types A & B (ANNALISE) - Final
Nasal Swab Negative for Influenza A & B, NAAT
Negative results must be combined with clinical observations
and patient history.
Nucleic Acid Amplification test (NAAT)performed on the
[employer] platform.
Imaging:
11/10/2024 CXR (2 view): Patchy parenchymal airspace opacities within both lungs, highly suggestive of pneumonia. Bullous changes within both lower lungs. Probable minimal bilateral pleural effusions noted. Please see full dictation for additional
detail. Film personally viewed.
[2024-11-19] MEDS: MUCINEX 1200 MG PO ×2 (07:57→20:53)
[2024-11-19] MEDS: COREG 6.25 MG PO ×2 (07:57→20:53)
[2024-11-19] MEDS: VITAMIN D3 (cholecalciferol) 25 MCG PO (07:59)
[2024-11-19] MEDS: NORVASC 10 MG PO (08:00)
[2024-11-19] MEDS: SODIUM BICARBONATE 650 MG PO (08:00)
[2024-11-19] MEDS: LOW STRENGTH ASPIRIN 81 MG PO (08:00)
[2024-11-19] MEDS: STERILE WATER FOR INJECTION 10 ML IV ×2 (08:00→20:52)
[2024-11-19] MEDS: MAXIPIME 1000 MG IV ×2 (08:02→20:52)
--- NOTE | 2024-11-19 09:24 | W.PN.PUL3 ---
Today's Communication / Plan
-
Awaiting transfer to [place] pending bed availability
Now on PPI gtt and off heparin drip in setting of GIB (melena)
Changed hydrocortisone to Solu-Medrol
Continue Spiriva given high likelihood he has COPD, despite him not having shortness of breath
Changed prn DuoNebs to albuterol
Continue with antibiotics as per ID
Continue PO bicarb and trend blood gas to monitor pH + pCO2
Trend sCr and sHCO3
Replete calcium
Wean down high flow nasal cannula FiO2 as tolerated while keeping SpO2 88-95%
Trial of diuresis on 11/17/2024 - no improvement in FiO2 requirements
Outpatient workup for right upper lobe spiculated nodule with PET/CT and possible biopsy although he is high risk for pneumothorax considering his extensive bullous emphysema
Hematology and ID recs appreciated
Trend WBC and follow-up cultures
Pulmonary service will continue to follow along and outpatient follow-up will also be arranged for full PFTs and discussion of his lung nodules
Assessment
-
Assessment: 79-year-old male former tobacco smoker with a past medical history of gout, hyperlipidemia, hypertension and CKD who presents with shortness of breath, chest congestion and cough. Symptoms started around when he felt ill
and he improved over the next 2-3 weeks. He then developed sciatica around Julianna time and that had improved over the next 1 week. He did have shortness of breath that developed around and this worsened over the course of the
following week. He went to his doctor, Dr. Handy, on 11/10/2024 and found that his pulse oximeter was in the 50s. He was sent here to the ER for further evaluation, and found to be saturating 85% on room air. Saturations improved to the low 90s
on 5 L/min nasal cannula. Initially he was afebrile to 97.9 �F, pulse rate 71, breathing at 16 breaths minute, and BP 116/63. Initial labs showed leukocytosis to 43.9, Hb 10.9, increased eosinophil count of 1200, creatinine 2.9, potassium 5.2,
glucose 122, proBNP 18,700, and COVID antigen negative. Flu A/B swab also negative and blood cultures were collected. Initial CXR showed patchy parenchymal airspace opacities in both lungs with small bilateral pleural effusions and suspected
bullous changes in the lower lungs bilaterally. He was initially given 1 L NS 0.9%, ceftriaxone and Zithromax and admitted to telemetry. Antibiotics were continued and he continues to require oxygen. On 11/13/2024 his oxygen requirements worsened
and he was started on a partial rebreather and upgraded to the IMU. Pulmonary service now consulted for additional management/recommendations.
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
Impression:
#Acute GI bleed, suspected to be upper with DDx including PUD, AVM, Dieulafoy lesion, or malignancy
#Acute blood loss anemia
#Acute respiratory failure with hypoxia: Likely due to sepsis however acute PE is also on differential especially with severely elevated proBNP of >18,500 and echo findings
#Leukocytosis with bandemia - unclear source as only obvious infection right now is his gastroenteritis from norovirus; MDS vs leukemia is also on differential for leukocytosis
#Sepsis without septic shock
#Nausea/diarrhea with norovirus seen on stool culture (diagnosed on 11/14/2024)
#Metabolic acidosis with normal anion gap
#RV enlargement with reduced right ventricular systolic function and pulmonary hypertension with PASP: 46 mmHg seen on TTE from 11/14/2024
#Spiculated right upper lobe nodule measuring 2.5 cm with multiple other noncalcified bilateral pulmonary nodules ranging from 3-8 mm
#Pleural-based mass versus pleural thickening at the lateral right hemithorax measuring 2 x 1 cm
#Small hiatal hernia
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
#ANGELINA on CKD3b
#Increased eosinophil count with absolute eosinophils: 1200 on admission (11/10/2024)
#Former tobacco smoker with [id number] history, quit approximately 40 years ago
#History of gout
#Carotid artery stenosis
#Hypertension
#Dyslipidemia
Plan:
- Pt was stable albeit still with high O2 requirements, and given his nausea/vomiting with recent norovirus, he went for CT abd/pelvis on AM of 11/17/2024 (which showed no acute process) and afterwards developed a GI bleed with melanotic stool
- Heparin gtt stopped
- PPI gtt started and GI consulted
- Unfortunately he is too high risk currently for an EGD, so will treat medically for now
- Remains on regular diet
- Large bore IV x2
- Received 1 U PRBC on 11/18/2024 due to Hb 7 --> Hb steve to 7.9 this AM; continue to trend Hb with serial CBC and transfuse if needed to keep Hb>7, keep plt>50k
- He had bibasilar opacification/groundglass opacities seen on CXR from 11/10/2024 with concern for bilateral pneumonia
- CT chest without contrast performed on 11/14/2024 showed no evidence of pneumonia, however there is severe bullous emphysematous changes with a right upper lobe spiculated nodule measuring 2.5 cm and multiple other lung nodules
- He had diarrhea with nausea and his stool culture on 11/14/2024 was positive for norovirus
- It appears that his radiographic abnormalities are not correlating with his level of hypoxia, raising suspicion for another cardiopulmonary process (i.e. pulm HTN vs acute PE)
- Echo performed on 11/14/2024 showed no evidence of shunting by color-flow Doppler, with moderately elevated PASP at 46 mmHg, and enlarged RV with reduced RV systolic function --> this raises concern for an acute PE, however unable to do a CTA
chest given his ANGELINA
- Echo was repeated on 11/17/2024 with a bubble study, and there was no evidence of shunt
- Hold off on heparin drip for now given acute GI bleed; could possibly resume depending on his clinical bleeding rate and severity and stability of his Hb; hopefully once creatinine returns to baseline then we can check a CTA chest at that time;
otherwise we can always consider a VQ scan, although with his emphysema a q-scan would be more helpful
- Lower extremity duplex is negative for bilateral DVT
- Continue to trend proBNP --> trial of diuresis on 11/17, gave Bumex 2mg IV x1 given he has bilateral pleural effusions on imaging, and hopefully this could offload the RV and possibly will improve his level of hypoxia --> still with no improvement
in FiO2 on 11/18/2024
- Continue with Abx --> currently on cefepime s/p doxy (11/10-11/18/2024) + s/p Rocephin (11/10-11/12)
- There is no evidence for pneumonia on CT chest performed on 11/14/2024
- Unclear if antibiotics are indicated however in the setting of his hypoxia now with multiorgan dysfunction with worsening ANGELINA and severe leukocytosis and febrile on 11/13/2024 (100.7F), empirically continue antibiotics for now; ID consulted
- Follow up sputum Cx (collected 11/11/2024 - NGTD); follow up blood Cx X2 (collected 11/10/2024 - NGTD)
- RV-panel also ordered and is negative
- Trend WBC and monitor for fevers --> hematology consulted; if leukocytosis does not improve despite the patient getting better clinically then would consider BMBx (heme recommends to be done as an outpatient in addition to outpatient CBC with
manual diff) given concern for MDS vs leukemia in that case; this may all just be a leukemoid reaction
- Given how ill he is, would favor him getting an inpatient bone marrow Bx
- Mucolytics
- prn nebulized bronchodilators - not currently bronchospastic
- Given that there is no concern for CAP, I stopped hydrocortisone. Considering he is hypoxic with severe bullous emphysema and suspected COPD, changed hydrocortisone to Solu-Medrol 40mg IV q8hr - wean as he clinically improves
- No prior Hx of chronic lung disease although he was a former tobacco smoker with 30 pack year Hx --> will obtain outpatient PFTs to assess for COPD
- Continue spiriva respimat with prn albuterol
- Trend sCr and renally dose all meds/Abx
- Nephro following and recs appreciated
- Avoid nephrotoxic agents
- Supportive care for his norovirus infection
- C. difficile antigen is positive but toxin negative � this is not consistent with an acute C. difficile infection
- ID started PO vancomycin on 11/16/2024 to cover him anyway considering how ill he is
- trend sHCO3 now on PO bicarb s/p bicarb gtt
- Trend blood gas to monitor pH and pCO2 (blood gas from AM of 11/19/2024 shows pH at 7.35 with pCO2 32 - this is adequate)
- Maintain SpO2 >90-94% with high flow nasal cannula
- Incentive spirometer encouraged q1hr while awake
- Replete electrolytes with K>4, Mg>2
- Maintain euglycemia with goal BG >100 and <180
- DVT ppx: SCDs
- Given that he has multiple bilateral pulmonary nodules with a right upper lobe spiculated lesion, this is concerning for malignancy. There are no former CT chest imaging, as per the patient and daughter. He has significant, extensive bullous
emphysema, hence performing a biopsy whether through robotic bronchoscopy or transthoracic needle aspiration, complications with a pneumothorax are very high. Ideally, would perform robotic bronchoscopy as this has a lower chance of pneumothorax
compared to TTNA. This will be discussed further as an outpatient, and he will need a PET/CT as well as an outpatient.
- There is a possibility if PET/CT shows high FDG avidity in this right upper lobe spiculated lesion with no other concerning findings elsewhere in the lungs or outside the thorax, that he can get SBRT without a biopsy, if oncology and radiation
oncology agree with this treatment plan given the high risk for complications with biopsy and anesthesia considering his significant lung disease. This will be an ongoing discussion.
He is awaiting transfer to [place] for further care once bed is available.
Pulmonary service will continue to follow along. Outpatient office follow-up will also be arranged.
Data:
CXR 11/10/2024:
Patchy parenchymal airspace opacities within both lungs, appearance highly suggestive of pneumonia.
Bullous changes within both lower lungs.
Probable minimal bilateral pleural effusions.
Cardiomegaly with no convincing pulmonary edema pattern.
CT Chest without contrast 11/14/2024:
No acute disease of the chest.
Small right and tiny left pleural effusions.
Findings consistent with severe emphysematous disease.
Spiculated right upper lobe pulmonary mass. Noncalcified solid bilateral pulmonary nodules concerning for malignancy until proven otherwise. PET imaging recommended.
Bilateral adrenal thickening suggesting benign hyperplasia.
Total time spent today was 52 minutes for this encounter. Time includes reviewing laboratory test/imaging results, reviewing pertinent medical records, obtaining and reviewing medical history, performing an appropriate exam, ordering medications,
tests and procedures. Time also includes documentation of this encounter, coordinating patient care and communicating with other healthcare professionals. Total time does not include separately billed tests performed on this date of service.
Subjective Data
-
Date of Service:
Date of Service: November 19, 2024
Chief Complaint: Pulmonary Follow Up
Subjective:
Patient seen earlier this morning (late note entry). Patient sitting in bed with multiple family numbers at bedside. All questions were answered. Remains on PPI drip. On high flow nasal cannula at 60% FiO2, 50 L/min. He is still having loose
black stool seen in rectal bag. He denies abdominal pain, chest pain, SOB at rest, nausea, fevers or chills.
Review of Systems
General: Other (Negative unless mentioned above)
Objective Data
Data Reviewed
Vital Signs / I&O / Oxygen:
Vital Signs
Temp Pulse Resp BP Pulse Ox
98.0 F 88 18 113/57 90
11/19/24 03:00 11/19/24 07:51 11/19/24 07:51 11/19/24 04:00 11/19/24 07:51
Intake and Output
11/18/24 11/19/24 11/20/24
06:59 06:59 06:59
Intake Total 800 / 800 730 / 730
Output Total 1600 / 1600 1400 / 1400
Balance -800 / -800 -670 / -670
SaO2 90
Nasal Cannula flow liters per 55
minute
Physical Exam
General: Respiratory Distress (negative), Comfortable, Chills (negative) and Sweats (negative)
HEENT: Normocephalic and Anicteric
Cardiovascular: S1-S2, Rub (negative) and Peripheral Edema (negative)
Respiratory: Clear, Wheeze (negative), Crackles (negative), Rhonchi (negative), Non-Labored Respirations and Stridor (negative)
GI: Soft, Non Distended, Non Tender and Normal Bowel Sounds
Neurology: AO x 3 and Tremors (negative)
Skin: Warm, Dry, Cyanosis (negative) and Jaundice (negative)
Labs/Micro/Reports
Lab Data
11/19/24 03:55
11/19/24 03:55
Microbiology
11/16/24 12:10 Nasalpharynx Influenza Type A (PCR) - Final
Not Detected
11/16/24 12:10 Nasalpharynx Influenza Type A (H1) (PCR) - Final
Not Detected
11/16/24 12:10 Nasalpharynx Influenza Type A (H3) (PCR) - Final
Not Detected
11/16/24 12:10 Nasalpharynx Influenza Type B (PCR) - Final
Not Detected
11/16/24 12:10 Nasalpharynx Resp Syncytial Virus Type A (PCR) - Final
Not Detected
11/16/24 12:10 Nasalpharynx Resp Syncytial Virus Type B (PCR) - Final
Not Detected
11/16/24 12:10 Nasalpharynx Adenovirus DNA (PCR) - Final
Not Detected
11/16/24 12:10 Nasalpharynx Human Metapneumovirus (PCR) - Final
Not Detected
11/16/24 12:10 Nasalpharynx Parainfluenza Virus Type 1 (PCR) - Final
Not Detected
11/16/24 12:10 Nasalpharynx Parainfluenza Virus Type 2 (PCR) - Final
Not Detected
11/16/24 12:10 Nasalpharynx Parainfluenza Virus Type 3 (PCR) - Final
Not Detected
11/16/24 12:10 Nasalpharynx Parainfluenza Virus Type 4 - Final
Not Detected
11/16/24 12:10 Nasalpharynx Rhinovirus (PCR) - Final
Not Detected
--- NOTE | 2024-11-19 09:38 | W.PN.HOSP.TC ---
Today's Communication/Plan
-
waiting for bed at [facility]
wean O2
supportive care
? wean steroids
renew drips
Assessment / Plan
Assessment / Plan
pt is an 79 year old male
black liquid heme positive stool--stopped IV heparin drip--apprec GI--cont PPI drip--hold on further scopes--HGB dropped to 7.0, s/p 1 unit pRBC--HGB up to 7.9 11/19/24
Acute Hypoxemic respiratory failure --acute pulmonary embolism with cor pulmonale most likely possibility from suspected underlying undiagnosed malignancy (other etiologies essentially ruled out: PNA, acute CHF, PFO)--cannot do CT PE study due to
elevated creat, cannot do V/Q due to severe lung COPD, US neg for DVT, empiric heparin drip on hold due to GI bleed---CT scan with severe emphysematous change [COPD]-- diuretics recommended by [facility] dural mechanic, tried but no improvement --cont
cefepime--doxy/vanco stopped per ID--apprec pulm/ID/onc/cards/renal --no inpt workup desired by oncology--Echo with severe right sided failure, bubble study does not show PFO
leukocytosis--WBC 69.9K with all neutrophils--possible steroid effect?, since no wheezing and no improvement with hypoxia, stop?--norovirus positive, C. diff antigen positive, toxin negative--no role for flow cytometry per heme (as not great for
neutrophils) or inpt BM biopsy-- viral resp panel all negative
acute on chronic anemia likely due to acute blood loss anemia from GI bleed PLUS dilutional from daily blood draws--s/p 1 unit pRBC--HGB up to 7.9 11/19/24
new spiculated lung mass--will need outpt PET and likely biopsy--IF positive for cancer; would explain propensity for being hypercoagulable as well as leukocytosis--onc consult apprec
ANGELINA on CKD stage 3 now with developing metabolic acidosis--creat hovering about 2.5 (baseline 2), worsened with diuretics (stopped)--Holding hydrochlorothiazide, lisinopril---apprec renal--cont on oral bicarb-- BUN increased to 110/creat 3.0/bicarb
16--will defer to renal
Essential hypertension--Continue amlodipine--Continue Coreg
Hypercholesterolemia
Gout--Continue allopurinol
code status --DNR/DNI
DVT prophylaxis�heparin drip on hold
accepted in transfer to [facility] by Dr. Cutler--try to get pt on [facility] if possible for transfer--with severe COPD and blebs, would avoid CPAP/BIPAP if possible
Total Critical Care Time 32 minutes. I was immediately available to the patient and staff. I personally examined, reviewed labs, diagnostic images/reports, interpretations, treatment plans, discussed patient care with other providers and family
or caregivers (if patient is unable to make decisions), entered orders as appropriate and documented the medical record.
Anticipated Discharge: 24 - 48 hours
Subjective/Interval History
-
Date of Service: November 19, 2024
pt without c/o--says he is being weaned from HI VITO--spoke with RT--no weaning, on 75% FIO2 with 55L and pulse ox in 80s
Objective Data
-
Labs:
Laboratory Results
11/19/24
03:55
WBC 69.9 H*
Hgb 7.9 L
Hct 23.5 L
Plt Count 123 L
Sodium 136
Potassium 3.8
Chloride 104
Carbon Dioxide 16 L
BUN 110 H*
Creatinine 3.0 H
Glucose 129 H
Calcium 7.6 L
Total Bilirubin 0.9
AST 22
ALT 20
Alkaline Phosphatase 101
Vital Signs:
max temp for 24 hours
11/18/24
23:00
Temp 98.1 F
Vital Signs
Temp Pulse Resp BP Pulse Ox
98.0 F 88 18 113/57 90
11/19/24 03:00 11/19/24 07:51 11/19/24 07:51 11/19/24 04:00 11/19/24 07:51
I&O
11/18/24 11/19/24 11/20/24
06:59 06:59 06:59
Intake Total 800 / 800 730 / 730
Output Total 1600 / 1600 1400 / 1400
Balance -800 / -800 -670 / -670
Review of Systems
-
All other systems: Reviewed and negative
Abdomen/GI: Reports Diarrhea (lessened)
Physical Exam
-
General: Well Developed, Well Nourished and No Apparent Distress
HEENT: Normocephalic, Atraumatic and Oxygen (HI VITO 55L 75%)
Respiratory: Decreased Breath Sounds
Cardiac: Regular Rhythm and S1/S2; Negative Murmur
GI: Soft, Nontender, Nondistended, Normal Bowel Sounds and Other (rectal tube)
Musculoskeletal: No Clubbing, No Cyanosis and No Edema
Neuro: Awake and Alert
--- NOTE | 2024-11-19 10:31 | W.PN.GI.CBS2 ---
Today's Communication / Plan
-
Hgb up from 7.0 to 7.9 after PRBC.
Cont protonix gtt
Trend Hgb
Hold on EGD unless active bleeding given his O2 requirement
On PO vanco for C diff Ag positive, toxin negative
Assessment / Plan
-
Summary: 79 year old male presents with respiratory failure, marked leukocytosis, PNA on CXR, R heart strain on echo, started on empiric abx, steroids, then heparin gtt empirically since he could not get CTA or V/Q scan. Began passing black stools
11/17. Also Norovirus positive, and C diff Ag positive, toxin negative
Impression:
Respiratory failure, R heart strain concerning for PE
Melena
Leukocytosis, up to 59K 11/17/24
b/l PNA
ARF
Norovirus positive
C diff Ag positive, toxin negative
moderate/severe colitis with chronic changes on colonoscopy 2017, no reports of IBD history
Subjective
Subjective
Date of Service: November 19, 2024
No complaints. Family at bedside. Dark stool in rectal bag
Objective
Data Reviewed
Laboratory Data:
Laboratory Results
11/19/24 03:55
11/19/24 03:55
Laboratory Results
PT 16.0 Sec (11.4-14.6) H 11/18/24 04:02
INR 1.25 11/18/24 04:02
APTT Cancelled 11/17/24 09:56
Phosphorus 4.7 mg/dl (2.5-4.5) H 11/19/24 03:55
Magnesium 1.9 mg/dl (1.6-2.3) 11/19/24 03:55
Total Bilirubin 0.9 mg/dl (0.2-1.3) 11/19/24 03:55
AST 22 U/L (17-59) 11/19/24 03:55
ALT 20 U/L (0-50) 11/19/24 03:55
Alkaline Phosphatase 101 U/L (38-126) 11/19/24 03:55
Vital Signs and I&O:
Vital Signs
Temp Pulse Resp BP Pulse Ox
98.0 F 79 27 93/55 88
11/19/24 03:00 11/19/24 10:00 11/19/24 10:00 11/19/24 10:00 11/19/24 10:00
I&O
11/18/24 11/19/24 11/20/24
06:59 06:59 06:59
Intake Total 800 / 800 730 / 730
Output Total 1600 / 1600 1400 / 1400
Balance -800 / -800 -670 / -670
Physical Exam
Physical Exam
GI: Soft, Non Distended and Non Tender
--- NOTE | 2024-11-19 15:14 | W.PN.NEPH.PH ---
Today's Communication / Plan
-
no changes made today. Monitor her creatinine with increase would hold all diuretics at this time
Assessment/Plan
-
Impression:
ANGELINA
CKD 3B (~2)
Microhematuria
Hypoxic respiratory failure/. Suspected bilateral pneumonia
Profile leukocytosis
ProBNP 18,000 with no prior history of congestive heart failure
Hyperlipidemia
Hypertension
History of gout
Plan:
ANGELINA:
-Creatinine stable at 2.5�2.4 � 2.4-3, oliguric metabolic acidosis
-kidney and bladder ultrasound, given microhematuria and kidney injury= no significant pathology small kidney on the right simple system bilateral
-Agree with holding LIBBY inhibitor and HCTZ in setting of acute kidney injury
-CAT scan no evidence of pneumonia with severe emphysema
BUN elevating in the setting of steroid use.
Hypo calcium corrected for albumin is 8.1= No indication to replete calcium I will check a PTH likely secondary hyperparathyroidism in the setting of the kidney disease
blood transfusion setting of the melena
Potential transfer to [facility].
He did have a a bump in her creatinine at today up to three likely secondary to diuretics
I did increases sodium bicarbonate up to two tablets three times a day
Is weights of stable
increased white blood cell count secondary to IV steroids
-
-
Date of Service: November 19, 2024
CC / HPI / ROS
-
Chief Complaint:
acute or chronic kidney disease
History of Present Illness:
Creatinine stable increased today
Metabolic acidosis
CAT scan shows severe bolus have to seem a with a lung mass
heparin hold
Review of Systems:
Now on high flow oxygen
no chest pain
Nonoliguric
Weight stable
Labs
-
Labs:
WBC 69.9 10^3/uL (4.8-10.8) H* 11/19/24 03:55
RBC 2.66 10^6/uL (4.70-6.10) L 11/19/24 03:55
Hgb 7.9 g/dL (13.0-18.0) L 11/19/24 03:55
Hct 23.5 % (39.0-52.0) L 11/19/24 03:55
Plt Count 123 10^3/uL (130-400) L 11/19/24 03:55
Sodium 136 mmol/L (135-145) 11/19/24 03:55
Potassium 3.8 mmol/L (3.5-5.1) 11/19/24 03:55
Chloride 104 mmol/L (98-107) 11/19/24 03:55
Carbon Dioxide 16 mmol/L (22-30) L 11/19/24 03:55
BUN 110 mg/dl (9-20) H* 11/19/24 03:55
Creatinine 3.0 mg/dL (0.7-1.3) H 11/19/24 03:55
eGFR 20.36 11/19/24 03:55
Glucose 129 mg/dl (70-99) H 11/19/24 03:55
Calcium 7.6 mg/dl (8.4-10.2) L 11/19/24 03:55
Phosphorus 4.7 mg/dl (2.5-4.5) H 11/19/24 03:55
Gvl-Z-Bmpdvzswpkh Pept 8560 pg/ml 11/19/24 03:55
Albumin 2.4 g/dl (3.5-5.0) L 11/19/24 03:55
Physical Exam
-
Vital Signs:
Vital Signs
Temp Pulse Resp BP Pulse Ox
97.2 F 79 27 93/55 96
11/19/24 07:45 11/19/24 10:00 11/19/24 10:00 11/19/24 10:00 11/19/24 11:55
Cardiovascular:: Regular rate and rhythm
Respiratory:: Bilateral: Coarse
Lung Excursion:: Normal
Abdomen:: Soft
Bowel Sounds:: Normal
Extremity Edema:: None: Bilateral:
Willingham Catheter: No
[2024-11-19] MEDS: SODIUM BICARBONATE 1300 MG PO ×2 (15:24→21:00)
[2024-11-19 19:51] LABS: Myeloperoxidase Antibody 0 AU/mL (0-19); Serine Protease-3, IgG 0 AU/mL (0-19)
[2024-11-19] MEDS: ZYLOPRIM 100 MG PO (21:00)
[2024-11-19] MEDS: LIPITOR 40 MG PO (21:00)
[2024-11-20] VITALS (13 sets, daily range): BP systolic 97–131; BP diastolic 45–60; BMI 23.2
--- NOTE | 2024-11-20 01:12 | PTCARENOTE ---
Assumed care of Pt from day RN. Pt AAOx3 family at bed side. Pt eating food brought in from family. Pt has no complaints at this time, denies any pain. Pt remains on highflow 50/60 spo2 88-93%. Respirations even and unlabored at rest. Update report
given to [place] by phone. Assessment care and vitals as charted.
[2024-11-20] MEDS: PROTONIX 100 IV ×2 (02:43→12:29)
[2024-11-20] MEDS: SOLU-MEDROL PF 40 MG IV ×2 (02:43→11:00)
[2024-11-20 05:57] LABS: ALT (SGPT) 21 U/L (0-50); AST (SGOT) 21 U/L (17-59); Albumin 2.4 g/dl (3.5-5.0); Alkaline Phosphatase 111 U/L (38-126); Blood Urea Nitrogen 112 mg/dl (9-20); Calcium 7.8 mg/dl (8.4-10.2); Carbon Dioxide 17 mmol/L (22-30); Chloride 104 mmol/L (98-107); Estimated Creatinine Clearance 19 ml/min; Glucose 133 mg/dl (70-99); Magnesium 1.9 mg/dl (1.6-2.3); Potassium 3.7 mmol/L (3.5-5.1); Sodium 133 mmol/L (135-145); Total Bilirubin 0.9 mg/dl (0.2-1.3); Total Protein 4.8 g/dl (6.3-8.2); eGFR 20.36
[2024-11-20 05:59] LABS: Hematocrit 25.2 % (39.0-52.0); Hemoglobin 8.3 g/dL (13.0-18.0); Mean Corp Hgb Conc. 32.9 g/dL (33.0-37.0); Mean Corpuscular Hgb 29.3 pg (27.0-31.0); Platelet Count 129 10^3/uL (130-400); Red Blood Cell Count 2.83 10^6/uL (4.70-6.10); Red Cell Dist. Width 18.5 % (11.5-14.5); White Blood Cell Count 76.6 10^3/uL (4.8-10.8)
[2024-11-20] MEDS: MUCINEX 1200 MG PO ×2 (08:05→21:18)
[2024-11-20] MEDS: LOW STRENGTH ASPIRIN 81 MG PO (08:05)
[2024-11-20] MEDS: COREG 6.25 MG PO ×2 (08:05→21:19)
[2024-11-20] MEDS: VITAMIN D3 (cholecalciferol) 25 MCG PO (08:05)
[2024-11-20] MEDS: SODIUM BICARBONATE 1300 MG PO ×3 (08:05→21:21)
[2024-11-20] MEDS: NORVASC 10 MG PO (08:05)
[2024-11-20] MEDS: STERILE WATER FOR INJECTION 10 ML IV (08:06)
[2024-11-20] MEDS: MAXIPIME 1000 MG IV (08:06)
[2024-11-20] MEDS: SPIRIVA RESPIMAT 2.5 MCG 2 PUFF INH (08:15)
--- NOTE | 2024-11-20 08:49 | W.PN.PUL3 ---
Today's Communication / Plan
-
Can likely stop heparin given lack of proof and risk with GIB
Will wean IV steroids
Volume component is likely the most likely contributing cause
Extended discussions with family given very likely poor prognosis
Discussed with care team as well
Assessment
-
79-year-old male former tobacco smoker with a past medical history of gout, hyperlipidemia, hypertension and CKD who presents with shortness of breath, chest congestion and cough. Symptoms started around when he felt ill and he
improved over the next 2-3 weeks. He then developed sciatica around Julian[place] time and that had improved over the next 1 week. He did have shortness of breath that developed around and this worsened over the course of the following
week. He went to his doctor, Dr. Handy, on 11/10/2024 and found that his pulse oximeter was in the 50s. He was sent here to the ER for further evaluation, and found to be saturating 85% on room air. Saturations improved to the low 90s on 5 L/min
nasal cannula. Initially he was afebrile to 97.9 �F, pulse rate 71, breathing at 16 breaths minute, and BP 116/63. Initial labs showed leukocytosis to 43.9, Hb 10.9, increased eosinophil count of 1200, creatinine 2.9, potassium 5.2, glucose 122,
proBNP 18,700, and COVID antigen negative. Flu A/B swab also negative and blood cultures were collected. Initial CXR showed patchy parenchymal airspace opacities in both lungs with small bilateral pleural effusions and suspected bullous changes in
the lower lungs bilaterally. He was initially given 1 L NS 0.9%, ceftriaxone and Zithromax and admitted to telemetry. Antibiotics were continued and he continues to require oxygen. On 11/13/2024 his oxygen requirements worsened and he was started
on a partial rebreather and upgraded to the IMU. Pulmonary service now consulted for additional management/recommendations.
Impression:
Acute GI bleed, suspected to be upper with DDx including PUD, AVM, Dieulafoy lesion, or malignancy
Acute blood loss anemia
Acute respiratory failure with hypoxia, suspect chronic hypoxemia was ongoing
Acute on chronic leukocytosis with bandemia - suspect underlying hematologic malignancy; steroid induced leukocytosis noted more acutely
Sepsis without septic shock
Nausea/diarrhea with norovirus seen on stool culture (diagnosed on 11/14/2024)
Metabolic acidosis with normal anion gap
Acute HFpEF, severely elevated proBNP of >18,500 and echo findings
RV enlargement with reduced right ventricular systolic function and pulmonary hypertension with PASP: 46 mmHg seen on TTE from 11/14/2024
Spiculated right upper lobe nodule measuring 2.5 cm with multiple other noncalcified bilateral pulmonary nodules ranging from 3-8 mm
Pleural-based mass versus pleural thickening at the lateral right hemithorax measuring 2 x 1 cm
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
ANGELINA on CKD3b
Increased eosinophil count with absolute eosinophils: 1200 on admission (11/10/2024)
Chronic conditions [employer]AM[employer] W[employer]ER:
Hypertension
Dyslipidemia
CKD stage III
Gout
Vitamin D deficiency
Proteinuria
Carotid artery stenosis
Former tobacco smoker ([id number] history, quit 40 years ago)
Small hiatal hernia
Plan:
Remains on HFNC, 60%/50LPM, this has steadily worsened
Has no prior KNOWN history of chronic hypoxemia, but suspect this was ongoing given his degree of lung disease
He has acute on chronic O2 requirements given volume issues
PE suspected given RV dysfunction but no evidence on CT
Empirically placed on IV heparin
CKD with limiting factor on obtaining CTA
I would likely favor stopping this given GIB issues
Can transition to high dose SQ heparin
GI bleed on admission/melena noted, suspect UGIB
Received 1 U PRBC on 11/18/2024 due to Hb 7
Heparin gtt stopped--no further bleeding is noted
PPI gtt started and GI consulted
Unfortunately he is too high risk currently for an EGD, so was treated conservatively
Diet advanced, no bleeding--Remains on regular diet
He had diarrhea with nausea and his stool culture on 11/14/2024 was positive for norovirus
C. difficile antigen is positive but toxin negative � this is not consistent with an acute C. difficile infection
Chest imaging reviewed extensively
CT chest without contrast performed on 11/14/2024 showed no evidence of pneumonia, however there is severe bullous emphysematous changes with a right upper lobe spiculated nodule measuring 2.5 cm and multiple other lung nodules
Echo performed on 11/14/2024 showed no evidence of shunting by color-flow Doppler, with moderately elevated PASP at 46 mmHg, and enlarged RV with reduced RV systolic function --> this raises concern for an acute PE, however unable to do a CTA chest
given his ANGELINA
Echo was repeated on 11/17/2024 with a bubble study, and there was no evidence of shunt
Lower extremity duplex is negative for bilateral DVT
Continue to trend proBNP --> trial of diuresis on 11/17, gave Bumex 2mg IV x1 given he has bilateral pleural effusions on imaging, and hopefully this could offload the RV and possibly will improve his level of hypoxia --> still with no improvement in
FiO2 on 11/18/2024
Will wean IV steroids, I do not think this has improved his clinical course
CKD noted, renal following
UO is poor, no response to diuretic
Renal has discussed possibility of HD in the future
Treated w/ cefepime s/p doxy (11/10-11/18/2024) + s/p Rocephin (11/10-11/12)
There is no evidence for pneumonia on CT chest performed on 11/14/2024
Agree with discontinuation and observation off
WBC is likely related to steroids and underlying malignancy
Will need eventual biopsy of lung nodule and/or BMB
- Maintain SpO2 >90-94% with high flow nasal cannula
- Incentive spirometer encouraged q1hr while awake
- Replete electrolytes with K>4, Mg>2
- Maintain euglycemia with goal BG >100 and <180
- DVT ppx: SCDs
Transfer to [facility] pending bed.
Pulmonary service will continue to follow along.
Outpatient office follow-up will also be arranged.
Family Discussions
Mary Lou 11/20/24-Spoke to family at bedside given his numerous serious medical issues and need for high risk procedures to obtain sufficient diagnoses. I fear his level of risk far outweighs any benefit from undergoing procedures/treatment for possible
(high suspected) malignancies, possible need for HD in the near future, possible respiratory compromise. He is currently DNR/DNI. Daughter understands that he is very high risk and that ultimately no matter what is pursued his overall prognosis is
poor. She would rather avoid high risk procedures and asked about hospice. I think hospice would be very appropriate in this situation. They will talk amongst themselves and make a final decision. They are ok cancelling transfer to [facility] as well.
I communicated this to care team.
[place] - Given that he has multiple bilateral pulmonary nodules with a right upper lobe spiculated lesion, this is concerning for malignancy. There are no former CT chest imaging, as per the patient and daughter. He has significant, extensive
bullous emphysema, hence performing a biopsy whether through robotic bronchoscopy or transthoracic needle aspiration, complications with a pneumothorax are very high. Ideally, would perform robotic bronchoscopy as this has a lower chance of
pneumothorax compared to TTNA. This will be discussed further as an outpatient, and he will need a PET/CT as well as an outpatient.
There is a possibility if PET/CT shows high FDG avidity in this right upper lobe spiculated lesion with no other concerning findings elsewhere in the lungs or outside the thorax, that he can get SBRT without a biopsy, if oncology and radiation
oncology agree with this treatment plan given the high risk for complications with biopsy and anesthesia considering his significant lung disease. This will be an ongoing discussion.
Diagnostic Data
CXR 11/10/2024: Patchy parenchymal airspace opacities within both lungs, appearance highly suggestive of pneumonia. Bullous changes within both lower lungs. Probable minimal bilateral pleural effusions. Cardiomegaly with no convincing pulmonary edema
pattern.
CT Chest without contrast 11/14/2024: No acute disease of the chest. Small right and tiny left pleural effusions. Findings consistent with severe emphysematous disease. Spiculated right upper lobe pulmonary mass. Noncalcified solid bilateral
pulmonary nodules concerning for malignancy until proven otherwise. PET imaging recommended. Bilateral adrenal thickening suggesting benign hyperplasia.
ECHO 11/17/24- Normal left ventricular systolic function. LVEF 55-60%. Interatrial septum is intact with no evidence of shunting by color-flow Doppler or agitated saline. No change compared to TTE on 11/14/2024.
-----
Total time spent today was 65 minutes for this encounter. Time includes reviewing laboratory test/imaging results, reviewing pertinent medical records, obtaining and reviewing medical history, performing an appropriate exam, ordering medications,
tests and procedures. Time also includes documentation of this encounter, coordinating patient care and communicating with other healthcare professionals. Total time does not include separately billed tests performed on this date of service.
Subjective Data
-
Date of Service:
Date of Service: November 20, 2024
Chief Complaint: Pulmonary Follow Up
Subjective:
Remains on HFNC, worsening
Awake/alert, no new complaints
Family at bedside
Objective Data
Data Reviewed
Vital Signs / I&O / Oxygen:
Vital Signs
Temp Pulse Resp BP Pulse Ox
97.6 F 72 12 124/59 90
11/20/24 03:32 11/20/24 06:00 11/20/24 06:00 11/20/24 06:00 11/20/24 06:00
Intake and Output
11/19/24 11/20/24 11/21/24
06:59 06:59 06:59
Intake Total 730 / 730 240 / 240
Output Total 1400 / 1400 400 / 400
Balance -670 / -670 -160 / -160
SaO2 90
Nasal Cannula flow liters per 50
minute
Physical Exam
General: Respiratory Distress (negative), Comfortable, Chills (negative) and Sweats (negative)
HEENT: Normocephalic, Anicteric and Moist Mucous Membranes
Cardiovascular: S1-S2, Regular Rhythm, Rub (negative) and Peripheral Edema (negative)
Respiratory: Clear, Wheeze (negative), Crackles (negative), Rhonchi (negative), Non-Labored Respirations and Stridor (negative)
GI: Soft, Non Distended, Non Tender and Normal Bowel Sounds
Neurology: AO x 3, No Motor Deficits and Tremors (negative)
Skin: Warm, Dry, Cyanosis (negative) and Jaundice (negative)
Labs/Micro/Reports
Lab Data
11/20/24 05:07
11/20/24 05:07
--- NOTE | 2024-11-20 08:52 | W.PN.GI.CBS2 ---
Today's Communication / Plan
-
Hgb stable. Up to 8.3 from 7.9 yesterday
Has been stable after 1 unit PRBC for Hgb 7.0 on 11/18
Cont protonix gtt for now
Awaiting bed at [facility]
Will sign off for now. Please call back if active bleeding, drop in Hgb
Assessment / Plan
-
Summary: 79 year old male presents with respiratory failure, marked leukocytosis, PNA on CXR, R heart strain on echo, started on empiric abx, steroids, then heparin gtt empirically since he could not get CTA or V/Q scan. Began passing black stools
11/17. Also Norovirus positive, and C diff Ag positive, toxin negative
11/18/24 PRBC 1 unit
Impression:
Respiratory failure, R heart strain concerning for PE
Melena
Leukocytosis, up to 59K 11/17/24
b/l PNA
ARF
Norovirus positive
C diff Ag positive, toxin negative
moderate/severe colitis with chronic changes on colonoscopy 2016, no reports of IBD history
Subjective
Subjective
Date of Service: November 20, 2024
No complaints. Dark brown/black stool in rectal bag
Objective
Data Reviewed
Laboratory Data:
Laboratory Results
11/20/24 05:07
11/20/24 05:07
Laboratory Results
PT 16.0 Sec (11.4-14.6) H 11/18/24 04:02
INR 1.25 11/18/24 04:02
APTT Cancelled 11/17/24 09:56
Phosphorus 4.7 mg/dl (2.5-4.5) H 11/19/24 03:55
Magnesium 1.9 mg/dl (1.6-2.3) 11/20/24 05:07
Total Bilirubin 0.9 mg/dl (0.2-1.3) 11/20/24 05:07
AST 21 U/L (17-59) 11/20/24 05:07
ALT 21 U/L (0-50) 11/20/24 05:07
Alkaline Phosphatase 111 U/L (38-126) 11/20/24 05:07
Vital Signs and I&O:
Vital Signs
Temp Pulse Resp BP Pulse Ox
97.6 F 72 12 124/59 90
11/20/24 03:32 11/20/24 06:00 11/20/24 06:00 11/20/24 06:00 11/20/24 06:00
I&O
11/19/24 11/20/24 11/21/24
06:59 06:59 06:59
Intake Total 730 / 730 240 / 240
Output Total 1400 / 1400 400 / 400
Balance -670 / -670 -160 / -160
Physical Exam
Physical Exam
GI: Soft, Non Distended and Non Tender
--- NOTE | 2024-11-20 10:53 | W.PN.ID1 ---
Date of Service
Date of Service: November 20, 2024
Today's Communication
Discontinue cefepime with close observation. Await transfer to [facility].
Assessment / Plan
Bilateral pulmonary infiltrates
-Despite antibiotics, no apparent improvement
Marked leukocytosis
- ?infection ?Leukemoid reaction ?Marrow process ?steroid effect
Anemia
CKD stage III
CHF
Norovirus (+)
HTN
Dyslipidemia
Recommendations:
Cultures have remained negative (other than prior positive norovirus PCR).
CT chest consistent with severe emphysematous disease with blebs.
Legionella and pneumococcal urinary antigens negative. Viral respiratory panel negative.
Procalcitonin unreliable in the context of elevated creatinine.
Remains on cefepime (d#7) without significant clinical change.
Not clear that a bacterial process is playing a role at present.
Discontinue further antibiotics with close observation.
Trend white count, although given clinical picture I suspect ongoing leukocytosis is being driven by steroids. Would try to limit/taper if possible.
Given ongoing pulmonary infiltrates/hypoxemia, patient may ultimately need lung biopsy and/or bone marrow bx to further delineate underlying process.
Patient has been accepted in transfer at [facility]; currently awaiting a bed.
����������������������������������������������������������
Chief Complaint
-: Leukocytosis, Pneumonia and Other (Norovirus)
Subjective / Review of Systems
Patient seen and examined. Remains on high flow O2
Review of Systems: No Fever and No Chills
Vital Signs / Physical Exam
Vital Signs
Vital Signs
Temp Pulse Resp BP Pulse Ox
97.9 F 72 12 124/59 93
11/20/24 07:18 11/20/24 06:00 11/20/24 06:00 11/20/24 06:00 11/20/24 10:17
Physical Exam
Constitutional: No Acute Distress, Comfortable and Non-toxic
Eyes: Sclera Anicteric
Cardiovascular: Regular Rate and S1/S2; Negative S3/S4
Pulmonary: Non Labored and Other (High flow O2 in place.)
Gastrointestinal: Soft, Non Tender, Non Distended and Normal Bowel Sounds
Extremities: Negative Edema or Cyanosis
Skin: Warm and Dry; Negative Rash or Jaundice
Neurological: Awake and Alert
Psychological: Calm
Objective Data
Lab Data
Lab Results
11/20/24 05:07
11/20/24 05:07
ESR 24 mm/hour (0-20) H 11/16/24 14:43
PT 16.0 Sec (11.4-14.6) H 11/18/24 04:02
INR 1.25 11/18/24 04:02
APTT Cancelled 11/17/24 09:56
Estimated Creat Clear 19 ml/min 11/20/24 05:07
Lactic Acid Cancelled 11/10/24 20:00
Total Bilirubin 0.9 mg/dl (0.2-1.3) 11/20/24 05:07
AST 21 U/L (17-59) 11/20/24 05:07
ALT 21 U/L (0-50) 11/20/24 05:07
Alkaline Phosphatase 111 U/L (38-126) 11/20/24 05:07
C-Reactive Protein 23.20 mg/L (0.0-10.00) H 11/16/24 14:43
Most recent labs reviewed.
Micro Results:
11/16/24 12:10 Influenza Type A (PCR) - Final
Nasalpharynx Not Detected
Influenza Type A (H1) (PCR) - Final
Not Detected
Influenza Type A (H3) (PCR) - Final
Not Detected
Influenza Type B (PCR) - Final
Not Detected
Resp Syncytial Virus Type A (PCR) - Final
Not Detected
Resp Syncytial Virus Type B (PCR) - Final
Not Detected
Adenovirus DNA (PCR) - Final
Not Detected
Human Metapneumovirus (PCR) - Final
Not Detected
Parainfluenza Virus Type 1 (PCR) - Final
Not Detected
Parainfluenza Virus Type 2 (PCR) - Final
Not Detected
Parainfluenza Virus Type 3 (PCR) - Final
Not Detected
Parainfluenza Virus Type 4 - Final
Not Detected
Rhinovirus (PCR) - Final
Not Detected
11/10/24 16:26 Blood Culture - Final
Blood/Venous No Growth - Final Report
11/10/24 16:26 Blood Culture - Final
Blood/Venous No Growth - Final Report
11/14/24 00:42 C. difficile GDH Antigen & Toxins - Final
Feces/Stool C. difficile antigen positive, toxin negative.
Clostridium difficile present, but toxin not detected.
Patient may be a carrier, colonized with nontoxinogenic
strain or the level of toxin in sample is below detection
limits. This information should be used in conjunction with
the patient's clinical history.
- Final
Positive for Norovirus GII
11/14/24 00:42 Legionella Urinary Antigen - Final
Urine Negative for Legionella pneumophila Serogroup 1 antigen.
A negative result does not rule out the possiblity of
Legionella infection due to other serogroups or species of
Legionella. Clinical correlation is recommended.
Streptococcus pneumoniae Antigen (M - Final
Negative for Streptococcus pneumoniae antigen.
A negative result does not exclude infection with
Streptococcus pneumoniae. Clinical correlation is
recommended.
11/11/24 11:28 Respiratory Culture - Final
Sputum Usual Respiratory Kiley
Gram Stain - Final
11/10/24 12:27 Influenza Types A & B (ANNALISE) - Final
Nasal Swab Negative for Influenza A & B, NAAT
Negative results must be combined with clinical observations
and patient history.
Nucleic Acid Amplification test (NAAT)performed on the
[employer] NOW platform.
Imaging:
11/10/2024 CXR (2 view): Patchy parenchymal airspace opacities within both lungs, highly suggestive of pneumonia. Bullous changes within both lower lungs. Probable minimal bilateral pleural effusions noted. Please see full dictation for additional
detail. Film personally viewed.
--- NOTE | 2024-11-20 12:01 | W.PN.NEPH.PH ---
Today's Communication / Plan
-
Follow BMP
Assessment/Plan
-
Impression:
ANGELINA
CKD 3B (~2)
Microhematuria
Hypoxic respiratory failure/. Suspected bilateral pneumonia
Profile leukocytosis
ProBNP 18,000 with no prior history of congestive heart failure
Hyperlipidemia
Hypertension
History of gout
Norovirus
Plan:
I discussed with the family and patient at length. He had told me that he would except dialysis if necessary though later discussions with pulmonary suggested that the family would not want to be aggressive and would consider hospice in the event
that he declines further.
I am not convinced that he has significantly volume overloaded to require aggressive diuresis. I would consider right heart catheterization to determine this though this would certainly depend on the aggressiveness of care that the family and
patient desires. We could try and diurese him again though this could very well potentially further acute kidney injury.
CT of the chest with PE protocol is not necessary at this time as it would not alter treatment. He cannot be on anticoagulation currently given the GI bleed. Decision for an IVC filter would not be dependent on this either.
Currently still awaiting transfer to [facility]
Total time spent 45 minutes
-
-
Date of Service: November 20, 2024
CC / HPI / ROS
-
Chief Complaint:
acute or chronic kidney disease
History of Present Illness:
Creatinine stable 3.0
BUN over 100 still
Sodium low 133
Metabolic acidosis
Heparin on hold due to GI bleed
WBC up to 76K
Platelets remain low
Remains on high flow oxygen
Review of Systems:
no chest pain
Nonoliguric
Labs
-
Labs:
WBC 76.6 10^3/uL (4.8-10.8) H* 11/20/24 05:07
RBC 2.83 10^6/uL (4.70-6.10) L 11/20/24 05:07
Hgb 8.3 g/dL (13.0-18.0) L 11/20/24 05:07
Hct 25.2 % (39.0-52.0) L 11/20/24 05:07
Plt Count 129 10^3/uL (130-400) L 11/20/24 05:07
Sodium 133 mmol/L (135-145) L 11/20/24 05:07
Potassium 3.7 mmol/L (3.5-5.1) 11/20/24 05:07
Chloride 104 mmol/L (98-107) 11/20/24 05:07
Carbon Dioxide 17 mmol/L (22-30) L 11/20/24 05:07
BUN 112 mg/dl (9-20) H* 11/20/24 05:07
Creatinine 3.0 mg/dL (0.7-1.3) H 11/20/24 05:07
eGFR 20.36 11/20/24 05:07
Glucose 133 mg/dl (70-99) H 11/20/24 05:07
Calcium 7.8 mg/dl (8.4-10.2) L 11/20/24 05:07
Phosphorus 4.7 mg/dl (2.5-4.5) H 11/19/24 03:55
Ttx-V-Xjxjngiczpg Pept 8560 pg/ml 11/19/24 03:55
Albumin 2.4 g/dl (3.5-5.0) L 11/20/24 05:07
Physical Exam
-
Vital Signs:
Vital Signs
Temp Pulse Resp BP Pulse Ox
97.9 F 72 12 124/59 95
11/20/24 07:18 11/20/24 06:00 11/20/24 06:00 11/20/24 06:00 11/20/24 12:00
Cardiovascular:: Regular rate and rhythm
Respiratory:: Bilateral: Coarse and Bilateral: Rales
Lung Excursion:: Normal
Abdomen:: Nontender and Soft
Bowel Sounds:: Normal
Extremity Edema:: None: Bilateral:
--- NOTE | 2024-11-20 14:43 | HOSPNOTE ---
Spoke with daughter about hospice and the philosophy. At this time the patient and family are not ready. When a decision is made patient will need to remain here on hospice due to the high amount of oxygen support. I will continue to follow daily
and support family.
--- NOTE | 2024-11-20 14:53 | W.PN.HOSP.TC ---
Today's Communication/Plan
-
stop IV heparin
stop IV cefepime
wean steroids
change PPI drip to IV PPI BID
hospice consult
Assessment / Plan
Assessment / Plan
pt is an 79 year old male
black liquid heme positive stool--resolved--stopped IV heparin drip--apprec GI--change PPI drip to IV BID--hold on further scopes--HGB dropped to 7.0, s/p 1 unit pRBC--HGB up
Acute Hypoxemic respiratory failure --acute pulmonary embolism with cor pulmonale most likely possibility from suspected underlying undiagnosed malignancy (other etiologies essentially ruled out: PNA, acute CHF, PFO)--cannot do CT PE study due to
elevated creat, cannot do V/Q due to severe lung COPD, US neg for DVT, empiric heparin drip will be stopped as pulm feels no convincing evidence for PE-----CT scan with severe emphysematous change [COPD] and likely hypoxic at baseline as outpt--
diuretics recommended by [facility] state federal relations deputy director, tried but no improvement, creat worse --would stop cefepime--doxy/vanco stopped per ID--apprec pulm/ID/onc/cards/renal --no inpt workup desired by oncology--Echo with severe right sided failure, bubble
study does not show PFO
leukocytosis--WBC 76.6K with all neutrophils--possible steroid effect? not helping so would wean to off--norovirus positive, C. diff antigen positive, toxin negative--no role for flow cytometry per heme (as not great for neutrophils) or inpt BM
biopsy-- viral resp panel all negative
acute on chronic anemia likely due to acute blood loss anemia from GI bleed PLUS dilutional from daily blood draws--s/p 1 unit pRBC--HGB up to 7.9 11/19/24
new spiculated lung mass--will need outpt PET and likely biopsy, too risky to do at all--IF positive for cancer; would explain propensity for being hypercoagulable as well as leukocytosis--onc consult apprec
ANGELINA on CKD stage 3 now with developing metabolic acidosis--creat rising to 3 (baseline 2), worsened with diuretics (stopped)--Holding hydrochlorothiazide, lisinopril---apprec renal--cont on oral bicarb-- BUN increased to 112/creat 3.0/bicarb
17--will defer to renal--discussing right heart cath but likely family will defer
Essential hypertension--Continue amlodipine--Continue Coreg
Hypercholesterolemia
Gout--Continue allopurinol
code status --DNR/DNI
DVT prophylaxis�heparin drip on hold
accepted in transfer to [facility] ICU by Dr. Cutler--family (and pt) declining transfer, called transfer center and withdrew request
also consulted hospice for information at this time
Total Critical Care Time 38 minutes. I was immediately available to the patient and staff. I personally examined, reviewed labs, diagnostic images/reports, interpretations, treatment plans, discussed patient care with other providers and family
or caregivers (if patient is unable to make decisions), entered orders as appropriate and documented the medical record.
Anticipated Discharge: > 48 hours
Subjective/Interval History
-
Date of Service: November 20, 2024
pt without c/o--does not want transfer to [facility]
Objective Data
-
Labs:
Laboratory Results
11/20/24
05:07
WBC 76.6 H*
Hgb 8.3 L
Hct 25.2 L
Plt Count 129 L
Sodium 133 L
Potassium 3.7
Chloride 104
Carbon Dioxide 17 L
BUN 112 H*
Creatinine 3.0 H
Glucose 133 H
Calcium 7.8 L
Total Bilirubin 0.9
AST 21
ALT 21
Alkaline Phosphatase 111
Vital Signs:
max temp for 24 hours
11/19/24
20:36
Temp 98.0 F
Vital Signs
Temp Pulse Resp BP Pulse Ox
97.9 F 82 20 124/59 95
11/20/24 07:18 11/20/24 08:15 11/20/24 08:15 11/20/24 06:00 11/20/24 12:00
I&O
11/19/24 11/20/24 11/21/24
06:59 06:59 06:59
Intake Total 730 / 730 240 / 240
Output Total 1400 / 1400 400 / 400
Balance -670 / -670 -160 / -160
Review of Systems
-
All other systems: Reviewed and negative
Physical Exam
-
General: Well Developed, Well Nourished and No Apparent Distress
HEENT: Normocephalic and Atraumatic
Respiratory: Clear to Auscultation and Decreased Breath Sounds; Negative Wheezes or Rhonchi
Cardiac: Regular Rhythm and S1/S2; Negative Murmur
GI: Soft, Nontender, Nondistended and Normal Bowel Sounds
Musculoskeletal: No Clubbing, No Cyanosis and No Edema
Neuro: Awake and Alert
--- NOTE | 2024-11-20 15:18 | CM ---
Patient family discussion today and plan has changed from transfer to [facility] to review of hospice and palliative care. Daughter agreed to talk to hospice and per [facility] hospice is not ready for sign on at this time. Physician discussed options for next
steps and daughter agreed that patient does not want to go to [facility]. CM updated nursing. CM will continue to follow for discharge planning needs.
Plan; TBD; pending O2 requirements and functional status. SNF vs home with aides; discussion of hospice.
[2024-11-20] MEDS: LIPITOR 40 MG PO (21:18)
[2024-11-20] MEDS: ZYLOPRIM 100 MG PO (21:18)
[2024-11-20] MEDS: NSS (PRESERVATIVE FREE) 10 ML IV (21:19)
[2024-11-20] MEDS: PROTONIX IV 40 MG IV (21:19)
[2024-11-21] VITALS (11 sets, daily range): BP systolic 101–134; BP diastolic 48–63; BMI 23.6
[2024-11-21 04:37] LABS: Hematocrit 23.9 % (39.0-52.0); Hemoglobin 7.9 g/dL (13.0-18.0); Mean Corp Hgb Conc. 33.1 g/dL (33.0-37.0); Mean Corpuscular Hgb 28.9 pg (27.0-31.0); Mean Corpuscular Volume 87.5 fL (80.0-94.0); Mean Platelet Volume 10.3 fL (7.4-10.4); Platelet Count 125 10^3/uL (130-400); Red Blood Cell Count 2.73 10^6/uL (4.70-6.10); Red Cell Dist. Width 18.2 % (11.5-14.5); White Blood Cell Count 80.5 10^3/uL (4.8-10.8)
[2024-11-21 04:58] LABS: Blood Urea Nitrogen 109 mg/dl (9-20); Calcium 7.7 mg/dl (8.4-10.2); Carbon Dioxide 17 mmol/L (22-30); Chloride 103 mmol/L (98-107); Estimated Creatinine Clearance 19 ml/min; Glucose 118 mg/dl (70-99); Potassium 3.5 mmol/L (3.5-5.1); Sodium 134 mmol/L (135-145); eGFR 20.36
--- NOTE | 2024-11-21 05:17 | PTCARENOTE ---
During the night Pt spo2 dropping and sustaining to low 80's, needing for HighFlow to be turned up to 50/70. Spo2 now 91%. Pt had no complaints over night at this time. Assessment care and vitals as documented.
[2024-11-21] MEDS: SPIRIVA RESPIMAT 2.5 MCG 2 PUFF INH (08:13)
[2024-11-21] MEDS: NORVASC PO (08:42)
[2024-11-21] MEDS: MUCINEX 1200 MG PO ×2 (08:42→20:54)
[2024-11-21] MEDS: VITAMIN D3 (cholecalciferol) 25 MCG PO (08:42)
[2024-11-21] MEDS: COREG 6.25 MG PO (08:43)
[2024-11-21] MEDS: LOW STRENGTH ASPIRIN 81 MG PO (08:43)
[2024-11-21] MEDS: SODIUM BICARBONATE 1300 MG PO ×3 (08:43→20:54)
[2024-11-21] MEDS: PROTONIX IV 40 MG IV ×2 (08:44→20:54)
[2024-11-21] MEDS: NSS (PRESERVATIVE FREE) 10 ML IV ×2 (08:44→20:54)
[2024-11-21] MEDS: SOLU-MEDROL PF 40 MG IV (08:45)
--- NOTE | 2024-11-21 09:19 | W.PN.PUL3 ---
Today's Communication / Plan
-
Remains on HFNC, no significant changes
Off heparin, transition to SQ
Diuresis per nephro
If he should clinically deteriorate, would discuss transition to inpatient hospice
Discussed with family at bedside and are in agreement
Assessment
-
79-year-old male former tobacco smoker with a past medical history of gout, hyperlipidemia, hypertension and CKD who presents with shortness of breath, chest congestion and cough. Symptoms started around when he felt ill and he
improved over the next 2-3 weeks. He then developed sciatica around [place] time and that had improved over the next 1 week. He did have shortness of breath that developed around and this worsened over the course of the following
week. He went to his doctor, Dr. Handy, on 11/10/2024 and found that his pulse oximeter was in the 50s. He was sent here to the ER for further evaluation, and found to be saturating 85% on room air. Saturations improved to the low 90s on 5 L/min
nasal cannula. Initially he was afebrile to 97.9 �F, pulse rate 71, breathing at 16 breaths minute, and BP 116/63. Initial labs showed leukocytosis to 43.9, Hb 10.9, increased eosinophil count of 1200, creatinine 2.9, potassium 5.2, glucose 122,
proBNP 18,700, and COVID antigen negative. Flu A/B swab also negative and blood cultures were collected. Initial CXR showed patchy parenchymal airspace opacities in both lungs with small bilateral pleural effusions and suspected bullous changes in
the lower lungs bilaterally. He was initially given 1 L NS 0.9%, ceftriaxone and Zithromax and admitted to telemetry. Antibiotics were continued and he continues to require oxygen. On 11/13/2024 his oxygen requirements worsened and he was started
on a partial rebreather and upgraded to the IMU. Pulmonary service now consulted for additional management/recommendations.
Impression:
Acute GI bleed, suspected to be upper with DDx including PUD, AVM, Dieulafoy lesion, or malignancy
Acute blood loss anemia
Acute respiratory failure with hypoxia, suspect chronic hypoxemia was ongoing
Acute on chronic leukocytosis with bandemia - suspect underlying hematologic malignancy; steroid induced leukocytosis noted more acutely
Sepsis without septic shock
Nausea/diarrhea with norovirus seen on stool culture (diagnosed on 11/14/2024)
Metabolic acidosis with normal anion gap
Acute HFpEF, severely elevated proBNP of >18,500 and echo findings
RV enlargement with reduced right ventricular systolic function and pulmonary hypertension with PASP: 46 mmHg seen on TTE from 11/14/2024
Spiculated right upper lobe nodule measuring 2.5 cm with multiple other noncalcified bilateral pulmonary nodules ranging from 3-8 mm
Pleural-based mass versus pleural thickening at the lateral right hemithorax measuring 2 x 1 cm
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
ANGELINA on CKD3b
Increased eosinophil count with absolute eosinophils: 1200 on admission (11/10/2024)
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
Hypertension
Dyslipidemia
CKD stage III
Gout
Vitamin D deficiency
Proteinuria
Carotid artery stenosis
Former tobacco smoker ([id number] history, quit 40 years ago)
Small hiatal hernia
Plan:
Remains on HFNC, 60%/50LPM, this has steadily worsened
Has no prior KNOWN history of chronic hypoxemia, but suspect this was ongoing given his degree of lung disease
He has acute on chronic O2 requirements given volume issues
PE suspected given RV dysfunction but no evidence on CT
Empirically placed on IV heparin--discontinued
CKD with limiting factor on obtaining CTA
Continue prophylactic high dose SQ heparin
GI bleed on admission/melena noted, suspect UGIB
Received 1 U PRBC on 11/18/2024 due to Hb 7
Heparin gtt stopped--no further bleeding is noted
PPI gtt started and GI consulted
Unfortunately he is too high risk currently for an EGD, so was treated conservatively
Diet advanced, no bleeding--Remains on regular diet
He had diarrhea with nausea and his stool culture on 11/14/2024 was positive for norovirus
C. difficile antigen is positive but toxin negative � this is not consistent with an acute C. difficile infection
Chest imaging reviewed extensively
CT chest without contrast performed on 11/14/2024 showed no evidence of pneumonia, however there is severe bullous emphysematous changes with a right upper lobe spiculated nodule measuring 2.5 cm and multiple other lung nodules
Echo performed on 11/14/2024 showed no evidence of shunting by color-flow Doppler, with moderately elevated PASP at 46 mmHg, and enlarged RV with reduced RV systolic function --> this raises concern for an acute PE, however unable to do a CTA chest
given his ANGELINA
Echo was repeated on 11/17/2024 with a bubble study, and there was no evidence of shunt
Lower extremity duplex is negative for bilateral DVT
Continue to trend proBNP --> trial of diuresis on 11/17, gave Bumex 2mg IV x1 given he has bilateral pleural effusions on imaging, and hopefully this could offload the RV and possibly will improve his level of hypoxia --> still with no improvement in
FiO2 on 11/18/2024
Will wean IV steroids, I do not think this has improved his clinical course--can continue daily dosing for now
CKD noted, renal following
UO is poor, no response to diuretic
Renal has discussed possibility of HD in the future
Diuresis per team
Treated w/ cefepime s/p doxy (11/10-11/18/2024) + s/p Rocephin (11/10-11/12)
There is no evidence for pneumonia on CT chest performed on 11/14/2024
Agree with discontinuation and observation off
WBC is likely related to steroids and underlying malignancy
Will need eventual biopsy of lung nodule and/or BMB--family does not want to pursue aggressive measures
Transfer to [facility] on hold.
Pulmonary service will continue to follow along.
Hospice eval pending clinical deterioration.
Family Discussions
Mary Lou 11/20/24-Spoke to family at bedside given his numerous serious medical issues and need for high risk procedures to obtain sufficient diagnoses. I fear his level of risk far outweighs any benefit from undergoing procedures/treatment for possible
(high suspected) malignancies, possible need for HD in the near future, possible respiratory compromise. He is currently DNR/DNI. Daughter understands that he is very high risk and that ultimately no matter what is pursued his overall prognosis is
poor. She would rather avoid high risk procedures and asked about hospice. I think hospice would be very appropriate in this situation. They will talk amongst themselves and make a final decision. They are ok cancelling transfer to [facility] as well.
I communicated this to care team.
[place] - Given that he has multiple bilateral pulmonary nodules with a right upper lobe spiculated lesion, this is concerning for malignancy. There are no former CT chest imaging, as per the patient and daughter. He has significant, extensive
bullous emphysema, hence performing a biopsy whether through robotic bronchoscopy or transthoracic needle aspiration, complications with a pneumothorax are very high. Ideally, would perform robotic bronchoscopy as this has a lower chance of
pneumothorax compared to TTNA. This will be discussed further as an outpatient, and he will need a PET/CT as well as an outpatient.
There is a possibility if PET/CT shows high FDG avidity in this right upper lobe spiculated lesion with no other concerning findings elsewhere in the lungs or outside the thorax, that he can get SBRT without a biopsy, if oncology and radiation
oncology agree with this treatment plan given the high risk for complications with biopsy and anesthesia considering his significant lung disease. This will be an ongoing discussion.
Diagnostic Data
CXR 11/10/2024: Patchy parenchymal airspace opacities within both lungs, appearance highly suggestive of pneumonia. Bullous changes within both lower lungs. Probable minimal bilateral pleural effusions. Cardiomegaly with no convincing pulmonary edema
pattern.
CT Chest without contrast 11/14/2024: No acute disease of the chest. Small right and tiny left pleural effusions. Findings consistent with severe emphysematous disease. Spiculated right upper lobe pulmonary mass. Noncalcified solid bilateral
pulmonary nodules concerning for malignancy until proven otherwise. PET imaging recommended. Bilateral adrenal thickening suggesting benign hyperplasia.
ECHO 11/17/24- Normal left ventricular systolic function. LVEF 55-60%. Interatrial septum is intact with no evidence of shunting by color-flow Doppler or agitated saline. No change compared to TTE on 11/14/2024.
-----
Total time spent today was 51 minutes for this encounter. Time includes reviewing laboratory test/imaging results, reviewing pertinent medical records, obtaining and reviewing medical history, performing an appropriate exam, ordering medications,
tests and procedures. Time also includes documentation of this encounter, coordinating patient care and communicating with other healthcare professionals. Total time does not include separately billed tests performed on this date of service.
Subjective Data
-
Date of Service:
Date of Service: November 21, 2024
Chief Complaint: Pulmonary Follow Up
Subjective:
Remains relatively stable, HFNC continued
Not on pressors
Speaking well, appears in good spirits
Family at bedside
Objective Data
Data Reviewed
Vital Signs / I&O / Oxygen:
Vital Signs
Temp Pulse Resp BP Pulse Ox
97.5 F 74 16 110/48 90
11/21/24 07:35 11/21/24 08:15 11/21/24 08:15 11/21/24 06:00 11/21/24 08:15
Intake and Output
11/20/24 11/21/24 11/22/24
06:59 06:59 06:59
Intake Total 240 / 240 760 / 760
Output Total 400 / 400 1055 / 1055
Balance -160 / -160 -295 / -295
SaO2 90
Nasal Cannula flow liters per 50
minute
Physical Exam
General: Respiratory Distress (negative), Comfortable, Chills (negative) and Sweats (negative)
HEENT: Normocephalic, Anicteric and Moist Mucous Membranes
Cardiovascular: S1-S2, Regular Rhythm, Rub (negative) and Peripheral Edema (negative)
Respiratory: Clear, Wheeze (negative), Crackles (negative), Rhonchi (negative), Non-Labored Respirations and Stridor (negative)
GI: Soft, Non Distended, Non Tender and Normal Bowel Sounds
Neurology: AO x 3, No Motor Deficits and Tremors (negative)
Skin: Warm, Dry, Cyanosis (negative) and Jaundice (negative)
Labs/Micro/Reports
Lab Data
11/21/24 04:06
11/21/24 04:06
--- NOTE | 2024-11-21 11:36 | W.PN.HOSP.TC ---
Today's Communication/Plan
-
see A/P
Assessment / Plan
Assessment / Plan
A/P:
# black liquid heme positive stool, resolved
# acute on chronic anemia likely due to acute blood loss anemia from GI bleed PLUS dilutional from daily blood draws
HGB dropped to 7.0, s/p 1 unit pRBC, HGB today at 7.9
stopped IV heparin drip
change PPI drip to IV BID
apprec GI
hold on further scopes
of note, norovirus positive
# Acute Hypoxic respiratory failure
# Possible acute pulmonary embolism with cor pulmonale from suspected underlying undiagnosed malignancy (other etiologies essentially ruled out: PNA, acute CHF, PFO)
Cont O2 support with high flow NC, wean as tolerated, pt not on home O2
cannot do CT PE study due to elevated creat, cannot do V/Q due to severe lung COPD, US neg for DVT,
empiric heparin drip stopped as pulm feels no convincing evidence for PE
CT scan with severe emphysematous change (COPD) and likely hypoxic at baseline as outpt
diuretics recommended by [facility] ICU relay adjuster, tried but no improvement and Cr worsen
Echo with severe right sided failure, bubble study does not show PFO
# Severe leukocytosis/neutrophilia
possible steroid effect with compounding leucocytosis crisis?
WBC 80 today with predominant neutrophils
weaning off steroid
viral resp panel all negative, blood culture negative
norovirus positive, C. diff antigen positive/toxin negative
Off abx per ID
no role for flow cytometry or inpt BM biopsy per heme
Onc following
# new spiculated lung mass
eventual outpt PET and likely biopsy, too risky to do at all
IF positive for cancer; would explain propensity for being hypercoagulable as well as leukocytosis
onc consult apprec
# ANGELINA on CKD stage 3 with developing metabolic acidosis
Cr today at 3 (baseline 2)
Holding hydrochlorothiazide, lisinopril
apprec renal
cont on oral bicarb
discussing right heart cath but likely family will defer
# Essential hypertension
Continue reduced dose amlodipine and Coreg with hold parameters
# Hypercholesterolemia
# Gout
Continue allopurinol
code status: pt would like to be intubated in case of further respiratory compromise
DVT prophylaxis: heparin drip on hold
Dispo: pt was accepted at [facility] ICU by Dr. Cutler, however family (and pt) declined transfer
d/w GOC with pt and family at bedside. Pt would like full code and continue current aggressive measures
total time spent 51 min
Anticipated Discharge: > 48 hours
Subjective/Interval History
-
Date of Service: November 21, 2024
Objective Data
-
Labs:
Laboratory Results
11/21/24
04:06
WBC 80.5 H*
Hgb 7.9 L
Hct 23.9 L
Plt Count 125 L
Sodium 134 L
Potassium 3.5
Chloride 103
Carbon Dioxide 17 L
BUN 109 H*
Creatinine 3.0 H
Glucose 118 H
Calcium 7.7 L
Vital Signs:
Vital Signs
Temp Pulse Resp BP Pulse Ox
36.4 C 74 16 108/48 89
11/21/24 07:35 11/21/24 08:15 11/21/24 08:15 11/21/24 08:00 11/21/24 10:43
I&O
11/20/24 11/21/24 11/22/24
06:59 06:59 06:59
Intake Total 240 / 240 760 / 760
Output Total 400 / 400 1055 / 1055 300 / 300
Balance -160 / -160 -295 / -295 -300 / -300
Review of Systems
-
Respiratory: Reports Trouble Breathing
Physical Exam
-
General: Well Developed, Well Nourished and Respiratory Distress
HEENT: Normocephalic, Atraumatic and Oxygen (high flow NC at 65% )
Respiratory: Clear to Auscultation and Decreased Breath Sounds; Negative Wheezes or Rhonchi
Cardiac: Regular Rhythm and S1/S2; Negative Murmur
GI: Soft, Nontender, Nondistended and Normal Bowel Sounds
Musculoskeletal: No Clubbing, No Cyanosis and No Edema
Neuro: Awake, Alert and Oriented
Psych: Calm and Intact Judgement/Insight
Data Reviewed
-
Labs: Labs Reviewed by me
--- NOTE | 2024-11-21 12:17 | W.PN.NEPH.PH ---
Today's Communication / Plan
-
Follow BMP
Assessment/Plan
-
Impression:
ANGELINA
CKD 3B (~2)
Microhematuria
Hypoxic respiratory failure/. Suspected bilateral pneumonia
Profound leukocytosis
ProBNP 18,000 with no prior history of congestive heart failure
Hyperlipidemia
Hypertension
History of gout
Norovirus
Plan:
I discussed with the family and patient.
He appears stable today. His oxygen requirements do not appear any worse. While his weights appear higher, his ins and outs are not negative. This would fit with decreased intake. I would not offer her Lasix today given overall stability.
However he had appeared to state that he would accept dialysis, his family has indicated that they are not interested in aggressive care and would consider the possibility of hospice if he has further clinical decline
Follow BMP
This remains a very high risk situation
-
-
Date of Service: November 21, 2024
CC / HPI / ROS
-
Chief Complaint:
acute or chronic kidney disease
History of Present Illness:
Creatinine stable 3.0
BUN over 100 still
Sodium low 134
Metabolic acidosis 17
Heparin on hold due to GI bleed
WBC up to 780K
Platelets remain low
Remains on high flow oxygen
Review of Systems:
no chest pain
Nonoliguric
Appears very comfortable, eating well
Labs
-
Labs:
WBC 80.5 10^3/uL (4.8-10.8) H* 11/21/24 04:06
RBC 2.73 10^6/uL (4.70-6.10) L 11/21/24 04:06
Hgb 7.9 g/dL (13.0-18.0) L 11/21/24 04:06
Hct 23.9 % (39.0-52.0) L 11/21/24 04:06
Plt Count 125 10^3/uL (130-400) L 11/21/24 04:06
Sodium 134 mmol/L (135-145) L 11/21/24 04:06
Potassium 3.5 mmol/L (3.5-5.1) 11/21/24 04:06
Chloride 103 mmol/L (98-107) 11/21/24 04:06
Carbon Dioxide 17 mmol/L (22-30) L 11/21/24 04:06
BUN 109 mg/dl (9-20) H* 11/21/24 04:06
Creatinine 3.0 mg/dL (0.7-1.3) H 11/21/24 04:06
eGFR 20.36 11/21/24 04:06
Glucose 118 mg/dl (70-99) H 11/21/24 04:06
Calcium 7.7 mg/dl (8.4-10.2) L 11/21/24 04:06
Phosphorus 4.7 mg/dl (2.5-4.5) H 11/19/24 03:55
Ftp-S-Jyhvmznmurw Pept 8560 pg/ml 11/19/24 03:55
Albumin 2.4 g/dl (3.5-5.0) L 11/20/24 05:07
Physical Exam
-
Vital Signs:
Vital Signs
Temp Pulse Resp BP Pulse Ox
97.5 F 74 16 108/48 89
11/21/24 07:35 11/21/24 08:15 11/21/24 08:15 11/21/24 08:00 11/21/24 10:43
Cardiovascular:: Regular rate and rhythm
Respiratory:: Bilateral: Coarse and Bilateral: Rales
Lung Excursion:: Normal
Abdomen:: Nontender and Soft
Bowel Sounds:: Normal
Extremity Edema:: None: Bilateral:
--- NOTE | 2024-11-21 12:25 | HOSPNOTE ---
Left my card with family today and the patient states he is not ready to have end of life discussion. Will continue to follow.
--- NOTE | 2024-11-21 13:31 | W.PN.ID1 ---
Date of Service
Date of Service: November 21, 2024
Today's Communication
Observe off antibiotics. Follow white count.
Assessment / Plan
Bilateral pulmonary infiltrates
-Despite antibiotics, no apparent improvement
Marked leukocytosis
- ?infection ?Leukemoid reaction ?Marrow process ?steroid effect
Anemia
CKD stage III
CHF
Norovirus (+)
HTN
Dyslipidemia
Recommendations:
Cultures have remained negative (other than prior positive norovirus PCR).
CT chest consistent with severe emphysematous disease with blebs.
Legionella and pneumococcal urinary antigens negative. Viral respiratory panel negative.
Procalcitonin unreliable in the context of elevated creatinine.
S/P 7 days of cefepime without significant clinical change.
Not clear that a bacterial process is playing a role at present.
Observe off antibiotics with close observation.
Trend white count, although given clinical picture I suspect ongoing leukocytosis is being driven by steroids. Solu-Medrol being tapered.
����������������������������������������������������������
Chief Complaint
-: Leukocytosis, Pneumonia and Other (Norovirus)
Subjective / Review of Systems
Patient seen and examined. Reports feeling well. Remains on high flow O2, but breathing is comfortable.
Review of Systems: No Fever and No Chills
Vital Signs / Physical Exam
Vital Signs
Vital Signs
Temp Pulse Resp BP Pulse Ox
97.5 F 74 16 108/48 89
11/21/24 07:35 11/21/24 08:15 11/21/24 08:15 11/21/24 08:00 11/21/24 10:43
Physical Exam
Constitutional: No Acute Distress, Comfortable and Non-toxic
Cardiovascular: Regular Rate and S1/S2; Negative S3/S4
Pulmonary: Coarse, Non Labored and Other (High flow O2 in place.)
Gastrointestinal: Soft, Non Tender, Non Distended and Normal Bowel Sounds
Extremities: Negative Edema or Cyanosis
Skin: Warm and Dry; Negative Rash or Jaundice
Neurological: Awake and Alert
Psychological: Calm
Objective Data
Lab Data
Lab Results
11/21/24 04:06
11/21/24 04:06
ESR 24 mm/hour (0-20) H 11/16/24 14:43
PT 16.0 Sec (11.4-14.6) H 11/18/24 04:02
INR 1.25 11/18/24 04:02
APTT Cancelled 11/17/24 09:56
Estimated Creat Clear 19 ml/min 11/21/24 04:06
Lactic Acid Cancelled 11/10/24 20:00
Total Bilirubin 0.9 mg/dl (0.2-1.3) 11/20/24 05:07
AST 21 U/L (17-59) 11/20/24 05:07
ALT 21 U/L (0-50) 11/20/24 05:07
Alkaline Phosphatase 111 U/L (38-126) 11/20/24 05:07
C-Reactive Protein 23.20 mg/L (0.0-10.00) H 11/16/24 14:43
Most recent labs reviewed.
Micro Results:
11/16/24 12:10 Influenza Type A (PCR) - Final
Nasalpharynx Not Detected
Influenza Type A (H1) (PCR) - Final
Not Detected
Influenza Type A (H3) (PCR) - Final
Not Detected
Influenza Type B (PCR) - Final
Not Detected
Resp Syncytial Virus Type A (PCR) - Final
Not Detected
Resp Syncytial Virus Type B (PCR) - Final
Not Detected
Adenovirus DNA (PCR) - Final
Not Detected
Human Metapneumovirus (PCR) - Final
Not Detected
Parainfluenza Virus Type 1 (PCR) - Final
Not Detected
Parainfluenza Virus Type 2 (PCR) - Final
Not Detected
Parainfluenza Virus Type 3 (PCR) - Final
Not Detected
Parainfluenza Virus Type 4 - Final
Not Detected
Rhinovirus (PCR) - Final
Not Detected
11/10/24 16:26 Blood Culture - Final
Blood/Venous No Growth - Final Report
11/10/24 16:26 Blood Culture - Final
Blood/Venous No Growth - Final Report
11/14/24 00:42 C. difficile GDH Antigen & Toxins - Final
Feces/Stool C. difficile antigen positive, toxin negative.
Clostridium difficile present, but toxin not detected.
Patient may be a carrier, colonized with nontoxinogenic
strain or the level of toxin in sample is below detection
limits. This information should be used in conjunction with
the patient's clinical history.
- Final
Positive for Norovirus GII
11/14/24 00:42 Legionella Urinary Antigen - Final
Urine Negative for Legionella pneumophila Serogroup 1 antigen.
A negative result does not rule out the possiblity of
Legionella infection due to other serogroups or species of
Legionella. Clinical correlation is recommended.
Streptococcus pneumoniae Antigen (M - Final
Negative for Streptococcus pneumoniae antigen.
A negative result does not exclude infection with
Streptococcus pneumoniae. Clinical correlation is
recommended.
11/11/24 11:28 Respiratory Culture - Final
Sputum Usual Respiratory Kiley
Gram Stain - Final
11/10/24 12:27 Influenza Types A & B (ANNALISE) - Final
Nasal Swab Negative for Influenza A & B, NAAT
Negative results must be combined with clinical observations
and patient history.
Nucleic Acid Amplification test (NAAT)performed on the
[employer] platform.
Imaging:
11/10/2024 CXR (2 view): Patchy parenchymal airspace opacities within both lungs, highly suggestive of pneumonia. Bullous changes within both lower lungs. Probable minimal bilateral pleural effusions noted. Please see full dictation for additional
detail. Film personally viewed.
--- NOTE | 2024-11-21 15:11 | CM ---
CM reviewed chart
Pt remains in IMU with high flow O2 needs
Pt and family have declined hospice at this time- not ready
Pt will benefit from PT/OT once medically appropriate
Anticipate SNF needs on dc
Pt will require auth if SNF on dc
Discharge Disposition- TBD- anticipate SNF needs
--- NOTE | 2024-11-21 16:29 | W.PN.ONC ---
Today's Communication / Plan
-
Leukocytosis most likely secondary to steroids and norovirus infection
Wean steroids as able
Will check flow cytometry
Monitor CBC
Would consider further heme w/u if leukocytosis persists after (if) he recovers
Impression
Impression
Hypoxic respiratory failure, on steroids
Leukocytosis, with neutrophilia
GI bleed, w/ blood loss anemia
Norovirus +
2.5cm RUL mass
Plan
Plan
Leukocytosis most likely secondary to steroids and norovirus infection
Wean steroids as able
Will check flow cytometry
Monitor CBC
Would consider further heme w/u if leukocytosis persists after (if) he recovers
Subjective/Objective
Subjective/Objective
asked to comment on leukocytosis
patient has family at bedside, no new complaints. diarrhea has lessened
Vital Signs:
Vital Signs
Temp Pulse Resp BP Pulse Ox
97.4 F 78 13 129/58 93
11/21/24 11:40 11/21/24 14:00 11/21/24 14:00 11/21/24 14:00 11/21/24 15:25
Lab Results:
Laboratory Data
WBC 80.5 10^3/uL (4.8-10.8) H* 11/21/24 04:06
Hgb 7.9 g/dL (13.0-18.0) L 11/21/24 04:06
Plt Count 125 10^3/uL (130-400) L 11/21/24 04:06
PT 16.0 Sec (11.4-14.6) H 11/18/24 04:02
INR 1.25 11/18/24 04:02
APTT Cancelled 11/17/24 09:56
eGFR 20.36 11/21/24 04:06
Orders
Orders
Orders From Last 24 Hours
11/22/24 06:00
Leukemia/Lymphoma Phenotyping [S] IN AM
[2024-11-21] MEDS: ZYLOPRIM 100 MG PO (20:53)
[2024-11-21] MEDS: COREG 3.125 MG PO (20:54)
[2024-11-21] MEDS: LIPITOR 40 MG PO (20:54)
[2024-11-22] VITALS (14 sets, daily range): BP systolic 99–130; BP diastolic 49–70; BMI 23.8
--- NOTE | 2024-11-22 02:20 | DOWNTIME ---
There was a [employer] Downtime on 11/22/2024 from 0100 to 11/22/2023 at 0205 . Downtime documentation of patient's care, including medication administrations, has been reconciled in the electronic record per guidelines. Refer to the
patient's paper chart under the miscellaneous tab to see printed paper medication records and downtime forms.
[2024-11-22 05:13] LABS: Hematocrit 22.5 % (39.0-52.0); Hemoglobin 7.7 g/dL (13.0-18.0); Mean Corp Hgb Conc. 34.2 g/dL (33.0-37.0); Mean Corpuscular Hgb 29.8 pg (27.0-31.0); Mean Corpuscular Volume 87.2 fL (80.0-94.0); Mean Platelet Volume 9.9 fL (7.4-10.4); Platelet Count 119 10^3/uL (130-400); Red Blood Cell Count 2.58 10^6/uL (4.70-6.10); Red Cell Dist. Width 18.4 % (11.5-14.5); White Blood Cell Count 81.2 10^3/uL (4.8-10.8)
[2024-11-22 05:20] LABS: Blood Urea Nitrogen 105 mg/dl (9-20); Calcium 7.9 mg/dl (8.4-10.2); Carbon Dioxide 18 mmol/L (22-30); Chloride 104 mmol/L (98-107); Estimated Creatinine Clearance 19 ml/min; Glucose 112 mg/dl (70-99); Potassium 3.9 mmol/L (3.5-5.1); Sodium 133 mmol/L (135-145); eGFR 20.36
[2024-11-22 07:57] LABS: % Basophils 0.1 % (0-2); % Eosinophils 0.1 % (0-6); % Immature Granulocytes 6.2 % (0-0.5); % Lymphocytes 1.2 % (20.5-51.1); % Neutrophils 89.4 % (42.2-75.2); Absolute Basophils 0.1 10^3/uL (0-0.2); Absolute Eosinophils 0.1 10^3/uL (0-0.7); Absolute Immature Granulocytes 5.1 10^3/uL (0-0.05); Absolute Monocytes 2.5 10^3/uL (0.1-0.6); Absolute Neutrophils 72.6 10^3/uL (1.4-6.5); Nucleated Red Blood Cells % 0 % (-)
[2024-11-22] MEDS: SPIRIVA RESPIMAT 2.5 MCG 2 PUFF INH (08:28)
--- NOTE | 2024-11-22 08:41 | W.PN.PUL3 ---
Today's Communication / Plan
-
Remains the same, can start weaning down steroids --will transition to PO course
Family not ready for hospice yet, but confirmed he is DNR
Discussed with care team
Continue conservative management
Assessment
-
79-year-old male former tobacco smoker with a past medical history of gout, hyperlipidemia, hypertension and CKD who presents with shortness of breath, chest congestion and cough. Symptoms started around when he felt ill and he
improved over the next 2-3 weeks. He then developed sciatica around Julianna time and that had improved over the next 1 week. He did have shortness of breath that developed around and this worsened over the course of the following
week. He went to his doctor, Dr. Handy, on 11/10/2024 and found that his pulse oximeter was in the 50s. He was sent here to the ER for further evaluation, and found to be saturating 85% on room air. Saturations improved to the low 90s on 5 L/min
nasal cannula. Initially he was afebrile to 97.9 �F, pulse rate 71, breathing at 16 breaths minute, and BP 116/63. Initial labs showed leukocytosis to 43.9, Hb 10.9, increased eosinophil count of 1200, creatinine 2.9, potassium 5.2, glucose 122,
proBNP 18,700, and COVID antigen negative. Flu A/B swab also negative and blood cultures were collected. Initial CXR showed patchy parenchymal airspace opacities in both lungs with small bilateral pleural effusions and suspected bullous changes in
the lower lungs bilaterally. He was initially given 1 L NS 0.9%, ceftriaxone and Zithromax and admitted to telemetry. Antibiotics were continued and he continues to require oxygen. On 11/13/2024 his oxygen requirements worsened and he was started
on a partial rebreather and upgraded to the IMU. Pulmonary service now consulted for additional management/recommendations.
Impression:
Acute GI bleed, suspected to be upper with DDx including PUD, AVM, Dieulafoy lesion, or malignancy
Acute blood loss anemia
Acute respiratory failure with hypoxia, suspect chronic hypoxemia was ongoing
Acute on chronic leukocytosis with bandemia - suspect underlying hematologic malignancy; steroid induced leukocytosis noted more acutely
Sepsis without septic shock
Nausea/diarrhea with norovirus seen on stool culture (diagnosed on 11/14/2024)
Metabolic acidosis with normal anion gap
Acute HFpEF, severely elevated proBNP of >18,500 and echo findings
RV enlargement with reduced right ventricular systolic function and pulmonary hypertension with PASP: 46 mmHg seen on TTE from 11/14/2024
Spiculated right upper lobe nodule measuring 2.5 cm with multiple other noncalcified bilateral pulmonary nodules ranging from 3-8 mm
Pleural-based mass versus pleural thickening at the lateral right hemithorax measuring 2 x 1 cm
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
ANGELINA on CKD3b
Increased eosinophil count with absolute eosinophils: 1200 on admission (11/10/2024)
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
Hypertension
Dyslipidemia
CKD stage III
Gout
Vitamin D deficiency
Proteinuria
Carotid artery stenosis
Former tobacco smoker ([id number] history, quit 40 years ago)
Small hiatal hernia
Plan:
Remains on HFNC, 60%/50LPM, this has steadily worsened
Has no prior KNOWN history of chronic hypoxemia, but suspect this was ongoing given his degree of lung disease
He has acute on chronic O2 requirements given volume issues
PE suspected given RV dysfunction but no evidence on CT
Empirically placed on IV heparin--discontinued
CKD with limiting factor on obtaining CTA
Continue prophylactic high dose SQ heparin
GI bleed on admission/melena noted, suspect UGIB
Received 1 U PRBC on 11/18/2024 due to Hb 7
Heparin gtt stopped--no further bleeding is noted
PPI gtt started and GI consulted
Unfortunately he is too high risk currently for an EGD, so was treated conservatively
Diet advanced, no bleeding--Remains on regular diet
He had diarrhea with nausea and his stool culture on 11/14/2024 was positive for norovirus
C. difficile antigen is positive but toxin negative � this is not consistent with an acute C. difficile infection
Chest imaging reviewed extensively
CT chest without contrast performed on 11/14/2024 showed no evidence of pneumonia, however there is severe bullous emphysematous changes with a right upper lobe spiculated nodule measuring 2.5 cm and multiple other lung nodules
Echo performed on 11/14/2024 showed no evidence of shunting by color-flow Doppler, with moderately elevated PASP at 46 mmHg, and enlarged RV with reduced RV systolic function --> this raises concern for an acute PE, however unable to do a CTA chest
given his ANGELINA
Echo was repeated on 11/17/2024 with a bubble study, and there was no evidence of shunt
Lower extremity duplex is negative for bilateral DVT
Continue to trend proBNP --> trial of diuresis on 11/17, gave Bumex 2mg IV x1 given he has bilateral pleural effusions on imaging, and hopefully this could offload the RV and possibly will improve his level of hypoxia --> still with no improvement in
FiO2 on 11/18/2024
Will wean IV steroids, I do not think this has improved his clinical course--can continue daily dosing for now
CKD noted, renal following
UO is poor, no response to diuretic
Renal has discussed possibility of HD in the future
Diuresis per team
Treated w/ cefepime s/p doxy (11/10-11/18/2024) + s/p Rocephin (11/10-11/12)
There is no evidence for pneumonia on CT chest performed on 11/14/2024
Agree with discontinuation and observation off
WBC is likely related to steroids and underlying malignancy
Will need eventual biopsy of lung nodule and/or BMB--family does not want to pursue aggressive measures
Transfer to [place] on hold.
Pulmonary service will continue to follow along. He is DNR, discussed case with care team.
Hospice eval pending clinical deterioration.
Family Discussions
Mary Lou 11/20/24-Spoke to family at bedside given his numerous serious medical issues and need for high risk procedures to obtain sufficient diagnoses. I fear his level of risk far outweighs any benefit from undergoing procedures/treatment for possible
(high suspected) malignancies, possible need for HD in the near future, possible respiratory compromise. He is currently DNR/DNI. Daughter understands that he is very high risk and that ultimately no matter what is pursued his overall prognosis is
poor. She would rather avoid high risk procedures and asked about hospice. I think hospice would be very appropriate in this situation. They will talk amongst themselves and make a final decision. They are ok cancelling transfer to [place] as well.
I communicated this to care team.
[place] - Given that he has multiple bilateral pulmonary nodules with a right upper lobe spiculated lesion, this is concerning for malignancy. There are no former CT chest imaging, as per the patient and daughter. He has significant, extensive
bullous emphysema, hence performing a biopsy whether through robotic bronchoscopy or transthoracic needle aspiration, complications with a pneumothorax are very high. Ideally, would perform robotic bronchoscopy as this has a lower chance of
pneumothorax compared to TTNA. This will be discussed further as an outpatient, and he will need a PET/CT as well as an outpatient.
There is a possibility if PET/CT shows high FDG avidity in this right upper lobe spiculated lesion with no other concerning findings elsewhere in the lungs or outside the thorax, that he can get SBRT without a biopsy, if oncology and radiation
oncology agree with this treatment plan given the high risk for complications with biopsy and anesthesia considering his significant lung disease. This will be an ongoing discussion.
Diagnostic Data
CXR 11/10/2024: Patchy parenchymal airspace opacities within both lungs, appearance highly suggestive of pneumonia. Bullous changes within both lower lungs. Probable minimal bilateral pleural effusions. Cardiomegaly with no convincing pulmonary edema
pattern.
CT Chest without contrast 11/14/2024: No acute disease of the chest. Small right and tiny left pleural effusions. Findings consistent with severe emphysematous disease. Spiculated right upper lobe pulmonary mass. Noncalcified solid bilateral
pulmonary nodules concerning for malignancy until proven otherwise. PET imaging recommended. Bilateral adrenal thickening suggesting benign hyperplasia.
ECHO 11/17/24- Normal left ventricular systolic function. LVEF 55-60%. Interatrial septum is intact with no evidence of shunting by color-flow Doppler or agitated saline. No change compared to TTE on 11/14/2024.
-----
Total time spent today was 51 minutes for this encounter. Time includes reviewing laboratory test/imaging results, reviewing pertinent medical records, obtaining and reviewing medical history, performing an appropriate exam, ordering medications,
tests and procedures. Time also includes documentation of this encounter, coordinating patient care and communicating with other healthcare professionals. Total time does not include separately billed tests performed on this date of service.
Subjective Data
-
Date of Service:
Date of Service: November 22, 2024
Chief Complaint: Pulmonary Follow Up
Subjective:
No new changes, remains on HFNC
Daughter at bedside
Objective Data
Data Reviewed
Vital Signs / I&O / Oxygen:
Vital Signs
Temp Pulse Resp BP Pulse Ox
98 F 86 18 111/70 93
11/22/24 07:35 11/22/24 08:32 11/22/24 08:32 11/22/24 04:00 11/22/24 08:32
Intake and Output
11/21/24 11/22/24 11/23/24
06:59 06:59 06:59
Intake Total 760 / 760 240 / 240
Output Total 1055 / 1055 1150 / 1150
Balance -295 / -295 -910 / -910
SaO2 93
Nasal Cannula flow liters per 50
minute
Physical Exam
General: Respiratory Distress (negative), Comfortable, Chills (negative) and Sweats (negative)
HEENT: Normocephalic, Anicteric and Moist Mucous Membranes
Cardiovascular: S1-S2, Regular Rhythm, Rub (negative) and Peripheral Edema (negative)
Respiratory: Clear, Wheeze (negative), Crackles (negative), Rhonchi (negative), Non-Labored Respirations and Stridor (negative)
GI: Soft, Non Distended, Non Tender and Normal Bowel Sounds
Neurology: AO x 3, No Motor Deficits and Tremors (negative)
Skin: Warm, Dry, Cyanosis (negative) and Jaundice (negative)
Labs/Micro/Reports
Lab Data
11/22/24 04:44
11/22/24 04:44
--- NOTE | 2024-11-22 09:30 | W.PN.HOSP.TC ---
Addendum entered and electronically signed by Kim De La Vega MD 11/22/24 13:19:
I saw and evaluated the patient. I reviewed the resident�s note and agree with findings and plan as documented in the resident�s note.
A/P:
# black liquid heme positive stool, resolved
# acute on chronic anemia likely due to acute blood loss from GI bleed and dilutional effect
s/p 1 unit PRBC, Hgb today at 7.7
stopped IV heparin drip
changed PPI drip to IV BID
apprec GI, hold on further scopes
of note, norovirus positive
# Acute Hypoxic respiratory failure, unclear cause
Cont O2 support with high flow NC, currently FIO2 70%, wean as tolerated, pt not on home O2
cannot do CT PE study due to elevated creat, cannot do V/Q due to severe lung COPD, US neg for DVT,
empiric heparin drip was stopped without convincing evidence for PE
CT chest noted severe emphysematous change (COPD)
diuretics recommended by [facility] manometer technician, tried without improvement and Cr worsen
Echo with severe right sided failure, bubble study ruled out PFO
# Severe leukocytosis/neutrophilia
possible steroid effect with compounding leucocytosis crisis/leukemoid reaction?
WBC 81 today with predominant neutrophils
weaning off steroid per pulm
viral resp panel negative, blood culture negative
norovirus positive, C. diff antigen positive/toxin negative
Off abx per ID
Onc on board, ordered flow cytometry
# new spiculated lung mass
eventual outpt PET and likely biopsy when clinically more stable
# ANGELINA on CKD stage 3 with developing metabolic acidosis
Cr today at 3.0 (baseline 2)
Holding hydrochlorothiazide, lisinopril
apprec renal
cont sodium bicarb
discussing right heart cath but likely family will defer
# Essential hypertension
Continue reduced dose of amlodipine and Coreg with hold parameters
# Hypercholesterolemia
# Gout
Continue allopurinol
code status: confirmed DNR DNI
DVT prophylaxis: SCD
Dispo: pt was accepted at [facility] by Dr. Cutler, however family (and pt) declined transfer
Prognosis guarded with persistent hypoxic respiratory failure and persistent leukocytosis
Original Note:
Today's Communication/Plan
-
Flow cytometry pending
Continue high flow, wean as tolerated
Assessment / Plan
Assessment / Plan
79-year-old male with past medical history significant for CKD stage IIIb, hypertension, hyperlipidemia, admitted for hypoxic respiratory failure.
Impression
Acute hypoxemic respiratory failure
Acute anemia
Elevated proBNP
ANGELINA on CKD
Essential hypertension
Hypercholesterolemia
Gout
Plan
#Acute Hypoxemic respiratory failure
Likely secondary to acute PE possibly from a malignant process (other etiologies might be COPD, ruled out pneumonia/acute CHF)
Heparin drip discontinued due to melena. Also, if PE from a malignant process it would not help.
Patient is now on high flow, with FiO2 70 %, 50 L, wean as tolerated keeping SpO2 88-95%.
White count trended up to 81 k, suspicious of ongoing malignant process.
Oncology following
Flow cytometry ordered by oncology
Tried a trial of diuresis, as recommended by [place] manometer technician, could not help much.
Echo with severe right sided failure, bubble study does not show PFO
#Acute anemia
acute on chronic anemia likely due to acute blood loss anemia from GI bleed PLUS dilutional from daily blood draws
s/p 1 unit pRBC, HGB today at 7.7
stopped IV heparin drip
Continue IV Protonix twice daily
GI following
No further EGD
norovirus positive
# Severe leukocytosis/neutrophilia
possible steroid effect versus neutrophilic leucocytic crisis
Continue steroid taper
WBC 80 today with predominant neutrophils
viral resp panel all negative, blood culture negative
norovirus positive, C. diff antigen positive/toxin negative
Antibiotics discontinued
Onc following
Follow-up flow cytometry results
# Spiculated lung mass
eventual outpt PET and likely biopsy
IF positive for cancer; would explain propensity for being hypercoagulable as well as leukocytosis
onc consult apprec
# ANGELINA on CKD stage 3 with developing metabolic acidosis
Cr today at 3 (baseline 2)
Holding hydrochlorothiazide, lisinopril
apprec renal
cont on oral bicarb
Monitor BMP
# Essential hypertension
Continue reduced dose amlodipine and Coreg with hold parameters
# Hypercholesterolemia
Continue atorvastatin
# Gout
Continue allopurinol
CODE STATUS : DNR�after speaking to the family and patient at bedside.
DVT prophylaxis: heparin drip on hold
Dispo: pt was accepted at [facility] by Dr. Cutler, however family (and pt) declined transfer
total time spent 51 min
Anticipated Discharge: > 48 hours
Subjective/Interval History
-
Date of Service: November 22, 2024
Objective Data
-
Labs:
Laboratory Results
11/22/24
04:44
WBC 81.2 H*
Hgb 7.7 L
Hct 22.5 L
Plt Count 119 L
Sodium 133 L
Potassium 3.9
Chloride 104
Carbon Dioxide 18 L
BUN 105 H*
Creatinine 3.0 H
Glucose 112 H
Calcium 7.9 L
Vital Signs:
Vital Signs
Temp Pulse Resp BP Pulse Ox
98 F 86 18 111/70 93
11/22/24 07:35 11/22/24 08:32 11/22/24 08:32 11/22/24 04:00 11/22/24 08:32
I&O
11/21/24 11/22/24 11/23/24
06:59 06:59 06:59
Intake Total 760 / 760 240 / 240 240 / 240
Output Total 1055 / 1055 1150 / 1150 275 / 275
Balance -295 / -295 -910 / -910 -35 / -35
Physical Exam
-
General: No Apparent Distress
HEENT: Normocephalic and Atraumatic
Respiratory: Clear to Auscultation
Cardiac: Regular Rhythm and S1/S2
GI: Soft, Nontender, Nondistended and Normal Bowel Sounds
Skin: Warm and Dry
Neuro: Awake, Alert, Oriented and AO x 3
Psych: Calm
[2024-11-22] MEDS: NSS (PRESERVATIVE FREE) 10 ML IV ×2 (09:33→21:37)
[2024-11-22] MEDS: PROTONIX IV 40 MG IV ×2 (09:33→21:37)
[2024-11-22] MEDS: SODIUM BICARBONATE 1300 MG PO ×3 (09:34→21:37)
[2024-11-22] MEDS: LOW STRENGTH ASPIRIN 81 MG PO (09:34)
[2024-11-22] MEDS: MUCINEX 1200 MG PO ×2 (09:34→21:36)
[2024-11-22] MEDS: SOLU-MEDROL PF 40 MG IV (09:34)
[2024-11-22] MEDS: COREG 3.125 MG PO ×2 (09:34→21:37)
[2024-11-22] MEDS: VITAMIN D3 (cholecalciferol) 25 MCG PO (09:34)
[2024-11-22] MEDS: NORVASC 5 MG PO (09:35)
--- NOTE | 2024-11-22 11:30 | W.PN.NEPH.PH ---
Today's Communication / Plan
-
BMP check daily no other changes
Assessment/Plan
-
Impression:
ANGELINA
CKD 3B (~2)
Microhematuria
Hypoxic respiratory failure/. Suspected bilateral pneumonia
Profound leukocytosis
ProBNP 18,000 with no prior history of congestive heart failure
Hyperlipidemia
Hypertension
History of gout
Norovirus
Plan:
I discussed with the family and patient.
He appears stable today. His oxygen requirements do not appear any worse.
I did not discuss this today but per my associate, he would accept dialysis, his family has indicated that they are not interested in aggressive care and would consider the possibility of hospice if he has further clinical decline
Follow BMP
Renal function remained stable
Holding diuretics
-
-
Date of Service: November 22, 2024
CC / HPI / ROS
-
Chief Complaint:
acute or chronic kidney disease
History of Present Illness:
Creatinine stable 3.0
Remains with metabolic acidosis on sodium bicarbonate 1300 mg 3 times daily
Heparin on hold due to GI bleed
Platelets remain low
Remains on high flow oxygen
Review of Systems:
no chest pain
Nonoliguric
Appears very comfortable, eating well
Labs
-
Labs:
WBC 81.2 10^3/uL (4.8-10.8) H* 11/22/24 04:44
RBC 2.58 10^6/uL (4.70-6.10) L 11/22/24 04:44
Hgb 7.7 g/dL (13.0-18.0) L 11/22/24 04:44
Hct 22.5 % (39.0-52.0) L 11/22/24 04:44
Plt Count 119 10^3/uL (130-400) L 11/22/24 04:44
Sodium 133 mmol/L (135-145) L 11/22/24 04:44
Potassium 3.9 mmol/L (3.5-5.1) 11/22/24 04:44
Chloride 104 mmol/L (98-107) 11/22/24 04:44
Carbon Dioxide 18 mmol/L (22-30) L 11/22/24 04:44
BUN 105 mg/dl (9-20) H* 11/22/24 04:44
Creatinine 3.0 mg/dL (0.7-1.3) H 11/22/24 04:44
eGFR 20.36 11/22/24 04:44
Glucose 112 mg/dl (70-99) H 11/22/24 04:44
Calcium 7.9 mg/dl (8.4-10.2) L 11/22/24 04:44
Phosphorus 4.7 mg/dl (2.5-4.5) H 11/19/24 03:55
Aim-U-Ibfxbiyisre Pept 8560 pg/ml 11/19/24 03:55
Albumin 2.4 g/dl (3.5-5.0) L 11/20/24 05:07
Physical Exam
-
Vital Signs:
Vital Signs
Temp Pulse Resp BP Pulse Ox
98 F 84 19 125/54 91
11/22/24 07:35 11/22/24 10:00 11/22/24 10:00 11/22/24 10:00 11/22/24 11:26
Cardiovascular:: Regular rate and rhythm
Respiratory:: Bilateral: CTA
Lung Excursion:: Normal
Abdomen:: Nontender and Soft
Bowel Sounds:: Normal
Extremity Edema:: None: Bilateral:
--- NOTE | 2024-11-22 11:44 | PTCARENOTE ---
Assumed care of patient this morning. He is aaox3 and pleasant. He has no complaints except for the sores on the top of his ears from the high flow strap. Applied bandaids and protective foams places on high flow strap. He remains at 50L/70%. He has
minimal respiratory reserve and drops with any movement. Pt sitting up and dropped to 83%. He denies feeling short of breath. Assessment, care and VS as charted.
--- NOTE | 2024-11-22 12:07 | W.PN.ID1 ---
Date of Service
Date of Service: November 22, 2024
Today's Communication
Continue close observation off antibiotics per
Assessment / Plan
Bilateral pulmonary infiltrates
-Despite antibiotics, no apparent improvement
Marked leukocytosis
- ?infection ?Leukemoid reaction ?Marrow process ?steroid effect
Anemia
CKD stage III
CHF
Norovirus (+)
HTN
Dyslipidemia
Recommendations:
Cultures have remained negative (other than prior positive norovirus PCR).
CT chest consistent with severe emphysematous disease with blebs.
Legionella and pneumococcal urinary antigens negative. Viral respiratory panel negative.
Procalcitonin unreliable in the context of elevated creatinine.
S/P 7 days of cefepime without significant clinical change.
- Not clear that a bacterial process is/was playing a role.
Observe off antibiotics with close observation.
Trend white count, although given clinical picture I suspect ongoing leukocytosis is being driven by steroids. Solu-Medrol being tapered.
����������������������������������������������������������
Chief Complaint
-: Leukocytosis, Pneumonia and Other (Norovirus)
Subjective / Review of Systems
Review of Systems: No Fever and No Chills
Vital Signs / Physical Exam
Vital Signs
Vital Signs
Temp Pulse Resp BP Pulse Ox
98 F 84 19 125/54 91
11/22/24 07:35 11/22/24 10:00 11/22/24 10:00 11/22/24 10:00 11/22/24 11:26
Physical Exam
Constitutional: No Acute Distress, Comfortable, Chronically Ill and Non-toxic
Eyes: Sclera Anicteric
Cardiovascular: Regular Rate
Pulmonary: Non Labored and Other (High flow O2 in place.)
Gastrointestinal: Non Distended
Extremities: Negative Edema or Cyanosis
Skin: Warm and Dry; Negative Rash or Jaundice
Neurological: Awake and Alert
Psychological: Calm
Objective Data
Lab Data
Lab Results
11/22/24 04:44
11/22/24 04:44
ESR 24 mm/hour (0-20) H 11/16/24 14:43
PT 16.0 Sec (11.4-14.6) H 11/18/24 04:02
INR 1.25 11/18/24 04:02
APTT Cancelled 11/17/24 09:56
Estimated Creat Clear 19 ml/min 11/22/24 04:44
Lactic Acid Cancelled 11/10/24 20:00
Total Bilirubin 0.9 mg/dl (0.2-1.3) 11/20/24 05:07
AST 21 U/L (17-59) 11/20/24 05:07
ALT 21 U/L (0-50) 11/20/24 05:07
Alkaline Phosphatase 111 U/L (38-126) 11/20/24 05:07
C-Reactive Protein 23.20 mg/L (0.0-10.00) H 11/16/24 14:43
Most recent labs reviewed.
Micro Results:
11/16/24 12:10 Influenza Type A (PCR) - Final
Nasalpharynx Not Detected
Influenza Type A (H1) (PCR) - Final
Not Detected
Influenza Type A (H3) (PCR) - Final
Not Detected
Influenza Type B (PCR) - Final
Not Detected
Resp Syncytial Virus Type A (PCR) - Final
Not Detected
Resp Syncytial Virus Type B (PCR) - Final
Not Detected
Adenovirus DNA (PCR) - Final
Not Detected
Human Metapneumovirus (PCR) - Final
Not Detected
Parainfluenza Virus Type 1 (PCR) - Final
Not Detected
Parainfluenza Virus Type 2 (PCR) - Final
Not Detected
Parainfluenza Virus Type 3 (PCR) - Final
Not Detected
Parainfluenza Virus Type 4 - Final
Not Detected
Rhinovirus (PCR) - Final
Not Detected
11/10/24 16:26 Blood Culture - Final
Blood/Venous No Growth - Final Report
11/10/24 16:26 Blood Culture - Final
Blood/Venous No Growth - Final Report
11/14/24 00:42 C. difficile GDH Antigen & Toxins - Final
Feces/Stool C. difficile antigen positive, toxin negative.
Clostridium difficile present, but toxin not detected.
Patient may be a carrier, colonized with nontoxinogenic
strain or the level of toxin in sample is below detection
limits. This information should be used in conjunction with
the patient's clinical history.
- Final
Positive for Norovirus GII
11/14/24 00:42 Legionella Urinary Antigen - Final
Urine Negative for Legionella pneumophila Serogroup 1 antigen.
A negative result does not rule out the possiblity of
Legionella infection due to other serogroups or species of
Legionella. Clinical correlation is recommended.
Streptococcus pneumoniae Antigen (M - Final
Negative for Streptococcus pneumoniae antigen.
A negative result does not exclude infection with
Streptococcus pneumoniae. Clinical correlation is
recommended.
11/11/24 11:28 Respiratory Culture - Final
Sputum Usual Respiratory [place]
Gram Stain - Final
11/10/24 12:27 Influenza Types A & B (ANNALISE) - Final
Nasal Swab Negative for Influenza A & B, NAAT
Negative results must be combined with clinical observations
and patient history.
Nucleic Acid Amplification test (NAAT)performed on the
[employer] platform.
Imaging:
11/10/2024 CXR (2 view): Patchy parenchymal airspace opacities within both lungs, highly suggestive of pneumonia. Bullous changes within both lower lungs. Probable minimal bilateral pleural effusions noted. Please see full dictation for additional
detail. Film personally viewed.
--- NOTE | 2024-11-22 16:18 | PN.CDI ---
CDI
- -
CDI:
Physician Documentation Request
Admit Date: 11/10/24 17:57
Dear Doctor Angela Adrian,
Patient admitted for respiratory failure.
11/22 Hospitalist PN: 'black liquid heme positive stool, resolved...s/p 1 unit PRBC, Hgb today at 7.7, stopped IV heparin drip'
Please clarify the relationship between these conditions:
Yes, GI bleed is related to/associated with/exacerbated by heparin.
No, GI bleed is not related to/associated with/exacerbated by heparin but it is due to ___. (Please specify)
Unable to determine
Use of terms such as suspected, likely, concern for, or probable (associated with a specific diagnosis that is being evaluated, monitored, or treated as if it exists) are acceptable and can be coded in the inpatient setting, when documented at the
time of discharge.
Thank you,
Nilsa Maharaj RN, BSN
CDI Specialist
Available via [place] text
Please use your independent medical judgment in providing your response.
[2024-11-22] MEDS: DESENEX/MITRAZOL/ZEASORB 1 APPLIC TOPICAL (21:37)
[2024-11-22] MEDS: ZYLOPRIM 100 MG PO (21:37)
[2024-11-22] MEDS: LIPITOR 40 MG PO (21:37)
[2024-11-23] VITALS (12 sets, daily range): BP systolic 112–141; BP diastolic 50–77; BMI 23.8
--- NOTE | 2024-11-23 01:26 | PTCARENOTE ---
Received pt from [facility]. Pt AAOx3. Hard of hearing. NSR w PVC on monitor, good pedal pulses, RUE +2 dependant edema. Lungs with crackles to B/L bases, inspiratory wheeze throughout L lung. PALMER, orthopneic, occasional moist cough. SaO2 92% on
HFNC 50L 70%. Continent of bowel and bladder, stress incontinent at times. Desenex powder to groin/scrotum. R ear dressing intact. Oxygen tubing ear foams in place. VSS. Care ongoing.
[2024-11-23 05:16] LABS: Hematocrit 22.9 % (39.0-52.0); Hemoglobin 7.5 g/dL (13.0-18.0); Mean Corp Hgb Conc. 32.8 g/dL (33.0-37.0); Mean Corpuscular Hgb 29.1 pg (27.0-31.0); Mean Corpuscular Volume 88.8 fL (80.0-94.0); Mean Platelet Volume 10.8 fL (7.4-10.4); Platelet Count 145 10^3/uL (130-400); Red Blood Cell Count 2.58 10^6/uL (4.70-6.10); White Blood Cell Count 87.5 10^3/uL (4.8-10.8)
[2024-11-23 05:35] LABS: ALT (SGPT) 24 U/L (0-50); AST (SGOT) 26 U/L (17-59); Albumin 2.4 g/dl (3.5-5.0); Alkaline Phosphatase 143 U/L (38-126); Blood Urea Nitrogen 100 mg/dl (9-20); Calcium 7.7 mg/dl (8.4-10.2); Carbon Dioxide 21 mmol/L (22-30); Chloride 103 mmol/L (98-107); Estimated Creatinine Clearance 19 ml/min; Glucose 116 mg/dl (70-99); Potassium 3.7 mmol/L (3.5-5.1); Sodium 135 mmol/L (135-145); Total Bilirubin 0.7 mg/dl (0.2-1.3); Total Protein 4.8 g/dl (6.3-8.2); eGFR 20.36
[2024-11-23] MEDS: SPIRIVA RESPIMAT 2.5 MCG 2 PUFF INH (07:23)
--- NOTE | 2024-11-23 07:35 | W.PN.HOSP.TC ---
Addendum entered and electronically signed by Kim De La Vega MD 11/23/24 10:42:
I saw and evaluated the patient. I reviewed the resident�s note and agree with findings and plan as documented in the resident�s note.
A/P:
# black liquid heme positive stool, resolved
# acute on chronic anemia likely due to acute blood loss from GI bleed and dilutional effect
s/p 1 unit PRBC, Hgb today at 7.5
stopped IV heparin drip
changed PPI drip to IV BID
apprec GI, hold on further scopes
of note, norovirus positive
# Acute Hypoxic respiratory failure, unclear cause
Cont O2 support with high flow NC currently FIO2 70%, with intermittent nonrebreather use;
wean O2 when able, pt not on home O2
cannot do CT PE study due to elevated creat, cannot do V/Q due to severe lung COPD, US neg for DVT,
empiric heparin drip was started but stopped without convincing evidence for PE
CT chest noted severe emphysematous change (COPD)
diuretics recommended by [facility] r&d engineer, tried without improvement and Cr worsen
Echo with severe right sided failure, bubble study ruled out PFO
# Severe leukocytosis/neutrophilia
steroid effect with compounding leucocytosis crisis/leukostasis?
WBC 87.5 today with predominant neutrophils
tapering steroid per pulm
viral resp panel negative, blood culture negative
norovirus positive, C. diff antigen positive/toxin negative
Off abx per ID
Onc on board,
Follow flow cytometry
# new spiculated lung mass
eventual outpt PET and likely biopsy when clinically more stable
# ANGELINA on CKD stage 3 with developing metabolic acidosis
Cr today at 3.0 (baseline 2)
Holding hydrochlorothiazide, lisinopril
apprec renal
cont sodium bicarb
discussing right heart cath but likely family will defer
# Essential hypertension
Continue reduced dose of amlodipine and Coreg with hold parameters
# Hypercholesterolemia
# Gout
Continue allopurinol
code status: confirmed DNR DNI
DVT prophylaxis: SCD
CC mx of persistent hypoxic respiratory failure,
CC time 40 min
Original Note:
Today's Communication/Plan
-
Wean oxygen as tolerated
Flow cytometry results pending
Assessment / Plan
Assessment / Plan
79-year-old male with past medical history significant for CKD stage IIIb, hypertension, hyperlipidemia, admitted for hypoxic respiratory failure.
Impression
Acute hypoxemic respiratory failure
Acute anemia
Elevated proBNP
ANGELINA on CKD
Essential hypertension
Hypercholesterolemia
Gout
Plan
#Acute Hypoxemic respiratory failure
Likely secondary to acute PE possibly from a malignant process (other etiologies might be COPD, ruled out pneumonia/acute CHF)
Heparin drip discontinued due to melena. Also, if PE from a malignant process it would not help.
Patient is now on high flow, with FiO2 70 %, 50 L, wean as tolerated keeping SpO2 88-95%.
White count trended up to 87 k, suspicious of ongoing malignant process.
Oncology following, appreciate input
Flow cytometry ordered by oncology-pending
Tried a trial of diuresis, as recommended by [place] r&d engineer, could not help much.
Echo with severe right sided failure, bubble study does not show PFO
#Acute anemia
acute on chronic anemia likely due to acute blood loss anemia from GI bleed PLUS dilutional from daily blood draws
s/p 1 unit pRBC, HGB today at 7.5
stopped IV heparin drip
Continue IV Protonix twice daily
GI following
No further EGD
norovirus positive
# Severe leukocytosis/neutrophilia
possible steroid effect versus neutrophilic leucocytic crisis
Continue steroid taper
WBC 87k today with predominant neutrophils
viral resp panel all negative, blood culture negative
norovirus positive, C. diff antigen positive/toxin negative
Antibiotics discontinued
Onc following
Follow-up flow cytometry results
# Spiculated lung mass
eventual outpt PET and likely biopsy
IF positive for cancer; would explain propensity for being hypercoagulable as well as leukocytosis
onc consult apprec
# ANGELINA on CKD stage 3 with developing metabolic acidosis
Cr today at 3 (baseline 2)
Holding hydrochlorothiazide, lisinopril
apprec renal
cont on oral bicarb
Monitor BMP
# Essential hypertension
Continue reduced dose amlodipine and Coreg with hold parameters
# Hypercholesterolemia
Continue atorvastatin
# Gout
Continue allopurinol
CODE STATUS : DNR�after speaking to the family and patient at bedside.
DVT prophylaxis: heparin drip on hold
Dispo: pt was accepted at [facility] by Dr. Cutler, however family (and pt) declined transfer
Anticipated Discharge: > 48 hours
Subjective/Interval History
-
Date of Service: November 23, 2024
Patient is on high flow and nonrebreather.
Objective Data
-
Labs:
Laboratory Results
11/23/24
04:27
WBC 87.5 H*
Hgb 7.5 L
Hct 22.9 L
Plt Count 145 D
Sodium 135
Potassium 3.7
Chloride 103
Carbon Dioxide 21 L
BUN 100 H
Creatinine 3.0 H
Glucose 116 H
Calcium 7.7 L
Total Bilirubin 0.7
AST 26
ALT 24
Alkaline Phosphatase 143 H
Vital Signs:
Vital Signs
Temp Pulse Resp BP Pulse Ox
97.7 F 87 18 115/52 97
11/23/24 04:31 11/23/24 07:31 11/23/24 07:31 11/23/24 06:00 11/23/24 07:31
I&O
11/22/24 11/23/24 11/24/24
06:59 06:59 06:59
Intake Total 240 / 240 720 / 720
Output Total 1150 / 1150 625 / 625
Balance -910 / -910 95 / 95
Review of Systems
-
All other systems: Reviewed and negative (As per history)
Physical Exam
-
General: No Apparent Distress
HEENT: Normocephalic and Atraumatic
Respiratory: Clear to Auscultation
Cardiac: Regular Rhythm and S1/S2
GI: Soft, Nontender, Nondistended and Normal Bowel Sounds
Skin: Warm and Dry
Neuro: Awake, Alert, Oriented and AO x 3
Psych: Calm
[2024-11-23] MEDS: VITAMIN D3 (cholecalciferol) 25 MCG PO (08:24)
[2024-11-23] MEDS: LOW STRENGTH ASPIRIN 81 MG PO (08:24)
[2024-11-23] MEDS: SODIUM BICARBONATE 1300 MG PO ×3 (08:24→20:23)
[2024-11-23] MEDS: NSS (PRESERVATIVE FREE) 10 ML IV ×2 (08:25→20:23)
[2024-11-23] MEDS: PROTONIX IV 40 MG IV ×2 (08:25→20:23)
[2024-11-23] MEDS: DESENEX/MITRAZOL/ZEASORB 1 APPLIC TOPICAL ×2 (08:26→20:24)
[2024-11-23] MEDS: DELTASONE 50 MG PO (08:26)
[2024-11-23] MEDS: COREG 3.125 MG PO ×2 (08:27→20:23)
[2024-11-23] MEDS: NORVASC 5 MG PO (08:27)
[2024-11-23] MEDS: MUCINEX 1200 MG PO ×2 (08:35→20:23)
--- NOTE | 2024-11-23 09:02 | PTCARENOTE ---
Pt AAOX3 on 70% 50 Liters with NRB , took pills , eating breakfast NRB off desat to 82-84 % when eating. Pt states he is not SOB.
--- NOTE | 2024-11-23 09:04 | W.PN.PUL3 ---
Today's Communication / Plan
-
Remains on HFNC, no changes--wean as tolerated
He has worsening cell counts, would resume DVT ppx
Change inhalers to nebs QID
Encouraged OOB, PT/OT
He is DNR
Assessment
-
79-year-old male former tobacco smoker with a past medical history of gout, hyperlipidemia, hypertension and CKD who presents with shortness of breath, chest congestion and cough. Symptoms started around when he felt ill and he
improved over the next 2-3 weeks. He then developed sciatica around [place] time and that had improved over the next 1 week. He did have shortness of breath that developed around and this worsened over the course of the following
week. He went to his doctor, Dr. Handy, on 11/10/2024 and found that his pulse oximeter was in the 50s. He was sent here to the ER for further evaluation, and found to be saturating 85% on room air. Saturations improved to the low 90s on 5 L/min
nasal cannula. Initially he was afebrile to 97.9 �F, pulse rate 71, breathing at 16 breaths minute, and BP 116/63. Initial labs showed leukocytosis to 43.9, Hb 10.9, increased eosinophil count of 1200, creatinine 2.9, potassium 5.2, glucose 122,
proBNP 18,700, and COVID antigen negative. Flu A/B swab also negative and blood cultures were collected. Initial CXR showed patchy parenchymal airspace opacities in both lungs with small bilateral pleural effusions and suspected bullous changes in
the lower lungs bilaterally. He was initially given 1 L NS 0.9%, ceftriaxone and Zithromax and admitted to telemetry. Antibiotics were continued and he continues to require oxygen. On 11/13/2024 his oxygen requirements worsened and he was started
on a partial rebreather and upgraded to the IMU. Pulmonary service now consulted for additional management/recommendations.
Impression:
Acute GI bleed, suspected to be upper with DDx including PUD, AVM, Dieulafoy lesion, or malignancy
Acute blood loss anemia
Acute respiratory failure with hypoxia, suspect chronic hypoxemia was ongoing
Acute on chronic leukocytosis with bandemia - suspect underlying hematologic malignancy; steroid induced leukocytosis noted more acutely
Sepsis without septic shock
Nausea/diarrhea with norovirus seen on stool culture (diagnosed on 11/14/2024)
Metabolic acidosis with normal anion gap
Acute HFpEF, severely elevated proBNP of >18,500 and echo findings
RV enlargement with reduced right ventricular systolic function and pulmonary hypertension with PASP: 46 mmHg seen on TTE from 11/14/2024
Spiculated right upper lobe nodule measuring 2.5 cm with multiple other noncalcified bilateral pulmonary nodules ranging from 3-8 mm
Pleural-based mass versus pleural thickening at the lateral right hemithorax measuring 2 x 1 cm
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
ANGELINA on CKD3b
Increased eosinophil count with absolute eosinophils: 1200 on admission (11/10/2024)
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
Hypertension
Dyslipidemia
CKD stage III
Gout
Vitamin D deficiency
Proteinuria
Carotid artery stenosis
Former tobacco smoker (04-mtmn-dndb history, quit 40 years ago)
Small hiatal hernia
Plan:
Remains on HFNC, 70%/50LPM, this has remained unchanged
Has no prior KNOWN history of chronic hypoxemia, but suspect this was ongoing given his degree of lung disease
He has acute on chronic O2 requirements given volume issues
PE suspected given RV dysfunction but no evidence on CT
Empirically placed on IV heparin--discontinued
CKD with limiting factor on obtaining CTA
Continue prophylactic high dose SQ heparin
GI bleed on admission/melena noted, suspect UGIB
Received 1 U PRBC on 11/18/2024 due to Hb 7
Heparin gtt stopped--no further bleeding is noted
PPI gtt started and GI consulted
Unfortunately he is too high risk currently for an EGD, so was treated conservatively
Diet advanced, no bleeding--Remains on regular diet
He had diarrhea with nausea and his stool culture on 11/14/2024 was positive for norovirus
C. difficile antigen is positive but toxin negative � this is not consistent with an acute C. difficile infection
Chest imaging reviewed extensively
CT chest without contrast performed on 11/14/2024 showed no evidence of pneumonia, however there is severe bullous emphysematous changes with a right upper lobe spiculated nodule measuring 2.5 cm and multiple other lung nodules
Echo performed on 11/14/2024 showed no evidence of shunting by color-flow Doppler, with moderately elevated PASP at 46 mmHg, and enlarged RV with reduced RV systolic function --> this raises concern for an acute PE, however unable to do a CTA chest
given his ANGELINA
Echo was repeated on 11/17/2024 with a bubble study, and there was no evidence of shunt
Lower extremity duplex is negative for bilateral DVT
Continue to trend proBNP --> trial of diuresis on 11/17, gave Bumex 2mg IV x1 given he has bilateral pleural effusions on imaging, and hopefully this could offload the RV and possibly will improve his level of hypoxia --> still with no improvement in
FiO2 on 11/18/2024
IV steroids transitioned to PO pred
CKD noted, renal following
UO is poor, no response to diuretic
Renal has discussed possibility of HD in the future
Diuresis per team
Treated w/ cefepime s/p doxy (11/10-11/18/2024) + s/p Rocephin (11/10-11/12)
There is no evidence for pneumonia on CT chest performed on 11/14/2024
Agree with discontinuation and observation off
WBC is likely related to steroids and underlying malignancy
Will need eventual biopsy of lung nodule and/or BMB--family does not want to pursue aggressive measures
Transfer to [place] on hold.
Pulmonary service will continue to follow along. He is DNR, discussed case with care team.
Hospice eval pending clinical deterioration.
Family Discussions
Mary Lou 11/20/24-Spoke to family at bedside given his numerous serious medical issues and need for high risk procedures to obtain sufficient diagnoses. I fear his level of risk far outweighs any benefit from undergoing procedures/treatment for possible
(high suspected) malignancies, possible need for HD in the near future, possible respiratory compromise. He is currently DNR/DNI. Daughter understands that he is very high risk and that ultimately no matter what is pursued his overall prognosis is
poor. She would rather avoid high risk procedures and asked about hospice. I think hospice would be very appropriate in this situation. They will talk amongst themselves and make a final decision. They are ok cancelling transfer to [place] as well.
I communicated this to care team.
[place] - Given that he has multiple bilateral pulmonary nodules with a right upper lobe spiculated lesion, this is concerning for malignancy. There are no former CT chest imaging, as per the patient and daughter. He has significant, extensive
bullous emphysema, hence performing a biopsy whether through robotic bronchoscopy or transthoracic needle aspiration, complications with a pneumothorax are very high. Ideally, would perform robotic bronchoscopy as this has a lower chance of
pneumothorax compared to TTNA. This will be discussed further as an outpatient, and he will need a PET/CT as well as an outpatient.
There is a possibility if PET/CT shows high FDG avidity in this right upper lobe spiculated lesion with no other concerning findings elsewhere in the lungs or outside the thorax, that he can get SBRT without a biopsy, if oncology and radiation
oncology agree with this treatment plan given the high risk for complications with biopsy and anesthesia considering his significant lung disease. This will be an ongoing discussion.
Diagnostic Data
CXR 11/10/2024: Patchy parenchymal airspace opacities within both lungs, appearance highly suggestive of pneumonia. Bullous changes within both lower lungs. Probable minimal bilateral pleural effusions. Cardiomegaly with no convincing pulmonary edema
pattern.
CT Chest without contrast 11/14/2024: No acute disease of the chest. Small right and tiny left pleural effusions. Findings consistent with severe emphysematous disease. Spiculated right upper lobe pulmonary mass. Noncalcified solid bilateral
pulmonary nodules concerning for malignancy until proven otherwise. PET imaging recommended. Bilateral adrenal thickening suggesting benign hyperplasia.
ECHO 11/17/24- Normal left ventricular systolic function. LVEF 55-60%. Interatrial septum is intact with no evidence of shunting by color-flow Doppler or agitated saline. No change compared to TTE on 11/14/2024.
-----
Total time spent today was 51 minutes for this encounter. Time includes reviewing laboratory test/imaging results, reviewing pertinent medical records, obtaining and reviewing medical history, performing an appropriate exam, ordering medications,
tests and procedures. Time also includes documentation of this encounter, coordinating patient care and communicating with other healthcare professionals. Total time does not include separately billed tests performed on this date of service.
Subjective Data
-
Date of Service:
Date of Service: November 23, 2024
Chief Complaint: Pulmonary Follow Up
Subjective:
Remains clinically unchanged, no new events
On HFNC, daughter at bedside
Objective Data
Data Reviewed
Vital Signs / I&O / Oxygen:
Vital Signs
Temp Pulse Resp BP Pulse Ox
97.7 F 74 18 124/53 97
11/23/24 04:31 11/23/24 08:27 11/23/24 07:31 11/23/24 08:27 11/23/24 07:31
Intake and Output
11/22/24 11/23/24 11/24/24
06:59 06:59 06:59
Intake Total 240 / 240 720 / 720
Output Total 1150 / 1150 625 / 625
Balance -910 / -910 95 / 95
SaO2 97
Nasal Cannula flow liters per 50
minute
Physical Exam
General: Respiratory Distress (negative), Comfortable, Chills (negative) and Sweats (negative)
HEENT: Normocephalic, Anicteric and Moist Mucous Membranes
Cardiovascular: S1-S2, Regular Rhythm, Rub (negative) and Peripheral Edema (negative)
Respiratory: Clear, Wheeze (negative), Crackles (negative), Rhonchi (negative), Non-Labored Respirations and Stridor (negative)
GI: Soft, Non Distended, Non Tender and Normal Bowel Sounds
Neurology: AO x 3, No Motor Deficits and Tremors (negative)
Skin: Warm, Dry, Cyanosis (negative) and Jaundice (negative)
Labs/Micro/Reports
Lab Data
11/23/24 04:27
11/23/24 04:27
--- NOTE | 2024-11-23 09:27 | PTCARENOTE ---
Pt removed from Enhanced precautions by infection prevention
--- NOTE | 2024-11-23 10:24 | W.PN.ONC ---
Today's Communication / Plan
-
Supportive measures and antibiotics per primary, and ID
Continue trending daily CBC with differential
Reach out to GI for clearance on resuming DVT prophylaxis if concerns for micro clots
Continue daily aspirin
Outpatient PET for further evaluation of lung mass, biopsy contingent on PET scan
Impression
Impression
Hypoxic respiratory failure, on steroids
Leukocytosis, with neutrophilia
GI bleed, w/ blood loss anemia
Norovirus +
2.5cm RUL mass
Was asked by primary to comment on continually uptrending neutrophil predominant leukocytosis as a potential for leukostasis and hyper-viscosity
Typically leukostasis and hyperviscosity issues happen when white blood cell count is over 100,000
DVT prophylaxis was discontinued as patient was having acute GI bleed, patient reports resolution of symptoms. GI is following
Plan
Plan
Plan for lung mass outpatient PET scan with biopsy contingent on results
Leukocytosis most likely secondary to steroids and norovirus infection
Flow cytometry sent, results pending
Not typical for hyperviscosity and leukostasis happen when white blood cell under 100,000
If concerns for micro clots, Recommend reaching out to GI for clearance on restarting systemic DVT prophylaxis
Continue daily aspirin
Subjective/Objective
Subjective/Objective
Vital Signs:
Vital Signs
Temp Pulse Resp BP Pulse Ox
97.6 F 69 21 122/57 88
11/23/24 07:36 11/23/24 10:00 11/23/24 10:00 11/23/24 10:00 11/23/24 10:00
Lab Results:
Laboratory Data
WBC 87.5 10^3/uL (4.8-10.8) H* 11/23/24 04:27
Hgb 7.5 g/dL (13.0-18.0) L 11/23/24 04:27
Plt Count 145 10^3/uL (130-400) D 11/23/24 04:27
PT 16.0 Sec (11.4-14.6) H 11/18/24 04:02
INR 1.25 11/18/24 04:02
APTT Cancelled 11/17/24 09:56
eGFR 20.36 11/23/24 04:27
--- NOTE | 2024-11-23 10:45 | WOUNDNOTE ---
PENIS SHAFT (distal underside)
--- NOTE | 2024-11-23 10:47 | WOUNDNOTE ---
L BUTTOCKS(LOWER)/UPPER THIGH(POSTERIOR)
--- NOTE | 2024-11-23 10:54 | WOUNDNOTE ---
[facility] RN note: Patient seen for HAPI for bilateral upper ear stage 2 pressure injuries. Patient developed bilateral upper ear scabbed stage 2 appearing pressure injuries suspect r/t high flow o2 straps. He has groin/nahum MASD from stool incontinence.
Miconazole powder and barrier ointment being used. L lower buttock/posterior upper thigh area with 2 small round stage 1 pressure injury suspect from bedside drainage bag specimen port from during when a rectal trumpet was being used. No rectal tube
in currently. Diarrhea has improved as per RN [place]. Silicone border foam applied to upper ear wounds, padded o2 straps with silicone border foam at ear section, silicone foam applied to bilateral facial cheek under o2 strap for protection.
Patient incontinent of dark brown mushy stool. Noted small dermal abrasion on posterior distal penile shaft from patient propping a urinal. Instructed patient not to prop urinal. Urinal left within patinet's reach. Nahum care given and patient
turned to R semi side lying position with help from TARAH Shields. Heels off bed with pillow. Patient turns with minimal assistance. Air chair cushion given. Will update hospitalist and update care plan/discharge instructions. Consult as needed.
[2024-11-23 11:09] LABS: Lymphocytes 2 % (20-51); Monocytes 3 % (2-9); Segmented Neutrophils 72 % (42-75)
[2024-11-23 11:10] LABS: Absolute Neutrophils -Man Diff 80.5 10^3/uL (1.4-6.5); Band Neutrophils 20 % (0-3); Metamyelocytes 2 % (-); Myelocytes 1 % (-); Normal RBC Morphology Yes; Platelets Checked Yes; Total Cells Counted 100
--- NOTE | 2024-11-23 13:19 | CM ---
CM spoke with patient daughter, Kim who indicated that patient did not feel ready for Hospice at this time and continues to state that he wants to fight. Patient daughter expressed appreciation for supports and that patient continues to want to
get better and was not willing to stop treatments at this time. However, she confirmed DNR status after discussion with her father. CM will continue to follow for discharge planning needs.
Plan; SNF vs LTACH pending medical treatment assessments
--- NOTE | 2024-11-23 13:25 | W.PN.ID1 ---
Date of Service
Date of Service: November 23, 2024
Today's Communication
Sign off
Assessment / Plan
Bilateral pulmonary infiltrates
-Despite antibiotics, no apparent improvement
Marked leukocytosis
- ?infection ?Leukemoid reaction ?Marrow process ?steroid effect
Anemia
CKD stage III
CHF
Norovirus (+)
HTN
Dyslipidemia
Recommendations:
Cultures have remained negative (other than prior positive norovirus PCR).
CT chest consistent with severe emphysematous disease with blebs.
Legionella and pneumococcal urinary antigens negative. Viral respiratory panel negative.
Procalcitonin unreliable in the context of elevated creatinine.
S/P 7 days of cefepime without significant clinical change.
- Not clear that a bacterial process is/was playing a role.
No apparent infection at present.
Little more to offer from a Infectious Diseases standpoint.
Will see again at your request.
����������������������������������������������������������
Chief Complaint
-: Leukocytosis, Pneumonia and Other (Norovirus)
Subjective / Review of Systems
Review of Systems: No Fever
Vital Signs / Physical Exam
Vital Signs
Vital Signs
Temp Pulse Resp BP Pulse Ox
98.1 F 70 10 116/52 99
11/23/24 11:40 11/23/24 12:00 11/23/24 12:00 11/23/24 12:00 11/23/24 12:00
Physical Exam
Constitutional: Comfortable, Chronically Ill and Non-toxic
Eyes: Sclera Anicteric
Cardiovascular: Regular Rate
Pulmonary: Non Labored and Other (High flow O2 in place.)
Gastrointestinal: Non Distended
Extremities: Negative Edema or Cyanosis
Skin: Warm and Dry; Negative Rash or Jaundice
Neurological: Awake and Alert
Psychological: Calm
Objective Data
Lab Data
Lab Results
11/23/24 04:27
11/23/24 04:27
ESR 24 mm/hour (0-20) H 11/16/24 14:43
PT 16.0 Sec (11.4-14.6) H 11/18/24 04:02
INR 1.25 11/18/24 04:02
APTT Cancelled 11/17/24 09:56
Estimated Creat Clear 19 ml/min 11/23/24 04:27
Lactic Acid Cancelled 11/10/24 20:00
Total Bilirubin 0.7 mg/dl (0.2-1.3) 11/23/24 04:27
AST 26 U/L (17-59) 11/23/24 04:27
ALT 24 U/L (0-50) 11/23/24 04:27
Alkaline Phosphatase 143 U/L (38-126) H 11/23/24 04:27
C-Reactive Protein 23.20 mg/L (0.0-10.00) H 11/16/24 14:43
Most recent labs reviewed.
Micro Results:
11/16/24 12:10 Influenza Type A (PCR) - Final
Nasalpharynx Not Detected
Influenza Type A (H1) (PCR) - Final
Not Detected
Influenza Type A (H3) (PCR) - Final
Not Detected
Influenza Type B (PCR) - Final
Not Detected
Resp Syncytial Virus Type A (PCR) - Final
Not Detected
Resp Syncytial Virus Type B (PCR) - Final
Not Detected
Adenovirus DNA (PCR) - Final
Not Detected
Human Metapneumovirus (PCR) - Final
Not Detected
Parainfluenza Virus Type 1 (PCR) - Final
Not Detected
Parainfluenza Virus Type 2 (PCR) - Final
Not Detected
Parainfluenza Virus Type 3 (PCR) - Final
Not Detected
Parainfluenza Virus Type 4 - Final
Not Detected
Rhinovirus (PCR) - Final
Not Detected
11/10/24 16:26 Blood Culture - Final
Blood/Venous No Growth - Final Report
11/10/24 16:26 Blood Culture - Final
Blood/Venous No Growth - Final Report
11/14/24 00:42 C. difficile GDH Antigen & Toxins - Final
Feces/Stool C. difficile antigen positive, toxin negative.
Clostridium difficile present, but toxin not detected.
Patient may be a carrier, colonized with nontoxinogenic
strain or the level of toxin in sample is below detection
limits. This information should be used in conjunction with
the patient's clinical history.
- Final
Positive for Norovirus GII
11/14/24 00:42 Legionella Urinary Antigen - Final
Urine Negative for Legionella pneumophila Serogroup 1 antigen.
A negative result does not rule out the possiblity of
Legionella infection due to other serogroups or species of
Legionella. Clinical correlation is recommended.
Streptococcus pneumoniae Antigen (M - Final
Negative for Streptococcus pneumoniae antigen.
A negative result does not exclude infection with
Streptococcus pneumoniae. Clinical correlation is
recommended.
11/11/24 11:28 Respiratory Culture - Final
Sputum Usual Respiratory Kiley
Gram Stain - Final
11/10/24 12:27 Influenza Types A & B (ANNALISE) - Final
Nasal Swab Negative for Influenza A & B, NAAT
Negative results must be combined with clinical observations
and patient history.
Nucleic Acid Amplification test (NAAT)performed on the
[employer] platform.
Imaging:
11/10/2024 CXR (2 view): Patchy parenchymal airspace opacities within both lungs, highly suggestive of pneumonia. Bullous changes within both lower lungs. Probable minimal bilateral pleural effusions noted. Please see full dictation for additional
detail. Film personally viewed.
[2024-11-23] MEDS: DUONEB 3 ML INH ×2 (15:47→19:49)
[2024-11-23 17:40] LABS: Number Of Markers 26 markers; Source Blood
--- NOTE | 2024-11-23 18:43 | W.PN.NEPH.PH ---
Today's Communication / Plan
-
continue supportive care/Daily weights/ diuretics on hold
Assessment/Plan
-
Impression:
ANGELINA
CKD 3B (~2)
Microhematuria
Hypoxic respiratory failure/. Suspected bilateral pneumonia
Profound leukocytosis
ProBNP 18,000 with no prior history of congestive heart failure
Hyperlipidemia
Hypertension
History of gout
Norovirus
Plan:
I discussed with the family and patient.
continues on high flow
Follow BMP
Renal function remained stable granting three
Holding diuretics
weights are stable
-
-
Date of Service: November 23, 2024
CC / HPI / ROS
-
Chief Complaint:
acute or chronic kidney disease
History of Present Illness:
Creatinine stable 3.0
Remains with metabolic acidosis on sodium bicarbonate 1300 mg 3 times daily
Heparin on hold due to GI bleed
Platelets remain low
Remains on high flow oxygen
Review of Systems:
no chest pain
Nonoliguric
Appears very comfortable, eating well
Labs
-
Labs:
WBC 87.5 10^3/uL (4.8-10.8) H* 11/23/24 04:27
RBC 2.58 10^6/uL (4.70-6.10) L 11/23/24 04:27
Hgb 7.5 g/dL (13.0-18.0) L 11/23/24 04:27
Hct 22.9 % (39.0-52.0) L 11/23/24 04:27
Plt Count 145 10^3/uL (130-400) D 11/23/24 04:27
Sodium 135 mmol/L (135-145) 11/23/24 04:27
Potassium 3.7 mmol/L (3.5-5.1) 11/23/24 04:27
Chloride 103 mmol/L (98-107) 11/23/24 04:27
Carbon Dioxide 21 mmol/L (22-30) L 11/23/24 04:27
BUN 100 mg/dl (9-20) H 11/23/24 04:27
Creatinine 3.0 mg/dL (0.7-1.3) H 11/23/24 04:27
eGFR 20.36 11/23/24 04:27
Glucose 116 mg/dl (70-99) H 11/23/24 04:27
Calcium 7.7 mg/dl (8.4-10.2) L 11/23/24 04:27
Phosphorus 4.7 mg/dl (2.5-4.5) H 11/19/24 03:55
Tie-R-Pcgxcxjsnzy Pept 8560 pg/ml 11/19/24 03:55
Albumin 2.4 g/dl (3.5-5.0) L 11/23/24 04:27
Physical Exam
-
Vital Signs:
Vital Signs
Temp Pulse Resp BP Pulse Ox
97.7 F 75 21 120/58 97
11/23/24 15:47 11/23/24 15:54 11/23/24 15:54 11/23/24 14:00 11/23/24 15:55
Cardiovascular:: Regular rate and rhythm
Respiratory:: Bilateral: CTA
Lung Excursion:: Normal
Abdomen:: Nontender and Soft
Bowel Sounds:: Normal
Extremity Edema:: None: Bilateral:
[2024-11-23] MEDS: ZYLOPRIM 100 MG PO (20:23)
[2024-11-23] MEDS: LIPITOR 40 MG PO (20:23)
[2024-11-24] VITALS (15 sets, daily range): BP systolic 90–151; BP diastolic 32–68; BMI 23.7
[2024-11-24 05:27] LABS: Hematocrit 22.4 % (39.0-52.0); Hemoglobin 7.4 g/dL (13.0-18.0); Mean Corpuscular Hgb 29.6 pg (27.0-31.0); Mean Corpuscular Volume 89.6 fL (80.0-94.0); Mean Platelet Volume 11.3 fL (7.4-10.4); Platelet Count 135 10^3/uL (130-400); Red Cell Dist. Width 18.8 % (11.5-14.5); White Blood Cell Count 88.7 10^3/uL (4.8-10.8)
[2024-11-24 05:34] LABS: ALT (SGPT) 25 U/L (0-50); AST (SGOT) 28 U/L (17-59); Albumin 2.4 g/dl (3.5-5.0); Alkaline Phosphatase 166 U/L (38-126); Blood Urea Nitrogen 94 mg/dl (9-20); Calcium 7.9 mg/dl (8.4-10.2); Carbon Dioxide 20 mmol/L (22-30); Chloride 104 mmol/L (98-107); Estimated Creatinine Clearance 20 ml/min; Glucose 124 mg/dl (70-99); Magnesium 2.1 mg/dl (1.6-2.3); Sodium 135 mmol/L (135-145); Total Bilirubin 0.7 mg/dl (0.2-1.3); Total Protein 4.6 g/dl (6.3-8.2)
[2024-11-24 05:38] LABS: Potassium 4.4 mmol/L (3.5-5.1)
[2024-11-24] MEDS: DUONEB 3 ML INH ×4 (07:48→19:43)
--- NOTE | 2024-11-24 07:55 | W.PN.HOSP.TC ---
Addendum entered and electronically signed by Kim De La Vega MD 11/24/24 17:15:
I saw and evaluated the patient. I reviewed the resident�s note and agree with findings and plan as documented in the resident�s note.
A/P:
# black liquid heme positive stool, resolved
# acute on chronic anemia likely due to acute blood loss from GI bleed and dilutional effect
s/p 1 unit PRBC, Hgb today at 7.4
stopped IV heparin drip
changed PPI drip to IV BID
apprec GI, hold on further scopes
of note, norovirus positive
# Acute Hypoxic respiratory failure, unclear cause
Cont O2 support, now on high flow NC FIO2 100% with intermittent nonrebreather use; hypoxia has worsened
Of note, pt not on home O2
cannot do CT PE study due to elevated creat, cannot do V/Q due to severe lung COPD, US neg for DVT,
empiric heparin drip was started but stopped without convincing evidence for PE
CT chest noted severe emphysematous change (COPD)
diuretics recommended by [facility] ICU covering and lining supervisor, tried without improvement and Cr worsen
Echo with severe right sided failure, bubble study ruled out PFO
# Severe leukocytosis/neutrophilia, likely 2/2 steroid effect, with questionable compounding leucocytosis crisis/leukostasis?
WBC 88.7 today with predominant neutrophils
tapering steroid per pulm
viral resp panel negative, blood culture negative
norovirus positive, C. diff antigen positive/toxin negative
Off abx per ID
Onc on board,
Follow flow cytometry
# new spiculated lung mass
eventual outpt PET and likely biopsy when clinically more stable
# ANGELINA on CKD stage 3 with developing metabolic acidosis
Cr today at 2.9 (baseline 2)
Holding hydrochlorothiazide, lisinopril
apprec renal
cont sodium bicarb
discussing right heart cath but likely family will defer
# Essential hypertension
Continue reduced dose of amlodipine and Coreg with hold parameters
# Hypercholesterolemia
# Gout
Continue allopurinol
code status: confirmed DNR DNI
DVT prophylaxis: SCD
Discussed with daughter in person. Explained patient's persistent and worsening hypoxia, now requiring high flow nasal cannula 100% with intermittent nonrebreather use.
Prognosis guarded with worsening hypoxia.
CC mx of persistent hypoxic respiratory failure
CC time 40 min
Original Note:
Today's Communication/Plan
-
Family willing to pursue comfort measures.
Assessment / Plan
Assessment / Plan
79-year-old male with past medical history significant for CKD stage IIIb, hypertension, hyperlipidemia, admitted for hypoxic respiratory failure.
Impression
Acute hypoxemic respiratory failure
Acute anemia
Elevated proBNP
ANGELINA on CKD
Essential hypertension
Hypercholesterolemia
Gout
Plan
Family discussion�daughter would like to pursue comfort measures for the patient, would like to discuss with the rest of the family and arrive at a decision.
#Acute Hypoxemic respiratory failure
Likely secondary to acute PE possibly from a malignant process (other etiologies might be COPD, ruled out pneumonia/acute CHF)
Heparin drip discontinued due to melena. Also, if PE from a malignant process it would not help.
Patient is now on high flow, with FiO2 100%, 50 L, wean as tolerated keeping SpO2 88-95%.
White count trended up to 88.7 k
Oncology following, appreciate input
Flow cytometry ordered by oncology-unrevealing
Tried a trial of diuresis, as recommended by [facility] covering and lining supervisor, could not help much.
Echo with severe right sided failure, bubble study does not show PFO
#Acute anemia
acute on chronic anemia likely due to acute blood loss anemia from upper GI bleed related to heparin PLUS dilutional from daily blood draws
s/p 1 unit pRBC, HGB today at 7.4
stopped IV heparin drip
Continue IV Protonix twice daily
GI following
No further EGD
norovirus positive
# Severe leukocytosis/neutrophilia
possible steroid effect versus neutrophilic leucocytic crisis
Continue steroid taper, now on p.o. steroids
WBC 88.7k today with predominant neutrophils
viral resp panel all negative, blood culture negative
norovirus positive, C. diff antigen positive/toxin negative
Antibiotics discontinued
Onc following
# Spiculated lung mass
eventual outpt PET and likely biopsy
IF positive for cancer; would explain propensity for being hypercoagulable as well as leukocytosis
onc consult apprec
# ANGELINA on CKD stage 3 with developing metabolic acidosis
Cr today at 3 (baseline 2)
Holding hydrochlorothiazide, lisinopril
apprec renal
cont on oral bicarb
Monitor BMP
# Essential hypertension
Continue reduced dose amlodipine and Coreg with hold parameters
# Hypercholesterolemia
Continue atorvastatin
# Gout
Continue allopurinol
CODE STATUS : DNR�after speaking to the family and patient at bedside.
DVT prophylaxis: Subcu heparin
Dispo: pt was accepted at [facility] by Dr. Cutler, however family (and pt) declined transfer
Anticipated Discharge: 24 - 48 hours
Subjective/Interval History
-
Date of Service: November 24, 2024
Objective Data
-
Labs:
Laboratory Results
11/24/24
04:51
WBC 88.7 H*
Hgb 7.4 L
Hct 22.4 L
Plt Count 135
Sodium 135
Potassium 4.4
Chloride 104
Carbon Dioxide 20 L
BUN 94 H
Creatinine 2.9 H
Glucose 124 H
Calcium 7.9 L
Total Bilirubin 0.7
AST 28
ALT 25
Alkaline Phosphatase 166 H
Vital Signs:
Vital Signs
Temp Pulse Resp BP Pulse Ox
97.8 F 71 12 123/53 89
11/24/24 03:32 11/24/24 06:00 11/24/24 06:00 11/24/24 06:00 11/24/24 06:00
I&O
11/23/24 11/24/24 11/25/24
06:59 06:59 06:59
Intake Total 720 / 720 600 / 600
Output Total 625 / 625 1350 / 1350
Balance 95 / 95 -750 / -750
Physical Exam
-
HEENT: Normocephalic and Atraumatic
Respiratory: Clear to Auscultation
Cardiac: Regular Rhythm and S1/S2
GI: Soft, Nontender, Nondistended and Normal Bowel Sounds
Skin: Warm and Dry
Neuro: Awake, Alert, Oriented and AO x 3
Psych: Calm
--- NOTE | 2024-11-24 08:09 | PTCARENOTE ---
Pt desating 84% now on 55 liters 100%. Rsp will continue to follow and attempt to wean.Pt remains AAOx3 pleasant and cooperative.
[2024-11-24 08:30] LABS: % Basophils 0.1 % (0-2); % Eosinophils 0.1 % (0-6); % Immature Granulocytes 6.3 % (0-0.5); % Lymphocytes 1.3 % (20.5-51.1); % Monocytes 2.8 % (1.7-9.3); % Neutrophils 89.4 % (42.2-75.2); Absolute Basophils 0.1 10^3/uL (0-0.2); Absolute Eosinophils 0.1 10^3/uL (0-0.7); Absolute Immature Granulocytes 5.6 10^3/uL (0-0.05); Absolute Lymphocytes 1.1 10^3/uL (1.2-3.4); Absolute Monocytes 2.5 10^3/uL (0.1-0.6); Absolute Neutrophils 79.3 10^3/uL (1.4-6.5); Nucleated Red Blood Cells % 0 % (-)
[2024-11-24] MEDS: MUCINEX 1200 MG PO ×2 (08:53→20:25)
[2024-11-24] MEDS: NSS (PRESERVATIVE FREE) 10 ML IV ×2 (08:53→20:24)
[2024-11-24] MEDS: PROTONIX IV 40 MG IV ×2 (08:53→20:24)
[2024-11-24] MEDS: VITAMIN D3 (cholecalciferol) 25 MCG PO (08:53)
[2024-11-24] MEDS: SODIUM BICARBONATE 1300 MG PO ×3 (08:54→20:25)
[2024-11-24] MEDS: DELTASONE 50 MG PO (08:54)
[2024-11-24] MEDS: DESENEX/MITRAZOL/ZEASORB 1 APPLIC TOPICAL ×2 (08:54→20:25)
[2024-11-24] MEDS: NORVASC 5 MG PO (08:54)
[2024-11-24] MEDS: LOW STRENGTH ASPIRIN 81 MG PO (08:54)
[2024-11-24] MEDS: COREG 3.125 MG PO ×2 (08:55→20:25)
--- NOTE | 2024-11-24 09:33 | W.PN.PUL3 ---
Today's Communication / Plan
-
I updated daughter that I think comfort measures would be appropriate here
She is in agreement, we discussed ways in which they may wish to see this fulfilled
She will discuss with family and let us know when they are ready to add more IV medications
I updated RN and RT about plan
Care team aware
Prognosis overall poor
Await family decision-making
Assessment
-
79-year-old male former tobacco smoker with a past medical history of gout, hyperlipidemia, hypertension and CKD who presents with shortness of breath, chest congestion and cough. Symptoms started around when he felt ill and he
improved over the next 2-3 weeks. He then developed sciatica around Julianna time and that had improved over the next 1 week. He did have shortness of breath that developed around and this worsened over the course of the following
week. He went to his doctor, Dr. Handy, on 11/10/2024 and found that his pulse oximeter was in the 50s. He was sent here to the ER for further evaluation, and found to be saturating 85% on room air. Saturations improved to the low 90s on 5 L/min
nasal cannula. Initially he was afebrile to 97.9 �F, pulse rate 71, breathing at 16 breaths minute, and BP 116/63. Initial labs showed leukocytosis to 43.9, Hb 10.9, increased eosinophil count of 1200, creatinine 2.9, potassium 5.2, glucose 122,
proBNP 18,700, and COVID antigen negative. Flu A/B swab also negative and blood cultures were collected. Initial CXR showed patchy parenchymal airspace opacities in both lungs with small bilateral pleural effusions and suspected bullous changes in
the lower lungs bilaterally. He was initially given 1 L NS 0.9%, ceftriaxone and Zithromax and admitted to telemetry. Antibiotics were continued and he continues to require oxygen. On 11/13/2024 his oxygen requirements worsened and he was started
on a partial rebreather and upgraded to the IMU. Pulmonary service now consulted for additional management/recommendations.
Impression:
Acute GI bleed, suspected to be upper with DDx including PUD, AVM, Dieulafoy lesion, or malignancy
Acute blood loss anemia
Acute respiratory failure with hypoxia, suspect chronic hypoxemia was ongoing
Acute on chronic leukocytosis with bandemia - suspect underlying hematologic malignancy; steroid induced leukocytosis noted more acutely
Sepsis without septic shock
Nausea/diarrhea with norovirus seen on stool culture (diagnosed on 11/14/2024)
Metabolic acidosis with normal anion gap
Acute HFpEF, severely elevated proBNP of >18,500 and echo findings
RV enlargement with reduced right ventricular systolic function and pulmonary hypertension with PASP: 46 mmHg seen on TTE from 11/14/2024
Spiculated right upper lobe nodule measuring 2.5 cm with multiple other noncalcified bilateral pulmonary nodules ranging from 3-8 mm
Pleural-based mass versus pleural thickening at the lateral right hemithorax measuring 2 x 1 cm
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
ANGELINA on CKD3b
Increased eosinophil count with absolute eosinophils: 1200 on admission (11/10/2024)
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
Hypertension
Dyslipidemia
CKD stage III
Gout
Vitamin D deficiency
Proteinuria
Carotid artery stenosis
Former tobacco smoker ([id number] history, quit 40 years ago)
Small hiatal hernia
Plan:
Remains on HFNC, 100%/50LPM, this has worsened in past 24 hours
More unresponsive this AM
Daughter at bedside
PE suspected given RV dysfunction but no evidence on CT
Empirically placed on IV heparin--discontinued
CKD with limiting factor on obtaining CTA
Continue prophylactic high dose SQ heparin
GI bleed on admission/melena noted, suspect UGIB
Received 1 U PRBC on 11/18/2024 due to Hb 7
Heparin gtt stopped--no further bleeding is noted
PPI gtt started and GI consulted
Unfortunately he is too high risk currently for an EGD, so was treated conservatively
Diet advanced, no bleeding--Remains on regular diet
He had diarrhea with nausea and his stool culture on 11/14/2024 was positive for norovirus
C. difficile antigen is positive but toxin negative � this is not consistent with an acute C. difficile infection
Chest imaging reviewed extensively
CT chest without contrast performed on 11/14/2024 showed no evidence of pneumonia, however there is severe bullous emphysematous changes with a right upper lobe spiculated nodule measuring 2.5 cm and multiple other lung nodules
Echo performed on 11/14/2024 showed no evidence of shunting by color-flow Doppler, with moderately elevated PASP at 46 mmHg, and enlarged RV with reduced RV systolic function --> this raises concern for an acute PE, however unable to do a CTA chest
given his ANGELINA
Echo was repeated on 11/17/2024 with a bubble study, and there was no evidence of shunt
Lower extremity duplex is negative for bilateral DVT
Continue to trend proBNP --> trial of diuresis on 11/17, gave Bumex 2mg IV x1 given he has bilateral pleural effusions on imaging, and hopefully this could offload the RV and possibly will improve his level of hypoxia --> still with no improvement in
FiO2 on 11/18/2024
IV steroids transitioned to PO pred
CKD noted, renal following
UO is poor, no response to diuretic
Renal has discussed possibility of HD in the future
Diuresis per team
Treated w/ cefepime s/p doxy (11/10-11/18/2024) + s/p Rocephin (11/10-11/12)
There is no evidence for pneumonia on CT chest performed on 11/14/2024
Agree with discontinuation and observation off
WBC is likely related to steroids and underlying malignancy
Will need eventual biopsy of lung nodule and/or BMB--family does not want to pursue aggressive measures
Transfer to [facility] on hold.
Pulmonary service will continue to follow along. He is DNR, discussed case with care team.
Hospice eval pending clinical deterioration.
Daughter is ok beginning discussions of comfort, she is calling family in
Family Discussions
Mary Lou 11/20/24-Spoke to family at bedside given his numerous serious medical issues and need for high risk procedures to obtain sufficient diagnoses. I fear his level of risk far outweighs any benefit from undergoing procedures/treatment for possible
(high suspected) malignancies, possible need for HD in the near future, possible respiratory compromise. He is currently DNR/DNI. Daughter understands that he is very high risk and that ultimately no matter what is pursued his overall prognosis is
poor. She would rather avoid high risk procedures and asked about hospice. I think hospice would be very appropriate in this situation. They will talk amongst themselves and make a final decision. They are ok cancelling transfer to [facility] as well.
I communicated this to care team.
[place] - Given that he has multiple bilateral pulmonary nodules with a right upper lobe spiculated lesion, this is concerning for malignancy. There are no former CT chest imaging, as per the patient and daughter. He has significant, extensive
bullous emphysema, hence performing a biopsy whether through robotic bronchoscopy or transthoracic needle aspiration, complications with a pneumothorax are very high. Ideally, would perform robotic bronchoscopy as this has a lower chance of
pneumothorax compared to TTNA. This will be discussed further as an outpatient, and he will need a PET/CT as well as an outpatient.
There is a possibility if PET/CT shows high FDG avidity in this right upper lobe spiculated lesion with no other concerning findings elsewhere in the lungs or outside the thorax, that he can get SBRT without a biopsy, if oncology and radiation
oncology agree with this treatment plan given the high risk for complications with biopsy and anesthesia considering his significant lung disease. This will be an ongoing discussion.
Diagnostic Data
CXR 11/10/2024: Patchy parenchymal airspace opacities within both lungs, appearance highly suggestive of pneumonia. Bullous changes within both lower lungs. Probable minimal bilateral pleural effusions. Cardiomegaly with no convincing pulmonary edema
pattern.
CT Chest without contrast 11/14/2024: No acute disease of the chest. Small right and tiny left pleural effusions. Findings consistent with severe emphysematous disease. Spiculated right upper lobe pulmonary mass. Noncalcified solid bilateral
pulmonary nodules concerning for malignancy until proven otherwise. PET imaging recommended. Bilateral adrenal thickening suggesting benign hyperplasia.
ECHO 11/17/24- Normal left ventricular systolic function. LVEF 55-60%. Interatrial septum is intact with no evidence of shunting by color-flow Doppler or agitated saline. No change compared to TTE on 11/14/2024.
-----
Total time spent today was 51 minutes for this encounter. Time includes reviewing laboratory test/imaging results, reviewing pertinent medical records, obtaining and reviewing medical history, performing an appropriate exam, ordering medications,
tests and procedures. Time also includes documentation of this encounter, coordinating patient care and communicating with other healthcare professionals. Total time does not include separately billed tests performed on this date of service.
Subjective Data
-
Date of Service:
Date of Service: November 24, 2024
Chief Complaint: Pulmonary Follow Up
Subjective:
Appears more unresponsive today
Daughter at bedside
DNR
Objective Data
Data Reviewed
Vital Signs / I&O / Oxygen:
Vital Signs
Temp Pulse Resp BP Pulse Ox
97.9 F 76 20 139/32 90
11/24/24 07:39 11/24/24 08:54 11/24/24 08:01 11/24/24 08:54 11/24/24 08:11
Intake and Output
11/23/24 11/24/24 11/25/24
06:59 06:59 06:59
Intake Total 720 / 720 600 / 600
Output Total 625 / 625 1350 / 1350 300 / 300
Balance 95 / 95 -750 / -750 -300 / -300
SaO2 90
Nasal Cannula flow liters per 55
minute
Physical Exam
General: Respiratory Distress (moderate), Chills (negative), Sweats (negative) and Poor Appetite
HEENT: Normocephalic and Anicteric
Cardiovascular: S1-S2, Regular Rhythm, Rub (negative) and Peripheral Edema (negative)
Respiratory: Clear, Wheeze (negative), Crackles (negative), Rhonchi (negative), Accessory Resp Muscle Use (appears more agonal) and Stridor (negative)
GI: Soft, Non Distended, Non Tender and Normal Bowel Sounds
Neurology: Tremors (negative) and Unresponsive
Skin: Warm, Dry, Cyanosis (negative) and Jaundice (negative)
Labs/Micro/Reports
Lab Data
11/24/24 04:51
11/24/24 04:51
--- NOTE | 2024-11-24 09:59 | W.PN.NEPH.PH ---
Today's Communication / Plan
-
follow BMP
Assessment/Plan
-
Impression:
ANGELINA
CKD 3B (~2)
Microhematuria
Hypoxic respiratory failure/. Suspected bilateral pneumonia
Profound leukocytosis
ProBNP 18,000 with no prior history of congestive heart failure
Hyperlipidemia
Hypertension
History of gout
Norovirus
Plan:
Follow BMP
Holding diuretics today
follow WBC
-
-
Date of Service: November 24, 2024
CC / HPI / ROS
-
Chief Complaint:
acute or chronic kidney disease
History of Present Illness:
Creatinine stable 3.0
Remains with metabolic acidosis on sodium bicarbonate 1300 mg 3 times daily
Heparin on hold due to GI bleed
WBC up higher 88.7
Platelets improving
Remains on high flow oxygen
Review of Systems:
no chest pain
Nonoliguric
Labs
-
Labs:
WBC 88.7 10^3/uL (4.8-10.8) H* 11/24/24 04:51
RBC 2.50 10^6/uL (4.70-6.10) L 11/24/24 04:51
Hgb 7.4 g/dL (13.0-18.0) L 11/24/24 04:51
Hct 22.4 % (39.0-52.0) L 11/24/24 04:51
Plt Count 135 10^3/uL (130-400) 11/24/24 04:51
Sodium 135 mmol/L (135-145) 11/24/24 04:51
Potassium 4.4 mmol/L (3.5-5.1) 11/24/24 04:51
Chloride 104 mmol/L (98-107) 11/24/24 04:51
Carbon Dioxide 20 mmol/L (22-30) L 11/24/24 04:51
BUN 94 mg/dl (9-20) H 11/24/24 04:51
Creatinine 2.9 mg/dL (0.7-1.3) H 11/24/24 04:51
eGFR 21.20 11/24/24 04:51
Glucose 124 mg/dl (70-99) H 11/24/24 04:51
Calcium 7.9 mg/dl (8.4-10.2) L 11/24/24 04:51
Phosphorus 4.7 mg/dl (2.5-4.5) H 11/19/24 03:55
Wgx-Z-Meesopvjuvo Pept 8560 pg/ml 11/19/24 03:55
Albumin 2.4 g/dl (3.5-5.0) L 11/24/24 04:51
Physical Exam
-
Vital Signs:
Vital Signs
Temp Pulse Resp BP Pulse Ox
97.9 F 76 20 139/32 90
11/24/24 07:39 11/24/24 08:54 11/24/24 08:01 11/24/24 08:54 11/24/24 08:11
Cardiovascular:: Regular rate and rhythm
Respiratory:: Bilateral: Coarse
Lung Excursion:: Normal
Abdomen:: Nontender and Soft
Bowel Sounds:: Normal
Extremity Edema:: None: Bilateral:
[2024-11-24] MEDS: ZYLOPRIM 100 MG PO (20:25)
[2024-11-24] MEDS: LIPITOR 40 MG PO (20:25)
[2024-11-25] VITALS (21 sets, daily range): BP systolic 107–167; BP diastolic 49–94
--- NOTE | 2024-11-25 01:58 | PTCARENOTE ---
Received pt from [facility]. Pt AAOx3, able to make needs known. NSR on monitor, good pedal pulses. Currently on HFNC 50L 100%. Lungs diminished with fine crackles in bases. PALMER, orthopneic. Pt incontinent of large soft bowel movement. Stress
incontinent of bladder. CC#30 applied. Moisture barrier cream applied to MASD in groin and sacral area. Pt scheduled for CXR in AM. Call em and belongings within reach. Care ongoing.
[2024-11-25 05:00] LABS: Hematocrit 22.1 % (39.0-52.0); Mean Corp Hgb Conc. 31.7 g/dL (33.0-37.0); Mean Corpuscular Hgb 28.3 pg (27.0-31.0); Mean Corpuscular Volume 89.5 fL (80.0-94.0); Mean Platelet Volume 11.2 fL (7.4-10.4); Platelet Count 146 10^3/uL (130-400); Red Blood Cell Count 2.47 10^6/uL (4.70-6.10); Red Cell Dist. Width 19.4 % (11.5-14.5); White Blood Cell Count 84.1 10^3/uL (4.8-10.8)
[2024-11-25 05:04] LABS: Blood Urea Nitrogen 87 mg/dl (9-20); Carbon Dioxide 20 mmol/L (22-30); Chloride 104 mmol/L (98-107); Estimated Creatinine Clearance 20 ml/min; Glucose 107 mg/dl (70-99); Potassium 4.5 mmol/L (3.5-5.1); Sodium 135 mmol/L (135-145); eGFR 22.12
[2024-11-25] MEDS: DUONEB 3 ML INH ×4 (07:22→19:48)
[2024-11-25] MEDS: MUCINEX 1200 MG PO ×2 (07:51→20:15)
[2024-11-25] MEDS: LOW STRENGTH ASPIRIN 81 MG PO (07:51)
[2024-11-25] MEDS: DELTASONE 50 MG PO (07:52)
[2024-11-25] MEDS: VITAMIN D3 (cholecalciferol) 25 MCG PO (07:52)
[2024-11-25] MEDS: COREG 3.125 MG PO ×2 (07:52→20:15)
[2024-11-25] MEDS: SODIUM BICARBONATE 1300 MG PO ×3 (07:52→20:16)
[2024-11-25] MEDS: NSS (PRESERVATIVE FREE) 10 ML IV ×2 (07:56→20:16)
[2024-11-25] MEDS: NORVASC 5 MG PO (07:56)
[2024-11-25] MEDS: PROTONIX IV 40 MG IV ×2 (07:56→20:16)
[2024-11-25] MEDS: DESENEX/MITRAZOL/ZEASORB 1 APPLIC TOPICAL ×2 (07:57→20:16)
[2024-11-25 08:52] LABS: % Basophils 0.1 % (0-2); % Lymphocytes 0.9 % (20.5-51.1); % Monocytes 1.9 % (1.7-9.3); % Neutrophils 91.1 % (42.2-75.2); Absolute Basophils 0.1 10^3/uL (0-0.2); Absolute Lymphocytes 0.7 10^3/uL (1.2-3.4); Absolute Monocytes 1.6 10^3/uL (0.1-0.6); Absolute Neutrophils 76.7 10^3/uL (1.4-6.5); Nucleated Red Blood Cells % 0 % (-)
--- NOTE | 2024-11-25 08:59 | W.PN.HOSP.TC ---
Today's Communication/Plan
-
see A/P
Assessment / Plan
Assessment / Plan
A/P:
# black liquid heme positive stool, resolved
# acute on chronic anemia likely due to acute blood loss from GI bleed and dilutional effect
s/p 1 unit PRBC, Hgb today at 7.0
Transfuse additional unit PRBC today
stopped IV heparin drip
changed PPI drip to IV BID
apprec GI, hold on further scopes
of note, norovirus positive
# Acute Hypoxic respiratory failure, unclear cause
Cont O2 support with high flow NC, now on 100%, with intermittent nonrebreather use;
wean O2 when able, pt not on home O2
cannot do CT PE study due to elevated creat, cannot do V/Q due to severe lung COPD, US neg for DVT,
empiric heparin drip was started but stopped without convincing evidence for PE
CT chest noted severe emphysematous change (COPD)
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
Echo with severe right sided failure, bubble study ruled out PFO
Follow up CXR 11/25 noted worsening pneumonitis. Cannot rule out component of underlying chronic interstitial lung disease.
Morphine low dose added for SOB/symptomatic control per family request (counselled on respiratory suppression, and family understands and accepts risk)
# Severe leukocytosis/neutrophilia
steroid effect with compounding leucocytosis crisis/leukostasis?
WBC 84 today with predominant neutrophils
tapering steroid per pulm, now on prednisone 50 mg daily
viral resp panel negative, blood culture negative
norovirus positive, C. diff antigen positive/toxin negative
Off abx per ID
Onc on board,
flow cytometry noted
# new spiculated lung mass
eventual outpt PET and likely biopsy
# ANGELINA on CKD stage 3 with developing metabolic acidosis
Cr today at 2.8 (baseline 2)
Holding hydrochlorothiazide, lisinopril
apprec renal
cont sodium bicarb
# Essential hypertension
Continue reduced dose of amlodipine 5 mg and Coreg 3.125 BID with hold parameters
BP stable
# Hypercholesterolemia
Lipitor
# Gout
Continue allopurinol
code status: confirmed DNR DNI
DVT prophylaxis: SCD
DW daughter at bedside
CC mx of persistent hypoxic respiratory failure,
CC time 40 min
Anticipated Discharge: > 48 hours
Subjective/Interval History
-
Date of Service: November 25, 2024
Objective Data
-
Labs:
Laboratory Results
11/25/24
03:57
WBC 84.1 H*
Hgb 7.0 L
Hct 22.1 L
Plt Count 146
Sodium 135
Potassium 4.5
Chloride 104
Carbon Dioxide 20 L
BUN 87 H
Creatinine 2.8 H
Glucose 107 H
Calcium 8.0 L
Vital Signs:
Vital Signs
Temp Pulse Resp BP Pulse Ox
36.7 C 79 22 117/52 94
11/24/24 23:51 11/25/24 07:26 11/25/24 07:26 11/25/24 07:52 11/25/24 07:26
I&O
11/24/24 11/25/24 11/26/24
06:59 06:59 06:59
Intake Total 600 / 600 240 / 240
Output Total 1350 / 1350 575 / 575
Balance -750 / -750 -335 / -335
Review of Systems
-
All other systems: Reviewed and negative
Physical Exam
-
General: Respiratory Distress, Conversant and Appears Chronically Ill
HEENT: Normocephalic, Atraumatic and Oxygen (high flow 100%, with NRB use)
Respiratory: Clear to Auscultation and Non Labored Respirations; Negative Accessory Resp Muscle Use
Cardiac: Regular Rhythm and S1/S2
GI: Soft, Nontender, Nondistended and Normal Bowel Sounds
Skin: Warm and Dry
Neuro: Awake and Alert
Psych: Calm and Intact Judgement/Insight (somewhat)
Data Reviewed
-
Diagnostic Radiology: Image personally visualized and interpreted and Report Reviewed by me
Labs: Labs Reviewed by me
--- NOTE | 2024-11-25 09:25 | W.PN.PUL3 ---
Today's Communication / Plan
-
Dr. Barreto updated daughter that I think comfort measures would be appropriate here
She is in agreement, we discussed ways in which they may wish to see this fulfilled
She will discuss with family and let us know when they are ready to add more IV medications
RN and RT were uodated about plan
Prognosis overall poor
Await family decision-making
Repeat CT chest today to see if he would be a candidate for pulse dose steroids
Assessment
-
79-year-old male former tobacco smoker with a past medical history of gout, hyperlipidemia, hypertension and CKD who presents with shortness of breath, chest congestion and cough. Symptoms started around when he felt ill and he
improved over the next 2-3 weeks. He then developed sciatica around [place] time and that had improved over the next 1 week. He did have shortness of breath that developed around and this worsened over the course of the following
week. He went to his doctor, Dr. Handy, on 11/10/2024 and found that his pulse oximeter was in the 50s. He was sent here to the ER for further evaluation, and found to be saturating 85% on room air. Saturations improved to the low 90s on 5 L/min
nasal cannula. Initially he was afebrile to 97.9 �F, pulse rate 71, breathing at 16 breaths minute, and BP 116/63. Initial labs showed leukocytosis to 43.9, Hb 10.9, increased eosinophil count of 1200, creatinine 2.9, potassium 5.2, glucose 122,
proBNP 18,700, and COVID antigen negative. Flu A/B swab also negative and blood cultures were collected. Initial CXR showed patchy parenchymal airspace opacities in both lungs with small bilateral pleural effusions and suspected bullous changes in
the lower lungs bilaterally. He was initially given 1 L NS 0.9%, ceftriaxone and Zithromax and admitted to telemetry. Antibiotics were continued and he continues to require oxygen. On 11/13/2024 his oxygen requirements worsened and he was started
on a partial rebreather and upgraded to the IMU. Pulmonary service now consulted for additional management/recommendations.
Impression:
Acute GI bleed, suspected to be upper with DDx including PUD, AVM, Dieulafoy lesion, or malignancy
Acute anemia
Acute respiratory failure with hypoxia, suspect chronic hypoxemia was ongoing
Acute on chronic leukocytosis with bandemia - suspect underlying hematologic malignancy; steroid induced leukocytosis noted more acutely
Sepsis without septic shock
Nausea/diarrhea with norovirus seen on stool culture (diagnosed on 11/14/2024)
Metabolic acidosis with normal anion gap
Acute HFpEF, severely elevated proBNP of >18,500 and echo findings
RV enlargement with reduced right ventricular systolic function and pulmonary hypertension with PASP: 46 mmHg seen on TTE from 11/14/2024
Spiculated right upper lobe nodule measuring 2.5 cm with multiple other noncalcified bilateral pulmonary nodules ranging from 3-8 mm
Pleural-based mass versus pleural thickening at the lateral right hemithorax measuring 2 x 1 cm
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
ANGELINA on CKD3b
Increased eosinophil count with absolute eosinophils: 1200 on admission (11/10/2024)
Chronic conditions [employer]:
Hypertension
Dyslipidemia
CKD stage III
Gout
Vitamin D deficiency
Proteinuria
Carotid artery stenosis
Former tobacco smoker (30-hnbc-modc history, quit 40 years ago)
Small hiatal hernia
Plan:
Remains on HFNC, 100%/50LPM, this has worsened in past 48 hours
He was more unresponsive on 11/24, but as of today he is awake, alert and following all commands
Daughter and at bedside
PE suspected given RV dysfunction - unable to do CTA chest given ANGELINA
Empirically placed on IV heparin--discontinued due to melena
GI bleed on admission/melena noted, suspect UGIB
Received 1 U PRBC on 11/18/2024 due to Hb 7
Heparin gtt stopped--no further bleeding is noted
PPI gtt started and GI consulted
Unfortunately he is too high risk currently for an EGD, so was treated conservatively
Diet advanced, no bleeding--Remains on regular diet
He had diarrhea with nausea and his stool culture on 11/14/2024 was positive for norovirus
C. difficile antigen is positive but toxin negative � this is not consistent with an acute C. difficile infection
Chest imaging reviewed extensively
CT chest without contrast performed on 11/14/2024 showed no evidence of pneumonia, however there is severe bullous emphysematous changes with a right upper lobe spiculated nodule measuring 2.5 cm and multiple other lung nodules
Echo performed on 11/14/2024 showed no evidence of shunting by color-flow Doppler, with moderately elevated PASP at 46 mmHg, and enlarged RV with reduced RV systolic function --> this raises concern for an acute PE, however unable to do a CTA chest
given his ANGELINA
Echo was repeated on 11/17/2024 with a bubble study, and there was no evidence of shunt
Lower extremity duplex is negative for bilateral DVT
Continue to trend proBNP --> trial of diuresis on 11/17, gave Bumex 2mg IV x1 given he has bilateral pleural effusions on imaging, and hopefully this could offload the RV and possibly will improve his level of hypoxia --> still with no improvement in
FiO2 on 11/18/2024
IV steroids transitioned to PO pred
Recheck CT chest today - if worsened GGO then will consider pulse dose steroids
CKD noted, renal following
UO is poor, no response to diuretic
Renal has discussed possibility of HD in the future
Diuresis per team
Treated w/ cefepime s/p doxy (11/10-11/18/2024) + s/p Rocephin (11/10-11/12)
There is no evidence for pneumonia on CT chest performed on 11/14/2024
Agree with discontinuation and observation off
WBC is likely related to steroids and underlying malignancy
Will need eventual biopsy of lung nodule and/or BMB--family does not want to pursue aggressive measures
Transfer to [place] on hold.
Pulmonary service will continue to follow along. He is DNR, discussed case with care team.
Hospice eval pending clinical deterioration.
Daughter is ok beginning discussions of comfort
Family Discussions
Mary Lou 11/20/24-Spoke to family at bedside given his numerous serious medical issues and need for high risk procedures to obtain sufficient diagnoses. I fear his level of risk far outweighs any benefit from undergoing procedures/treatment for possible
(high suspected) malignancies, possible need for HD in the near future, possible respiratory compromise. He is currently DNR/DNI. Daughter understands that he is very high risk and that ultimately no matter what is pursued his overall prognosis is
poor. She would rather avoid high risk procedures and asked about hospice. I think hospice would be very appropriate in this situation. They will talk amongst themselves and make a final decision. They are ok cancelling transfer to [place] as well.
I communicated this to care team.
[place] - Given that he has multiple bilateral pulmonary nodules with a right upper lobe spiculated lesion, this is concerning for malignancy. There are no former CT chest imaging, as per the patient and daughter. He has significant, extensive
bullous emphysema, hence performing a biopsy whether through robotic bronchoscopy or transthoracic needle aspiration, complications with a pneumothorax are very high. Ideally, would perform robotic bronchoscopy as this has a lower chance of
pneumothorax compared to TTNA. This will be discussed further as an outpatient, and he will need a PET/CT as well as an outpatient.
There is a possibility if PET/CT shows high FDG avidity in this right upper lobe spiculated lesion with no other concerning findings elsewhere in the lungs or outside the thorax, that he can get SBRT without a biopsy, if oncology and radiation
oncology agree with this treatment plan given the high risk for complications with biopsy and anesthesia considering his significant lung disease. This will be an ongoing discussion.
Diagnostic Data
CXR 11/10/2024: Patchy parenchymal airspace opacities within both lungs, appearance highly suggestive of pneumonia. Bullous changes within both lower lungs. Probable minimal bilateral pleural effusions. Cardiomegaly with no convincing pulmonary edema
pattern.
CT Chest without contrast 11/14/2024: No acute disease of the chest. Small right and tiny left pleural effusions. Findings consistent with severe emphysematous disease. Spiculated right upper lobe pulmonary mass. Noncalcified solid bilateral
pulmonary nodules concerning for malignancy until proven otherwise. PET imaging recommended. Bilateral adrenal thickening suggesting benign hyperplasia.
ECHO 11/17/24- Normal left ventricular systolic function. LVEF 55-60%. Interatrial septum is intact with no evidence of shunting by color-flow Doppler or agitated saline. No change compared to TTE on 11/14/2024.
-----
Total time spent today was 54 minutes for this encounter. Time includes reviewing laboratory test/imaging results, reviewing pertinent medical records, obtaining and reviewing medical history, performing an appropriate exam, ordering medications,
tests and procedures. Time also includes documentation of this encounter, coordinating patient care and communicating with other healthcare professionals. Total time does not include separately billed tests performed on this date of service.
Subjective Data
-
Date of Service:
Date of Service: November 25, 2024
Chief Complaint: Pulmonary Follow Up
Subjective:
Patient seen and evaluated today at bedside. Remains on high flow nasal cannula at 100 send FiO2, 50 L/min. Saturating 91% with heart rate 79 BP 116/94. He feels well. Family members at bedside and all questions were answered. He denies chest
pain, BARRIENTOS, nausea, fevers or chills.
Review of Systems
General: Other (Negative unless mentioned above)
Objective Data
Data Reviewed
Vital Signs / I&O / Oxygen:
Vital Signs
Temp Pulse Resp BP Pulse Ox
98.0 F 79 22 117/52 94
11/24/24 23:51 11/25/24 07:26 11/25/24 07:26 11/25/24 06:00 11/25/24 07:26
Intake and Output
11/24/24 11/25/24 11/26/24
06:59 06:59 06:59
Intake Total 600 / 600 240 / 240
Output Total 1350 / 1350 575 / 575
Balance -750 / -750 -335 / -335
SaO2 94
Nasal Cannula flow liters per 50
minute
Physical Exam
General: Respiratory Distress (mild, worse when he speaks), Comfortable, Chills (negative), Sweats (negative) and Poor Appetite
HEENT: Normocephalic and Anicteric
Cardiovascular: S1-S2, Rub (negative) and Peripheral Edema (negative)
Respiratory: Clear, Wheeze (negative), Crackles (negative), Rhonchi (negative), Accessory Resp Muscle Use (appears more agonal), Stridor (negative) and Other (Diminished breath sounds bilaterally)
GI: Soft, Non Distended, Non Tender and Normal Bowel Sounds
Neurology: AO x 3 and Tremors (negative)
Skin: Warm, Dry, Cyanosis (negative) and Jaundice (negative)
Labs/Micro/Reports
Lab Data
11/25/24 03:57
11/25/24 03:57
--- NOTE | 2024-11-25 09:39 | CM ---
Met with patient and daughter Kim
not ready for hospice
Discussed CM availability for needs.
PT/OT when medically appropriate
PLAN: to be determined following hospitalization progression
--- NOTE | 2024-11-25 11:27 | W.PN.NEPH.PH ---
Today's Communication / Plan
-
Follow BMP
Assessment/Plan
-
Impression:
ANGELINA
CKD 3B (~2)
Microhematuria
Hypoxic respiratory failure/. Suspected bilateral pneumonia
Profound leukocytosis
ProBNP 18,000 with no prior history of congestive heart failure
Hyperlipidemia
Hypertension
History of gout
Norovirus
Plan:
Follow BMP
Holding diuretics today still
follow WBC
Discussed with family at bedside
-
-
Date of Service: November 25, 2024
CC / HPI / ROS
-
Chief Complaint:
acute or chronic kidney disease
History of Present Illness:
Creatinine lower 2.8, BUN improving 87
Remains with metabolic acidosis on sodium bicarbonate 1300 mg 3 times daily
Heparin on hold due to GI bleed
WBC lower at 84K
Platelets improving
Remains on high flow oxygen
Review of Systems:
no chest pain
Nonoliguric
Labs
-
Labs:
WBC 84.1 10^3/uL (4.8-10.8) H* 11/25/24 03:57
RBC 2.47 10^6/uL (4.70-6.10) L 11/25/24 03:57
Hgb 7.0 g/dL (13.0-18.0) L 11/25/24 03:57
Hct 22.1 % (39.0-52.0) L 11/25/24 03:57
Plt Count 146 10^3/uL (130-400) 11/25/24 03:57
Sodium 135 mmol/L (135-145) 11/25/24 03:57
Potassium 4.5 mmol/L (3.5-5.1) 11/25/24 03:57
Chloride 104 mmol/L (98-107) 11/25/24 03:57
Carbon Dioxide 20 mmol/L (22-30) L 11/25/24 03:57
BUN 87 mg/dl (9-20) H 11/25/24 03:57
Creatinine 2.8 mg/dL (0.7-1.3) H 11/25/24 03:57
eGFR 22.12 11/25/24 03:57
Glucose 107 mg/dl (70-99) H 11/25/24 03:57
Calcium 8.0 mg/dl (8.4-10.2) L 11/25/24 03:57
Phosphorus 4.7 mg/dl (2.5-4.5) H 11/19/24 03:55
Bzq-H-Gtztsmrqqka Pept 8560 pg/ml 11/19/24 03:55
Albumin 2.4 g/dl (3.5-5.0) L 11/24/24 04:51
Physical Exam
-
Vital Signs:
Vital Signs
Temp Pulse Resp BP Pulse Ox
97.3 F 79 22 117/52 94
11/25/24 09:57 11/25/24 07:26 11/25/24 07:26 11/25/24 07:52 11/25/24 07:26
Cardiovascular:: Regular rate and rhythm
Respiratory:: Bilateral: Coarse
Lung Excursion:: Normal
Abdomen:: Nontender and Soft
Bowel Sounds:: Normal
Extremity Edema:: None: Bilateral:
[2024-11-25] MEDS: ZYLOPRIM 100 MG PO (20:15)
[2024-11-25] MEDS: LIPITOR 40 MG PO (20:16)
--- NOTE | 2024-11-25 23:13 | PTCARENOTE ---
assumed care of patient. pt is AAOx3 family at bedside. on 100% 50L HFNC with non-rebreather 97%. pt in good spirits. incontinent of moderate soft dark brown/black BM. condom cath #30 on and working. cream and desenex applied to groin and sacrum.
able to take pills one by one without issues. pt does get SOB at rest and exertion. care ongoing.
--- NOTE | 2024-11-25 23:59 | PTCARENOTE ---
went into patient's room, pt trying to get a drink of water. noted all oxygen off patient. oxygen down to 70% within seconds. recovered after a few minutes back to 98% maxed on HFNC with non-rebreather.
[2024-11-26] VITALS (14 sets, daily range): BP systolic 112–142; BP diastolic 50–66
[2024-11-26 05:36] LABS: Blood Urea Nitrogen 80 mg/dl (9-20); Calcium 8.1 mg/dl (8.4-10.2); Carbon Dioxide 22 mmol/L (22-30); Chloride 103 mmol/L (98-107); Estimated Creatinine Clearance 22 ml/min; Glucose 92 mg/dl (70-99); Potassium 4.6 mmol/L (3.5-5.1); Sodium 134 mmol/L (135-145); eGFR 24.17
[2024-11-26 06:05] LABS: Hematocrit 23.9 % (39.0-52.0); Hemoglobin 8.1 g/dL (13.0-18.0); Mean Corp Hgb Conc. 33.9 g/dL (33.0-37.0); Mean Corpuscular Hgb 30.1 pg (27.0-31.0); Mean Corpuscular Volume 88.8 fL (80.0-94.0); Platelet Count 133 10^3/uL (130-400); Red Blood Cell Count 2.69 10^6/uL (4.70-6.10); Red Cell Dist. Width 19.1 % (11.5-14.5); White Blood Cell Count 82.8 10^3/uL (4.8-10.8)
[2024-11-26] MEDS: DUONEB 3 ML INH ×4 (07:23→19:23)
[2024-11-26 08:09] LABS: % Basophils 0.1 % (0-2); % Eosinophils 0.1 % (0-6); % Immature Granulocytes 5.6 % (0-0.5); % Lymphocytes 1.2 % (20.5-51.1); % Monocytes 2.8 % (1.7-9.3); % Neutrophils 90.2 % (42.2-75.2); Absolute Basophils 0.1 10^3/uL (0-0.2); Absolute Eosinophils 0.1 10^3/uL (0-0.7); Absolute Immature Granulocytes 4.7 10^3/uL (0-0.05); Absolute Monocytes 2.4 10^3/uL (0.1-0.6); Absolute Neutrophils 74.7 10^3/uL (1.4-6.5); Nucleated Red Blood Cells % 0 % (-)
--- NOTE | 2024-11-26 08:30 | W.PN.HOSP.TC ---
Today's Communication/Plan
-
see A/P
Assessment / Plan
Assessment / Plan
A/P:
# black liquid heme positive stool, resolved
# acute on chronic anemia likely due to acute blood loss from GI bleed and dilutional effect
s/p 2 units PRBC, Hgb improved from 7.0 to 8.1 today
stopped IV heparin drip
changed PPI drip to IV BID
apprec GI, hold on further scopes
of note, norovirus positive
# Acute Hypoxic respiratory failure, unclear cause
Cont O2 support with high flow NC now at 100%, with now constant nonrebreather use;
wean O2 when able, pt not on home O2
cannot do CT PE study due to elevated creat, cannot do V/Q due to severe lung COPD, US neg for DVT,
empiric heparin drip was started but stopped without convincing evidence for PE
CT chest noted severe emphysematous change (COPD)
diuretics recommended by [facility] crown attacher, tried without improvement and Cr worsened
Echo with severe right sided failure, bubble study ruled out PFO
Follow up CXR 11/25 noted worsening pneumonitis. Cannot rule out component of underlying chronic interstitial lung disease.
Morphine low dose added for SOB/symptomatic control per family request (counselled on respiratory suppression, and family understands and accepts risk)
# Severe leukocytosis/neutrophilia
steroid effect with compounding leucocytosis crisis/leukostasis?
WBC 82 today with predominant neutrophils
tapering steroid per pulm, now on prednisone 50 mg daily
viral resp panel negative, blood culture negative
norovirus positive, C. diff antigen positive/toxin negative
Off abx per ID
flow cytometry noted
Onc on board
# new spiculated lung mass
eventual outpt PET and likely biopsy
# ANGELINA on CKD stage 3 with developing metabolic acidosis
Cr today at 2.8 (baseline 2)
Holding hydrochlorothiazide, lisinopril
apprec renal
cont sodium bicarb
# Essential hypertension
Continue reduced dose of amlodipine 5 mg and Coreg 3.125 BID with hold parameters
BP stable
# Hypercholesterolemia
Lipitor
# Gout
Continue allopurinol
code status: confirmed DNR DNI
DVT prophylaxis: SCD
DW daughter in person
CC mx of persistent hypoxic respiratory failure,
CC time 40 min
Anticipated Discharge: > 48 hours
Subjective/Interval History
-
Date of Service: November 26, 2024
Objective Data
-
Labs:
Laboratory Results
11/26/24
04:32
WBC 82.8 H*
Hgb 8.1 L
Hct 23.9 L
Plt Count 133
Sodium 134 L
Potassium 4.6
Chloride 103
Carbon Dioxide 22
BUN 80 H
Creatinine 2.6 H
Glucose 92
Calcium 8.1 L
Vital Signs:
Vital Signs
Temp Pulse Resp BP Pulse Ox
37.2 C 77 14 120/64 90
11/26/24 03:20 11/26/24 07:33 11/26/24 07:33 11/26/24 06:00 11/26/24 07:33
I&O
11/25/24 11/26/24 11/27/24
06:59 06:59 06:59
Intake Total 240 / 240 250 / 250
Output Total 575 / 575 1000 / 1000
Balance -335 / -335 -750 / -750
Review of Systems
-
All other systems: Reviewed and negative
Physical Exam
-
General: Respiratory Distress, Appears Chronically Ill and Other (lethargic)
HEENT: Normocephalic, Atraumatic and Oxygen (high flow 100%, with NRB use)
Respiratory: Clear to Auscultation and Non Labored Respirations; Negative Accessory Resp Muscle Use
Cardiac: Regular Rhythm and S1/S2
GI: Soft, Nontender, Nondistended and Normal Bowel Sounds
Skin: Warm and Dry
Neuro: Awake and Alert
Psych: Calm and Intact Judgement/Insight (somewhat)
Data Reviewed
-
Diagnostic Radiology: Image personally visualized and interpreted and Report Reviewed by me
Labs: Labs Reviewed by me
[2024-11-26] MEDS: MUCINEX 1200 MG PO ×2 (08:52→20:58)
[2024-11-26] MEDS: DELTASONE 50 MG PO (08:53)
[2024-11-26] MEDS: VITAMIN D3 (cholecalciferol) 25 MCG PO (08:53)
[2024-11-26] MEDS: LOW STRENGTH ASPIRIN 81 MG PO (08:53)
[2024-11-26] MEDS: SODIUM BICARBONATE 1300 MG PO (08:53)
[2024-11-26] MEDS: NORVASC 5 MG PO (08:53)
[2024-11-26] MEDS: COREG 3.125 MG PO ×2 (08:53→20:59)
[2024-11-26] MEDS: PROTONIX IV 40 MG IV ×2 (08:53→20:59)
[2024-11-26] MEDS: NSS (PRESERVATIVE FREE) 10 ML IV ×2 (08:53→20:59)
[2024-11-26] MEDS: DESENEX/MITRAZOL/ZEASORB 1 APPLIC TOPICAL ×2 (08:54→20:59)
--- NOTE | 2024-11-26 10:04 | W.PN.PUL3 ---
Today's Communication / Plan
-
Dr. Barreto updated daughter that I think comfort measures would be appropriate here
Dr. Machado had goals of care discussion with family on 11/26 also encouraging comfort given his continued severe hypoxia now with lethargic/minimally responsive mentation
Family in agreement with eventual transition to comfort, they are just not ready yet
She will discuss with family and let us know when they are ready to add more IV medications
Continue high flow NC + NRB with goal SpO2 88-95%
Keep HOB>30-45� with aspiration precautions
Prognosis overall poor
Await family decision-making
Repeat CT chest on 11/25/2024 shows continued concern for metastatic lung cancer --this was discussed with the family today as well
Pulmonary service will continue to follow along
Assessment
-
79-year-old male former tobacco smoker with a past medical history of gout, hyperlipidemia, hypertension and CKD who presents with shortness of breath, chest congestion and cough. Symptoms started around when he felt ill and he
improved over the next 2-3 weeks. He then developed sciatica around [place] time and that had improved over the next 1 week. He did have shortness of breath that developed around and this worsened over the course of the following
week. He went to his doctor, Dr. Handy, on 11/10/2024 and found that his pulse oximeter was in the 50s. He was sent here to the ER for further evaluation, and found to be saturating 85% on room air. Saturations improved to the low 90s on 5 L/min
nasal cannula. Initially he was afebrile to 97.9 �F, pulse rate 71, breathing at 16 breaths minute, and BP 116/63. Initial labs showed leukocytosis to 43.9, Hb 10.9, increased eosinophil count of 1200, creatinine 2.9, potassium 5.2, glucose 122,
proBNP 18,700, and COVID antigen negative. Flu A/B swab also negative and blood cultures were collected. Initial CXR showed patchy parenchymal airspace opacities in both lungs with small bilateral pleural effusions and suspected bullous changes in
the lower lungs bilaterally. He was initially given 1 L NS 0.9%, ceftriaxone and Zithromax and admitted to telemetry. Antibiotics were continued and he continues to require oxygen. On 11/13/2024 his oxygen requirements worsened and he was started
on a partial rebreather and upgraded to the IMU. Pulmonary service now consulted for additional management/recommendations.
Impression:
Acute GI bleed, suspected to be upper with DDx including PUD, AVM, Dieulafoy lesion, or malignancy
Acute anemia
Acute respiratory failure with hypoxia, suspect chronic hypoxemia was ongoing
Acute on chronic leukocytosis with bandemia - suspect underlying hematologic malignancy; steroid induced leukocytosis noted more acutely
Sepsis without septic shock
Nausea/diarrhea with norovirus seen on stool culture (diagnosed on 11/14/2024)
Metabolic acidosis with normal anion gap
Acute HFpEF, severely elevated proBNP of >18,500 and echo findings
RV enlargement with reduced right ventricular systolic function and pulmonary hypertension with PASP: 46 mmHg seen on TTE from 11/14/2024
Spiculated right upper lobe nodule measuring 2.5 cm with multiple other noncalcified bilateral pulmonary nodules ranging from 3-8 mm
Pleural-based mass versus pleural thickening at the lateral right hemithorax measuring 2 x 1 cm
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
ANGELINA on CKD3b
Increased eosinophil count with absolute eosinophils: 1200 on admission (11/10/2024)
Chronic conditions [employer]IATE:
Hypertension
Dyslipidemia
CKD stage III
Gout
Vitamin D deficiency
Proteinuria
Carotid artery stenosis
Former tobacco smoker ([id number] history, quit 40 years ago)
Small hiatal hernia
Plan:
He is more lethargic today and remains minimally responsive
Remains on HFNC, 100%/50LPM with nonrebreather over the high flow
He was more unresponsive on 11/24, was awake on 11/25, and as of 11/26 he is minimally responsive again
Daughter and at bedside
PE suspected given RV dysfunction - unable to do CTA chest given ANGELINA
Empirically placed on IV heparin--discontinued due to melena
GI bleed on admission/melena noted, suspect UGIB
Received 1 U PRBC on 11/18/2024 due to Hb 7
Heparin gtt stopped--no further bleeding is noted
PPI gtt started and GI consulted --> now on PPI 40mg IV BID
Unfortunately he is too high risk currently for an EGD, so was treated conservatively
Diet advanced, no bleeding--Remains on regular diet
He had diarrhea with nausea and his stool culture on 11/14/2024 was positive for norovirus
C. difficile antigen is positive but toxin negative � this is not consistent with an acute C. difficile infection
Chest imaging reviewed extensively
CT chest without contrast performed on 11/14/2024 showed no evidence of pneumonia, however there is severe bullous emphysematous changes with a right upper lobe spiculated nodule measuring 2.5 cm and multiple other lung nodules
Echo performed on 11/14/2024 showed no evidence of shunting by color-flow Doppler, with moderately elevated PASP at 46 mmHg, and enlarged RV with reduced RV systolic function --> this raises concern for an acute PE, however unable to do a CTA chest
given his ANGELINA
Echo was repeated on 11/17/2024 with a bubble study, and there was no evidence of shunt
Lower extremity duplex is negative for bilateral DVT
Continue to trend proBNP --> trial of diuresis on 11/17, gave Bumex 2mg IV x1 given he has bilateral pleural effusions on imaging, and hopefully this could offload the RV and possibly will improve his level of hypoxia --> still with no improvement in
FiO2 on 11/18/2024
IV steroids transitioned to PO pred
CT chest rechecked on 11/25 - shows continued concern for metastatic lung cancer
CKD noted, renal following
UO is poor, no response to diuretic
Renal has discussed possibility of HD in the future
Diuresis per team
Treated w/ cefepime s/p doxy (11/10-11/18/2024) + s/p Rocephin (11/10-11/12)
There is no evidence for pneumonia on CT chest performed on 11/14/2024
Agree with discontinuation and observation off Abx
WBC is likely related to steroids and underlying malignancy
Will need eventual biopsy of lung nodule and/or BMB--family does not want to pursue aggressive measures
Goals of care discussion with Dr. Machado on 11/26/2024: I had a family discussion today, explaining that CT chest shows continued suspicion for metastatic lung cancer. He continues to remain lethargic today with periods of minimal responsiveness,
and is on very high amounts of oxygen with high flow nasal cannula + nonrebreather and still with SpO2 in the low 90s/upper 80s range. I explained that we are prolonging William suffering, and we should really consider transitioning to comfort care.
Family understands this but they are just not ready yet. I asked them to pick a day when they would be ready, to have his family and friends come prior to us transitioning to comfort care. They are going to speak amongst themselves and continue
to take it day by day with eventual transition to comfort care given his continued severe hypoxia without clinical improvement in the 16 days that he has been here. Emotional support was provided to the family and all questions were answered.
Transfer to [facility] on hold.
Pulmonary service will continue to follow along. He is DNR/DNI, discussed case with care team.
Hospice eval pending clinical deterioration.
Daughter is ok beginning discussions of comfort
Family Discussions
Mary Lou 11/20/24-Spoke to family at bedside given his numerous serious medical issues and need for high risk procedures to obtain sufficient diagnoses. I fear his level of risk far outweighs any benefit from undergoing procedures/treatment for possible
(high suspected) malignancies, possible need for HD in the near future, possible respiratory compromise. He is currently DNR/DNI. Daughter understands that he is very high risk and that ultimately no matter what is pursued his overall prognosis is
poor. She would rather avoid high risk procedures and asked about hospice. I think hospice would be very appropriate in this situation. They will talk amongst themselves and make a final decision. They are ok cancelling transfer to [facility] as well.
I communicated this to care team.
Carter - Given that he has multiple bilateral pulmonary nodules with a right upper lobe spiculated lesion, this is concerning for malignancy. There are no former CT chest imaging, as per the patient and daughter. He has significant, extensive
bullous emphysema, hence performing a biopsy whether through robotic bronchoscopy or transthoracic needle aspiration, complications with a pneumothorax are very high. Ideally, would perform robotic bronchoscopy as this has a lower chance of
pneumothorax compared to TTNA. This will be discussed further as an outpatient, and he will need a PET/CT as well as an outpatient.
There is a possibility if PET/CT shows high FDG avidity in this right upper lobe spiculated lesion with no other concerning findings elsewhere in the lungs or outside the thorax, that he can get SBRT without a biopsy, if oncology and radiation
oncology agree with this treatment plan given the high risk for complications with biopsy and anesthesia considering his significant lung disease. This will be an ongoing discussion.
Diagnostic Data
CXR 11/10/2024: Patchy parenchymal airspace opacities within both lungs, appearance highly suggestive of pneumonia. Bullous changes within both lower lungs. Probable minimal bilateral pleural effusions. Cardiomegaly with no convincing pulmonary edema
pattern.
CT Chest without contrast 11/14/2024: No acute disease of the chest. Small right and tiny left pleural effusions. Findings consistent with severe emphysematous disease. Spiculated right upper lobe pulmonary mass. Noncalcified solid bilateral
pulmonary nodules concerning for malignancy until proven otherwise. PET imaging recommended. Bilateral adrenal thickening suggesting benign hyperplasia.
ECHO 11/17/24- Normal left ventricular systolic function. LVEF 55-60%. Interatrial septum is intact with no evidence of shunting by color-flow Doppler or agitated saline. No change compared to TTE on 11/14/2024.
-----
Total time spent today was 58 minutes for this encounter. Time includes reviewing laboratory test/imaging results, reviewing pertinent medical records, obtaining and reviewing medical history, performing an appropriate exam, ordering medications,
tests and procedures. Time also includes documentation of this encounter, coordinating patient care and communicating with other healthcare professionals. Total time does not include separately billed tests performed on this date of service.
Subjective Data
-
Date of Service:
Date of Service: November 26, 2024
Chief Complaint: Pulmonary Follow Up
Subjective:
Patient seen and evaluated this morning (late note entry). Much more lethargic today. Remains on high flow nasal cannula at 100% FiO2 with 50 L/min as well as a non-rebreather. SpO2 90%, HR 66 and BP 127/57.
Review of Systems
General: Unobtainable - Pat Unresp
Objective Data
Data Reviewed
Vital Signs / I&O / Oxygen:
Vital Signs
Temp Pulse Resp BP Pulse Ox
97.8 F 82 21 133/60 89
11/26/24 08:00 11/26/24 08:53 11/26/24 08:51 11/26/24 08:53 11/26/24 08:51
Intake and Output
11/25/24 11/26/24 11/27/24
06:59 06:59 06:59
Intake Total 240 / 240 250 / 250
Output Total 575 / 575 1000 / 1000
Balance -335 / -335 -750 / -750
SaO2 89
Nasal Cannula flow liters per 50
minute
Physical Exam
General: Respiratory Distress (negative), Comfortable, Chills (negative), Sweats (negative) and Other (lethargic)
HEENT: Normocephalic and Anicteric
Cardiovascular: S1-S2, Rub (negative) and Peripheral Edema (negative)
Respiratory: Clear, Wheeze (negative), Crackles (negative), Rhonchi (negative), Accessory Resp Muscle Use (appears more agonal), Stridor (negative) and Other (Diminished breath sounds bilaterally)
GI: Soft, Non Distended, Non Tender and Normal Bowel Sounds
Neurology: Tremors (negative) and Unresponsive
Skin: Warm, Dry, Cyanosis (negative) and Jaundice (negative)
Labs/Micro/Reports
Lab Data
11/26/24 04:32
11/26/24 04:32
--- NOTE | 2024-11-26 10:39 | W.PN.NEPH.PH ---
Today's Communication / Plan
-
reduce bicarb
Assessment/Plan
-
Impression:
ANGELINA
CKD 3B (~2)
Microhematuria
Hypoxic respiratory failure/. Suspected bilateral pneumonia
Profound leukocytosis
ProBNP 18,000 with no prior history of congestive heart failure
Hyperlipidemia
Hypertension
History of gout
Norovirus
Plan:
Follow BMP
Holding diuretics today still
reduce bicarb
check weight today
Discussed with family at bedside
-
-
Date of Service: November 26, 2024
CC / HPI / ROS
-
Chief Complaint:
acute or chronic kidney disease
History of Present Illness:
Creatinine lower 2.6, BUN improving 80
metabolic acidosis improving on sodium bicarbonate 1300 mg 3 times daily
Heparin on hold due to GI bleed
WBC lower at 82k
Remains on high flow oxygen
Review of Systems:
no chest pain
Nonoliguric
Labs
-
Labs:
WBC 82.8 10^3/uL (4.8-10.8) H* 11/26/24 04:32
RBC 2.69 10^6/uL (4.70-6.10) L 11/26/24 04:32
Hgb 8.1 g/dL (13.0-18.0) L 11/26/24 04:32
Hct 23.9 % (39.0-52.0) L 11/26/24 04:32
Plt Count 133 10^3/uL (130-400) 11/26/24 04:32
Sodium 134 mmol/L (135-145) L 11/26/24 04:32
Potassium 4.6 mmol/L (3.5-5.1) 11/26/24 04:32
Chloride 103 mmol/L (98-107) 11/26/24 04:32
Carbon Dioxide 22 mmol/L (22-30) 11/26/24 04:32
BUN 80 mg/dl (9-20) H 11/26/24 04:32
Creatinine 2.6 mg/dL (0.7-1.3) H 11/26/24 04:32
eGFR 24.17 11/26/24 04:32
Glucose 92 mg/dl (70-99) 11/26/24 04:32
Calcium 8.1 mg/dl (8.4-10.2) L 11/26/24 04:32
Phosphorus 4.7 mg/dl (2.5-4.5) H 11/19/24 03:55
Ixc-Y-Cldvkrwytfu Pept 8560 pg/ml 11/19/24 03:55
Albumin 2.4 g/dl (3.5-5.0) L 11/24/24 04:51
Physical Exam
-
Vital Signs:
Vital Signs
Temp Pulse Resp BP Pulse Ox
97.8 F 82 21 133/60 89
11/26/24 08:00 11/26/24 08:53 11/26/24 08:51 11/26/24 08:53 11/26/24 08:51
Cardiovascular:: Regular rate and rhythm
Respiratory:: Bilateral: Coarse
Lung Excursion:: Normal
Abdomen:: Nontender and Soft
Bowel Sounds:: Normal
Extremity Edema:: None: Bilateral:
[2024-11-26] MEDS: SODIUM BICARBONATE 650 MG PO ×2 (15:31→20:58)
--- NOTE | 2024-11-26 17:21 | PTCARENOTE ---
Patient AOx3. Patient can be anxious at times. NSR with PVCs on monitor. Patient on 100% 50L high flow with NRB. Condom cath in place draining yellow urine. Assist x2. Patients family at bedside throughout shift. Call em within reach, bed in
lowest position, and bed of wheels locked.
[2024-11-26] MEDS: ZYLOPRIM 100 MG PO (20:58)
[2024-11-26] MEDS: LIPITOR 40 MG PO (20:58)
[2024-11-27] VITALS (13 sets, daily range): BP systolic 115–144; BP diastolic 51–70; BMI 24.0
--- NOTE | 2024-11-27 00:30 | PTCARENOTE ---
Pt remains on HFNC 50L 100% with 15L nonrebreather, SaO2 92%. Orders to keep SaO2 above 87%. Pt drowsy, arouses to verbal/tactile stimuli. AAOx3. Son to stay overnight with pt.
[2024-11-27 05:17] LABS: Hematocrit 23.3 % (39.0-52.0); Hemoglobin 7.8 g/dL (13.0-18.0); Mean Corp Hgb Conc. 33.5 g/dL (33.0-37.0); Mean Corpuscular Hgb 29.4 pg (27.0-31.0); Mean Corpuscular Volume 87.9 fL (80.0-94.0); Mean Platelet Volume 10.3 fL (7.4-10.4); Platelet Count 119 10^3/uL (130-400); Red Blood Cell Count 2.65 10^6/uL (4.70-6.10); Red Cell Dist. Width 18.8 % (11.5-14.5); White Blood Cell Count 82.9 10^3/uL (4.8-10.8)
[2024-11-27 05:20] LABS: Blood Urea Nitrogen 75 mg/dl (9-20); Calcium 8.1 mg/dl (8.4-10.2); Carbon Dioxide 23 mmol/L (22-30); Chloride 102 mmol/L (98-107); Estimated Creatinine Clearance 24 ml/min; Glucose 100 mg/dl (70-99); Potassium 4.8 mmol/L (3.5-5.1); Sodium 132 mmol/L (135-145); eGFR 26.61
--- NOTE | 2024-11-27 07:32 | W.PN.HOSP.TC ---
Addendum entered and electronically signed by Kim De La Vega MD 11/27/24 12:52:
I saw and evaluated the patient. I reviewed the resident�s note and agree with findings and plan as documented in the resident�s note.
A/P:
# Acute Hypoxic respiratory failure, unclear cause
Cont O2 support with high flow NC 100% with nonrebreather mask;
Ongoing GOC discussion, family ready to transition pt to comfort measure should he continues to desat
Morphine low dose added for SOB/symptomatic control per family request (counselled on respiratory suppression, and family understands and accepts risk)
# Severe leukocytosis/neutrophilia
steroid effect with compounding leucocytosis crisis/leukostasis?
tapering steroid per pulm, now on prednisone 50 mg daily
viral resp panel negative, blood culture negative
norovirus positive, C. diff antigen positive/toxin negative
Off abx per ID
flow cytometry noted
Onc on board
# new spiculated lung mass
eventual outpt PET and likely biopsy if able to make it
# black liquid heme positive stool, resolved
# acute on chronic anemia likely due to acute blood loss from GI bleed and dilutional effect
s/p 2 units PRBC
# ANGELINA on CKD stage 3 with developing metabolic acidosis
Cr today at 2.4 (baseline 2)
Holding hydrochlorothiazide, lisinopril
cont sodium bicarb
apprec renal
# Essential hypertension
Continue reduced dose of amlodipine 5 mg and Coreg 3.125 BID with hold parameters
BP stable
# Hypercholesterolemia
Lipitor
# Gout
Continue allopurinol
code status: confirmed DNR DNI
DVT prophylaxis: SCD
DW son and daughter in person. Again, discussed GOC.
Original Note:
Today's Communication/Plan
-
Continue high flow and nonrebreather
Continue prednisone
As needed morphine
Assessment / Plan
Assessment / Plan
79-year-old male with past medical history significant for CKD stage IIIb, hypertension, hyperlipidemia, admitted for hypoxic respiratory failure.
Impression
Acute hypoxemic respiratory failure
Acute anemia
Elevated proBNP
ANGELINA on CKD
Essential hypertension
Hypercholesterolemia
Gout
Plan
Family discussion about opting for comfort care measures ongoing.
#Acute Hypoxemic respiratory failure
Patient is now on high flow, with FiO2 100%, 50 L, as well as on continuous nonrebreather mask, wean as tolerated keeping SpO2 88-95%.
White count at 82.9
No definite etiology�might be multifactorial�acute PE versus malignant process versus COPD versus pneumonia
Heparin drip discontinued due to melena. Also, if PE from a malignant process it would not help.
Not a candidate for CT chest PE study or VQ scan
Flow cytometry -unrevealing
Tried a trial of diuresis, as recommended by [facility] roller embosser, could not help much.
Echo with severe right sided failure, bubble study does not show PFO
CT chest rechecked on 11/25 - shows continued concern for metastatic lung cancer, severe bollous emphysema, bilat pleural effusions, small.
#Acute anemia
acute on chronic anemia likely due to acute blood loss anemia from upper GI bleed related to heparin PLUS dilutional from daily blood draws
s/p 2 unit pRBC, HGB today at 7.8
stopped IV heparin drip
Continue IV Protonix twice daily
GI following
No further EGD
norovirus positive
# Severe leukocytosis/neutrophilia
possible steroid effect versus neutrophilic leucocytic crisis
Continue prednisone, steroid taper from tomorrow 11/28/2024.
WBC 82.9 k today with predominant neutrophils
viral resp panel all negative, blood culture negative
norovirus positive, C. diff antigen positive/toxin negative
Antibiotics discontinued
Onc following
# Spiculated lung mass
eventual outpt PET and likely biopsy
IF positive for cancer; would explain propensity for being hypercoagulable as well as leukocytosis
onc consult apprec
# ANGELINA on CKD stage 3 with developing metabolic acidosis
Cr today at 2.4 (baseline 2)
Holding hydrochlorothiazide, lisinopril
apprec renal
cont on oral bicarb
Monitor BMP
# Essential hypertension
Continue reduced dose amlodipine and Coreg with hold parameters
# Hypercholesterolemia
Continue atorvastatin
# Gout
Continue allopurinol
CODE STATUS : DNR�after speaking to the family and patient at bedside.
DVT prophylaxis: SCD
Anticipated Discharge: 24 - 48 hours
Subjective/Interval History
-
Date of Service: November 27, 2024
Objective Data
-
Labs:
Laboratory Results
11/27/24
04:27
WBC 82.9 H*
Hgb 7.8 L
Hct 23.3 L
Plt Count 119 L
Sodium 132 L
Potassium 4.8
Chloride 102
Carbon Dioxide 23
BUN 75 H
Creatinine 2.4 H
Glucose 100 H
Calcium 8.1 L
Vital Signs:
Vital Signs
Temp Pulse Resp BP Pulse Ox
98.1 F 66 13 117/51 89
11/27/24 04:36 11/27/24 06:00 11/27/24 06:00 11/27/24 06:00 11/27/24 06:00
I&O
11/26/24 11/27/24 11/28/24
06:59 06:59 06:59
Intake Total 250 / 250 720 / 720
Output Total 1000 / 1000 1500 / 1500
Balance -750 / -750 -780 / -780
Physical Exam
-
General: Other (Appears lethargic)
HEENT: Normocephalic and Atraumatic
Respiratory: Clear to Auscultation and Other (Increased work of breathing)
Cardiac: Regular Rhythm and S1/S2
GI: Soft, Nontender, Nondistended and Normal Bowel Sounds
Skin: Warm and Dry
Neuro: Awake, Alert, Oriented and AO x 3
Psych: Calm
[2024-11-27] MEDS: DUONEB 3 ML INH ×4 (07:39→20:21)
[2024-11-27 07:53] LABS: % Lymphocytes 0.8 % (20.5-51.1); % Monocytes 2.5 % (1.7-9.3); % Neutrophils 91.7 % (42.2-75.2); Absolute Immature Granulocytes 4.2 10^3/uL (0-0.05); Absolute Lymphocytes 0.7 10^3/uL (1.2-3.4); Absolute Monocytes 2.1 10^3/uL (0.1-0.6); Nucleated Red Blood Cells % 0 % (-)
[2024-11-27] MEDS: VITAMIN D3 (cholecalciferol) 25 MCG PO (09:29)
[2024-11-27] MEDS: DELTASONE 50 MG PO (09:29)
[2024-11-27] MEDS: LOW STRENGTH ASPIRIN 81 MG PO (09:29)
[2024-11-27] MEDS: SODIUM BICARBONATE 650 MG PO ×2 (09:29→17:01)
[2024-11-27] MEDS: NORVASC 5 MG PO (09:29)
[2024-11-27] MEDS: COREG 3.125 MG PO (09:29)
[2024-11-27] MEDS: PROTONIX IV 40 MG IV ×2 (09:30→20:35)
[2024-11-27] MEDS: NSS (PRESERVATIVE FREE) 10 ML IV ×2 (09:30→20:35)
[2024-11-27] MEDS: FLUSH (NSS) 1 FLUSH IV ×3 (09:31→15:18)
[2024-11-27] MEDS: MUCINEX 1200 MG PO (09:33)
[2024-11-27] MEDS: DESENEX/MITRAZOL/ZEASORB 1 APPLIC TOPICAL ×2 (09:34→20:36)
--- NOTE | 2024-11-27 10:44 | W.PN.PUL3 ---
Today's Communication / Plan
-
Cont. HFO + NRB keep pulse ox >90
observe off ABX
Cont. nebs
PRN morphine if increased WOB.
prednisone without taper today,
At this point not candidate for lung biopsy etc.
Goal of care discussions ongoing.
Assessment
-
79-year-old male former tobacco smoker with a past medical history of gout, hyperlipidemia, hypertension and CKD who presents with shortness of breath, chest congestion and cough. Symptoms started around when he felt ill and he
improved over the next 2-3 weeks. He then developed sciatica around Julianna time and that had improved over the next 1 week. He did have shortness of breath that developed around and this worsened over the course of the following
week. He went to his doctor, Dr. Handy, on 11/10/2024 and found that his pulse oximeter was in the 50s. He was sent here to the ER for further evaluation, and found to be saturating 85% on room air. Saturations improved to the low 90s on 5 L/min
nasal cannula. Initially he was afebrile to 97.9 �F, pulse rate 71, breathing at 16 breaths minute, and BP 116/63. Initial labs showed leukocytosis to 43.9, Hb 10.9, increased eosinophil count of 1200, creatinine 2.9, potassium 5.2, glucose 122,
proBNP 18,700, and COVID antigen negative. Flu A/B swab also negative and blood cultures were collected. Initial CXR showed patchy parenchymal airspace opacities in both lungs with small bilateral pleural effusions and suspected bullous changes in
the lower lungs bilaterally. He was initially given 1 L NS 0.9%, ceftriaxone and Zithromax and admitted to telemetry. Antibiotics were continued and he continues to require oxygen. On 11/13/2024 his oxygen requirements worsened and he was started
on a partial rebreather and upgraded to the IMU. Pulmonary service now consulted for additional management/recommendations.
Impression:
Acute GI bleed, suspected to be upper with DDx including PUD, AVM, Dieulafoy lesion, or malignancy
Acute anemia
Acute respiratory failure with hypoxia, suspect chronic hypoxemia was ongoing
Acute on chronic leukocytosis with bandemia - suspect underlying hematologic malignancy; steroid induced leukocytosis noted more acutely
Sepsis without septic shock
Nausea/diarrhea with norovirus seen on stool culture (diagnosed on 11/14/2024)
Metabolic acidosis with normal anion gap
Acute HFpEF, severely elevated proBNP of >18,500 and echo findings
RV enlargement with reduced right ventricular systolic function and pulmonary hypertension with PASP: 46 mmHg seen on TTE from 11/14/2024
Spiculated right upper lobe nodule measuring 2.5 cm with multiple other noncalcified bilateral pulmonary nodules ranging from 3-8 mm
Pleural-based mass versus pleural thickening at the lateral right hemithorax measuring 2 x 1 cm
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
ANGELINA on CKD3b
Increased eosinophil count with absolute eosinophils: 1200 on admission (11/10/2024)
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
Hypertension
Dyslipidemia
CKD stage III
Gout
Vitamin D deficiency
Proteinuria
Carotid artery stenosis
Former tobacco smoker ([id number] history, quit 40 years ago)
Small hiatal hernia
Plan:
Alert but confused, family at bedside- Not complaining of dyspnea.
No improvement on oxygenation.
Remains on HFNC, 100%/50LPM with nonrebreather over the high flow
At times lethargic throughout hospital stay.
PE suspected given RV dysfunction - unable to do CTA chest given ANGELINA
Empirically placed on IV heparin--discontinued due to melena
GI bleed on admission/melena noted, suspect UGIB
Received 1 U PRBC on 11/18/2024 due to Hb 7
PPI gtt started and GI consulted --> now on PPI 40mg IV BID
Unfortunately he is too high risk currently for an EGD, so was treated conservatively
Diet advanced, no bleeding--Remains on regular diet
He had diarrhea with nausea and his stool culture on 11/14/2024 was positive for norovirus
C. difficile antigen is positive but toxin negative � this is not consistent with an acute C. difficile infection
Chest imaging reviewed extensively with family, by multiple doctors.
CT chest without contrast performed on 11/14/2024 showed no evidence of pneumonia, however there is severe bullous emphysematous changes with a right upper lobe spiculated nodule measuring 2.5 cm and multiple other lung nodules
Echo performed on 11/14/2024 showed no evidence of shunting by color-flow Doppler, with moderately elevated PASP at 46 mmHg, and enlarged RV with reduced RV systolic function --> this raises concern for an acute PE, however unable to do a CTA chest
given his ANGELINA
Echo was repeated on 11/17/2024 with a bubble study, and there was no evidence of shunt
Lower extremity duplex is negative for bilateral DVT
Continue to trend proBNP --> trial of diuresis on 11/17, gave Bumex 2mg IV x1 given he has bilateral pleural effusions on imaging, and hopefully this could offload the RV and possibly will improve his level of hypoxia --> still with no improvement in
FiO2 on 11/18/2024
IV steroids transitioned to PO pred 50mg, will start taper tomorrow 11/28/[address] chest rechecked on 11/25 - shows continued concern for metastatic lung cancer, severe bollous emphysema, bilat pleural effusions, small.
CKD noted, renal following
UO is poor, no response to diuretic
Willingham in place.
Renal has discussed possibility of HD in the future
Diuresis per team as able, did not tolerate as above
Treated w/ cefepime s/p doxy (11/10-11/18/2024) + s/p Rocephin (11/10-11/12)
There is no evidence for pneumonia on CT chest performed on 11/14/2024
observation off Abx
WBC is likely related to steroids and underlying malignancy
Will need eventual biopsy of lung nodule and/or BMB--family does not want to pursue aggressive measures- unlikely will be a candidate.
updated family at bedside 11/27/2024 - they still are taking it day by day. Prognosis guarded.
Goals of care discussion with Dr. Machado on 11/26/2024: I had a family discussion today, explaining that CT chest shows continued suspicion for metastatic lung cancer. He continues to remain lethargic today with periods of minimal responsiveness,
and is on very high amounts of oxygen with high flow nasal cannula + nonrebreather and still with SpO2 in the low 90s/upper 80s range. I explained that we are prolonging William suffering, and we should really consider transitioning to comfort care.
Family understands this but they are just not ready yet. I asked them to pick a day when they would be ready, to have his family and friends come prior to us transitioning to comfort care. They are going to speak amongst themselves and continue
to take it day by day with eventual transition to comfort care given his continued severe hypoxia without clinical improvement in the 16 days that he has been here. Emotional support was provided to the family and all questions were answered.
Transfer to [facility] on hold.
Pulmonary service will continue to follow along. He is DNR/DNI, discussed case with care team.
Hospice eval pending clinical deterioration.
Daughter is ok beginning discussions of comfort
Family Discussions
Mary Lou 11/20/24-Spoke to family at bedside given his numerous serious medical issues and need for high risk procedures to obtain sufficient diagnoses. I fear his level of risk far outweighs any benefit from undergoing procedures/treatment for possible
(high suspected) malignancies, possible need for HD in the near future, possible respiratory compromise. He is currently DNR/DNI. Daughter understands that he is very high risk and that ultimately no matter what is pursued his overall prognosis is
poor. She would rather avoid high risk procedures and asked about hospice. I think hospice would be very appropriate in this situation. They will talk amongst themselves and make a final decision. They are ok cancelling transfer to [facility] as well.
I communicated this to care team.
Carter - Given that he has multiple bilateral pulmonary nodules with a right upper lobe spiculated lesion, this is concerning for malignancy. There are no former CT chest imaging, as per the patient and daughter. He has significant, extensive
bullous emphysema, hence performing a biopsy whether through robotic bronchoscopy or transthoracic needle aspiration, complications with a pneumothorax are very high. Ideally, would perform robotic bronchoscopy as this has a lower chance of
pneumothorax compared to TTNA. This will be discussed further as an outpatient, and he will need a PET/CT as well as an outpatient.
There is a possibility if PET/CT shows high FDG avidity in this right upper lobe spiculated lesion with no other concerning findings elsewhere in the lungs or outside the thorax, that he can get SBRT without a biopsy, if oncology and radiation
oncology agree with this treatment plan given the high risk for complications with biopsy and anesthesia considering his significant lung disease. This will be an ongoing discussion.
Diagnostic Data
CXR 11/10/2024: Patchy parenchymal airspace opacities within both lungs, appearance highly suggestive of pneumonia. Bullous changes within both lower lungs. Probable minimal bilateral pleural effusions. Cardiomegaly with no convincing pulmonary edema
pattern.
CT Chest without contrast 11/14/2024: No acute disease of the chest. Small right and tiny left pleural effusions. Findings consistent with severe emphysematous disease. Spiculated right upper lobe pulmonary mass. Noncalcified solid bilateral
pulmonary nodules concerning for malignancy until proven otherwise. PET imaging recommended. Bilateral adrenal thickening suggesting benign hyperplasia.
ECHO 11/17/24- Normal left ventricular systolic function. LVEF 55-60%. Interatrial septum is intact with no evidence of shunting by color-flow Doppler or agitated saline. No change compared to TTE on 11/14/2024.
-----
Total time spent today was 58 minutes for this encounter. Time includes reviewing laboratory test/imaging results, reviewing pertinent medical records, obtaining and reviewing medical history, performing an appropriate exam, ordering medications,
tests and procedures. Time also includes documentation of this encounter, coordinating patient care and communicating with other healthcare professionals. Total time does not include separately billed tests performed on this date of service.
Subjective Data
-
Date of Service:
Date of Service: November 27, 2024
Chief Complaint: Pulmonary Follow Up
Objective Data
Data Reviewed
Vital Signs / I&O / Oxygen:
Vital Signs
Temp Pulse Resp BP Pulse Ox
97.8 F 78 18 117/51 89
11/27/24 07:35 11/27/24 07:44 11/27/24 07:44 11/27/24 06:00 11/27/24 07:44
Intake and Output
11/26/24 11/27/24 11/28/24
06:59 06:59 06:59
Intake Total 250 / 250 720 / 720 240 / 240
Output Total 1000 / 1000 1500 / 1500
Balance -750 / -750 -780 / -780 240 / 240
SaO2 89
Nasal Cannula flow liters per 50
minute
Physical Exam
General: Respiratory Distress (negative), Comfortable, Chills (negative), Sweats (negative) and Other (lethargic)
HEENT: Normocephalic and Anicteric
Cardiovascular: S1-S2, Rub (negative) and Peripheral Edema (negative)
Respiratory: Clear, Wheeze (negative), Crackles (negative), Rhonchi (negative), Accessory Resp Muscle Use (appears more agonal), Stridor (negative) and Other (Diminished breath sounds bilaterally)
GI: Soft, Non Distended, Non Tender and Normal Bowel Sounds
Neurology: Tremors (negative) and Unresponsive
Skin: Warm, Dry, Cyanosis (negative) and Jaundice (negative)
Labs/Micro/Reports
Lab Data
11/27/24 04:27
11/27/24 04:27
--- NOTE | 2024-11-27 12:47 | W.PN.NEPH.PH ---
Today's Communication / Plan
-
lasix and follow labs
Assessment/Plan
-
Impression:
ANGELINA
CKD 3B (~2)
Microhematuria
Hypoxic respiratory failure/. Suspected bilateral pneumonia
Profound leukocytosis
ProBNP 18,000 with no prior history of congestive heart failure
Hyperlipidemia
Hypertension
History of gout
Norovirus
Plan:
stable renal function cr at 2.4
wt is up, dose lasix 40mg x1
met acidosis-on po bicarb
check weight today
remains on high flow O2
monitor hyponatremia
Discussed with family at bedside
-
-
Date of Service: November 27, 2024
CC / HPI / ROS
-
Chief Complaint:
acute or chronic kidney disease
History of Present Illness:
Creatinine lower 2.4, BUN improving 75
metabolic acidosis better, dose lowered of po bicarb
Heparin on hold due to GI bleed
WBC at 82k
Remains on high flow oxygen
Review of Systems:
no chest pain
Nonoliguric
wt is up
Labs
-
Labs:
WBC 82.9 10^3/uL (4.8-10.8) H* 11/27/24 04:27
RBC 2.65 10^6/uL (4.70-6.10) L 11/27/24 04:27
Hgb 7.8 g/dL (13.0-18.0) L 11/27/24 04:27
Hct 23.3 % (39.0-52.0) L 11/27/24 04:27
Plt Count 119 10^3/uL (130-400) L 11/27/24 04:27
Sodium 132 mmol/L (135-145) L 11/27/24 04:27
Potassium 4.8 mmol/L (3.5-5.1) 11/27/24 04:27
Chloride 102 mmol/L (98-107) 11/27/24 04:27
Carbon Dioxide 23 mmol/L (22-30) 11/27/24 04:27
BUN 75 mg/dl (9-20) H 11/27/24 04:27
Creatinine 2.4 mg/dL (0.7-1.3) H 11/27/24 04:27
eGFR 26.61 11/27/24 04:27
Glucose 100 mg/dl (70-99) H 11/27/24 04:27
Calcium 8.1 mg/dl (8.4-10.2) L 11/27/24 04:27
Phosphorus 4.7 mg/dl (2.5-4.5) H 11/19/24 03:55
Apb-M-Jvwxeddhmpl Pept 8560 pg/ml 11/19/24 03:55
Albumin 2.4 g/dl (3.5-5.0) L 11/24/24 04:51
Physical Exam
-
Vital Signs:
Vital Signs
Temp Pulse Resp BP Pulse Ox
97.8 F 78 18 117/51 88
11/27/24 07:35 11/27/24 11:09 11/27/24 11:09 11/27/24 06:00 11/27/24 11:09
Cardiovascular:: Regular rate and rhythm
Respiratory:: Bilateral: Coarse
Lung Excursion:: Abnormal
Abdomen:: Nontender and Soft
Bowel Sounds:: Normal
Extremity Edema:: None: Bilateral:
Willingham Catheter: No
--- NOTE | 2024-11-27 13:46 | HOSPNOTE ---
Spoke with attending, the family does not wish for 'hospice' at this time. Will continue to follow.
[2024-11-27] MEDS: LASIX 40 MG IV (14:58)
[2024-11-27] MEDS: MORPHINE SULFATE 1 MG IV ×3 (15:17→22:23)
--- NOTE | 2024-11-27 16:29 | PTCARENOTE ---
Patient remain on high flow oxygen 100% with non-rebreather at all times. Sp02 86%-91%. Family has talked about comfort care. Met with hospice today. Patient remains a DNR. Medicated patient with 1mg IV morphine sulfate for shortness of breath.
Did not improve the pulse ox but patient seemed more comfortable. Family in room at bedside. One time dose IV lasix today as per Nephrology. Will continue to monitor frequently.
--- NOTE | 2024-11-27 17:10 | PTCARENOTE ---
Pt was with a POX at 77 family asked for Morphne 1 mg given as ordered early.
[2024-11-27] MEDS: COREG PO (19:53)
[2024-11-27] MEDS: MUCINEX PO (19:53)
[2024-11-27] MEDS: ZYLOPRIM PO (20:36)
[2024-11-27] MEDS: SODIUM BICARBONATE PO (20:36)
[2024-11-27] MEDS: LIPITOR PO (20:36)
[2024-11-28] VITALS: BP 127/60
[2024-11-28] MEDS: MORPHINE SULFATE 1 MG IV ×3 (01:05→06:28)
--- NOTE | 2024-11-28 01:05 | PTCARENOTE ---
Pt noted to be increasingly SOB, dyspneic on exertion and at rest. SaO2 76% on HFNC 50L 100% with 15L nonrebreather. MACHINE I COREMAKER notified, requested PRN morphine Q2H instead of Q4. Order placed for 1mg morphine Q2H PRN. Given at 22:23 and 01:05. Pt resting
comfortably in bed at this time.
[2024-11-28] MEDS: TRANSDERM-SCOP 1 PATCH TRANSDERM ×2 (01:57→10:12)
[2024-11-28 02:00] VITALS: BP 123/58
--- NOTE | 2024-11-28 02:05 | PTCARENOTE ---
Pt noted to have increased secretions. PALLET RECTIFIER notified. Scopolamine patch ordered and applied. SaO2 remains at 73% on 50L 100% HFNC with 15L non rebreather. Pt son in room at bedside.
[2024-11-28 04:00] VITALS: BP 117/88
[2024-11-28 04:42] LABS: Hematocrit 24.7 % (39.0-52.0); Hemoglobin 8.2 g/dL (13.0-18.0); Mean Corp Hgb Conc. 33.2 g/dL (33.0-37.0); Mean Corpuscular Hgb 29.4 pg (27.0-31.0); Mean Corpuscular Volume 88.5 fL (80.0-94.0); Mean Platelet Volume 10.8 fL (7.4-10.4); Platelet Count 121 10^3/uL (130-400); Red Blood Cell Count 2.79 10^6/uL (4.70-6.10); Red Cell Dist. Width 19.1 % (11.5-14.5); White Blood Cell Count 95.9 10^3/uL (4.8-10.8)
[2024-11-28 05:03] LABS: Blood Urea Nitrogen 73 mg/dl (9-20); Calcium 8.3 mg/dl (8.4-10.2); Carbon Dioxide 23 mmol/L (22-30); Chloride 101 mmol/L (98-107); Estimated Creatinine Clearance 24 ml/min; Glucose 100 mg/dl (70-99); Potassium 4.9 mmol/L (3.5-5.1); Sodium 134 mmol/L (135-145); eGFR 26.61
[2024-11-28 05:13] LABS: % Basophils 0.1 % (0-2); % Immature Granulocytes 4.6 % (0-0.5); % Lymphocytes 0.7 % (20.5-51.1); % Monocytes 1.8 % (1.7-9.3); % Neutrophils 92.8 % (42.2-75.2); Absolute Basophils 0.1 10^3/uL (0-0.2); Absolute Immature Granulocytes 4.4 10^3/uL (0-0.05); Absolute Lymphocytes 0.7 10^3/uL (1.2-3.4); Absolute Monocytes 1.7 10^3/uL (0.1-0.6); Nucleated Red Blood Cells % 0 % (-)
[2024-11-28 05:39] VITALS: BMI 23.3
[2024-11-28 06:00] VITALS: BP 117/59
[2024-11-28] MEDS: ATIVAN 2 MG IV ×2 (07:22→11:11)
[2024-11-28] MEDS: NSS (PRESERVATIVE FREE) 1 ML IV (07:24)
[2024-11-28] MEDS: DUONEB 3 ML INH (07:35)
[2024-11-28 08:00] VITALS: BP 101/53
--- NOTE | 2024-11-28 08:38 | W.PN.HOSP.TC ---
Addendum entered and electronically signed by Nadya Red MD 11/28/24 20:00:
I saw and evaluated the patient independently. I reviewed the resident�s note and agree with findings and plan as documented by Dr. Simmons.
GENERAL: chronically ill appearing male, unresponsive--appears with labored breathing
HEENT: NC/AT--100% HI VITO PLUS NRB mask
HEART: regular rate and rhythm, +S1, +S2
LUNGS : clear to auscultation bilaterally
ABDOM: soft, nontender, nondistended, + bowel sounds
EXT: no cyanosis, clubbing, or edema
NEUROLOGIC: unresponsive
Acute Hypoxemic respiratory failure --high flow, with FiO2 100%, 50 L, as well as on continuous nonrebreather mask, sats dropped down to 70's overnight--no definitive cause identified--acute pulmonary embolism with cor pulmonale most likely
possibility from suspected underlying lung cancer (other etiologies essentially ruled out: PNA, acute CHF, PFO)--cannot do CT PE study due to elevated creat, cannot do V/Q due to severe lung COPD, US neg for DVT, empiric heparin drip stopped--CT
scan with severe emphysematous change [COPD] and likely hypoxic at baseline as outpt-- diuretics recommended by [facility] critical care rn, tried and stopped, stopped cefepime/doxy/vanco--apprec pulm/ID/onc/cards/renal --no inpt workup desired by
oncology--Echo with severe right sided failure, bubble study does not show PFO
leukocytosis--WBC 95.5 with all neutrophils--FLOW Cytometry shows neutrophilia--possible steroid effect?--norovirus positive, C. diff antigen positive, toxin negative--no role inpt BM biopsy-- viral resp panel all negative
black liquid heme positive stool--resolved--stopped IV heparin drip--apprec GI--not doing further scopes--HGB dropped to 7.0, s/p 1 unit pRBC--HGB up
acute on chronic anemia likely due to acute blood loss anemia from GI bleed PLUS dilutional from daily blood draws--s/p 1 unit pRBC--HGB up to 7.9 11/19/24
new spiculated lung mass--likely lung cancer--will need outpt PET and likely biopsy, too risky to do at all--IF positive for cancer; would explain propensity for being hypercoagulable as well as leukocytosis--onc consult apprec
ANGELINA on CKD stage 3 now with developing metabolic acidosis--creat rising (baseline 2), worsened with diuretics (stopped)--Holding hydrochlorothiazide, lisinopril---apprec renal--cont on oral bicarb
Essential hypertension--Continue amlodipine--Continue Coreg
Hypercholesterolemia
Gout--Continue allopurinol
code status --DNR/DNI
DVT prophylaxis�heparin drip on hold
accepted in transfer to [facility] by Dr. Cutler--family (and pt) declining transfer, called transfer center and withdrew request
hospice was consulted but pt and family not ready
11/28/24--pt not responsive, transitioned to comfort measures--spoke with family today--now ready for hospice--started morphine drip and transitioned off O2--pt at 14:50 11/28/24--cause of acute hypoxemic resp failure due to severe
COPD and presumed lung cancer--family at bedside
Original Note:
Today's Communication/Plan
-
Comfort care measures/medications.
Assessment / Plan
Assessment / Plan
79-year-old male with past medical history significant for CKD stage IIIb, hypertension, hyperlipidemia, admitted for hypoxic respiratory failure.
Impression
Acute hypoxemic respiratory failure
Acute anemia
Elevated proBNP
ANGELINA on CKD
Essential hypertension
Hypercholesterolemia
Gout
Plan
Comfort care Measures and medications. Hospice nurse consulted, after discussing with the family at bedside. Patient's sats are dropping down to 60s even on max FiO2 and continuous non rebreather.
Rest of the patient's life prolonging medications are discontinued, patient is still on oxygen.
#Acute Hypoxemic respiratory failure
Patient is now on high flow, with FiO2 100%, 50 L, as well as on continuous nonrebreather mask, sats dropped down to 70's overnight.
White count at 95.9. Patient is not improving clinically.
No definitive etiology for his respiratory failure�might be multifactorial�acute PE versus malignant process versus COPD versus pneumonia
Heparin drip discontinued due to melena. Also, if PE from a malignant process it would not help.
Not a candidate for CT chest PE study or VQ scan
Flow cytometry -unrevealing
Tried a trial of diuresis, as recommended by [place] critical care rn, could not help much.
Echo with severe right sided failure, bubble study does not show PFO
CT chest rechecked on 11/25 - shows continued concern for metastatic lung cancer, severe bollous emphysema, bilat pleural effusions, small.
#Acute anemia
acute on chronic anemia likely due to acute blood loss anemia from upper GI bleed related to heparin PLUS dilutional from daily blood draws
s/p 2 unit pRBC,
stopped IV heparin drip
Discontinued IV Protonix
GI following
No further EGD
norovirus positive
# Severe leukocytosis/neutrophilia
possible steroid effect versus neutrophilic leucocytic crisis
Discontinued steroids
WBC 95.9 k today with predominant neutrophils
viral resp panel all negative, blood culture negative
norovirus positive, C. diff antigen positive/toxin negative
Antibiotics discontinued
Onc following
# Spiculated lung mass
Oncology planned to do outpatient PET scan.
# ANGELINA on CKD stage 3 with developing metabolic acidosis
Cr today at 2.4 (baseline 2)
Discontinued hydrochlorothiazide, lisinopril
apprec renal
cont on oral bicarb
Monitor BMP
# Essential hypertension
Discontinued amlodipine and Coreg
# Hypercholesterolemia
Discontinued atorvastatin
# Gout
Discontinued allopurinol
CODE STATUS : DNR�after speaking to the family and patient at bedside.
Anticipated Discharge: Within 24 hours
Subjective/Interval History
-
Date of Service: November 28, 2024
Patient is not arousable. Increased work of breathing.
Objective Data
-
Labs:
Laboratory Results
11/28/24
03:52
WBC 95.9 H*
Hgb 8.2 L
Hct 24.7 L
Plt Count 121 L
Sodium 134 L
Potassium 4.9
Chloride 101
Carbon Dioxide 23
BUN 73 H
Creatinine 2.4 H
Glucose 100 H
Calcium 8.3 L
Vital Signs:
Vital Signs
Temp Pulse Resp BP Pulse Ox
98.2 F 63 20 117/59 88
11/28/24 07:48 11/28/24 07:38 11/28/24 07:38 11/28/24 06:00 11/28/24 07:40
I&O
11/27/24 11/28/24 11/29/24
06:59 06:59 06:59
Intake Total 720 / 720 240 / 240
Output Total 1500 / 1500 1450 / 1450
Balance -780 / -780 -1210 / -1210
Review of Systems
-
Unable to obtain full review of systems at this time due to: Patient Non-verbal
Physical Exam
-
General: Respiratory Distress
HEENT: Normocephalic and Atraumatic
Respiratory: Crackles and Accessory Resp Muscle Use
Cardiac: Regular Rhythm and S1/S2
GI: Soft and Nondistended
Skin: Warm and Dry
Neuro: Negative Awake, Alert or Oriented
[2024-11-28] MEDS: MORPHINE SULFATE 2 MG IV ×3 (08:47→12:25)
[2024-11-28] MEDS: NSS (PRESERVATIVE FREE) 10 ML IV (08:49)
[2024-11-28] MEDS: PROTONIX IV 40 MG IV (08:49)
[2024-11-28] MEDS: LOW STRENGTH ASPIRIN PO (08:53)
[2024-11-28] MEDS: NORVASC PO (08:53)
[2024-11-28] MEDS: DELTASONE PO (08:53)
[2024-11-28] MEDS: MUCINEX PO (08:53)
[2024-11-28] MEDS: VITAMIN D3 (cholecalciferol) PO (08:54)
[2024-11-28] MEDS: SODIUM BICARBONATE PO (08:54)
[2024-11-28] MEDS: DESENEX/MITRAZOL/ZEASORB 1 APPLIC TOPICAL (08:54)
[2024-11-28] MEDS: COREG PO (08:54)
--- NOTE | 2024-11-28 09:57 | W.PN.UPDATE ---
Update Note
Progress Note Update
Transitioning to comfort measures with progressive hypoxia.
Flow cytometry with neutrophilia without any specific aberrancy
Heme/onc will sign off
[2024-11-28] MEDS: MORPHINE 100 IV (10:12)
--- NOTE | 2024-11-28 10:30 | W.PN.UPDATE ---
Update Note
Progress Note Update
Patient being transitioned to comfort measures.
Pulmonary team will sign off.
--- NOTE | 2024-11-28 10:44 | HOSPNOTE ---
Spoke with family at length and comfort care initiated. Patient will be started on a morphine drip, family in agreement to remove non rebreather mask but continue high flow until patient is comfortable then slowly wean down oxygen support. I will
continue to support family. Attending aware of plan.
--- NOTE | 2024-11-28 10:54 | CM ---
Patient and family seen at bedside. Plan for comfort care patient now on morphine drip per patient physician. CM will continue to follow for discharge planning needs.
Plan; hospice/comfort care
--- NOTE | 2024-11-28 11:41 | PTCARENOTE ---
Received this am, Arousable, drowsy. Max High flow O2 intact with NRB mask sao2 67%. RR 20 SR 85 RDOS 6 - provider here during change of shift- orders obtained for comfort measures and Meds adjusted. IV Ativan given. Reassessed in 1 hour RDOS 4-
Morphine 2mg given. Providers then ordered Morphine gtt- loading dose given and gtt initiated. Bathed and turned repositioned.
--- NOTE | 2024-11-28 12:03 | W.PN.UPDATE ---
Update Note
Progress Note Update
noted plan of ComfortCare
will s/o, call with ?s
--- NOTE | 2024-11-28 14:55 | W.PN.DEATH ---
Pronouncement of
-
Called to see patient to pronounce.
No spontaneous heart tones or respirations noted.
Patient not responsive to verbal stimuli.
Patient is pronounced .
Time of : 14:50
Date of : 11/28/24
Cause of : Acute hypoxemic respiratory failure due to advanced COPD with presumed lung cancer.
Family Notified: Yes (at bedside)
--- NOTE | 2024-11-28 15:37 | W.DCSUMMARY ---
Addendum entered and electronically signed by Nadya Red MD 11/28/24 20:01:
Read, reviewed, and agree. See same day progress note for additional details. Time spent coordinating care, DC planning, review of DC plan of care with resident, transition of care, review of records in EMR, med rec, consults, notes, d/w
consultants, nursing, family, and CM = 45 minutes
Original Note:
Discharge Summary
Discharge Data
Date of Admission: 11/10/24
Date of Discharge: 11/28/24
-
Pending Results: No
Hospital Course
Discharging physicians : Dr. Nadya Red, Dr. Abbe Simmons.
Primary care physician : Dr. Martín Handy
Principal Discharge diagnosis : Acute hypoxic respiratory failure, acute heart failure with preserved ejection fraction
Chronic Discharge diagnosis : COPD, CKD 3B, hypertension, hyperlipidemia, gout, carotid artery stenosis
Hospital Course : 79-year-old male former tobacco smoker with a past medical history of gout, hyperlipidemia, hypertension and CKD presents to the ER with shortness of breath and cough. These symptoms have been ongoing since September 2024. He
went to his PCP, Dr. Handy, on 11/10/2024 and found that his pulse oximeter was in the 50s. He was sent here to the ER for further evaluation.
ER course-on arrival he was found to be saturating at 85% on room air, started on NC, saturations improved to the low 90s on 5 L/min nasal cannula. Initially he was afebrile to 97.9 �F, pulse rate 71, breathing at 16 breaths minute, and BP 116/63.
Initial labs showed leukocytosis to 43.9, Hb 10.9, increased eosinophil count of 1200, creatinine 2.9, potassium 5.2, glucose 122, proBNP 18,700, and COVID antigen negative. Flu A/B swab also negative and blood cultures were collected. Initial
CXR showed patchy parenchymal airspace opacities in both lungs with small bilateral pleural effusions and suspected bullous changes in the lower lungs bilaterally. He was initially given 1 L NS 0.9%, ceftriaxone and Zithromax and admitted to
telemetry.
Respiratory failure likely related to pneumonia and his antibiotics were continued .Due to ANGELINA on CKD hydrochlorothiazide and lisinopril were held . Nephrology, cardiology and infectious disease consulted. Concerned for his elevated proBNP, echo
was done which showed ejection fraction of 55-60% enlarged right ventricular size, elevated PASP and reduced right ventricular systolic function. On 11/13/2024 his oxygen requirements worsened and he was started on a partial rebreather and upgraded
to the IMU. Ultrasound lower extremity showed no evidence of DVT. Patient is not a candidate for CT chest PE study, empiric IV heparin drip was started suspicious for acute PE�likely causative factor for his respiratory failure. CT chest plain
showed spiculated right upper lobe pulmonary mass, noncalcified solid bilateral pulmonary nodules concerning for malignancy and severe emphysematous disease. Heme-onc was consulted, recommended outpatient PET and tissue biopsy if FDG positive.
Patient had microhematuria, kidney/bladder ultrasound showed no significant pathology, and simple bilateral renal cysts. Patient's oxygen requirement has increased, his white count trended up day by day. Patient tested positive for C. difficile
antigens but toxin negative, also positive for norovirus. Legionella and streptococcal antigen negative. Blood culture and respiratory culture�negative. Patient's creatinine trended up high after 3 and renal started him on bicarb drip and later
transitioned to oral bicarb. Patient's white count (neutrophils) went creeping up high�might be multifactorial�steroids versus underlying undiagnosed malignancy versus infectious.
On 11/17/2024, patient began passing black stools. His heparin drip was held concern for upper GI bleed. Gastroenterology was consulted. Patient was started on IV Protonix.
It was not clear if infectious process was playing a role for his elevated white count and hypoxia, so antibiotics were discontinued and patient was closely monitored.
Patient's family wanted him to be transferred to [place], would prefer to continue patient care at [place]. Reached out to [place] transfer center, talked to ICU apparatus lineman Dr. Cutler regarding patient's condition in detail from the time of admission
until today and the reason for transferring him to [place] for further management. As per Dr. Cutler's recommendation, patient underwent a trial of diuresis which did not help much. Also had an echo with bubble study which did not show any evidence
of PFO. Family had a discussion, changed their mind and they no longer wanted him to be transferred to [place].
During the stay, patient required 2 PRBC transfusion for anemia. His H&H were monitored. CT abdomen pelvis- Subtle lucent lesion with cortical disruption demonstrated involving the posterior-superior medial right ilium measuring approximately 1.3
cm. Oncology recommend further evaluation/follow-up whole-body bone scan.
Patient steroids were weaned down, but the white count remained elevated. Oncology ordered flow cytometry which was unrevealing. Patient's oxygen requirement has been worsening, maxed out on high flow and requiring continuous nonrebreather, but
still saturating around 88%. Initiated goals of care discussion with the family, daughter is okay with comfort care measures, also requested for morphine to be given to the patient.
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 Started on comfort care measures/medications.Rest of the patient's
life prolonging medications were discontinued, patient was still on oxygen.Hospice nurse consulted, after discussing with the family at bedside.
At 14:50, patient was pronounced , after clinical exam (no spontaneous heart sounds, pulse, respirations noted )and reviewing EKG. Patient's family at bedside. Offered condolences to the family.
Cause of : Acute hypoxemic respiratory failure due to advanced COPD with presumed lung cancer.
Important imaging findings :
Chest x-ray 11/10/2024�Patchy parenchymal airspace opacities within both lungs, appearance highly suggestive of pneumonia.
Bullous changes within both lower lungs.
Probable minimal bilateral pleural effusions.
Cardiomegaly with no convincing pulmonary edema pattern.
Renal ultrasound 11/12/2024�Simple bilateral renal cysts. New
Mild bladder wall trabeculation which can be seen with chronic cystitis or bladder outlet obstruction.
Moderate prostate hypertrophy.
Chest CT 11/14/2024�No acute disease of the chest.
Small right and tiny left pleural effusions.
Findings consistent with severe emphysematous disease.
Spiculated right upper lobe pulmonary mass. Noncalcified solid bilateral pulmonary nodules concerning for malignancy until proven otherwise. PET imaging recommended.
Bilateral adrenal thickening suggesting benign hyperplasia.
Peripheral vascular ultrasound�11/14/2024�no evidence of DVT in the lower extremities.
Abdominal/pelvic CT 11/17/2024�No acute inflammatory process within the abdomen or pelvis.
No obstructive uropathy. Renal cysts.
Generalized mild diverticulosis. No evidence of acute diverticulitis. Liquefied feces in the colon, consistent with history of diarrhea. No bowel thickening or obstruction.
Subtle lucent lesion with cortical disruption demonstrated involving the posterior-superior medial right ilium measuring approximately 1.3 cm. Recommend further evaluation/follow-up whole-body bone scan.
Chest CT 11/25/2024�Marked emphysema again seen.
No findings to confirm pneumothorax.
Overall prominence of the pulmonary interstitium, difficult to differentiate acute versus chronic etiologies over a short period of time.
Irregular nodular opacities in the upper lobes bilaterally and small bilateral lung nodules again seen, findings again concerning for malignancy.
Small right pleural effusion without significant change. Tiny left pleural effusion.
Discharge Plan
-
Activity Restrictions/Additional Instructions:
Wound Care Instructions
Bilateral upper ear ulcers-clean with saline or soap and water, silicone foam, change every 3 days and as needed for loosened dressing.
Pad o2 strap above ears with silicone foam.
Protective silicone foam to bilateral facial cheek under o2 strap, change every 3 days and as needed for loosened dressing.
Yuliana/groin MASD-miconazole powder followed by barrier ointment twice a day and as needed for incontinence.
Under side of penis shaft abrasion-barrier ointment twice a day and as needed for incontinence.
Evaluate for an air mattress.
Elevate heels off bed with pillow/s.
Pressure redistributing chair cushion (i.e. Air chair cushion).
Follow up at wound care center if needed, call for an appointment.
Referrals:
Martín Handy MD [Family Provider] -
Gregorio Machado MD [Active] - in two to four weeks (full PFTs on day of office visit)
Prescriptions:
No Action
atorvastatin 40 mg Tablet
40 mg PO HS
carvedilol 6.25 mg Tablet
6.25 mg PO BID
allopurinol 100 mg Tablet
100 mg PO HS
acetaminophen [Tylenol Extra Strength] 500 mg Tablet
1,000 mg PO Q6HPRN PRN (Reason: mild pain)
amlodipine 10 mg Tablet
10 mg PO DAILY
aspirin 81 mg Tablet,Chewable
81 mg PO DAILY
hydrochlorothiazide 25 mg Tablet
25 mg PO DAILY
lisinopril 40 mg Tablet
40 mg PO HS
cholecalciferol (vitamin D3) [Vitamin D3] 25 mcg (1,000 unit) Tablet
25 mcg PO DAILY
Baking Soda
0.25 tsp PO DAILY
Patient Comments:
11/10/24: Instructed to take by their doctor, to mix with water every morning
Discharge Date and Time
Print Language: LITHUANIAN
--- NOTE | 2024-11-28 16:29 | CM ---
Patient today. Patient family at bedside, appreciative and stated family felt supported. CM will continue to follow as needed.
--- NOTE | 2024-11-28 16:53 | PTCARENOTE ---
at 1450 pt ceased respirations/asystole on monitor. family at bedside. attending dr made aware and pronounced.
== END 2024-11-28 14:50 | disposition expired | DRG 175 ==
LOC: IMU 17:57
PROVIDERS: Internal Medicine; Internal Medicine Hematology & Oncology; Physician Assistant; Specialist; Student in an Organized Health Care Education/Training Program; ADMITTING PHYSICIAN Hospitalist; ATTENDING PHYSICIAN Internal Medicine; CONSULT PHYSICIAN Internal Medicine; CONSULT PHYSICIAN Internal Medicine Critical Care Medicine; CONSULT PHYSICIAN Internal Medicine Infectious Disease; CONSULT PHYSICIAN Specialist; EMERGENCY PHYSICIAN Student in an Organized Health Care Education/Training Program; FAMILY PHYSICIAN Internal Medicine
PROC: 5A0935A Assistance with Respiratory Ventilation, Less than 24 Consecutive Hours, High Flow/Velocity Cannula (ICD-10-PCS; 2024-11-13)
PROC: 30233N1 Transfusion of Nonautologous Red Blood Cells into Peripheral Vein, Percutaneous Approach (ICD-10-PCS; 2024-11-18)
DX: I26.09 Other pulmonary embolism with acute cor pulmonale (principal); A41.9 Sepsis, unspecified organism; J96.01 Acute respiratory failure with hypoxia; K57.31 Diverticulosis of large intestine without perforation or abscess with bleeding; Z66 Do not resuscitate; Z51.5 Encounter for palliative care; A08.11 Acute gastroenteropathy due to Norwalk agent; E87.1 Hypo-osmolality and hyponatremia; N17.9 Acute kidney failure, unspecified; E87.20 Acidosis, unspecified; D68.32 Hemorrhagic disorder due to extrinsic circulating anticoagulants; D62 Acute posthemorrhagic anemia; C34.11 Malignant neoplasm of upper lobe, right bronchus or lung; E78.00 Pure hypercholesterolemia, unspecified; N18.32 Chronic kidney disease, stage 3b; E87.6 Hypokalemia; R31.29 Other microscopic hematuria; T45.515A Adverse effect of anticoagulants, initial encounter; N40.0 Benign prostatic hyperplasia without lower urinary tract symptoms; J43.9 Emphysema, unspecified; M10.9 Gout, unspecified; Z11.52 Encounter for screening for COVID-19; Z87.891 Personal history of nicotine dependence; Z79.899 Other long term (current) drug therapy; Z79.82 Long term (current) use of aspirin
CPT/HCPCS: 36600; 71045; 71046; 71250; 74176; 76770; 80048; 80053; 82103; 82330; 82805; 83516; 83605; 83735; 83880; 84100; 85014; 85018; 85025; 85027; 85379; 85384; 85610; 85652; 85730; 86140; 86160; 86850; 86900; 86901; 86920; 87040; 87070; 87205; 87324; 87449; 87502; 87633; 87798; 87811; 87899; 93005; 93306; 93307; 93970; 94640; 96361; 96365; 96375; 99285; P9016